=== PATIENT | male | born 1945 | race Caucasian/White ===

== ENCOUNTER → 2018-08-03 | Outpatient (CLI) | payer MEDICARE, OTHER ==
[2018-08-03 08:13] LABS: BASOPHILS # (AUTO) 0.1 10^3/uL (0.0-0.1); BASOPHILS % (AUTO) 1 % (0-10); EOSINOPHILS # (AUTO) 0.3 10^3/uL (0.0-0.3); EOSINOPHILS % (AUTO) 4 % (0-10); HEMATOCRIT 45 % (40-54); HEMOGLOBIN 14.9 G/DL (13.3-17.7); LYMPHOCYTES # (AUTO) 2.3 X 10^3 (1.0-4.0); LYMPHOCYTES % (AUTO) 37 % (12-44); MEAN CORPUSCULAR HEMOGLOBIN 33 PG (25-34); MEAN CORPUSCULAR HGB CONC 33 G/DL (32-36); MEAN CORPUSCULAR VOLUME 102 FL (80-99); MEAN PLATELET VOLUME 9.5 FL (7.4-10.4); MONOCYTES # (AUTO) 0.4 X 10^3 (0.0-1.0); MONOCYTES % (AUTO) 7 % (0-12); NEUTROPHILS # (AUTO) 3.2 X 10^3 (1.8-7.8); NEUTROPHILS % (AUTO) 51 % (42-75); PLATELET COUNT 254 10^3/uL (130-400); RED CELL DISTRIBUTION WIDTH 12.8 % (10.0-14.5); WHITE BLOOD COUNT 6.3 10^3/uL (4.3-11.0)
[2018-08-03 08:48] LABS: ALBUMIN 4.5 GM/DL (3.2-4.5); BILIRUBIN,TOTAL 0.6 MG/DL (0.1-1.0); CALCIUM 9.4 MG/DL (8.5-10.1); CREATININE SERUM 1.27 MG/DL (0.60-1.30); POTASSIUM 4.6 MMOL/L (3.6-5.0); TOTAL PROTEIN 7.5 GM/DL (6.4-8.2)
== END ==
LOC: LAB FS 07:28
PROVIDERS: ATTEND Internal Medicine Hematology & Oncology
DX: C7A.092 Malignant carcinoid tumor of the stomach (principal)
CPT/HCPCS: 36415; 80053; 84260; 85025; 86316

== ENCOUNTER → 2019-09-09 | Outpatient (CLI) | payer MEDICARE, OTHER ==
[~2019-09-09] MED LIST: BARIUM SUSPENSION 2.1% (VANILLA SILQ) 450 ML PO ONE; CATHETER FLUSH 10 ML SYR IV PRN; HOLD METFORMIN - RECEIVED CONTRAST 20 ML VIAL IV SCH; IOHEXOL 350 MG/ML 100 ML (OMNIPAQUE 350) VIAL IV ONE; NS 100 ML (IVPB) BAG IV ONE
[2019-09-09 11:29] LABS: ALBUMIN 4.4 GM/DL (3.2-4.5); BILIRUBIN,TOTAL 0.5 MG/DL (0.1-1.0); CALCIUM 9.2 MG/DL (8.5-10.1); CREATININE SERUM 1.32 MG/DL (0.60-1.30); POTASSIUM 5.2 MMOL/L (3.6-5.0); TOTAL PROTEIN 6.7 GM/DL (6.4-8.2)
--- NOTE | 2019-09-09 12:23 | Diagnostic Imaging Report ---
PROCEDURE: CT abdomen and pelvis with contrast. TECHNIQUE: Multiple contiguous axial images were obtained through the abdomen and pelvis after administration of intravenous contrast. Auto Exposure Controls were utilized during the CT exam to meet ALARA standards for radiation dose reduction. INDICATION: Follow-up cancer of the stomach. Patient has history of carcinoid tumor. COMPARISON: Comparison is made with prior CT from 08/03/2018. FINDINGS: The lung bases are clear of acute infiltrates. No discrete liver mass is identified. The gallbladder is unremarkable. There is no biliary ductal dilatation. The stomach appears to be stable in appearance. Pancreas and spleen are unremarkable. No discrete adrenal or renal mass is seen. Aorta is calcified but not aneurysmal. No central retroperitoneal or mesenteric lymphadenopathy is detected. Small and large bowel loops are normal caliber. There is diverticulosis of the sigmoid but no evidence of acute diverticulitis. There is no ascites. Bony structures are nonacute. The bladder and prostate are unremarkable. No definite pelvic lymphadenopathy is seen. IMPRESSION: Stable CT abdomen and pelvis since exam from 08/03/2018. No abdominal or pelvic lymphadenopathy or evidence of metastatic disease is detected. Dictated by: Dictated on workstation # [id number]
== END ==
LOC: RAD FS 10:25
PROVIDERS: ATTEND Internal Medicine Hematology & Oncology
DX: C7A.092 Malignant carcinoid tumor of the stomach (principal)
CPT/HCPCS: 36415; 74177; 80053

== ENCOUNTER → 2020-09-04 | Outpatient (CLI) | payer MEDICARE, OTHER ==
[~2020-09-04] MED LIST changes: -BARIUM SUSPENSION 2.1% (VANILLA SILQ) 450 ML PO ONE; +DIATRIZOATE MEGLUM/SODIUM 37% 120 ML (GASTROGRAFIN) PO ONE
[2020-09-04 08:37] LABS: BUN/CREATININE RATIO 15; CARBON DIOXIDE 25 MMOL/L (21-32); CHLORIDE 100 MMOL/L (98-107); CREATININE SERUM 1.11 MG/DL (0.60-1.30); GFR ESTIMATED > 60; POTASSIUM 4.1 MMOL/L (3.6-5.0); SODIUM 139 MMOL/L (135-145)
[2020-09-04 08:38] LABS: ALANINE AMINOTRANSFERASE 7 U/L (0-55); ALKALINE PHOSPHATASE 100 U/L (40-136); BILIRUBIN,TOTAL 0.5 MG/DL (0.1-1.0); CALCIUM 9.2 MG/DL (8.5-10.1); GLUCOSE 100 MG/DL (70-105); TOTAL PROTEIN 7.2 GM/DL (6.4-8.2)
[2020-09-04 08:59] LABS: BASOPHILS % (AUTO) 1 % (0-10); EOSINOPHILS % (AUTO) 2 % (0-10); HEMATOCRIT 43 % (40-54); HEMOGLOBIN 14.6 G/DL (13.3-17.7); LYMPHOCYTES # (AUTO) 2.1 X 10^3 (1.0-4.0); LYMPHOCYTES % (AUTO) 26 % (12-44); MEAN CORPUSCULAR HEMOGLOBIN 33 PG (25-34); MEAN CORPUSCULAR HGB CONC 34 G/DL (32-36); MEAN CORPUSCULAR VOLUME 98 FL (80-99); MEAN PLATELET VOLUME 9.5 FL (7.4-10.4); MONOCYTES % (AUTO) 8 % (0-12); NEUTROPHILS # (AUTO) 4.9 X 10^3 (1.8-7.8); NEUTROPHILS % (AUTO) 63 % (42-75); PLATELET COUNT 252 10^3/uL (130-400); WHITE BLOOD COUNT 7.8 10^3/uL (4.3-11.0)
[2020-09-04 09:00] LABS: BASOPHILS # (AUTO) 0.1 10^3/uL (0.0-0.1); EOSINOPHILS # (AUTO) 0.1 10^3/uL (0.0-0.3); MONOCYTES # (AUTO) 0.6 X 10^3 (0.0-1.0)
--- NOTE | 2020-09-04 09:45 | Diagnostic Imaging Report ---
INDICATION: Malignant carcinoid tumor of stomach. TECHNIQUE: Multiple contiguous axial images were obtained through the abdomen and pelvis after administration of intravenous contrast. Auto Exposure Controls were utilized during the CT exam to meet ALARA standards for radiation dose reduction. All CT scans use one or more of the following dose optimizing techniques: automated exposure control, MA and/or KvP adjustment based on patient size and exam type or iterative reconstruction. Comparison made to 09/09/2019 FINDINGS: The visualized portions of the lung bases show some linear scarring in the right base, but no infiltrate or nodule. There is no pleural fluid. There is no free intraperitoneal air. The liver shows no focal lesion. Gallbladder appears unremarkable. The spleen, adrenals, and pancreas show no focal lesions. There is some cortical scarring of both kidneys but no renal mass or hydronephrosis. There is no retroperitoneal mass or adenopathy. There is no ascites or abnormal fluid collection. Visualized bowel loops show no sign of obstruction. There are uncomplicated sigmoid diverticuli. There is some nonspecific thickening of the distal stomach. IMPRESSION: Stable CT abdomen and pelvis compared with 09/09/2019. There is some nonspecific thickening of distal stomach which could be due to under distention, correlate with endoscopy if clinically warranted. There is some chronic cortical scarring of both kidneys. There are uncomplicated sigmoid diverticuli. There is no mass or adenopathy. Dictated by: Dictated on workstation # [id number]
== END ==
LOC: LAB FS 07:35
PROVIDERS: ATTEND Internal Medicine Hematology & Oncology
DX: C7A.092 Malignant carcinoid tumor of the stomach (principal)
CPT/HCPCS: 36415; 74177; 80053; 84260; 85025; 86316

== ENCOUNTER 2022-01-13 09:17 | Emergency (ER) | payer MEDICARE, OTHER ==
[~2022-01-13] VITALS: Ht 180 cm; Wt 49.9 kg
[2022-01-13] MEDS ORDERED: hydrALAZINE (APESOLINE) 20 MG/ML VIAL IV STA (09:34)
[2022-01-13 09:44] LABS: BASOPHILS % (AUTO) 1 % (0-10); EOSINOPHILS # (AUTO) 0.1 10^3/uL (0.0-0.3); EOSINOPHILS % (AUTO) 1 % (0-10); HEMATOCRIT 36 % (40-54); HEMOGLOBIN 12.8 g/dL (13.3-17.7); LYMPHOCYTES % (AUTO) 28 % (12-44); MEAN CORPUSCULAR HEMOGLOBIN 35 pg (25-34); MEAN CORPUSCULAR HGB CONC 35 g/dL (32-36); MEAN CORPUSCULAR VOLUME 100 fL (80-99); MEAN PLATELET VOLUME 9.5 fL (9.0-12.2); MONOCYTES # (AUTO) 0.5 10^3/uL (0.0-1.0); MONOCYTES % (AUTO) 7 % (0-12); NEUTROPHILS # (AUTO) 4.6 10^3/uL (1.8-7.8); NEUTROPHILS % (AUTO) 64 % (42-75); PLATELET COUNT 190 10^3/uL (130-400); WHITE BLOOD COUNT 7.3 10^3/uL (4.3-11.0)
--- NOTE | 2022-01-13 09:52 | ED General ---
General Chief Complaint: Cardiac/General Problems Stated Complaint: ELEV BP Source of Information: Patient History of Present Illness Date Seen by Provider: Jan 13, 2022 Time Seen by Provider: 09:21 Initial Comments 76-year-old male presenting with complaints of elevated blood pressure. He states that he is started on medication on Friday of clonidine twice a day. He has had improved blood pressure last night down under 150 systolic. He states he did not sleep well overnight and then this morning his blood pressure was 225/125. He was having dizziness with this. Denies having headache, chest pain, nausea, vomiting, change in vision. After he took his clonidine around 830 he has had the blood pressure come down. His dizziness resolved. However he was told by the clinic if his blood pressure went above 180 he should come to the emergency department. An anesthesiologist recently told him that he could have a stroke with high blood pressure. Prior to having problems with his sh oulder he had not routinely been seen or followed up with the clinic so he is unsure how long his blood pressure may have been running high. Severity: Mild (dizziness this am) Modifying Factors: improves with Medication Associated Systoms: No Chest Pain, No Cough, No Diaphoresis, No Fever/Chills, No Headaches, No Loss of Appetite, No Malaise, No Nausea/Vomiting, No Rash, No Seizure, No Shortness of Air, No Syncope, No Weakness Allergies and Home Medications Allergies Coded Allergies: No Allergy Information Available (Unverified , 08/03/18) Patient Home Medication List Home Medication List Reviewed: Yes Review of Systems Review of Systems Constitutional: No chills; dizziness (this am with elevated blood pressure); No fever EENTM: no symptoms reported Respiratory: no symptoms reported Cardiovascular: no symptoms reported Gastrointestinal: no symptoms reported Genitourinary: no symptoms reported Musculoskeletal: joint pain (chronic pain to right shoulder and had recent procedure on it. wearing sling) Skin: no symptoms reported Psychiatric/Neurological: No Symptoms Reported Hematologic/Lymphatic: No Symptoms Reported Past Kzbyluq-Cuqdzf-Ghlvbx Hx Patient Social History Tobacco Use?: Yes Tobacco type used: Cigarettes Smoking Status: Current Everyday Smoker Substance use?: No Past Medical History Surgery/Hospitalization HX: Hypertension, Right shoulder arthritis Surgeries: Yes Orthopedic Physical Exam Vital Signs Vital Signs - First Documented 01/13/22 09:26 Temp 36.3 Pulse 77 Resp 17 B/P (MAP) 193/87 (122) Pulse Ox 98 O2 Delivery Room Air Capillary Refill : Height, Weight, BMI Height: '" Weight: lbs. oz. kg; BMI Method: General Appearance: No Apparent Distress, WD/WN HEENT: PERRL/EOMI, Pharynx Normal Neck: Full Range of Motion, Normal Inspection, Non Tender, Supple Respiratory: Chest Non Tender, Lungs Clear, Normal Breath Sounds, No Accessory Muscle Use, No Respiratory Distress Cardiovascular: Regular Rate, Rhythm, Normal Peripheral Pulses Gastrointestinal: Normal Bowel Sounds, No Pulsatile Mass, Non Tender, Soft Extremity: Normal Capillary Refill, Normal Inspection, No Pedal Edema Neurologic/Psychiatric: Alert, Oriented x3, No Motor/Sensory Deficits, Normal Mood/Affect, pasta maker II-XII Norm as Tested Skin: Normal Color, Warm/Dry Progress/Results/Core Measures Suspected Sepsis SIRS Temperature: Pulse: Respiratory Rate: Laboratory Tests 01/13/22 09:41: White Blood Count 7.3 Blood Pressure / Mean: Laboratory Tests 01/13/22 09:41: Creatinine 1.21, INR Comment 1.0, Platelet Count 190, Total Bilirubin 0.5 Results/Orders Lab Results Laboratory Tests Test 01/13/22 09:41 01/13/22 09:50 Range/Units White Blood Count 7.3 4.3-11.0 10^3/uL Red Blood Count 3.65 L 4.30-5.52 10^6/uL Hemoglobin 12.8 L 13.3-17.7 g/dL Hematocrit 36 L 40-54 % Mean Corpuscular Volume 100 H 80-99 fL Mean Corpuscular Hemoglobin 35 H 25-34 pg Mean Corpuscular Hemoglobin Concent 35 32-36 g/dL Red Cell Distribution Width 12.4 10.0-14.5 % Platelet Count 190 130-400 10^3/uL Mean Platelet Volume 9.5 9.0-12.2 fL Immature Granulocyte % (Auto) 0 % Neutrophils (%) (Auto) 64 42-75 % Lymphocytes (%) (Auto) 28 12-44 % Monocytes (%) (Auto) 7 0-12 % Eosinophils (%) (Auto) 1 0-10 % Basophils (%) (Auto) 1 0-10 % Neutrophils # (Auto) 4.6 1.8-7.8 10^3/uL Lymphocytes # (Auto) 2.0 1.0-4.0 10^3/uL Monocytes # (Auto) 0.5 0.0-1.0 10^3/uL Eosinophils # (Auto) 0.1 0.0-0.3 10^3/uL Basophils # (Auto) 0.0 0.0-0.1 10^3/uL Immature Granulocyte # (Auto) 0.0 0.0-0.1 10^3/uL Prothrombin Time 13.3 12.2-14.7 SEC INR Comment 1.0 0.8-1.4 Activated Partial Thromboplast Time 25 24-35 SEC Sodium Level 136 135-145 MMOL/L Potassium Level 4.0 3.6-5.0 MMOL/L Chloride Level 101 98-107 MMOL/L Carbon Dioxide Level 23 21-32 MMOL/L Anion Gap 12 5-14 MMOL/L Blood Urea Nitrogen 18 7-18 MG/DL Creatinine 1.21 0.60-1.30 MG/DL Estimat Glomerular Filtration Rate 63 BUN/Creatinine Ratio 15 Glucose Level 86 70-105 MG/DL Calcium Level 8.6 8.5-10.1 MG/DL Corrected Calcium 9.0 8.5-10.1 MG/DL Magnesium Level 1.5 L 1.6-2.4 MG/DL Total Bilirubin 0.5 0.1-1.0 MG/DL Aspartate Amino Transf (AST/SGOT) 17 5-34 U/L Alanine Aminotransferase (ALT/SGPT) 8 0-55 U/L Alkaline Phosphatase 62 40-136 U/L Troponin I < 0.30 <0.30 NG/ML Pro-B-Type Natriuretic Peptide 649.7 H <125.0 PG/ML Total Protein 5.8 L 6.4-8.2 GM/DL Albumin 3.5 3.2-4.5 GM/DL Urine Color YELLOW Urine Clarity CLEAR Urine pH 5.5 5-9 Urine Specific [place] 1.020 1.016-1.022 Urine Protein NEGATIVE NEGATIVE Urine Glucose (UA) NEGATIVE NEGATIVE Urine Ketones NEGATIVE NEGATIVE Urine Nitrite NEGATIVE NEGATIVE Urine Bilirubin NEGATIVE NEGATIVE Urine Urobilinogen 0.2 < = 1.0 MG/DL Urine Leukocyte Esterase NEGATIVE NEGATIVE Urine RBC (Auto) NEGATIVE NEGATIVE Urine RBC NONE /HPF Urine WBC RARE /HPF Urine Crystals NONE /LPF Urine Bacteria NEGATIVE /HPF Urine Casts NONE /LPF Urine Mucus SMALL H /LPF Urine Culture Indicated NO My Orders Orders - BETSY SIMONS MD Cbc With Automated Diff (01/13/22:34) Magnesium (01/13/22:34) Ekg Tracing (01/13/22:34) Comprehensive Metabolic Panel (01/13/22:34) Protime With Inr (01/13/22:34) Partial Thromboplastin Time (01/13/22:34) O2 (01/13/22:34) Monitor-Rhythm Ecg Trace Only (01/13/22:34) Ed Iv/Invasive Line Start (01/13/22:34) Troponin I Fs (01/13/22:34) Probnp Fs (01/13/22:34) Hydralazine Injection (Apresoline Inject (01/13/22:34) Ua Culture If Indicated (01/13/22:34) Vital Signs/I&O 01/13/22 01/13/22 01/13/22 09:26 09:26 10:39 Temp 36.3 36.2 Pulse 77 76 Resp 17 15 B/P (MAP) 193/87 (122) 138/76 Pulse Ox 98 100 O2 Delivery Room Air Room Air Room Air Capillary Refill : Progress Note #1: Progress Note Counseled patient on some balance that it would take several doses sometimes up to a week or more after taking the blood pressure medicine regularly to keep it at a lower level. Since he is only had 4 doses he will have elevated blood pressure in between when he takes the medicine. He denies any symptoms current ly of dizziness, headache, nausea, vomiting, chest pain, abdominal pain. Will check basic labs and cardiac enzymes. Administer hydralazine 10 mg IV as his blood pressure is 193/95. See if that helps in addition to the clonidine he had already taken at 830 this morning. Progress Note #2: Progress Note Blood pressure was improving even before the hydralazine was administered. Labs and electrocardiogram are all stable without acute findings of endorgan damage from the high blood pressure. Patient's blood pressure was improving and he continued to have no further symptoms such as headache, vision change, chest pain, nausea, vomiting, weakness in his arms or legs ECG Initial ECG Impression Date: Jan 13, 2022 Initial ECG Impression Time: 10:06 Initial ECG Rate: 60 Initial ECG Rhythm: Normal Sinus Initial ECG Comparisson: No Previous ECG Available Comment Normal sinus rhythm with a heart rate of [address] elevation. [place] interval 121 ms. QT interval 396 ms with a QTc interval 397 ms. There is no prior tracing available for comparison. Departure Impression Primary Impression: Hypertension Qualified Codes: I10 - Essential (primary) hypertension Disposition: 01 HOME, SELF-CARE Condition: Improved Departure-Patient Inst. Decision time for Depature: 10:28 Referrals: THANIA OZUNA DO (PCP) Primary Care Physician Patient Instructions: High Blood Pressure ED, Medicines for High Blood Pres sure, High Blood Pressure Emergencies, Controlling Your Blood Pressure Through Lifestyle, DASH Diet Add. Discharge Instructions: Continue taking the Clonidine to help control your blood pressure. Keep follow up this week with clinic for recheck. Be seen immediately if you have high blood pressure associated with headache, nausea/vomiting, blurred vision, chest pain, numbness or weakness in arms/legs (especially if this is on one side of your body only) All discharge instructions reviewed with patient and/or family. Voiced understanding. BETSY SIMONS MD Jan 13, 2022 09:52
[2022-01-13 10:01] LABS: BILIRUBIN,URINE NEGATIVE (NEGATIVE); CLARITY,URINE CLEAR; COLOR,URINE YELLOW; GLUCOSE, URINE (UA) NEGATIVE (NEGATIVE); KETONES,URINE NEGATIVE (NEGATIVE); LEUKOCYTE ESTERASE ,URINE NEGATIVE (NEGATIVE); NITRITE,URINE NEGATIVE (NEGATIVE); PH,URINE 5.5 (5-9); PROTEIN,URINE NEGATIVE (NEGATIVE)
[2022-01-13 10:01] LABS: PROTHROMBIN TIME PATIENT 13.3 SEC (12.2-14.7)
[2022-01-13 10:04] LABS: ALBUMIN 3.5 GM/DL (3.2-4.5); BILIRUBIN,TOTAL 0.5 MG/DL (0.1-1.0); CALCIUM 8.6 MG/DL (8.5-10.1); CREATININE SERUM 1.21 MG/DL (0.60-1.30); MAGNESIUM 1.5 MG/DL (1.6-2.4); TOTAL PROTEIN 5.8 GM/DL (6.4-8.2)
[2022-01-13 10:04] LABS: BACTERIA,URINE NEGATIVE /HPF; WBC,URINE RARE /HPF
[2022-01-13 10:39] VITALS: BP 138/76
== END 2022-01-13 10:39 | disposition home or self-care (01) ==
LOC: EDUNIT# 09:17 → ER FS 09:19
DX: I10 Essential (primary) hypertension (principal); F17.210 Nicotine dependence, cigarettes, uncomplicated; Z28.310 Unvaccinated for COVID-19; Z79.899 Other long term (current) drug therapy
CPT/HCPCS: 36415; 80053; 81000; 83735; 83880; 84484; 85025; 85610; 85730; 93005; 93041; 96374

== ENCOUNTER 2022-03-22 15:23 | Emergency (ER) | payer MEDICARE, OTHER ==
[~2022-03-22] VITALS: Ht 180.3 cm; Wt 45.4 kg
--- NOTE | 2022-03-22 15:37 | ED General ---
General Chief Complaint: Dizziness/Syncope Stated Complaint: DIZZY,BACK PAIN History of Present Illness Date Seen by Provider: Mar 22, 2022 Time Seen by Provider: 15:37 Initial Comments 76-year-old male with PMH of alcoholism/blood pressure issues/malnutrition, is here with complaints of lightheadedness which has been going on for the past couple of days. Patient does not give much more information than this. His is the one that give us more information stating that he drinks a bottle of vodka a day straight from the bottle, and he has no appetite at all and does not drink or eat much, other than a few bites. states that patient has seen his PCP regarding this issue and was given medication that stimulates his appetite, but patient only takes it once or twice a week instead of daily as he is supposed to. Patient feels extremely tired and lethargic with lightheadednes s. Patient did not eat anything today and only drank a few sips of water at home. Denies chest pain, fever, palpitations, ringing in his ears, blurry vision, abdominal pain, diarrhea. Allergies and Home Medications Allergies Coded Allergies: No Known Drug Allergies (Unverified , 03/22/22) Patient Home Medication List Home Medication List Reviewed: Yes Review of Systems Review of Systems Constitutional: dizziness, malaise EENTM: no symptoms reported Respiratory: no symptoms reported Cardiovascular: no symptoms reported Gastrointestinal: no symptoms reported Genitourinary: no symptoms reported Musculoskeletal: no symptoms reported Skin: no symptoms reported Psychiatric/Neurological: No Symptoms Reported Hematologic/Lymphatic: No Symptoms Reported Immunological/Allergic: no symptoms reported Past Cmnxqeh-Yyhbuv-Csdmny Hx Past Medical History Surgery/Hospitalization HX: Hypertension, Right shoulder arthritis Surgeries: Yes Orthopedic Physical Exam Vital Signs Vital Signs - First Documented 03/22/22 15:23 Temp 36.7 Pulse 82 Resp 16 B/P (MAP) 90/60 (70) Pulse Ox 98 O2 Delivery Room Air Capillary Refill : Height, Weight, BMI Height: '" Weight: lbs. oz. kg; 15.00 BMI Method: General Appearance: No Apparent Distress, WD/WN, Cachetic HEENT: PERRL/EOMI, Normal ENT Inspection Neck: Full Range of Motion, Supple Respiratory: Chest Non Tender, Lungs Clear, Normal Breath Sounds, No Accessory Muscle Use, No Respiratory Distress Cardiovascular: Regular Rate, Rhythm Gastrointestinal: Normal Bowel Sounds, Non Tender, Soft Back: Normal Inspection Extremity: Normal Range of Motion Neurologic/Psychiatric: Alert, Oriented x3, No Motor/Sensory Deficits, Normal Mood/Affect, application defense manager II-XII Norm as Tested Skin: Normal Color, Other (Tenting of skin present and dry mucous membranes) Lymphatic: No Adenopathy Focused Exam Lactate Level 03/22/22 15:45: Lactic Acid Level 1.74 Lactic Acid Level Laboratory Tests Test 03/22/22 15:45 Lactic Acid Level 1.74 MMOL/L (0.50-2.00) Progress/Results/Core Measures Suspected Sepsis SIRS Temperature: Pulse: Respiratory Rate: Laboratory Tests 03/22/22 15:45: White Blood Count 11.4H Blood Pressure / Mean: 03/22/22 15:45: Lactic Acid Level 1.74 Laboratory Tests 03/22/22 15:45: Creatinine 2.46H, Platelet Count 498H, Total Bilirubin 0.3 Results/Orders Lab Results Laboratory Tests Test 03/22/22 15:45 03/22/22 18:17 Range/Units White Blood Count 11.4 H 4.3-11.0 10^3/uL Red Blood Count 4.21 L 4.30-5.52 10^6/uL Hemoglobin 14.3 13.3-17.7 g/dL Hematocrit 41 40-54 % Mean Corpuscular Volume 97 80-99 fL Mean Corpuscular Hemoglobin 34 25-34 pg Mean Corpuscular Hemoglobin Concent 35 32-36 g/dL Red Cell Distribution Width 12.1 10.0-14.5 % Platelet Count 498 H 130-400 10^3/uL Mean Platelet Volume 9.8 9.0-12.2 fL Immature Granulocyte % (Auto) 1 % Neutrophils (%) (Auto) 66 42-75 % Lymphocytes (%) (Auto) 25 12-44 % Monocytes (%) (Auto) 7 0-12 % Eosinophils (%) (Auto) 1 0-10 % Basophils (%) (Auto) 0 0-10 % Neutrophils # (Auto) 7.6 1.8-7.8 10^3/uL Lymphocytes # (Auto) 2.8 1.0-4.0 10^3/uL Monocytes # (Auto) 0.9 0.0-1.0 10^3/uL Eosinophils # (Auto) 0.1 0.0-0.3 10^3/uL Basophils # (Auto) 0.1 0.0-0.1 10^3/uL Immature Granulocyte # (Auto) 0.1 0.0-0.1 10^3/uL Sodium Level 140 135-145 MMOL/L Potassium Level 5.0 3.6-5.0 MMOL/L Chloride Level 99 98-107 MMOL/L Carbon Dioxide Level 20 L 21-32 MMOL/L Anion Gap 21 H 5-14 MMOL/L Blood Urea Nitrogen 80 H 7-18 MG/DL Creatinine 2.46 H 0.60-1.30 MG/DL Estimat Glomerular Filtration Rate 27 BUN/Creatinine Ratio 33 Glucose Level 82 70-105 MG/DL Lactic Acid Level 1.74 0.50-2.00 MMOL/L Calcium Level 9.6 8.5-10.1 MG/DL Corrected Calcium 9.9 8.5-10.1 MG/DL Magnesium Level 2.2 1.6-2.4 MG/DL Total Bilirubin 0.3 0.1-1.0 MG/DL Aspartate Amino Transf (AST/SGOT) 13 5-34 U/L Alanine Aminotransferase (ALT/SGPT) 11 0-55 U/L Alkaline Phosphatase 106 40-136 U/L Troponin I < 0.30 <0.30 NG/ML Total Protein 6.9 6.4-8.2 GM/DL Albumin 3.6 3.2-4.5 GM/DL Urine Color YELLOW Urine Clarity CLEAR Urine pH 5.5 5-9 Urine Specific [place] 1.020 1.016-1.022 Urine Protein NEGATIVE NEGATIVE Urine Glucose (UA) NEGATIVE NEGATIVE Urine Ketones TRACE H NEGATIVE Urine Nitrite NEGATIVE NEGATIVE Urine Bilirubin NEGATIVE NEGATIVE Urine Urobilinogen 0.2 < = 1.0 MG/DL Urine Leukocyte Esterase NEGATIVE NEGATIVE Urine RBC (Auto) NEGATIVE NEGATIVE Urine RBC NONE /HPF Urine WBC NONE /HPF Urine Squamous Epithelial Cells 2-5 /HPF Urine Crystals NONE /LPF Urine Bacteria TRACE /HPF Urine Casts NONE /LPF Urine Mucus NEGATIVE /LPF Urine Culture Indicated NO Urine Opiates Screen NEGATIVE NEGATIVE Urine Oxycodone Screen NEGATIVE NEGATIVE Urine Methadone Screen NEGATIVE NEGATIVE Urine Propoxyphene Screen NEGATIVE NEGATIVE Urine Barbiturates Screen NEGATIVE NEGATIVE Ur Tricyclic Antidepressants Screen NEGATIVE NEGATIVE Urine Phencyclidine Screen NEGATIVE NEGATIVE Urine Amphetamines Screen NEGATIVE NEGATIVE Urine Methamphetamines Screen NEGATIVE NEGATIVE Urine Benzodiazepines Screen NEGATIVE NEGATIVE Urine Cocaine Screen NEGATIVE NEGATIVE Urine Cannabinoids Screen NEGATIVE NEGATIVE My Orders Orders - AMITA RENE MD Ct Head Wo (03/22/22 15:38) Cbc With Automated Diff (03/22/22 15:38) Comprehensive Metabolic Panel (03/22/22 15:38) Drug Screen Stat (Urine) (03/22/22 15:38) Lactic Acid Analyzer (03/22/22 15:38) Magnesium (03/22/22 15:38) Ua Culture If Indicated (03/22/22 15:38) Troponin I Fs (03/22/22 15:38) Continuous Ekg Monitoring (03/22/22 15:38) Ekg Tracing (03/22/22 15:38) Procalcitonin (Pct) (03/22/22 15:44) Ed Iv/Invasive Line Start (03/22/22 15:48) Ns Iv 1000 Ml (Sodium Chloride 0.9%) (03/22/22 16:00) Vital Signs/I&O 03/22/22 15:23 Temp 36.7 Pulse 82 Resp 16 B/P (MAP) 90/60 (70) Pulse Ox 98 O2 Delivery Room Air Capillary Refill : Progress Note : Progress Note 1. DEHYDRATION DUE TO ALCOHOLISM: - CT HEAD: see report - Labs unremarkable except for creatinine level which is elevated at 2.46. -UA is normal - NS IVF bolus STAT in ER. After this, pt's dizziness resolved. -Advised to stop drinking alcohol, increase fluid intake that is nonalcoholic, increased fluid intake. -Follow-up with PCP in 3 to 7 days -The patient was seen in the ED, and treated appropriately to presentation at a specific point in time. Patient is informed that there is a possibility that disease and illness can evolve and change in acuity rapidly or slowly after patient is discharged from the ER. Precautionary advice given to the patient for immediate return to ER if symptoms worsen or do not resolve, and to seek emerg ency care sooner rather than later. Pt also advised on the importance of PCP follow up and compliance with management and follow up plan with PCP and/or specialist, as this is part of the management plan. Pt verbally expressed understanding. Departure Impression Primary Impression: Dehydration Additional Impressions: Alcoholism Malnutrition Qualified Codes: E46 - Unspecified protein-calorie malnutrition Disposition: 01 HOME, SELF-CARE Condition: Improved Departure-Patient Inst. Referrals: THANIA OZUNA DO (PCP) Primary Care Physician GAGAN ISAACS APRN (Family) Primary Care Physician Patient Instructions: Why Water Is Important to Health, Alcohol Use Disorder ED, Dehydration, Adult ED, Vertigo (a Type of Dizziness) (DC) Add. Discharge Instructions: -Advised to stop drinking alcohol, increase fluid intake that is nonalcoholic, increased fluid intake. -Follow-up with PCP in 3 to 7 days All discharge instructions reviewed with patient and/or family. Voiced understanding. AMITA RENE MD Mar 22, 2022 15:37
[2022-03-22 15:52] LABS: BASOPHILS # (AUTO) 0.1 10^3/uL (0.0-0.1); BASOPHILS % (AUTO) 0 % (0-10); EOSINOPHILS # (AUTO) 0.1 10^3/uL (0.0-0.3); EOSINOPHILS % (AUTO) 1 % (0-10); HEMATOCRIT 41 % (40-54); HEMOGLOBIN 14.3 g/dL (13.3-17.7); LYMPHOCYTES # (AUTO) 2.8 10^3/uL (1.0-4.0); LYMPHOCYTES % (AUTO) 25 % (12-44); MEAN CORPUSCULAR HEMOGLOBIN 34 pg (25-34); MEAN CORPUSCULAR HGB CONC 35 g/dL (32-36); MEAN CORPUSCULAR VOLUME 97 fL (80-99); MEAN PLATELET VOLUME 9.8 fL (9.0-12.2); MONOCYTES # (AUTO) 0.9 10^3/uL (0.0-1.0); MONOCYTES % (AUTO) 7 % (0-12); NEUTROPHILS # (AUTO) 7.6 10^3/uL (1.8-7.8); NEUTROPHILS % (AUTO) 66 % (42-75); PLATELET COUNT 498 10^3/uL (130-400); WHITE BLOOD COUNT 11.4 10^3/uL (4.3-11.0)
[2022-03-22] MEDS ORDERED: NS IV 1000 ML 1,000 ML IV SCH (16:00)
[2022-03-22 16:22] LABS: ALANINE AMINOTRANSFERASE 11 U/L (0-55); ALBUMIN 3.6 GM/DL (3.2-4.5); ALKALINE PHOSPHATASE 106 U/L (40-136); BILIRUBIN,TOTAL 0.3 MG/DL (0.1-1.0); BUN/CREATININE RATIO 33; CALCIUM 9.6 MG/DL (8.5-10.1); CARBON DIOXIDE 20 MMOL/L (21-32); CHLORIDE 99 MMOL/L (98-107); CREATININE SERUM 2.46 MG/DL (0.60-1.30); GFR ESTIMATED 27; GLUCOSE 82 MG/DL (70-105); MAGNESIUM 2.2 MG/DL (1.6-2.4); SODIUM 140 MMOL/L (135-145); TOTAL PROTEIN 6.9 GM/DL (6.4-8.2)
--- NOTE | 2022-03-22 16:42 | Diagnostic Imaging Report ---
PROCEDURE: CT head without contrast. TECHNIQUE: Multiple contiguous axial images were obtained through the brain without the use of intravenous contrast. Auto Exposure Controls were utilized during the CT exam to meet ALARA standards for radiation dose reduction. INDICATION: 76-year-old male with near syncopal episodes. COMPARISONS: None. FINDINGS: The midline structures are not displaced. There are senescent changes to the brain with involutional changes and generalized atrophy, slightly advanced for age. Tyler-white differentiation is maintained, and there is no sulcal effacement. There are no abnormal extra-axial fluid collections or hemorrhage. Basilar cisterns appear normal. Sinuses show moderate chronic maxillary sinus disease. Orbits and mastoid air cells are grossly unremarkable. Bone windows show no calvarial changes. IMPRESSION: Senescent brain with involutional changes and generalized atrophy with background chronic areas of microvascular ischemic change, but no acute findings identified by nonenhanced CT criteria. Dictated by: Dictated on workstation # [id number]
[2022-03-22 18:19] LABS: BILIRUBIN,URINE NEGATIVE (NEGATIVE); CLARITY,URINE CLEAR; COLOR,URINE YELLOW; GLUCOSE, URINE (UA) NEGATIVE (NEGATIVE); KETONES,URINE TRACE (NEGATIVE); LEUKOCYTE ESTERASE ,URINE NEGATIVE (NEGATIVE); NITRITE,URINE NEGATIVE (NEGATIVE); PH,URINE 5.5 (5-9); PROTEIN,URINE NEGATIVE (NEGATIVE)
[2022-03-22 18:22] LABS: BACTERIA,URINE TRACE /HPF
[2022-03-22 18:32] LABS: AMPHETAMINE SCREEN, URINE NEGATIVE (NEGATIVE); BARBITURATE SCREEN URINE NEGATIVE (NEGATIVE); BENZODIAZEPINES SCREEN URINE NEGATIVE (NEGATIVE); CANNABINOID SCREEN, URINE NEGATIVE (NEGATIVE); COCAINE SCREEN URINE NEGATIVE (NEGATIVE); METHADONE STAT NEGATIVE (NEGATIVE); OPIATE SCREEN URINE NEGATIVE (NEGATIVE); OXYCODONE STAT NEGATIVE (NEGATIVE); PROPOXYPHENE STAT NEGATIVE (NEGATIVE); TRICYCLIC ANTIDEPRESSANTS SCRE NEGATIVE (NEGATIVE)
[2022-03-22 19:14] VITALS: BP 121/69
== END 2022-03-22 19:20 | disposition home or self-care (01) ==
LOC: EDUNIT# 15:23 → ER FS 15:24
DX: E86.0 Dehydration (principal); E46 Unspecified protein-calorie malnutrition; F10.20 Alcohol dependence, uncomplicated
CPT/HCPCS: 36415; 70450; 80053; 80306; 81000; 83605; 83735; 84145; 84484; 85025; 93005

== ENCOUNTER → 2022-11-12 | Outpatient (CLI) | payer MEDICARE, OTHER ==
[~2022-11-12] MED LIST changes: -CATHETER FLUSH 10 ML SYR IV PRN; +CELE-63 PO; +CHOL50005 PO; -DIATRIZOATE MEGLUM/SODIUM 37% 120 ML (GASTROGRAFIN) PO ONE; +GABA300C PO; -HOLD METFORMIN - RECEIVED CONTRAST 20 ML VIAL IV SCH; -IOHEXOL 350 MG/ML 100 ML (OMNIPAQUE 350) VIAL IV ONE; -NS 100 ML (IVPB) BAG IV ONE; +PANT40TA52 PO; +SUCR1ORA15 PO
[2022-11-12 11:24] LABS: BASOPHILS # (AUTO) 0.1 10^3/uL (0.0-0.1); BASOPHILS % (AUTO) 1 % (0-10); EOSINOPHILS # (AUTO) 0.4 10^3/uL (0.0-0.3); EOSINOPHILS % (AUTO) 4 % (0-10); HEMATOCRIT 36 % (40-54); LYMPHOCYTES # (AUTO) 2.9 10^3/uL (1.0-4.0); LYMPHOCYTES % (AUTO) 29 % (12-44); MEAN CORPUSCULAR HEMOGLOBIN 34 pg (25-34); MEAN CORPUSCULAR HGB CONC 34 g/dL (32-36); MEAN CORPUSCULAR VOLUME 99 fL (80-99); MEAN PLATELET VOLUME 9.9 fL (9.0-12.2); MONOCYTES # (AUTO) 0.5 10^3/uL (0.0-1.0); MONOCYTES % (AUTO) 5 % (0-12); NEUTROPHILS # (AUTO) 6.2 10^3/uL (1.8-7.8); NEUTROPHILS % (AUTO) 62 % (42-75); PLATELET COUNT 373 10^3/uL (130-400); WHITE BLOOD COUNT 10.1 10^3/uL (4.3-11.0)
[2022-11-12 11:26] LABS: ALBUMIN 3.7 GM/DL (3.2-4.5); BILIRUBIN,TOTAL 0.4 MG/DL (0.1-1.0); CALCIUM 9.5 MG/DL (8.5-10.1); CREATININE SERUM 3.14 MG/DL (0.60-1.30); TOTAL PROTEIN 6.3 GM/DL (6.4-8.2)
== END ==
LOC: LAB FS 09:14
PROVIDERS: ATTEND Nurse Practitioner Family
DX: E87.5 Hyperkalemia (principal); R19.7 Diarrhea, unspecified; R19.4 Change in bowel habit
CPT/HCPCS: 36415; 80053; 85025

== ENCOUNTER 2022-11-14 18:08 | Observation (INO) | payer MEDICARE, OTHER ==
[~2022-11-14] VITALS: Ht 177.8 cm; Wt 47.2 kg
--- NOTE | 2022-11-14 18:24 | ED General ---
General Chief Complaint: Cardiac/General Problems Stated Complaint: IRR LAB WORK Source of Information: Patient Exam Limitations: No Limitations History of Present Illness Date Seen by Provider: Nov 14, 2022 Time Seen by Provider: 18:24 Initial Comments Patient is a 77-year-old male with a history of alcohol abuse who presents to ED for elevated troponin. Patient was getting lab work drawn today around 230 pm. Patient was found to have an elevated troponin. Patient states he has been 3 weeks sober from alcohol. About a week ago patient had some dry heaving and diarrhea but those symptoms improved. He states he is drinking more fluids at this time but has no appetite. Patient has no current complaints such as chest pain short of breath, dizziness, lightheadedness, abdominal pain. No history of kidney disease. History of hypertension was on lisinopril but stopped taking medication secondary to low blood pressure. History of smoking. Denies history of high cholesterol, diabetes. No history of coronary artery disease, COPD or asthma. Denies of any shortness of breath, cough or wheezing, body aches, chills. States he urinated 3 times today. Allergies and Home Medications Allergies Coded Allergies: No Known Drug Allergies (Unverified , 03/22/22) Patient Home Medication List Home Medication List Reviewed: Yes Review of Systems Review of Systems Constitutional: No chills, No diaphoresis, No fever, No malaise, No weakness EENTM: No blurred vision, No double vision, No hoarseness, No mouth pain, No mouth swelling Respiratory: No cough, No dyspnea on exertion Gastrointestinal: No abdominal pain, No diarrhea, No nausea, No vomiting Genitourinary: No discharge Musculoskeletal: No back pain, No joint pain Skin: No change in color, No change in hair/nails All Other Systems Reviewed Negative Unless Noted: Yes Past Shizqgi-Upslpg-Euohjp Hx Patient Social History Tobacco Use?: Yes Tobacco type used: Cigarettes Substance use?: No Alcohol Use?: No Past Medical History Surgery/Hospitalization HX: Hypertension, Right shoulder arthritis Surgeries: Yes Orthopedic Physical Exam Vital Signs Vital Signs - First Documented 11/14/22 18:15 Temp 36.0 Pulse 66 B/P (MAP) 126/81 (96) Pulse Ox 100 O2 Delivery Room Air Capillary Refill : Height, Weight, BMI Height: '" Weight: lbs. oz. kg; 13.00 BMI Method: General Appearance: No Apparent Distress, WD/WN Eyes: Bilateral Eye Normal Inspection, Bilateral Eye PERRL, Bilateral Eye EOMI HEENT: PERRL/EOMI, TMs Normal, Normal ENT Inspection, Pharynx Normal Neck: Full Range of Motion, Normal Inspection, Non Tender, Supple Respiratory: Chest Non Tender, Lungs Clear, Normal Breath Sounds, No Accessory Muscle Use, No Respiratory Distress Cardiovascular: Regular Rate, Rhythm, No Edema, No Gallop, No JVD, No Murmur Gastrointestinal: Normal Bowel Sounds, No Organomegaly, No Pulsatile Mass, Non Tender Back: Normal Inspection, No CVA Tenderness, No Vertebral Tenderness Extremity: Normal Capillary Refill, Normal Inspection Neurologic/Psychiatric: Alert, Oriented x3, No Motor/Sensory Deficits, Normal 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/Affect, 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 Norm as Tested Skin: Normal Color, Warm/Dry Progress/Results/Core Measures Suspected Sepsis SIRS Temperature: Pulse: Respiratory Rate: Laboratory Tests 11/14/22 18:20: White Blood Count 8.4 Blood Pressure / Mean: Laboratory Tests 11/14/22 18:20: Creatinine 2.91H, INR Comment 1.1, Platelet Count 293, Total Bilirubin 0.3 Results/Orders Lab Results Laboratory Tests Test 11/14/22 18:20 Range/Units White Blood Count 8.4 4.3-11.0 10^3/uL Red Blood Count 3.21 L 4.30-5.52 10^6/uL Hemoglobin 10.7 L 13.3-17.7 g/dL Hematocrit 32 L 40-54 % Mean Corpuscular Volume 99 80-99 fL Mean Corpuscular Hemoglobin 33 25-34 pg Mean Corpuscular Hemoglobin Concent 34 32-36 g/dL Red Cell Distribution Width 12.4 10.0-14.5 % Platelet Count 293 130-400 10^3/uL Mean Platelet Volume 9.8 9.0-12.2 fL Immature Granulocyte % (Auto) 0 % Neutrophils (%) (Auto) 62 42-75 % Lymphocytes (%) (Auto) 27 12-44 % Monocytes (%) (Auto) 6 0-12 % Eosinophils (%) (Auto) 4 0-10 % Basophils (%) (Auto) 1 0-10 % Neutrophils # (Auto) 5.2 1.8-7.8 10^3/uL Lymphocytes # (Auto) 2.3 1.0-4.0 10^3/uL Monocytes # (Auto) 0.5 0.0-1.0 10^3/uL Eosinophils # (Auto) 0.3 0.0-0.3 10^3/uL Basophils # (Auto) 0.0 0.0-0.1 10^3/uL Immature Granulocyte # (Auto) 0.0 0.0-0.1 10^3/uL Prothrombin Time 14.7 12.2-14.7 SEC INR Comment 1.1 0.8-1.4 Activated Partial Thromboplast Time 27 24-35 SEC Sodium Level 130 L 135-145 MMOL/L Potassium Level 4.7 3.6-5.0 MMOL/L Chloride Level 103 98-107 MMOL/L Carbon Dioxide Level 16 L 21-32 MMOL/L Anion Gap 11 5-14 MMOL/L Blood Urea Nitrogen 54 H 7-18 MG/DL Creatinine 2.91 H 0.60-1.30 MG/DL Estimat Glomerular Filtration Rate 22 BUN/Creatinine Ratio 19 Glucose Level 115 H 70-105 MG/DL Calcium Level 9.4 8.5-10.1 MG/DL Corrected Calcium 9.6 8.5-10.1 MG/DL Magnesium Level 2.0 1.6-2.4 MG/DL Total Bilirubin 0.3 0.1-1.0 MG/DL Aspartate Amino Transf (AST/SGOT) 14 5-34 U/L Alanine Aminotransferase (ALT/SGPT) 9 0-55 U/L Alkaline Phosphatase 105 40-136 U/L Myoglobin 67.5 10.0-92.0 NG/ML Troponin I < 0.028 <0.028 NG/ML B-Type Natriuretic Peptide 79.2 <100.0 PG/ML Total Protein 6.0 L 6.4-8.2 GM/DL Albumin 3.7 3.2-4.5 GM/DL Lipase 130 H 8-78 U/L Serum Alcohol < 10 <10 MG/DL My Orders Orders - MONIKA MELGAR PA Cbc With Automated Diff (11/14/22 18:17) Magnesium (11/14/22 18:17) Chest 1 View, Ap/Pa Only (11/14/22 18:17) Ekg Tracing (11/14/22 18:17) Comprehensive Metabolic Panel (11/14/22 18:17) Myoglobin Serum (11/14/22 18:17) Protime With Inr (11/14/22 18:17) Partial Thromboplastin Time (11/14/22 18:17) Monitor-Rhythm Ecg Trace Only (11/14/22 18:17) Ed Iv/Invasive Line Start (11/14/22 18:17) Lipase (11/14/22 18:17) Bnp Randall (11/14/22 18:17) Troponin I Saundra (11/14/22 18:17) Aspirin Chewable Tablet (Aspirin Chewabl (11/14/22 18:30) Alcohol (11/14/22 18:18) Ns Iv 1000 Ml (Sodium Chloride 0.9%) (11/14/22 18:32) Medications Given in ED Current Medications Medications Dose Ordered Sig/Nilam Route Start Time Stop Time Status Last Admin Dose Admin Aspirin 324 mg ONCE ONCE PO 11/14/22 18:30 11/14/22 18:31 DC 11/14/22 18:36 324 MG Vital Signs/I&O 11/14/22 18:15 Temp 36.0 Pulse 66 B/P (MAP) 126/81 (96) Pulse Ox 100 O2 Delivery Room Air Capillary Refill : ECG Comment Sinus rhythm, Q waves noted in V1 V2, 62 bpm, QRS duration 84 MS, QTc 365 MS. Departure Communication (PCP) Reviewed previous ER visits, H&P, lab testing. History of alcohol abuse. Patient stopped drinking alcohol 3 weeks ago. Patient states last week had some vomiting dry heaving and several bouts of diarrhea. Those symptoms improved. Was sent by his primary care physician Tracy Isaacs concern for kidney injury and elevated troponin. Patient on arrival is currently asymptomatic. Denies of any known history of ACS. Denies any chest pain, shortness of breath, cough, nausea, lightheadedness or dizziness. Patient on arrival vital signs stable. Patient became slightly hypotensive and was given a liter of fluid. Afebrile. CBC, CMP, lipase and chest x-ray with a troponin. CBC showed normal white blood count hemoglobin 10.7. Chemistry showed sodium 130, BUN of 54, creatinine 2.91, GFR 22. Normal troponin and BNP. Chest x-ray concerning for left lower lobe early pneumonia. Afebrile with normal white blood count denies any cough or shortness of breath. Unlikely pneumonia. We will continue monitoring. EKG did note sinus rhythm without evidence of ST elevation or depression. Concern for acute kidney injury. Does have a slight increasing trend over the past 6 months. Potentially acute on chronic kidney disease. I do think patient would likely benefit with fluids as he is not eating or drinking as much since he stopped his alcohol. No evidence of active withdrawal symptoms. Alcohol withdrawal protocol was initiated. Patient was discussed with Dr. Arnold hospitalist who agreed to accept patient. Patient will be started on IV fluids. Patient did initially receive a dose of aspirin 325 mg due to the elevated troponin by his primary care physician today. Not currently on blood pressure medication secondary to hypotension. History of smoking. Denies COPD or asthma. No history of CHF. Impression Primary Impression: THOMAS (acute kidney injury) Disposition: ADMITTED INPATIENT Condition: Stable Admissions Decision to Admit Reason: Admit from ER (General) Decision to Admit/Date: Nov 14, 2022 Time/Decision to Admit Time: 19:19 Departure-Patient Inst. Referrals: TRACY ISAACS APRN (PCP) Primary Care Physician THANIA OZUNA DO (Family) Primary Care Physician MONIKA MELGAR Nov 14, 2022 18:24
[2022-11-14] MEDS ORDERED: ASPIRIN 81 MG CHEWABLE TABLET PO ONE (18:30)
[2022-11-14 18:32] LABS: BASOPHILS % (AUTO) 1 % (0-10); EOSINOPHILS # (AUTO) 0.3 10^3/uL (0.0-0.3); EOSINOPHILS % (AUTO) 4 % (0-10); HEMATOCRIT 32 % (40-54); HEMOGLOBIN 10.7 g/dL (13.3-17.7); LYMPHOCYTES # (AUTO) 2.3 10^3/uL (1.0-4.0); LYMPHOCYTES % (AUTO) 27 % (12-44); MEAN CORPUSCULAR HEMOGLOBIN 33 pg (25-34); MEAN CORPUSCULAR HGB CONC 34 g/dL (32-36); MEAN CORPUSCULAR VOLUME 99 fL (80-99); MEAN PLATELET VOLUME 9.8 fL (9.0-12.2); MONOCYTES # (AUTO) 0.5 10^3/uL (0.0-1.0); MONOCYTES % (AUTO) 6 % (0-12); NEUTROPHILS # (AUTO) 5.2 10^3/uL (1.8-7.8); NEUTROPHILS % (AUTO) 62 % (42-75); PLATELET COUNT 293 10^3/uL (130-400); WHITE BLOOD COUNT 8.4 10^3/uL (4.3-11.0)
[2022-11-14] MEDS ORDERED: NS IV 1000 ML 1,000 ML IV STA (18:32)
[2022-11-14 18:41] LABS: ALBUMIN 3.7 GM/DL (3.2-4.5); CHLORIDE 103 MMOL/L (98-107); POTASSIUM 4.7 MMOL/L (3.6-5.0); SODIUM 130 MMOL/L (135-145)
[2022-11-14 18:43] LABS: CALCIUM 9.4 MG/DL (8.5-10.1)
[2022-11-14 18:44] LABS: GLUCOSE 115 MG/DL (70-105)
[2022-11-14 18:45] LABS: CARBON DIOXIDE 16 MMOL/L (21-32)
[2022-11-14 18:46] LABS: BILIRUBIN,TOTAL 0.3 MG/DL (0.1-1.0)
[2022-11-14 18:47] LABS: ALKALINE PHOSPHATASE 105 U/L (40-136)
[2022-11-14 18:48] LABS: CREATININE SERUM 2.91 MG/DL (0.60-1.30); GFR ESTIMATED 22
[2022-11-14 18:49] LABS: BUN/CREATININE RATIO 19
[2022-11-14 18:50] LABS: ALANINE AMINOTRANSFERASE 9 U/L (0-55)
[2022-11-14 18:52] LABS: INR 1.1 (0.8-1.4); LIPASE 130 U/L (8-78); PROTHROMBIN TIME PATIENT 14.7 SEC (12.2-14.7)
--- NOTE | 2022-11-14 18:59 | Diagnostic Imaging Report ---
INDICATION: Chest pain. FINDINGS: Heart size is normal. There is some patchy left basilar infiltrate. No pleural effusion or pneumothorax. Mediastinum is unremarkable. IMPRESSION: Patchy left lower lobe airspace disease possibly reflecting early pneumonia. Recommend clinical correlation and followup imaging as warranted. Dictated by: Dictated on workstation # [id number]
[2022-11-14] MEDS ORDERED: NS IV 1000 ML 1,000 ML ONE (20:07)
[2022-11-14] MEDS ORDERED: ONDANSETRON 4 MG/2 ML (SDV) Z0FRAN IV PRN (22:00)
[2022-11-14] MEDS ORDERED: LORazepam 1 MG (ATIVAN) TAB PO PRN (22:00)
[2022-11-14] MEDS ORDERED: 1/2 NS IV SOLUTION 1000 ML 1,000 ML IV PRN (22:00)
[2022-11-14] MEDS ORDERED: LORazepam INJ 2 MG/ML (ATIVAN) VIAL IM/IV PRN (22:00)
[2022-11-14] MEDS ORDERED: ONDANSETRON 4 MG (ZOFRAN) ORAL DISSOLVE TAB SL PRN (22:00)
[2022-11-14] MEDS ORDERED: D5 1/2 NS 1,000 ML IV 1,000 ML IV PRN (22:00)
[2022-11-14] MEDS ORDERED: SENNA W/DOCUSATE (SENOKOT S) TABLET PO PRN (22:00)
[2022-11-14] MEDS ORDERED: ANTACID SUSP 30 ML UDC (MYLANTA) PO PRN (22:00)
[2022-11-14] MEDS ORDERED: LORazepam INJ 2 MG/ML (ATIVAN) VIAL IV PRN (22:00)
[2022-11-14] MEDS: NS IV 1000 ML 1,000 ML IV SCH (22:15)
[2022-11-14 23:21] VITALS: BP 102/52
[2022-11-15 03:52] VITALS: BP 92/55
[2022-11-15] MEDS: NS IV 1000 ML 1,000 ML IV SCH (04:44)
[2022-11-15 06:31] LABS: POTASSIUM 4.5 MMOL/L (3.6-5.0)
[2022-11-15 06:32] LABS: CALCIUM 8.2 MG/DL (8.5-10.1)
[2022-11-15 06:36] LABS: CREATININE SERUM 2.43 MG/DL (0.60-1.30)
[2022-11-15] MEDS ORDERED: THIAMINE 100 MG (VITAMIN B-1) TAB PO SCH (07:00)
[2022-11-15] MEDS ORDERED: MULTIVIT W/MINERALS TAB (THERAGRAN M) PO SCH (07:00)
[2022-11-15 07:20] VITALS: BP 106/62
[2022-11-15] MEDS ORDERED: MAGNESIUM OXIDE (MAG-OX)400 MG TAB PO SCH (09:00)
[2022-11-15] MEDS ORDERED: FOLIC ACID 1 MG TAB PO SCH (09:00)
[2022-11-15 11:20] VITALS: BP 115/55
--- NOTE | 2022-11-15 12:48 | Discharge Inst-Simple/Standard ---
Discharge Inst-Standard Patient Instructions/Follow Up Plan of Care/Instructions/FU: Please continue to take your medications as written. Please follow up with your primary care doctor to follow up this hospital stay. Activity as Tolerated: Yes Discharge Diet: Low Sodium Diet Return to The Hospital For: Chest pain, shortness of breath, fever, weakness, if you feel you are getting worse. ADAN HANSEN MD Nov 15, 2022 12:48
[2022-11-15] MEDS ORDERED: CELE-63 PO (12:49)
[2022-11-15] MEDS ORDERED: CHOL50005 PO (12:49)
[2022-11-15] MEDS ORDERED: GABA300C PO (12:49)
[2022-11-15] MEDS ORDERED: PANT40TA52 PO (12:49)
[2022-11-15] MEDS ORDERED: SUCR1ORA15 PO (12:49)
--- NOTE | 2022-11-15 12:50 | Diagnostic Imaging Report ---
EXAMINATION: Chest 1 view HISTORY: Left lower lobe pneumonia COMPARISON: 11/14/2022 FINDINGS: Lungs are hyperinflated. No edema or pneumonia. Previously suggested left lower lobe opacity is not apparent on today's exam. No pleural effusion or pneumothorax. Heart size normal. IMPRESSION: 1. Hyperinflated but clear lungs. Dictated by: Dictated on workstation # [id number]
[2022-11-15 13:34] VITALS: BP 115/55
--- NOTE | 2022-11-15 15:02 | Short Stay Summary-Hospitalist ---
History of Present Illness HPI/Chief Complaint Abelino Ugarte is a 77 yo M with a history of HTN, alcohol use disorder, and tobacco use who was sent to the ED by his PCP on 11/14 because of elevated troponin and acute kidney injury on labwork. When speaking to the ED provider, the patient denied any chest pain, shortness of breath, dizziness or abdominal pain. He stated he'd discontinued alcohol use 3 weeks ago and had since been hydrating poorly, experienced a dimished (through improving) appetite, and experienced a discrete week-long episode of diarrhea with vomitting. He denied any other symptoms/symptoms of alcohol withdrawal. He denied any history of HLD, CAD, COPD, kidney disease or asthma. He would found to have mild hypotension of 92/55, creatinine of 2.91, BUN of 54, bicarbonate of 16, sodium of 130, and "patchy left lower lobe airspace disease possibly reflecting early pneumonia" on CXR. Troponin, BNP and WBC were normal. EKG showed sinus rhythm without ST depressions or elevations. He was provided with 1L of isotonic fluid and admitted to [facility] for management of acute kidney injury and possible pneumonia. His BP normalized and creatinine improved to 2.43 by day 2 of hospitalization. Creatinine levels during previous hospitalizations from 2018- 2022 ranged from 1.11 - 2.46, reflecting chronic renal insufficiency. The patient had no prior knowledge of this diagnosis. Radiology interpreted a follow-up CXR with the following: "No edema or pneumonia. Previously suggested left lower lobe opacity is not apparent on today's exam". The patient was instructed to follow up on renal labs with his PCP discharged on 11/15 with new diagnosis of acute on chronic renal insufficiency. Date Seen 11/15/22 Attending Physician Tracy Mairnelli Aprn PCP Admitting Physician: Angel Arnold MD Attending Physician: Angel Arnold MD Referring Physician Date of Admission Nov 14, 2022 at 19:37 Home Medications & Allergies Home Medications Reviewed patient Home Medication Reconciliation performed by pharmacy medication reconciliations power lineman technician and/or nursing. Patients Allergies have been reviewed. Allergies Allergies Coded Allergies No Known Drug Allergies (Tqharhtcap64/2/22) Past Medical/Social/Family Hx Patient Social History Tobacco Use?: Yes Tobacco type used: Cigarettes Smoking Status: Current Everyday Smoker Smokeless Tobacco Frequency: Never a User Use of E-Cig and/or Vaping dev: No Substance use?: No Alcohol Use?: No PAST ALCOHOL EGT-YUNNA-KROB DRINK 3 WEEKS AGO Pt stated abuse/neglect: No Current Status Advance Directives: No Communicates: Verbally Primary Language: Tanzanian Preferred Spoken Language: Tanzanian Is interpretation needed?: No Review of Systems Constitutional: no symptoms reported EENTM: see HPI Respiratory: dyspnea on exertion (dry, mild, occasional ); No short of breath Gastrointestinal: No abdominal pain, No nausea, No vomiting Genitourinary: no symptoms reported Musculoskeletal: no symptoms reported Psychiatric/Neurological: No Symptoms Reported Physical Exam Physical Exam Vital Signs Vital Signs - First Documented 11/14/22 11/14/22 18:15 23:21 Temp 36.0 Pulse 66 Resp 16 B/P (MAP) 126/81 (96) Pulse Ox 100 O2 Delivery Room Air Capillary Refill : Height, Weight, BMI Height: '" Weight: lbs. oz. kg; 14.93 BMI Method: General Appearance: No Apparent Distress, WD/WN Eyes: Bilateral Eye Normal Inspection, Bilateral Eye PERRL, Bilateral Eye EOMI HEENT: PERRL/EOMI, TMs Normal, Normal ENT Inspection, Pharynx Normal Neck: Full Range of Motion, Normal Inspection, Non Tender, Supple Respiratory: Chest Non Tender, Lungs Clear, Normal Breath Sounds, No Accessory Muscle Use, No Respiratory Distress Cardiovascular: Regular Rate, Rhythm, No Edema, No Gallop, No JVD, No Murmur Gastrointestinal: Normal Bowel Sounds, No Organomegaly, No Pulsatile Mass, Non Tender Back: Normal Inspection, No CVA Tenderness, No Vertebral Tenderness Extremity: Normal Capillary Refill, Normal Inspection Neurologic/Psychiatric: Alert, Oriented x3, No Motor/Sensory Deficits, Normal 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 Short Stay Diagnosis Discharge Diagnosis-Short Stay Admission Diagnosis Acute kidney Injury Final Discharge Diagnosis Acute on chronic renal insufficiency LUCY REYES Nov 15, 2022 15:02
== END 2022-11-15 13:34 | disposition home or self-care (01) ==
LOC: EDUNIT# 18:08 → ER 18:10 → 4TH 19:37
PROVIDERS: ADMIT Internal Medicine; ATTEND Internal Medicine
DX: N17.9 Acute kidney failure, unspecified (principal); N18.9 Chronic kidney disease, unspecified; F17.210 Nicotine dependence, cigarettes, uncomplicated; Z28.310 Unvaccinated for COVID-19
CPT/HCPCS: 71045 ×2; 80048; 80053; 83690; 83735; 83874; 83880; 84484; 85025; 85610; 85730; 93005; 93041; 96360; 96361 ×2; 99284; G0480; 36415; 80320; G0378

== ENCOUNTER → 2022-11-14 | Outpatient (CLI) | payer MEDICARE, OTHER ==
[2022-11-14 15:10] LABS: BASOPHILS % (AUTO) 1 % (0-10); EOSINOPHILS % (AUTO) 4 % (0-10); HEMATOCRIT 32 % (40-54); HEMOGLOBIN 10.9 g/dL (13.3-17.7); LYMPHOCYTES # (AUTO) 2.3 X 10^3 (1.0-4.0); LYMPHOCYTES % (AUTO) 28 % (12-44); MEAN CORPUSCULAR HEMOGLOBIN 33 pg (25-34); MEAN CORPUSCULAR HGB CONC 34 g/dL (32-36); MEAN CORPUSCULAR VOLUME 98 fL (80-99); MEAN PLATELET VOLUME 9.6 fL (9.0-12.2); MONOCYTES # (AUTO) 0.4 X 10^3 (0.0-1.0); MONOCYTES % (AUTO) 5 % (0-12); NEUTROPHILS # (AUTO) 5.2 X 10^3 (1.8-7.8); NEUTROPHILS % (AUTO) 62 % (42-75); PLATELET COUNT 287 10^3/uL (130-400); WHITE BLOOD COUNT 8.3 10^3/uL (4.3-11.0)
[2022-11-14 15:11] LABS: BASOPHILS # (AUTO) 0.1 10^3/uL (0.0-0.1); EOSINOPHILS # (AUTO) 0.3 10^3/uL (0.0-0.3)
[2022-11-14 15:26] LABS: CALCIUM 9.2 MG/DL (8.5-10.1); CREATININE SERUM 2.9 MG/DL (0.60-1.30); POTASSIUM 4.9 MMOL/L (3.6-5.0)
[2022-11-14 15:27] LABS: ALBUMIN 3.7 GM/DL (3.2-4.5); BILIRUBIN,TOTAL 0.2 MG/DL (0.1-1.0); TOTAL PROTEIN 5.9 GM/DL (6.4-8.2)
== END ==
LOC: LAB FS 14:26
PROVIDERS: ATTEND Nurse Practitioner Family
DX: N17.9 Acute kidney failure, unspecified (principal); M62.81 Muscle weakness (generalized); R62.7 Adult failure to thrive; E87.5 Hyperkalemia; E86.0 Dehydration
CPT/HCPCS: 36415; 80053; 83605; 85025

== ENCOUNTER → 2022-11-26 | Outpatient (CLI) | payer MEDICARE, OTHER ==
[2022-11-26 21:00] LABS: HEPATITIS C ANTIBODY C Non-Reactive (Non-Reactive)
== END ==
LOC: LAB FS 09:52
DX: R63.4 Abnormal weight loss (principal)
CPT/HCPCS: 36415; 86803

== ENCOUNTER → 2022-12-21 | Outpatient (CLI) | payer MEDICARE, OTHER ==
--- NOTE | 2022-12-21 09:58 | Diagnostic Imaging Report ---
INDICATION: Low back pain. Numbness in the legs. COMPARISON: CT of the abdomen and pelvis performed 09/04/2020. FINDINGS: There is a fracture deformity demonstrated of the L1 vertebral body with approximately 50% height loss. This is new from 2020. This is of indeterminate age. The remainder of the lumbar vertebral body heights are maintained. There is a stable anterolisthesis of L4 on L5. There are multilevel endplate changes and advanced lower lumbar facet arthropathy. There is severe abdominal and iliac atherosclerosis. IMPRESSION: 1. New fracture deformity of L1 with 50% height loss. This is of indeterminate age. The remainder of the vertebral body heights are maintained. 2. Advanced degenerative disc disease and facet arthropathy with stable anterolisthesis of L4 on L5. 3. Severe atherosclerosis. Dictated by: Dictated on workstation # [id number]
== END ==
LOC: RAD FS 09:28
PROVIDERS: ATTEND Emergency Medicine
DX: M51.36 Other intervertebral disc degeneration, lumbar region (principal); M47.816 Spondylosis without myelopathy or radiculopathy, lumbar region; M43.16 Spondylolisthesis, lumbar region; I70.90 Unspecified atherosclerosis
CPT/HCPCS: 72100

== ENCOUNTER 2023-01-25 11:20 | Inpatient (IN) | payer MEDICARE, OTHER ==
[~2023-01-25] VITALS: Ht 175.3 cm; Wt 52.4 kg
[~2023-01-25 11:20] MED LIST changes: -CELE-63 PO; +CELE-91 PO
--- NOTE | 2023-01-25 11:28 | ED General ---
General Stated Complaint: GEN WEAKNESS; FALL History of Present Illness Date Seen by Provider: Jan 25, 2023 Time Seen by Provider: 11:23 Initial Comments 75-year-old male with PMH of alcoholism, smoking and has recently stopped within the past couple weeks, is brought in by EMS with complaints of generalized weakness for the past week. Patient was unable to stand or ambulate with EMS due to weakness. Patient has been having an intermittent cough all week as well as feeling chills. Patient has been having diarrhea all week and it has stopped the past couple of days because he took some medication for it. Denies any known fever, chest pain, palpitations, abdominal pain, nausea and vomiting. No known sick contacts. Allergies and Home Medications Allergies Coded Allergies: No Known Drug Allergies (Unverified , 03/22/22) Patient Home Medication List Home Medication List Reviewed: Yes Cholecalciferol (Vitamin D3) (D3-50) 1,250 Mcg (73688 Unit) Capsule, 1,250 MCG PO TUE, (Reported) Entered as Reported by: PALMER SHORE on 11/15/22 1249 Gabapentin (Neurontin) 300 Mg Capsule, 300 MG PO HS, (Reported) Entered as Reported by: PALMER SHORE on 11/15/22 1249 Pantoprazole Sodium (Pantoprazole Sodium) 40 Mg Tablet.dr, 40 MG PO DAILY, (Reported) Entered as Reported by: PALMER SHORE on 11/15/22 1249 Sucralfate (Sucralfate) 1 Gram/10 Ml Oral.susp, 5 ML PO BID, (Reported) Entered as Reported by: PALMER SHORE on 11/15/22 1249 Review of Systems Review of Systems Constitutional: no symptoms reported, see HPI, chills, malaise Respiratory: cough Gastrointestinal: diarrhea Past Cltbcxn-Godhmt-Aqzkxw Hx Past Medical History Surgery/Hospitalization HX: PAST ETOH, Right shoulder arthritis, SMOKER Surgeries: Yes Orthopedic Physical Exam Vital Signs Vital Signs - First Documented 01/25/23 11:20 Temp 36.1 Pulse 87 Resp 18 B/P (MAP) 116/76 (89) O2 Delivery Room Air Capillary Refill : Height, Weight, BMI Height: '" Weight: lbs. oz. 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 Norm as Tested Skin: Pallor Lymphatic: No Adenopathy Focused Exam Lactate Level 01/25/23 11:27: Lactic Acid Level 1.93 Lactic Acid Level Laboratory Tests Test 01/25/23 11:27 Lactic Acid Level 1.93 MMOL/L (0.50-2.00) Progress/Results/Core Measures Suspected Sepsis SIRS Temperature: Pulse: Respiratory Rate: Laboratory Tests 01/25/23 11:27: White Blood Count 30.1*H Blood Pressure / Mean: 01/25/23 11:27: Lactic Acid Level 1.93 Laboratory Tests 01/25/23 11:27: Creatinine 1.78H, INR Comment 1.3, Platelet Count 580H, Total Bilirubin 0.7 Results/Orders Lab Results Laboratory Tests Test 01/25/23 11:27 01/25/23 13:03 Range/Units White Blood Count 30.1 *H 4.3-11.0 10^3/uL Red Blood Count 3.32 L 4.30-5.52 10^6/uL Hemoglobin 10.1 L 13.3-17.7 g/dL Hematocrit 32 L 40-54 % Mean Corpuscular Volume 95 80-99 fL Mean Corpuscular Hemoglobin 30 25-34 pg Mean Corpuscular Hemoglobin Concent 32 32-36 g/dL Red Cell Distribution Width 14.4 10.0-14.5 % Platelet Count 580 H 130-400 10^3/uL Mean Platelet Volume 9.8 9.0-12.2 fL Immature Granulocyte % (Auto) 1 % Neutrophils (%) (Auto) 90 H 42-75 % Lymphocytes (%) (Auto) 4 L 12-44 % Monocytes (%) (Auto) 5 0-12 % Eosinophils (%) (Auto) 0 0-10 % Basophils (%) (Auto) 0 0-10 % Neutrophils # (Auto) 27.2 H 1.8-7.8 10^3/uL Lymphocytes # (Auto) 1.2 1.0-4.0 10^3/uL Monocytes # (Auto) 1.4 H 0.0-1.0 10^3/uL Eosinophils # (Auto) 0.0 0.0-0.3 10^3/uL Basophils # (Auto) 0.1 0.0-0.1 10^3/uL Immature Granulocyte # (Auto) 0.3 H 0.0-0.1 10^3/uL Neutrophils % (Manual) 92 % Lymphocytes % (Manual) 3 % Monocytes % (Manual) 5 % Prothrombin Time 16.4 H 12.2-14.7 SEC INR Comment 1.3 0.8-1.4 Activated Partial Thromboplast Time 29 24-35 SEC Sodium Level 136 135-145 MMOL/L Potassium Level 4.6 3.6-5.0 MMOL/L Chloride Level 99 98-107 MMOL/L Carbon Dioxide Level 20 L 21-32 MMOL/L Anion Gap 17 H 5-14 MMOL/L Blood Urea Nitrogen 51 H 7-18 MG/DL Creatinine 1.78 H 0.60-1.30 MG/DL Estimat Glomerular Filtration Rate 39 BUN/Creatinine Ratio 29 Glucose Level 108 H 70-105 MG/DL Lactic Acid Level 1.93 0.50-2.00 MMOL/L Calcium Level 10.3 H 8.5-10.1 MG/DL Corrected Calcium 11.7 H 8.5-10.1 MG/DL Total Bilirubin 0.7 0.1-1.0 MG/DL Aspartate Amino Transf (AST/SGOT) 33 5-34 U/L Alanine Aminotransferase (ALT/SGPT) 26 0-55 U/L Alkaline Phosphatase 209 H 40-136 U/L Troponin I < 0.30 <0.30 NG/ML Pro-B-Type Natriuretic Peptide 2813.0 H <450.0 PG/ML Total Protein 6.5 6.4-8.2 GM/DL Albumin 2.3 L 3.2-4.5 GM/DL Serum Alcohol < 10 <10 MG/DL Influenza Type A (RT-PCR) Not Detected Not Detecte Influenza Type B (RT-PCR) Not Detected Not Detecte SARS-CoV-2 RNA (RT-PCR) Not Detected Not Detecte Urine Color YELLOW Urine Clarity CLEAR Urine pH 5.5 5-9 Urine Specific [place] 1.015 L 1.016-1.022 Urine Protein TRACE H NEGATIVE Urine Glucose (UA) NEGATIVE NEGATIVE Urine Ketones NEGATIVE NEGATIVE Urine Nitrite NEGATIVE NEGATIVE Urine Bilirubin 1+ H NEGATIVE Urine Urobilinogen 1.0 < = 1.0 MG/DL Urine Leukocyte Esterase NEGATIVE NEGATIVE Urine RBC (Auto) NEGATIVE NEGATIVE Urine RBC NONE /HPF Urine WBC 0-2 /HPF Urine Squamous Epithelial Cells NONE /HPF Urine Crystals NONE /LPF Urine Bacteria NEGATIVE /HPF Urine Casts NONE /LPF Urine Mucus NEGATIVE /LPF Urine Culture Indicated NO Urine Opiates Screen NEGATIVE NEGATIVE Urine Oxycodone Screen NEGATIVE NEGATIVE Urine Methadone Screen NEGATIVE NEGATIVE Urine Propoxyphene Screen NEGATIVE NEGATIVE Urine Barbiturates Screen NEGATIVE NEGATIVE Ur Tricyclic Antidepressants Screen NEGATIVE NEGATIVE Urine Phencyclidine Screen NEGATIVE NEGATIVE Urine Amphetamines Screen NEGATIVE NEGATIVE Urine Methamphetamines Screen NEGATIVE NEGATIVE Urine Benzodiazepines Screen NEGATIVE NEGATIVE Urine Cocaine Screen NEGATIVE NEGATIVE Urine Cannabinoids Screen NEGATIVE NEGATIVE My Orders Orders - AMITA RENE MD Covid 19 Inhouse Test (01/25/23 11:29) Influenza A And B By Pcr (01/25/23 11:29) Chest 1 View Ap/Pa Only (01/25/23 11:29) Alcohol (01/25/23 11:29) Cbc And Automated Diff (01/25/23 11:29) Comprehensive Metabolic Panel (01/25/23 11:29) Drug Screen Stat (Urine) (01/25/23 11:29) Lactic Acid Analyzer (01/25/23 11:29) Protime With Inr (01/25/23 11:29) Partial Thromboplastin Time (01/25/23 11:29) Ua Culture If Indicated (01/25/23 11:29) Probnp Fs (01/25/23 11:29) Troponin I Fs (01/25/23 11:29) Manual Differential (01/25/23 11:27) Ed Iv/Invasive Line Start (01/25/23 12:08) Ceftriaxone Iv/Im (Ceftriaxone Iv/Im) (01/25/23 12:15) Azithromycin Injection (Azithromycin Inj (01/25/23 12:15) Ed Iv/Invasive Line Start (01/25/23 12:11) Ns Iv 1000 Ml (Ns Iv 1000 Ml) (01/25/23 12:11) Blood Culture (01/25/23 12:14) Ceftriaxone Iv/Im (Ceftriaxone Iv/Im) (01/25/23 12:14) Ns (Ivpb) 50 Ml (Sodium Chloride 0.9% 50 (01/25/23 12:15) Ns Iv 1000 Ml (Ns Iv 1000 Ml) (01/25/23 12:15) Ed Admission (Communication) (01/25/23 14:45) Acetaminophen Tablet (Acetaminophen Ta (01/25/23 15:00) Medications Given in ED Current Medications Medications Dose Ordered Sig/Nilam Route Start Time Stop Time Status Last Admin Dose Admin Azithromycin 500 mg/Sodium Chloride 255 ml @ 250 mls/hr ONCE ONCE IV 01/25/23 12:15 01/25/23 13:16 DC 01/25/23 12:35 250 MLS/HR Ceftriaxone Sodium 1000 mg/ Sodium Chloride 50 ml @ 100 mls/hr ONCE ONCE IV 01/25/23 12:15 01/25/23 12:44 DC 01/25/23 12:18 100 MLS/HR Vital Signs/I&O 01/25/23 11:20 Temp 36.1 Pulse 87 Resp 18 B/P (MAP) 116/76 (89) O2 Delivery Room Air Capillary Refill : Progress Note : Progress Note 1. GENERALIZED WEAKNESS: DUE TO CAP - CXR: Patchy consolidation within the left midlung, concerning for pneumonia. - CBC: WBC is elevated: 30.1 - COVID test/ Rapid Flu test negative - Lactic acid:normal - Troponin:undetectable - s.ETOH: negative - UA/ UDS:negative - Blood cultures sent - Ceftriaxone 1gm iv & Azithro 500mg iv STAT -Patient will benefit from admission. Discussed with resident, Dr Llanes and accepted for admission to med-surg. 2. ACUTE KIDNEY INJURY/ DEHYDRATION: - CMP:s. creatinine is elevated at 1.78 - NS IVF , gentle hydration, 250ml/hr 3.ELEVATED BNP: - BNP: 2,813 - Low albumin: 2.3 - Pt would benefit from an ECHO 4. RECENT CESSATION OF SMOKING AND ALCOHOL CONSUMPTION: - Pt stopped smoking within the past 7 days; has 40 yr smoking history - Stopped alcohol consumption 3 weeks ago. Patient drinks hard liquor every day for about 30 years. - Pt is on B12 and folic acid at home Diagnostic Imaging Diagonstic Imaging: Xray Plain Films/CT/US/NM/MRI: chest Comments [facility], [facility]. [place], [place] NAME: MAG[facility] REC#: [id number] PT STATUS: REG ER : 1945 PHYSICIAN: AMITA RENE MD ADMIT DATE: 01/25/23/ER FS Draft Date of Exam:01/25/23 CHEST 1 VIEW AP/PA ONLY EXAMINATION: Chest 1 view HISTORY: generalized weakness COMPARISON: 11/15/2022. FINDINGS: Heart size and pulmonary vasculature are normal. There is patchy consolidation within the inferior left mid lung. No pleural effusion or pneumothorax. The osseous structures are intact. IMPRESSION: 1. Patchy consolidation within the left midlung, concerning for a pneumonia. Dictated on workstation # [id number] Dict: 01/25/23 1145 Trans: 01/25/23 1154 [id number] Interpreted by: JOHANNA FRYE DO Electronically signed by: Departure Communication (Admissions) Time/Spoke to Admitting Phy: 13:55 Discussed with the resident Dr. Renae who is working with Dr. Baptiste and accepted for admission Impression Primary Impression: Generalized weakness Additional Impressions: Community acquired pneumonia Qualified Codes: J18.9 - Pneumonia, unspecified organism Dehydration THOMAS (acute kidney injury) Elevated brain natriuretic peptide (BNP) level Disposition: 30 STILL A PATIENT Condition: Stable Admissions Decision to Admit Reason: Admit from ER (General) Decision to Admit/Date: Jan 25, 2023 Time/Decision to Admit Time: 13:00 Transfer Method of Transfer: EMS Departure-Patient Inst. Referrals: THANIA OZUNA DO (PCP/Family) Primary Care Physician AMITA RENE MD Jan 25, 2023 11:28
[2023-01-25 11:33] LABS: BASOPHILS # (AUTO) 0.1 10^3/uL (0.0-0.1); BASOPHILS % (AUTO) 0 % (0-10); EOSINOPHILS % (AUTO) 0 % (0-10); HEMATOCRIT 32 % (40-54); HEMOGLOBIN 10.1 g/dL (13.3-17.7); LYMPHOCYTES # (AUTO) 1.2 10^3/uL (1.0-4.0); LYMPHOCYTES % (AUTO) 4 % (12-44); MEAN CORPUSCULAR HEMOGLOBIN 30 pg (25-34); MEAN CORPUSCULAR HGB CONC 32 g/dL (32-36); MEAN CORPUSCULAR VOLUME 95 fL (80-99); MEAN PLATELET VOLUME 9.8 fL (9.0-12.2); MONOCYTES # (AUTO) 1.4 10^3/uL (0.0-1.0); MONOCYTES % (AUTO) 5 % (0-12); NEUTROPHILS # (AUTO) 27.2 10^3/uL (1.8-7.8); NEUTROPHILS % (AUTO) 90 % (42-75); PLATELET COUNT 580 10^3/uL (130-400)
[2023-01-25 11:37] LABS: WHITE BLOOD COUNT 30.1 10^3/uL (4.3-11.0)
[2023-01-25 11:45] LABS: INR 1.3 (0.8-1.4); PROTHROMBIN TIME PATIENT 16.4 SEC (12.2-14.7)
[2023-01-25 11:46] LABS: CARBON DIOXIDE 20 MMOL/L (21-32); CHLORIDE 99 MMOL/L (98-107); POTASSIUM 4.6 MMOL/L (3.6-5.0); SODIUM 136 MMOL/L (135-145)
[2023-01-25 11:47] LABS: ALANINE AMINOTRANSFERASE 26 U/L (0-55); ALBUMIN 2.3 GM/DL (3.2-4.5); ALKALINE PHOSPHATASE 209 U/L (40-136); BILIRUBIN,TOTAL 0.7 MG/DL (0.1-1.0); BUN/CREATININE RATIO 29; CALCIUM 10.3 MG/DL (8.5-10.1); CREATININE SERUM 1.78 MG/DL (0.60-1.30); GFR ESTIMATED 39; GLUCOSE 108 MG/DL (70-105); TOTAL PROTEIN 6.5 GM/DL (6.4-8.2)
--- NOTE | 2023-01-25 11:55 | Diagnostic Imaging Report ---
EXAMINATION: Chest 1 view HISTORY: generalized weakness COMPARISON: 11/15/2022. FINDINGS: Heart size and pulmonary vasculature are normal. There is patchy consolidation within the inferior left mid lung. No pleural effusion or pneumothorax. The osseous structures are intact. IMPRESSION: 1. Patchy consolidation within the left midlung, concerning for a pneumonia. Dictated by: Dictated on workstation # [id number]
[2023-01-25] MEDS ORDERED: NS IV 1000 ML 1,000 ML IV STA (12:11)
[2023-01-25] MEDS ORDERED: cefTRIAXone 1,000 MG VIAL IV/IM ONE (12:14)
[2023-01-25] MEDS ORDERED: NS (IVPB) 50 ML 50 ML ONE (12:15)
[2023-01-25] MEDS ORDERED: cefTRIAXone IV/IM 1,000 MG in NS (IVPB) 50 ML 50 ML IV ONE (12:15)
[2023-01-25] MEDS ORDERED: AZITHROMYCIN INJECTION 500 MG in NS (IVPB) 250 ML 250 ML IV ONE (12:15)
[2023-01-25] MEDS ORDERED: NS IV 1000 ML 1,000 ML IV SCH (12:15)
[2023-01-25] MEDS ORDERED: NS IV 1000 ML 1,000 ML ONE (12:15)
[2023-01-25 12:45] LABS: LYMPHOCYTES % (MANUAL) 3 %; MONOCYTES % (MANUAL) 5 %; NEUTROPHILS % (MANUAL) 92 %
[2023-01-25 13:11] LABS: CLARITY,URINE CLEAR; COLOR,URINE YELLOW; GLUCOSE, URINE (UA) NEGATIVE (NEGATIVE); KETONES,URINE NEGATIVE (NEGATIVE); LEUKOCYTE ESTERASE ,URINE NEGATIVE (NEGATIVE); NITRITE,URINE NEGATIVE (NEGATIVE); PH,URINE 5.5 (5-9); PROTEIN,URINE TRACE (NEGATIVE)
[2023-01-25 13:16] LABS: BACTERIA,URINE NEGATIVE /HPF; BILIRUBIN,URINE 1+ (NEGATIVE); WBC,URINE 0-2 /HPF
[2023-01-25 13:21] LABS: AMPHETAMINE SCREEN, URINE NEGATIVE (NEGATIVE); BARBITURATE SCREEN URINE NEGATIVE (NEGATIVE); CANNABINOID SCREEN, URINE NEGATIVE (NEGATIVE); COCAINE SCREEN URINE NEGATIVE (NEGATIVE); METHADONE STAT NEGATIVE (NEGATIVE); OPIATE SCREEN URINE NEGATIVE (NEGATIVE); OXYCODONE STAT NEGATIVE (NEGATIVE); PROPOXYPHENE STAT NEGATIVE (NEGATIVE); TRICYCLIC ANTIDEPRESSANTS SCRE NEGATIVE (NEGATIVE)
--- NOTE | 2023-01-25 14:49 | History & Physical-Hospitalist ---
SCOOBY GLYNN MD,RESIDENT 01/25/23 1449: History of Present Illness HPI/Chief Complaint CC: Generalized weakness, SOB HPI: Pt is a 77 yo male with a medical history significant for EtOH use disorder (ceased 3 weeks ago), tobacco use disorder (ceased 7 days ago) who presents to the ED with generalized weakness for the last few days, he has also been having an intermittent productive cough with plenty of yellow/green sputum all week as well as feeling weak. He also reports having recurrent falls and being too weak to pick himself back up. He reports decreased PO intake in the last few days. He reports having diarrhea all week, however not for the last couple of days as he has taken medication . Pt denies CP, N/V, abdominal pain, palpitations, headaches, vision changes. He says that his primary care doctor is working him up for COPD currently. CXR demonstrates pneumonia, RVP negative, UA negative, WBCs 30. Pt was admitted to cardiac stepdown unit for further management. Source: patient, family Date Seen 01/25/23 Time Seen by a Provider: 08:40 Attending Physician Alexi Deleon DO PCP Admitting Physician: Attending Physician: Referring Physician Date of Admission Home Medications & Allergies Home Medications Reviewed patient Home Medication Reconciliation performed by pharmacy medication reconciliations mechanical maintenance technician and/or nursing. Patients Allergies have been reviewed. Allergies Allergies Coded Allergies No Known Drug Allergies (Tiykjldlxh67/2/22) Past Pmzdxcx-Idzemh-Rouizv Hx Patient Social History Tobacco Use?: No Smoking Status: Former Smoker Smokeless Tobacco Frequency: Never a User Use of E-Cig and/or Vaping dev: No Use of E-Cig and/or Vaping Luis M: Never a User Substance use?: No Alcohol Use?: No Additional Alcohol Comments: PT REPORTS QUIT DRINKING X3 WEEKS AGO. PT REPORTS DRINKING X1 PINT/DAY Pt feels they are or have been: No Current Status Advance Directives: No Communicates: Verbally Primary Language: Serbian Preferred Spoken Language: Serbian Is interpretation needed?: No Past Medical History Surgeries: Orthopedic Review of Systems Constitutional: chills, fever, malaise, weakness EENTM: no symptoms reported Respiratory: cough, phlegm Cardiovascular: no symptoms reported Gastrointestinal: no symptoms reported Skin: no symptoms reported Psychiatric/Neurological: No Symptoms Reported Physical Exam Physical Exam Vital Signs Vital Signs - First Documented 01/25/23 01/25/23 01/25/23 11:20 17:55 19:07 Temp 36.1 Pulse 87 Resp 18 B/P (MAP) 116/76 (89) Pulse Ox 97 O2 Delivery Room Air FiO2 21 Capillary Refill : Less Than 3 Seconds Height, Weight, BMI Height: '" Weight: lbs. oz. kg; 14.00 BMI Method: General Appearance: No Apparent Distress Eyes: Bilateral Eye EOMI Cardiovascular: Regular Rate, Rhythm Gastrointestinal: Non Tender, Soft Neurologic/Psychiatric: Alert, Oriented x3, Normal Mood/Affect Skin: Warm/Dry Results Results/Procedures Labs Laboratory Tests 01/25/23 11:27 Patient resulted labs reviewed. Assessment/Plan Admission Diagnosis Generalized weakness, pneumonia Admission Status: Inpatient Order (span 2 midnights) Reason for Inpatient Admission: Generalized weakness, pneumonia Diagnosis/Problems Diagnosis/Problems (1) Pneumonia Assessment & Plan: CXR: LL pna PLAN: IVF Ceftriaxone supplemental O2 if needed (2) Generalized weakness Status: Acute Assessment & Plan: PLAN: IVF Encourage PO intake PT/OT (3) Dehydration Status: Acute Assessment & Plan: PLAN: See generalized weakness (4) THOMAS (acute kidney injury) Status: Acute Assessment & Plan: PLAN: Gentle IVF Daily CMP (5) Alcoholism Status: Acute Assessment & Plan: Sober for the last 3 weeks PLAN: Monitor for tremors, withdrawal symptoms DARINEL CHESTER DO 01/26/23 1352: History of Present Illness HPI/Chief Complaint CC: PNA HPI: This is a 77[facility]WM clinic patient of [facility] who has a h/o long standing smoking and recent COPD w/u who presents to the ER with dyspnea. PNA found on CXR. IV abx initiated and CSD admit. Patient appears to be very cachectic. CT chest indicated for presumed lung cancer. Source: patient, family Exam Limitations: no limitations Past Lskmnca-Tkenqe-Ksuvdt Hx Patient Social History Marrital Status: Employed/Student: retired Smoking Status: Current Everyday Smoker Past Medical History COPD Review of Systems Constitutional: see HPI Physical Exam Physical Exam General Appearance: Anxious, Chronically ill, Cachetic, Mild Distress Respiratory: Decreased Breath Sounds Cardiovascular: Regular Rate, Rhythm Assessment/Plan Admission Diagnosis Assessment: Acute hypoxic respiratory failure PNA Sepsis Cachexia with recent weight loss Current long-standing smoker Suspicion for lung cancer COPD Plan: IV abx CT chest O2 Monitor closely I personally performed the orellana portions of the visit, discussed case with resident and concur with resident documentation of history, physical exam, assessment and treatment plan unless otherwise noted. Admission Status: Inpatient Order (span 2 midnights) Reason for Inpatient Admission: sepsis SCOOBY GLYNN MD,RESIDENT Jan 25, 2023 14:49 DARINEL CHESTER DO Jan 26, 2023 13:52
[2023-01-25] MEDS ORDERED: ACETAMINOPHEN 500 MG TABLET PO ONE (15:00)
[2023-01-25] MEDS ORDERED: MELATONIN 3 MG TABLET PO PRN (18:45)
[2023-01-25] MEDS ORDERED: ONDANSETRON INJECTION 4 MG/2 ML (SDV) IV PRN (18:45)
[2023-01-25] MEDS ORDERED: ONDANSETRON 4 MG ORAL DISSOLVE TABLET PO PRN (18:45)
[2023-01-25] MEDS ORDERED: ACETAMINOPHEN 325 MG TABLET PO PRN (18:45)
[2023-01-25 19:07] VITALS: BP 134/72
[2023-01-25] MEDS ORDERED: RT-Ipratropium/Albuterol NEB 3 ML VIAL INH PRN (19:15)
[2023-01-25] MEDS ORDERED: LOPERAMIDE 2 MG CAPSULE PO PRN (21:00)
[2023-01-25] MEDS: ENOXAPARIN 30 MG/0.3 ML SYRINGE SC SCH (22:25)
[2023-01-25] MEDS: ACETAMINOPHEN 500 MG TABLET PO SCH (22:25)
[2023-01-26] MEDS ORDERED: ATROPINE 1 MG/10 ML EMERGENCY SYRINGE ONE (04:18)
[2023-01-26 05:11] LABS: BASOPHILS # (AUTO) 0.1 10^3/uL (0.0-0.1); BASOPHILS % (AUTO) 0 % (0-10); EOSINOPHILS # (AUTO) 0.2 10^3/uL (0.0-0.3); EOSINOPHILS % (AUTO) 1 % (0-10); HEMATOCRIT 29 % (40-54); HEMOGLOBIN 9.4 g/dL (13.3-17.7); LYMPHOCYTES # (AUTO) 1.4 10^3/uL (1.0-4.0); LYMPHOCYTES % (AUTO) 5 % (12-44); MEAN CORPUSCULAR HEMOGLOBIN 31 pg (25-34); MEAN CORPUSCULAR HGB CONC 33 g/dL (32-36); MEAN CORPUSCULAR VOLUME 93 fL (80-99); MEAN PLATELET VOLUME 10.1 fL (9.0-12.2); MONOCYTES # (AUTO) 1.1 10^3/uL (0.0-1.0); MONOCYTES % (AUTO) 4 % (0-12); NEUTROPHILS # (AUTO) 24.3 10^3/uL (1.8-7.8); NEUTROPHILS % (AUTO) 89 % (42-75); PLATELET COUNT 536 10^3/uL (130-400); WHITE BLOOD COUNT 27.5 10^3/uL (4.3-11.0)
[2023-01-26 05:31] LABS: ALBUMIN 2.4 GM/DL (3.2-4.5)
[2023-01-26 05:32] LABS: POTASSIUM 3.8 MMOL/L (3.6-5.0)
[2023-01-26 05:33] LABS: CALCIUM 9.5 MG/DL (8.5-10.1)
[2023-01-26 05:34] LABS: TOTAL PROTEIN 5.8 GM/DL (6.4-8.2)
[2023-01-26 05:36] LABS: BILIRUBIN,TOTAL 0.7 MG/DL (0.1-1.0)
[2023-01-26 05:38] LABS: CREATININE SERUM 1.62 MG/DL (0.60-1.30)
[2023-01-26] MEDS: ACETAMINOPHEN 500 MG TABLET PO SCH ×3 (06:09→21:21)
[2023-01-26 08:00] VITALS: BP 95/47
--- NOTE | 2023-01-26 10:56 | Progress Note ---
RAVIN HERNÁNDEZ MD, RESIDENT 01/26/23 1056: Standard Progress Note Progress Notes/Assess & Plan Date Seen by a Provider: Jan 26, 2023 Time Seen by a Provider: 09:45 Progress/Assessment & Plan Patient is doing okay today. He has no concerns. He is noting that his appetite is quite poor but has been poor for a while. He is still continuing to cough up sputum. Patient was having some lower extremity pain bilaterally but states that the vibration from the SCDs was helping with this. He is continuing to have right shoulder pain rated 7 out of 10 that has been ongoing for an hour. He otherwise has no concerns today. Focused Exam Lactate Level 01/25/23 11:27: Lactic Acid Level 1.93 Respiratory: Chest Non Tender, Lungs Clear, Normal Breath Sounds, No Accessory Muscle Use, No Respiratory Distress, Crackles (Continues to have crackles in the left lower lobe) Cardiovascular: Regular Rate, Rhythm, No Edema, No Murmur Skin: normal color, warm/dry Diagnosis/Problems Diagnosis/Problems (1) Community acquired pneumonia Status: Acute Assessment & Plan: Patient noted to have pneumonia on chest x-ray as well as significant leukocytosis with WBC up to 30.1. Blood cultures have been obtained. Despite antibiotics, patient's white count has not responded significantly today. WBC dropped from 30.1 to 27.5. Broaden coverage to cefepime and continuing azithromycin for now Obtaining sputum culture Continue to follow blood cultures Obtaining CT chest with contrast to further assess pneumonia given minimal response. In addition ruling out other cause concerning findings given that patient has a very low BMI of 13.9. Added on Breo Ellipta to help with lung function. Of note patient states he is getting work-up done in the outpatient to evaluate for COPD. Will follow-up outpatient PFTs. Holding off on starting steroids given that this will make it difficult for us to assess any improvement in the leukocytosis Due to limited improvement and leukocytosis with antibiotics, will also obtain an echocardiogram to evaluate for any valvular lesions. Plan to consult cardiology if needed. Qualifiers: (2) Generalized weakness Status: Acute Assessment & Plan: Continue treatment as per above Ordered PT/OT (3) Dehydration Status: Acute Assessment & Plan: Patient noted to be dehydrated in addition has soft blood pressures noted today with systolics in the 90s and diastolics in the 40s to 50s. Starting IV fluids, LR at a maintenance rate (4) THOAMS (acute kidney injury) Status: Acute Assessment & Plan: Improving. Creatinine dropped from 1.78-1.62 today. Anticipate improvement with additional fluids. Of note, patient has had creatinines into the 2 range previously and was noted to have chronic renal insufficiency. Creatinine here is much improved. (5) Alcoholism Status: Acute Assessment & Plan: Monitor for any signs of withdrawal. Last drink was 3 weeks ago. (6) Low BMI Status: Acute Assessment & Plan: Patient noted to have a BMI of 13.9. Secondary to malnutrition likely however will obtain CT abdomen and chest to rule out poss ible cancer. (7) Hypotension Status: Acute Assessment & Plan: To have soft blood pressures today. Starting IV fluids as noted above. We will continue to monitor Qualifiers: Qualified Codes: I95.9 - Hypotension, unspecified DARINEL CHESTER DO 01/26/23 1421: Standard Progress Note Progress Notes/Assess & Plan Progress/Assessment & Plan About the same CT chest ordered IV abx maintained Possible abscess? Consult Dr Carin Hernandez personally performed the orellana portions of the visit, discussed case with resident and concur with resident documentation of history, physical exam, assessment and treatment plan unless otherwise noted. RAVIN HERNÁNDEZ MD, RESIDENT Jan 26, 2023 10:56 DARINEL CHESTER DO Jan 26, 2023 14:21
[2023-01-26] MEDS ORDERED: oxyCODONE IMMEDIATE RELEASE 5 MG TABLET PO PRN (11:00)
[2023-01-26] MEDS: LIDOCAINE 4% PATCH TOP SCH (11:05)
[2023-01-26 12:00] VITALS: BP 127/98
[2023-01-26] MEDS ORDERED: cefTRIAXone IV/IM 1,000 MG in NS (IVPB) 50 ML 50 ML IV SCH (12:00)
--- NOTE | 2023-01-26 12:12 | Diagnostic Imaging Report ---
PROCEDURE: CT chest without contrast. TECHNIQUE: Multiple contiguous axial images were obtained through the chest without the use of intravenous contrast. Auto Exposure Controls were utilized during the CT exam to meet ALARA standards for radiation dose reduction. Date: January 26, 2023. Indication: 77-year-old male, weight loss. Evaluation for pneumonia. Comparison: Chest radiograph January 25, 2023. Chest radiograph November 15, 2022. Findings: There is extensive alveolar consolidation in the left upper lobe. There is also cavitation present in the left upper lobe on axial image 86 and adjacent sequential images. There is also consolidation in the left lower lobe. There is no pneumothorax. There are mild linear opacities in the right upper lobe compatible with mild scarring and/or atelectasis as well as in the right lower lobe. There is no right pleural effusion. There is a trace to small left pleural effusion. The heart is not enlarged. There is no identified pericardial effusion. There are coronary artery calcifications and additional areas of atherosclerotic disease. There is no abnormally enlarged mediastinal or axillary lymph node meeting CT size criteria for adenopathy. The imaged portions of the upper abdomen are grossly unremarkable. There is an acute appearing compression fracture of L1 with visible fracture line and approximately 50% height loss centrally. There is retropulsion of the posterior superior aspect of L1 beyond the expected posterior vertebral body margin by roughly 3 mm without associated high-grade spinal stenosis. There also are compression deformities of the superior endplates of T1 and T2 and compression deformity of T7. These are technically age indeterminate without comparison imaging although are suspected to be chronic. There are chronic appearing rib deformities bilaterally. Impression: 1. Extensive airspace consolidation in the left upper lobe including an area of cavitation which may relate to pneumonia and necrotizing pneumonia. Developing abscess would also be considered. Neoplastic etiology is less likely but also in the differential diagnosis. 2. Nonspecific left lower lobe airspace consolidation which also may reflect pneumonia or aspiration. 3. Small left pleural effusion. 4. Most likely acute compression fracture of L1 with additional thoracic spine compression deformities of indeterminate age given lack of comparison imaging. The L1 compression fracture is new since September 04, 2020. Dictated by: Dictated on workstation # [id number]
[2023-01-26] MEDS: AZITHROMYCIN INJECTION 500 MG in NS (IVPB) 250 ML 250 ML IV SCH (12:57)
[2023-01-26] MEDS: LACTATED RINGERS 1,000 ML 1,000 ML IV SCH ×2 (12:57→21:22)
[2023-01-26] MEDS: CEFEPIME INJECTION 1,000 MG in NS (IVPB) 50 ML 50 ML IV SCH ×2 (12:57→23:41)
[2023-01-26] MEDS ORDERED: MEGE20TA3 PO (14:15)
[2023-01-26] MEDS ORDERED: FOLI1TAB33 PO (14:15)
[2023-01-26] MEDS ORDERED: CYAN-23 PO (14:15)
--- NOTE | 2023-01-26 15:35 | Consultation-Cardiology ---
HPI-Cardiology Cardiology Consultation: Date of Consultation 01/26/23 Time Seen by a Provider: 14:10 Date of Admission Attending Physician Alexi Dleeon DO Admitting Physician Admitting Physician: Darlin Baptiste DO Attending Physician: Darlin Baptiste DO Consulting Physician JOSE HAILE MD, MA, FACP, FACC, FSCAI, CCDS Physician requesting consult: Dr Baptiste HPI: Chief Complaint: Reason for Card consult: Shortness of breath 77 yo man with chronic exertional shortness of breath that has worsened over the past couple of weeks. Has had gen malaise and weakness. Has had poor appetite and feels may have lost wgt. He has had a cough productive of small quantities of yellowish, tenacious sputum. Denies leg swelling. Denies cp or palp or syncope. Doesn't repor n/v/d. Review of Systems-Cardiology Review of Systems Constitutional: As described under HPI Eyes: No vision change Ears/Nose/Throat: No ear discharge, No nasal drainage, No recent hearing loss Respiratory: As described under HPI Cardiovascular: As described under HPI Gastrointestinal: As described under HPI Genitourinary: No dysuria, No hematuria Musculoskeletal: No back pain, No joint pain Skin: No rash, No ulcerations Psychiatric/Neurological: No seizure, No focal weakness, No syncope Hematologic: No bleeding abnormalities [id number] Hx Patient Social History Marrital Status: Employed/Student: retired Smoking Status: Current Everyday Smoker Alcohol Use?: Yes Pt feels they are or have been: No Tobacco type used: Cigarettes Past Medical History PMH As described under Assessment. Family Medical History Family Medical History: He does not report fam h/o early CAD or SCD Allergies and Home Medications Allergies Coded Allergies: No Known Drug Allergies (Unverified , 03/22/22) Patient Home Medication List Home Medication List Reviewed: Yes Cyanocobalamin (Vitamin B-12) (Vitamin B-12) 1,000 Mcg Capsule, 1,000 MCG PO ARVIN LY, (Reported) Entered as Reported by: STEVEN SANABRIA on 01/26/231414 Last Action: New Order Folic Acid (Folic Acid) 1 Mg Tablet, 1 MG PO DAILY, (Reported) Entered as Reported by: STEVEN SANABRIA on 01/26/231414 Last Action: New Order Megestrol Acetate (Megestrol Acetate) 20 Mg Tablet, 20 MG PO DAILY, (Reported) Entered as Reported by: STEVEN SANABRIA on 01/26/23 1415 Last Action: New Order Discontinued Medications Cholecalciferol (Vitamin D3) (D3-50) 1,250 Mcg (00835 Unit) Capsule, 1,250 MCG PO TUE, (Reported) Discontinued Reason: No Longer Taking Entered as Reported by: PALMER SHORE on 11/15/221248 Last Action: Discontinued Gabapentin (Neurontin) 300 Mg Capsule, 300 MG PO HS, (Reported) Discontinued Reason: No Longer Taking Entered as Reported by: PALMER SHORE on 11/15/221248 Last Action: Discontinued Pantoprazole Sodium (Pantoprazole Sodium) 40 Mg Tablet.dr, 40 MG PO DAILY, (Reported) Discontinued Reason: No Longer Taking Entered as Reported by: PALMER SHORE on 11/15/221248 Last Action: Discontinued Sucralfate (Sucralfate) 1 Gram/10 Ml Oral.susp, 5 ML PO BID, (Reported) Discontinued Reason: No Longer Taking Entered as Reported by: PALMER SHORE on 11/15/221248 Last Action: Discontinued Physical Exam-Cardiology Physical Exam Vital Signs/I&O 01/26/23 01/26/23 01/26/23 01/26/23 07:00 08:00 08:00 12:00 Temp 36.0 36.5 Pulse 79 70 92 Resp 22 16 B/P (MAP) 95/47 (63) 127/98 (108) Pulse Ox 95 95 95 O2 Delivery Room Air Room Air Room Air 01/26/23 12:26 Pulse 98 01/26/23 00:00 Intake Total 1670 ml Output Total 150 ml Balance 1520 ml Capillary Refill : Less Than 3 Seconds Constitutional: AAO x 3, other (thin-appearing) HEENT: PERRL, EOMI, hearing is well preserved Neck: carotid pulses are 2 + bilaterally, with good upstrokes Respiratory: No accessory muscle use; chest expansion is symmetric, chest is bi laterally symmetric, other (dimished air entry and prolonged exp) Cardiovascular: regular rate-rhythm, S1 and S2, systolic murmur (2/6 ANGELITA at card base) Gastrointestinal: No tender; soft; No guarding, No rebound; audible bowel sounds Extremities: No clubbing, No cyanosis, No significant edema Neurologic/Psychiatric: oriented x 3, other (moves all limbs equally) Skin: normal color, warm/dry; No cyanosis, No cool, No diaphoresis Data Review Labs Laboratory Tests 01/26/23 05:00: White Blood Count 27.5H, Red Blood Count 3.08L, Hemoglobin 9.4L, Hematocrit 29L, Mean Corpuscular Volume 93, Mean Corpuscular Hemoglobin 31, Mean Corpuscular Hemoglobin Concent 33, Red Cell Distribution Width 14.3, Platelet Count 536H, Mean Platelet Volume 10.1, Immature Granulocyte % (Auto) 2, Neutrophils (%) (Auto) 89H, Lymphocytes (%) (Auto) 5L, Monocytes (%) (Auto) 4, Eosinophils (%) (Auto) 1, Basophils (%) (Auto) 0, Neutrophils # (Auto) 24.3H, Lymphocytes # (Auto) 1.4, Monocytes # (Auto) 1.1H, Eosinophils # (Auto) 0.2, Basophils # (Auto) 0.1, Immature Granulocyte # (Auto) 0.4H, Sodium Level 139, Potassium Level 3.8, Chloride Level 107, Carbon Dioxide Level 17L, Anion Gap 15H, Blood Urea Nitrogen 50H, Creatinine 1.62H, Estimat Glomerular Filtration Rate 44, BUN/Creatinine Ratio 31, Glucose Level 112H, Calcium Level 9.5, Corrected Calcium 10.8H, Total Bilirubin 0.7, Aspartate Amino Transf (AST/SGOT) 27, Alanine Aminotransferase (ALT/SGPT) 28, Alkaline Phosphatase 177H, Total Protein 5.8L, Albumin 2.4L Microbiology 01/25/23 Blood Culture - Preliminary, Resulted Laboratory Tests 01/25/23 11:27 01/26/23 05:00 A/P-Cardiology Assessment/Admission Diagnosis Acute exacerbation of COPD due to pneumonia - managed by Dr Baptiste - Echo on 01-26-23: LVEF 65-70%, mild MR, AoV sclerosis w/o stenosis, PASP 35-40 mmHg 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
[2023-01-26 16:08] VITALS: BP 95/59
--- NOTE | 2023-01-26 17:04 | CONSULTATION REPORT ---
DATE OF SERVICE: 01/26/2023 ATTENDING PRIMARY CARE PHYSICIAN: Dr. Alexi Deleon. ADMITTING PHYSICIAN: Dr. Darlin Baptiste HISTORY OF PRESENT ILLNESS: The patient is a 77-year-old male with extensive past medical history including alcoholism as well as long history of smoking. The patient also does not see physicians on a regular basis. He presented to Emergency Department with generalized weakness, intermittent cough and feeling chills. The patient had also reported that he was having diarrhea at home; however, took some ubhr-zoh-[id number] antidiarrheal, which did help. He does not report any red blood per rectum, nor any dark tarry stools. He does have a history of gastroesophageal reflux disease. A chest x-ray as well as a CT scan was performed. There was a significant consolidation of the left lower aspect of the upper lobe of the lung. There is also potential developing abscess. Again, the patient does have greater than 50 pack years smoking history. It appears that his only other medical history known to us is degenerative joint disease as well as gastroesophageal reflux disease. PAST MEDICAL HISTORY: COPD, pneumonia, degenerative joint disease, gastroesophageal reflux disease. PAST SURGICAL HISTORY: Right shoulder arthroscopy. ALLERGIES: NO KNOWN DRUG ALLERGIES. MEDICATIONS: Gabapentin 300 mg daily, Protonix 40 mg daily, Carafate 1 gram b.i.d. SOCIAL HISTORY: Positive smoke, however, states that he quit recently 50 pack years, heavy alcohol use and drinks approximately 1 pint daily; however, quit approximately 3 weeks ago. Noncontributory. VITAL SIGNS: Pulse 90, respirations 24, pulse ox 99% on room air. REVIEW OF SYSTEMS: This is a thin-appearing male, currently not short of breath with supplemental oxygen. He is experiencing intermittent cough, which is nonproductive. No nausea, vomiting, diarrhea before admission. No red blood per rectum, no dark tarry stools. He was having chills at home. No recent inadvertent weight loss. All other review of systems negative. PHYSICAL EXAMINATION: CHEST: Distant breath sounds and scattered wheezes bilaterally as well as decreased breath sounds, left mid chest. HEART: Regular. No murmurs. EXTREMITIES: No lower extremity edema. Negative Homans sign. HEENT: No scleral icterus. No cervical lymphadenopathy. ABDOMEN: Soft, nontender, nondistended. SKIN: Warm, dry. LABORATORY DATA: WBC 27.5, hemoglobin 9.4, hematocrit 29, platelets 536, BUN 50, creatinine 1.62. Serology was negative for SARS-CoV-2. ASSESSMENT AND PLAN: A 77-year-old male with consolidation of the lower aspect of the left upper lung as well as a history of COPD, resulting in a pneumonia. This may also be due to mucus plugging and we will proceed with a bronchoscopy and irrigation and mucous plugging if visualized as well as send the sputum for culture and sensitivity. For now, we will recommend continued medical management with supplemental oxygen as well as continued IV antibiotics. Job ID: [id number] DocumentID: [id number] Dictated Date: 01/26/2023 16:32:11 Inside Wirer Date: 01/26/2023 17:02:00 Dictated By: TEETEE CELESTIN MD
[2023-01-26 19:20] VITALS: BP 100/52
[2023-01-26] MEDS: ENOXAPARIN 30 MG/0.3 ML SYRINGE SC SCH (21:21)
[2023-01-26] MEDS: PATCH REMOVAL TP SCH (21:27)
[2023-01-26 23:01] VITALS: BP 98/60
[2023-01-27 03:11] VITALS: BP 100/62
[2023-01-27] MEDS: ACETAMINOPHEN 500 MG TABLET PO SCH ×3 (05:06→19:33)
[2023-01-27] MEDS: LACTATED RINGERS 1,000 ML 1,000 ML IV SCH ×2 (05:06→17:16)
[2023-01-27 06:01] LABS: BASOPHILS # (AUTO) 0.1 10^3/uL (0.0-0.1); BASOPHILS % (AUTO) 0 % (0-10); EOSINOPHILS # (AUTO) 0.2 10^3/uL (0.0-0.3); EOSINOPHILS % (AUTO) 1 % (0-10); HEMATOCRIT 26 % (40-54); HEMOGLOBIN 8.6 g/dL (13.3-17.7); LYMPHOCYTES # (AUTO) 1.6 10^3/uL (1.0-4.0); LYMPHOCYTES % (AUTO) 6 % (12-44); MEAN CORPUSCULAR HEMOGLOBIN 31 pg (25-34); MEAN CORPUSCULAR HGB CONC 33 g/dL (32-36); MEAN CORPUSCULAR VOLUME 93 fL (80-99); MEAN PLATELET VOLUME 10.4 fL (9.0-12.2); MONOCYTES % (AUTO) 4 % (0-12); NEUTROPHILS # (AUTO) 21.9 10^3/uL (1.8-7.8); NEUTROPHILS % (AUTO) 87 % (42-75); PLATELET COUNT 474 10^3/uL (130-400); WHITE BLOOD COUNT 25.2 10^3/uL (4.3-11.0)
[2023-01-27 06:21] LABS: POTASSIUM 3.6 MMOL/L (3.6-5.0)
[2023-01-27 06:22] LABS: CALCIUM 9.4 MG/DL (8.5-10.1)
[2023-01-27 06:25] LABS: BILIRUBIN,TOTAL 0.4 MG/DL (0.1-1.0)
[2023-01-27 06:27] LABS: CREATININE SERUM 1.38 MG/DL (0.60-1.30)
[2023-01-27] MEDS ORDERED: BENZOCAINE 20% SPRAY (HURRICANE) 60 ML CAN MT ONE (08:00)
[2023-01-27] MEDS ORDERED: LIDOCAINE 4% INJ 5ML AMP INH ONE (08:00)
[2023-01-27] MEDS ORDERED: ATROPINE INJ 0.4 MG/ML SDV INJ ONE (08:00)
[2023-01-27] MEDS ORDERED: NS IV 500 ML 500 ML IV ONE (08:00)
[2023-01-27] MEDS: FLUTICASONE/VILANTEROL 200/25 MCG (7 DOSES) IH SCH (08:17)
[2023-01-27] MEDS: LIDOCAINE 4% PATCH TOP SCH (08:26)
[2023-01-27] MEDS: AZITHROMYCIN INJECTION 500 MG in NS (IVPB) 250 ML 250 ML IV SCH (08:26)
[2023-01-27 08:52] VITALS: BP 90/48
[2023-01-27] MEDS ORDERED: diphenhydrAMINE 25 MG TABLET PO PRN (09:30)
[2023-01-27] MEDS ORDERED: MELATONIN 3 MG TABLET PO PRN (09:30)
[2023-01-27] MEDS ORDERED: MILK OF MAGNESIA 400 MG/5 ML 30 ML UDC PO PRN (09:30)
[2023-01-27] MEDS ORDERED: ANTACID SUSPENSION 30 ML UDC PO PRN ×2 (09:30→09:45)
[2023-01-27] MEDS ORDERED: ONDANSETRON INJECTION 4 MG/2 ML (SDV) IV PRN ×2 (09:30→09:45)
[2023-01-27] MEDS ORDERED: BISACODYL 10 MG SUPPOSITORY PR PRN (09:30)
[2023-01-27] MEDS ORDERED: ONDANSETRON 4 MG ORAL DISSOLVE TABLET PO PRN (09:30)
[2023-01-27] MEDS ORDERED: HYDROmorphone INJECTION 2 MG/ML VIAL IV PRN (09:30)
[2023-01-27] MEDS ORDERED: ACETAMINOPHEN 325 MG TABLET PO PRN (09:30)
[2023-01-27] MEDS ORDERED: LACTULOSE SYRUP 10GM/15ML 30ML UDC PO PRN (09:30)
[2023-01-27] MEDS ORDERED: CALCIUM CARBONATE 500 MG CHEW TABLET PO PRN (09:30)
[2023-01-27] MEDS ORDERED: diphenhydrAMINE INJ 50 MG/ML VIAL IVP PRN (09:30)
[2023-01-27] MEDS ORDERED: VANCOMYCIN INJECTION 0.1 MG in NS (IVPB) 250 ML 250 ML IV SCH (09:30)
[2023-01-27] MEDS ORDERED: ONDANSETRON 4 MG ORAL DISSOLVE TABLET SL PRN (09:45)
[2023-01-27] MEDS ORDERED: 1/2 NS IV SOLUTION 1000 ML 1,000 ML IV PRN (09:45)
[2023-01-27] MEDS ORDERED: SENNA W/DOCUSATE TABLET PO PRN (09:45)
[2023-01-27] MEDS ORDERED: D5 1/2 NS 1,000 ML IV 1,000 ML IV PRN (09:45)
[2023-01-27] MEDS ORDERED: LORazepam 1 MG TABLET PO PRN (09:45)
--- NOTE | 2023-01-27 09:56 | Physical Therapy Progress Note ---
Therapy Progress Note Patient adamantly declined PT on this date. RN notified. Will attempt tomorrow GABI Quevedo PT Jan 27, 2023 09:56
[2023-01-27] MEDS ORDERED: VANCOMYCIN 1 GM/NS 250 ML IVPB IV NR ×2 (10:00)
[2023-01-27] MEDS: oxyCODONE IMMEDIATE RELEASE 5 MG TABLET PO PRN ×3 (10:06→23:06)
[2023-01-27] MEDS: THIAMINE INJECTION 100 MG, FOLIC ACID INJECTION 1 MG, MULTIVITAMIN INJECTION 10 ML, MAG... IV SCH ×5 (10:56)
--- NOTE | 2023-01-27 11:21 | Occ Therapy Progress Note ---
Therapy Progress Note Patient adamantly declined PT on this date. RN notified. AUDIE LIRA OT Jan 27, 2023 11:21
--- NOTE | 2023-01-27 11:53 | Progress Note ---
GISELL REVELES 01/27/23 1153: Subjective Date Seen by a Provider: Jan 27, 2023 Time Seen by a Provider: 09:30 Subjective/Events-last exam 01/27/2023: CC: Generalized weakness HPI: Abelino, 77M, is very upset this morning. He is unsure of why he cannot have oral fluids. It was explained to him that he was to have a bronchoscopy. It was later postponed and patient was informed that he would not be having the procedure today, but rather tomorrow on 01/28. Abelino understood and was in slightly better spirits. He said he had a bad night due to interruptions. He notes that he has no changes in presentation. He says that he is not in pain, but upset about being in the hospital. No other concerns. Review of Systems General: Fatigue HEENT: No Head Aches, No Visual Changes, No Eye Pain, No Ear Pain, No Dysphasia, No Sinus Congestion, No Post Nasal Drip, No Sore Throat, No Other Pulmonary: Dyspnea, Cough Cardiovascular: No: Chest Pain, Palpitations, Orthopnea, Paroxysmal Noc. Dyspnea, Edema, Lt Headedness, Other Gastrointestinal: No: Nausea, Vomiting, Abdominal Pain, Diarrhea, Constipation, Melena, Hematochezia, Other Genitourinary: No Dysuria, No Frequency, No Incontinence, No Hematuria, No Retention, No Other Musculoskeletal: No: other, neck pain, shoulder pain, arm pain, back pain, hand pain, leg pain, foot pain Focused Exam Lactate Level 01/25/23 11:27: Lactic Acid Level 1.93 Objective Exam Last Set of Vital Signs Vital Signs Date Time Temp Pulse Resp B/P (MAP) Pulse Ox O2 Delivery O2 Flow Rate FiO2 01/27/23 09:50 89 01/27/23 08:52 36.8 26 90/48 (62) 92 Room Air 01/27/23 08:17 0.00 01/25/23 19:07 21 Capillary Refill : Less Than 3 Seconds I&O Intake and Output 01/27/23 00:00 Intake Total 655 ml Output Total 200 ml Balance 455 ml Intake Oral 350 ml IV Total 305 ml Output Urine Total 200 ml # Urine Diapers 2 General: Alert, Oriented X3, Other (severly thin, temporal wasting; non- cooperative ) HEENT: Atraumatic, EOMI, Mucous Memb Moist/[place] Neck: Supple, No JVD, No Thyromegaly Lungs: Other (L lung consolidation, slightly decreased breath sounds ) Heart: Regular Rate, Normal S1, Normal S2 Abdomen: Normal Bowel Sounds Extremities: No Clubbing, No Cyanosis, Normal Pulses Skin: No Significant Lesion Neuro: Normal Speech Results Lab Laboratory Tests 01/27/23 05:27: White Blood Count 25.2H, Red Blood Count 2.80L, Hemoglobin 8.6L, Hematocrit 26L, Mean Corpuscular Volume 93, Mean Corpuscular Hemoglobin 31, Mean Corpuscular Hemoglobin Concent 33, Red Cell Distribution Width 14.3, Platelet Count 474H, Mean Platelet Volume 10.4, Immature Granulocyte % (Auto) 2, Neutrophils (%) (Auto) 87H, Lymphocytes (%) (Auto) 6L, Monocytes (%) (Auto) 4, Eosinophils (%) (Auto) 1, Basophils (%) (Auto) 0, Neutrophils # (Auto) 21.9H, Lymphocytes # (Auto) 1.6, Monocytes # (Auto) 1.0, Eosinophils # (Auto) 0.2, Basophils # (Auto) 0.1, Immature Granulocyte # (Auto) 0.5H, Sodium Level 139, Potassium Level 3.6, Chloride Level 109H, Carbon Dioxide Level 18L, Anion Gap 12, Blood Urea Nitrogen 45H, Creatinine 1.38H, Estimat Glomerular Filtration Rate 53, BUN/Creatinine Ratio 33, Glucose Level 74, Calcium Level 9.4, Corrected Calcium 11.0H, Total Bilirubin 0.4, Aspartate Amino Transf (AST/SGOT) 15, Alanine Aminotransferase (ALT/SGPT) 16, Alkaline Phosphatase 138H, Total Protein 5.0L, Albumin 2.0L Microbiology 01/26/23 Gram Stain - Final, Resulted 01/26/23 Sputum Culture - Preliminary, Resulted Staphylococcus aureus 01/25/23 Blood Culture - Preliminary, Resulted Assessment/Plan Assessment/Plan Assess & Plan/Chief Complaint 01/27/2023: A/P -Community Acquired PNA * Cefepime, Azithromycin * Vancomycin added due to S. aureus positive sputum, potentially MRSA -L upper lung process * potential abscess or malignacy- bronchoscopy with Dr. Del Rosario, medical benefits outweigh potential harms -COPD exacerbation * Fluticisone/Vilanterol -EtOH use disorder * CIWA protocol, thiamine, ativan PRN, monitor for withdraw symptoms * daily CIWA score -Hypercalcemia * suspected underlying malignancy- paraneoplastic response * Ordered PTH, PTHRP, Spot urine Ca, ionized Ca, Vitamin D -CKD * fluids, daily BUN and Cr monitoring -L1 compression fx * oxycodone, salonpas PRN DARLIN CHESTER DO 01/27/232020: Subjective Subjective/Events-last exam Patient upset Dr Del Rosario will come and talk more details about the bronch Explained everything again and he does have poor recall Objective Exam General: Alert, Oriented X3, Cooperative, No Acute Distress Lungs: Other (L lung consolidation, slightly decreased breath sounds ) Heart: Regular Rate Psych/Mental Status: Mental Status NL Assessment/Plan Assessment/Plan Assess & Plan/Chief Complaint Bronch IVF Monitor closely ETOH withdrawal Supervisory-Addendum Brief Verification & Attestation Participated in pt care: history, MDM, physical Personally performed: exam, history, MDM, supervision of care Care discussed with: Medical Student Procedures: n/a Results interpretation: Verified all documentation Verification and Attestation of Medical Student E/M Service A medical student performed and documented this service in my presence. I reviewed and verified all information documented by the medical student and made modifications to such information, when appropriate. I personally performed the physical exam and medical decision making. Darlin Chester Jan 27, 2023,20:19 GISELL REVELES Jan 27, 2023 11:53 DARLIN CHESTER DO Jan 27, 2023 20:21
[2023-01-27 12:00] VITALS: BP 95/70
[2023-01-27] MEDS: CEFEPIME INJECTION 1,000 MG in NS (IVPB) 50 ML 50 ML IV SCH (12:04)
--- NOTE | 2023-01-27 12:28 | Progress Note - Cardiology ---
Cardiology SOAP Progress Note Subjective: Gen weakness Productive cough No c/o CP Objective: I&O/Vital Signs 01/27/23 01/28/23 01/28/23 01/28/23 23:36 01:00 03:30 07:31 Temp 37.0 36.2 Pulse 77 77 67 78 Resp 16 16 B/P (MAP) 97/51 (66) 106/67 (80) Pulse Ox 92 95 O2 Delivery Nasal Cannula Nasal Cannula O2 Flow Rate 2.00 2.00 2.00 01/28/23 01/28/23 07:50 08:00 Temp 36.4 Pulse 90 Resp 16 B/P (MAP) 108/63 (78) Pulse Ox 93 93 O2 Delivery Nasal Cannula Nasal Cannula O2 Flow Rate 1.00 1.00 01/27/23 23:59 Intake Total 330 ml Output Total 2700 ml Balance -2370 ml Constitutional: AAO x 3, other (thin-appearing) Respiratory: No accessory muscle use; chest expansion is symmetric, chest is bilaterally symmetric, other (dimished air entry and prolonged exp) Cardiovascular: regular rate-rhythm, S1 and S2, systolic murmur (2/6 ANGELITA at card base) Gastrointestional: No tender; soft; No guarding, No rebound; audible bowel sounds Extremities: No clubbing, No cyanosis, No significant edema Neurologic/Psychiatric: oriented x 3, other (moves all limbs equally) Skin: normal color, warm/dry; No cyanosis, No cool, No diaphoresis Results/Procedures: Labs Laboratory Tests 01/27/23 15:08: Urine Random Calcium 4, Parathyroid Hormone (Intact) 8.5L, Calcium (PTH Intact) 8.7 01/28/23 05:12: White Blood Count 18.8H, Red Blood Count 2.51L, Hemoglobin 7.5L, Hematocrit 24L, Mean Corpuscular Volume 94, Mean Corpuscular Hemoglobin 30, Mean Corpuscular Hemoglobin Concent 32, Red Cell Distribution Width 14.6H, Platelet Count 401H, Mean Platelet Volume 10.4, Immature Granulocyte % (Auto) 3, Neutrophils (%) (Auto) 82H, Lymphocytes (%) (Auto) 8L, Monocytes (%) (Auto) 6, Eosinophils (%) (Auto) 2, Basophils (%) (Auto) 0, Neutrophils # (Auto) 15.4H, Lymphocytes # (Auto) 1.5, Monocytes # (Auto) 1.0, Eosinophils # (Auto) 0.3, Basophils # (Auto) 0.1, Immature Granulocyte # (Auto) 0.5H, Sodium Level 139, Potassium Level 3.7, Chloride Level 112H, Carbon Dioxide Level 19L, Anion Gap 8, Blood Urea Nitrogen 36H, Creatinine 1.25, Estimat Glomerular Filtration Rate 60, BUN/Creatinine Ratio 29, Glucose Level 101, Calcium Level 9.2, Corrected Calcium 11.0H, Total Bilirubin 0.4, Aspartate Amino Transf (AST/SGOT) 16, Alanine Aminotransferase (ALT/SGPT) 12, Alkaline Phosphatase 118, Total Protein 4.5L, Albumin 1.8L Microbiology 01/26/23 MRSA Screen - Final, Complete MRSA not isolated 01/25/23 Blood Culture - Preliminary, Resulted A/P: Assessment: Acute exacerbation of COPD due to pneumonia - managed by Dr Baptiste - Echo on 01-26-23: LVEF 65-70%, mild MR, AoV sclerosis w/o stenosis, PASP 35-40 mmHg 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 Baptiste * Management of pneumonia and volume depletion is with Dr Baptiste * I discussed his CV issues/risk factors with Mr and Mrs Shanel BLANCARADAMESGAGAN Jan 27, 2023 12:28
[2023-01-27] MEDS ORDERED: LORA10TA7 PO (12:55)
[2023-01-27] MEDS ORDERED: IBUP-2473 PO (12:55)
[2023-01-27] MEDS ORDERED: ERGO1250 PO (12:55)
[2023-01-27] MEDS ORDERED: CHOL50005 PO (12:55)
[2023-01-27] MEDS ORDERED: CYAN-41 PO (12:55)
[2023-01-27 16:57] VITALS: BP 106/66
--- NOTE | 2023-01-27 18:06 | Progress Note - Cardiology ---
Cardiology SOAP Progress Note Subjective: Gen malaise and weakness Shortness of breath with activity No cp or palp or syncope No n/v/d Objective: I&O/Vital Signs 01/27/23 01/27/23 01/27/23 01/27/23 08:00 08:17 08:52 09:50 Temp 36.8 Pulse 79 89 Resp 26 B/P (MAP) 90/48 (62) Pulse Ox 92 91 92 O2 Delivery Room Air Room Air Room Air O2 Flow Rate 0.00 0.00 01/27/23 01/27/23 01/27/23 12:00 12:55 16:57 Temp 36.4 36.5 Pulse 75 82 81 Resp 23 16 B/P (MAP) 95/70 (78) 106/66 (79) Pulse Ox 96 91 O2 Delivery Room Air Room Air 01/27/23 00:00 Intake Total 555 ml Balance 555 ml Constitutional: AAO x 3, other (thin-appearing) Respiratory: No accessory muscle use; chest expansion is symmetric, chest is bilaterally symmetric, other (dimished air entry and prolonged exp) Cardiovascular: regular rate-rhythm, S1 and S2, systolic murmur (2/6 ANGELITA at card base) Gastrointestional: No tender; soft; No guarding, No rebound; audible bowel sounds Extremities: No clubbing, No cyanosis, No significant edema Neurologic/Psychiatric: oriented x 3, other (moves all limbs equally) Skin: normal color, warm/dry; No cyanosis, No cool, No diaphoresis Results/Procedures: Labs Laboratory Tests 01/27/23 05:27: White Blood Count 25.2H, Red Blood Count 2.80L, Hemoglobin 8.6L, Hematocrit 26L, Mean Corpuscular Volume 93, Mean Corpuscular Hemoglobin 31, Mean Corpuscular Hemoglobin Concent 33, Red Cell Distribution Width 14.3, Platelet Count 474H, Mean Platelet Volume 10.4, Immature Granulocyte % (Auto) 2, Neutrophils (%) (Auto) 87H, Lymphocytes (%) (Auto) 6L, Monocytes (%) (Auto) 4, Eosinophils (%) (Auto) 1, Basophils (%) (Auto) 0, Neutrophils # (Auto) 21.9H, Lymphocytes # (Auto) 1.6, Monocytes # (Auto) 1.0, Eosinophils # (Auto) 0.2, Basophils # (Auto) 0.1, Immature Granulocyte # (Auto) 0.5H, Sodium Level 139, Potassium Level 3.6, Chloride Level 109H, Carbon Dioxide Level 18L, Anion Gap 12, Blood Urea Nitrogen 45H, Creatinine 1.38H, Estimat Glomerular Filtration Rate 53, BUN/Creatinine Ratio 33, Glucose Level 74, Calcium Level 9.4, Corrected Calcium 11.0H, Total Bilirubin 0.4, Aspartate Amino Transf (AST/SGOT) 15, Alanine Aminotransferase (ALT/SGPT) 16, Alkaline Phosphatase 138H, Total Protein 5.0L, Albumin 2.0L 01/27/23 15:08: Microbiology 01/26/23 MRSA Screen - Final, Complete MRSA not isolated 01/25/23 Blood Culture - Preliminary, Resulted Laboratory Tests 01/26/23 05:00 01/27/23 05:27 A/P: Assessment: Acute exacerbation of COPD due to MRSA pneumonia - managed by Dr Baptiste - Echo on 01-26-23: LVEF 65-70%, mild MR, AoV sclerosis w/o stenosis, PASP 35-40 mmHg 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 Baptiste * Management of pneumonia and volume depletion is with JOSE Garcia MD FACP [facility] CCDS Jan 27, 2023 18:06
--- NOTE | 2023-01-27 18:31 | Progress Note-Pre Operative ---
Pre-Operative Progress Note Date of Available H&P: Jan 27, 2023 Date H&P Reviewed: Jan 27, 2023 Time H&P Reviewed: 18:30 History & Physical: No changes noted Pre-Operative Diagnosis: consolidation/pneumonia left upper lung lobe TEETEE CELESTIN MD Jan 27, 2023 18:31
--- NOTE | 2023-01-27 18:47 | Physician Query-Final Dx ---
KENDY HOUGH 01/27/237: Final Diagnosis Give Final Diagnosis Please give Final Diagnosis The medical record reflects the following clinical scenario: History/Risk factors: Advanced age with ETOH use disorder admitted with PNA, BMI 14 Clinical Findings: Admission VS/Labs: Vital Signs: HR 87 did increase to 90's, RR 18, BP 116/76, SpO2 97% sat on room air, T 36.1, WBC 30.1,Lactic acid 1.93, Treatment: ER: Ceftriaxone IV, azithromycin IV, normal saline 2 L, Tylenol, Question: Is Sepsis a clinically valid diagnosis? Sepsis was documented in the "Admission diagnosis" on the H and P with no further documentation of Sepsis in the medical record. If yes, please document Sepsis in the Progress Notes and Discharge Summary. Yes, Sepsis is clinically valid, condition resolved No, Sepsis was ruled out Other, with explanation of clinical findings Undetermined, no explanation for clinical findings In responding to this query, please exercise your independent professional judgment. The purpose of this communication is to more accurately reflect the complexity of your patients condition. The fact that a question is asked does not imply that any particular answer is desired or expected. Thank you for your timely response to this clarification. Kendy Hough MSN, RN Clinical Patient Care Associate DARINEL CHESTER DO 01/27/231957: Final Diagnosis Give Final Diagnosis Yes, Sepsis is clinically valid, condition resolved KENDY HOUGH Jan 27, 2023 18:47 DARINEL CHESTER DO Jan 27, 2023 19:58
[2023-01-27 19:30] VITALS: BP 123/71
[2023-01-27] MEDS: SENNOSIDES 8.6 MG TABLET PO SCH (20:38)
[2023-01-27] MEDS: DOCUSATE SODIUM 100 MG CAPSULE PO SCH (20:38)
[2023-01-27] MEDS: ENOXAPARIN 30 MG/0.3 ML SYRINGE SC SCH (20:38)
[2023-01-27] MEDS: PATCH REMOVAL TP SCH (20:39)
[2023-01-27 23:36] VITALS: BP 97/51
[2023-01-28] VITALS (12 sets, daily range): BP systolic 94–148; BP diastolic 58–73
[2023-01-28] MEDS: CEFEPIME INJECTION 1,000 MG in NS (IVPB) 50 ML 50 ML IV SCH ×4 (00:28→23:18)
[2023-01-28] MEDS: LACTATED RINGERS 1,000 ML 1,000 ML IV SCH ×3 (03:05→23:49)
[2023-01-28] MEDS: ACETAMINOPHEN 500 MG TABLET PO SCH ×3 (05:28→22:27)
[2023-01-28 05:52] LABS: BASOPHILS # (AUTO) 0.1 10^3/uL (0.0-0.1); BASOPHILS % (AUTO) 0 % (0-10); EOSINOPHILS # (AUTO) 0.3 10^3/uL (0.0-0.3); EOSINOPHILS % (AUTO) 2 % (0-10); HEMATOCRIT 24 % (40-54); HEMOGLOBIN 7.5 g/dL (13.3-17.7); LYMPHOCYTES # (AUTO) 1.5 10^3/uL (1.0-4.0); LYMPHOCYTES % (AUTO) 8 % (12-44); MEAN CORPUSCULAR HEMOGLOBIN 30 pg (25-34); MEAN CORPUSCULAR HGB CONC 32 g/dL (32-36); MEAN CORPUSCULAR VOLUME 94 fL (80-99); MEAN PLATELET VOLUME 10.4 fL (9.0-12.2); MONOCYTES % (AUTO) 6 % (0-12); NEUTROPHILS # (AUTO) 15.4 10^3/uL (1.8-7.8); NEUTROPHILS % (AUTO) 82 % (42-75); PLATELET COUNT 401 10^3/uL (130-400); WHITE BLOOD COUNT 18.8 10^3/uL (4.3-11.0)
[2023-01-28 06:13] LABS: ALBUMIN 1.8 GM/DL (3.2-4.5); POTASSIUM 3.7 MMOL/L (3.6-5.0)
[2023-01-28 06:14] LABS: CALCIUM 9.2 MG/DL (8.5-10.1)
[2023-01-28 06:15] LABS: TOTAL PROTEIN 4.5 GM/DL (6.4-8.2)
[2023-01-28 06:17] LABS: BILIRUBIN,TOTAL 0.4 MG/DL (0.1-1.0)
[2023-01-28 06:19] LABS: CREATININE SERUM 1.25 MG/DL (0.60-1.30)
[2023-01-28] MEDS: AZITHROMYCIN INJECTION 500 MG in NS (IVPB) 250 ML 250 ML IV SCH (08:13)
[2023-01-28] MEDS: DOCUSATE SODIUM 100 MG CAPSULE PO SCH ×2 (08:14→20:15)
[2023-01-28] MEDS: THIAMINE INJECTION 100 MG, FOLIC ACID INJECTION 1 MG, MULTIVITAMIN INJECTION 10 ML, MAG... IV SCH ×5 (08:14)
[2023-01-28] MEDS: SENNOSIDES 8.6 MG TABLET PO SCH ×2 (08:15→20:15)
[2023-01-28] MEDS: LIDOCAINE 4% PATCH TOP SCH (08:15)
--- NOTE | 2023-01-28 10:07 | Diagnostic Imaging Report ---
PROCEDURE: US Abdomen, limited. TECHNIQUE: Multiple Real-time grayscale images were obtained over the abdomen in various projections. INDICATION: Anorexia. Weight loss. COMPARISON: None. FINDINGS: The liver is normal in size, shape, and echotexture. There are no focal lesions. The portal vein shows hepatopetal flow. No intra or extrahepatic biliary dilatation is present. The common bile duct is not dilated and measures 7 mm. This is considered within normal limits for a patient of this age. The gallbladder is visualized. There is gallbladder sludge. A small amount of pericholecystic free fluid is noted. There is, however, no gallbladder wall thickening. The visualized portions of the head and proximal body of the pancreas are within normal limits. The distal body and tail of the pancreas are not visualized due to overlying bowel gas. There is no ascites. The right kidney measures approximately 9 cm in length and has a normal appearance. The visualized portions of the IVC and aorta are normal. IMPRESSION: Gallbladder sludge. A small amount of pericholecystic free fluid is noted but there is no gallbladder wall thickening. Acute cholecystitis is felt to be unlikely. If further evaluation is indicated, a Nuclear Medicine hepatobiliary scan is advised. Dictated by: Dictated on workstation # [id number]
--- NOTE | 2023-01-28 10:23 | Occ Therapy Progress Note ---
Therapy Progress Note Patient with nursing staff, OT will attempt next available opportunity AUDIE LIRA OT Jan 28, 2023 10:22
[2023-01-28] MEDS: VANCOMYCIN 750 MG/NS 250 ML IVPB IV SCH ×2 (10:32)
--- NOTE | 2023-01-28 10:55 | Physical Therapy Evaluation ---
PT Evaluation-General Medical Diagnosis Admission Date Jan 25, 2023 at 18:46 Medical Diagnosis: generalized weakness/pneumonia Onset Date: Jan 25, 2023 Therapy Diagnosis Therapy Diagnosis: generalized weakness/impaired mobility Precautions Precautions/Isolations: Droplet Isolation Weight Bear Status Right Lower Extremity: Right Full Weight Bearing Left Lower Extremity: Left Full Weight Bearing Referral Physician: Oc Reason for Referral: Evaluation/Treatment Medical History Pertinent Medical History: Alcoholism, COPD, HTN, Smoking Current History EMS from home secondary to weakness Reviewed History: Yes Social History Home: Single Level Current Living Status: Spouse Prior Prior Level of Function SCALE: Activities may be completed with or without assistive devices. 0-Geupexmiqf-clfdjoa completes the activity by him/herself with no assistance from a helper. 5-Set-up or Clean-up Assistance-helper sets up or cleans up; patient completes activity. [place] assists only prior to or following the activity. 4-Supervision or Touching Assistance-helper provides verbal cues and/or touching/steadying and/or contact guard assistance as patient completes activity. Assistance may be provided throughout the activity or intermittently. 3-Partial/Moderate Assistance-helper does LESS THAN HALF the effort. [place] lifts, holds or supports trunk or limbs, but provides less than half the effort. 2-Substantial/Maximal Assistance-helper does MORE THAN HALF the effort. [place] lifts or holds trunk or limbs and provides more than half the effort. 3-Pwevjomlf-yktlqb does ALL the effort. Patient does none of the effort to complete the activity. Or, the assistance of 2 or more helpers is required for the patient to complete the activity. If activity was not attempted, code reason: 7-Patient Refused. 9-Not Applicable-not attempted and the patient did not perform the activity before the current illness, exacerbation or injury. 10-Not Attempted due to Environmental Limitations-(lack of equipment, weather restraints, etc.). 88-Not Attempted due to Medical Conditions or Safety Concerns. Bed Mobility: 6 Transfers (B,C,W/C): 6 Gait: 6 Stairs: 6 Indoor Mobility (Ambulation): Independent Stairs: Independent Prior Devices Use: None PT Evaluation-Current Subjective Patient reluctantly agrees to therapy. Objective Patient Orientation: Confused Attachments: IV ROM/Strength ROM Lower Extremities bilateral LE WFL Strength Lower Extremities 3/5 grossly bilateral LE Integumentary/Posture Bowel Incontinence: No Bladder Incontinence: No Posture kyphotic Neuromuscular (Tone, Coordination, Reflexes) diminished coordination due to weakness Sensory Vision: Functional Hearing: Functional Transfers Lying to Sitting/Side of Bed(Q: 2 Sit to Stand (QC): 2 Chair/Zwg-gs-Booor Xfer(QC): 2 Gait Mode of Locomotion: Walk Anticipated Mode of Locomotion: Walk Walk 10 feet (QC): 2 Walk 50 ft with 2 Turns(QC): 88 Gait Assistive Device: FWW Comments/Gait Description very unsteady, ataxic gait sequence Balance Sitting Static: Fair Sitting Dynamic: Fair Standing Static: Poor Standing Dynamic: Poor Assessment/Needs Patient will benefit from skilled PT to address functional strength and mobility to improve current LOF to safely return to home at maximum LOF. Rehab Potential: Fair PT Custodial Goals Custodial Goals PT Cattle Knocker Goals Time Frame: Feb 15, 2023 Roll Left & Right (QC): 6 Sit to Lying (QC): 6 Lying-Sitting on Side/Bed(QC): 6 Sit to Stand (QC): 6 Chair/Rix-oz-Mgiql Xfer(QC): 6 Toilet Transfer (QC): 6 Walk 10 feet (QC): 5 Walk 50ft with 2 Turns (QC): 5 Walk 150 ft (QC): 5 PT Plan Problem List Problem List: Activity Tolerance, Functional Strength, Safety, Balance, Gait, Transfer, Bed Mobility Treatment/Plan Treatment Plan: Continue Plan of Care Treatment Plan: Bed Mobility, Education, Functional Activity Carlotta, Functional Strength, Gait, Safety, Therapeutic Exercise, Transfers Treatment Duration: Feb 15, 2023 Frequency: 6 times per week Estimated Hrs Per Day: .25 hour per day Patient and/or Family Agrees t: Yes Discharge Recommendations Therapy Discharge Recommendati: Post Acute PT Time Time In: 1035 Time Out: 1045 DATE: Jan 28, 2023 Total Billed Treatment Time: 10 Total Billed Treatment 1 visit EVMod 10 min GABI HATCH PT Jan 28, 2023 10:55
--- NOTE | 2023-01-28 11:19 | Progress Note - Cardiology ---
Cardiology SOAP Progress Note Objective: I&O/Vital Signs 01/28/23 01/29/23 01/29/23 23:15 04:09 08:02 Temp 36.0 36.3 36.3 Pulse 68 75 75 Resp 16 16 23 B/P (MAP) 110/61 (77) 126/73 (90) 132/70 (90) Pulse Ox 98 92 O2 Delivery Nasal Cannula Room Air Room Air O2 Flow Rate 1.00 1.00 01/29/23 00:00 Intake Total 222 ml Output Total 200 ml Balance 22 ml Constitutional: AAO x 3, other (thin-appearing) Respiratory: No accessory muscle use; chest expansion is symmetric, chest is bilaterally symmetric, other (dimished air entry and prolonged exp) Cardiovascular: regular rate-rhythm, S1 and S2, systolic murmur (2/6 ANGELITA at card base) Gastrointestional: No tender; soft; No guarding, No rebound; audible bowel sounds Extremities: No clubbing, No cyanosis, No significant edema Neurologic/Psychiatric: oriented x 3, other (moves all limbs equally) Skin: normal color, warm/dry; No cyanosis, No cool, No diaphoresis Results/Procedures: Labs Laboratory Tests 01/29/23 05:35: White Blood Count 9.7, Red Blood Count 2.78L, Hemoglobin 8.4L, Hematocrit 27L, Mean Corpuscular Volume 97, Mean Corpuscular Hemoglobin 30, Mean Corpuscular Hemoglobin Concent 31L, Red Cell Distribution Width 14.7H, Platelet Count 380, Mean Platelet Volume 10.5, Immature Granulocyte % (Auto) 6, Neutrophils (%) (Auto) 79H, Lymphocytes (%) (Auto) 14, Monocytes (%) (Auto) 1, Eosinophils (%) (Auto) 0, Basophils (%) (Auto) 0, Neutrophils # (Auto) 7.6, Lymphocytes # (Auto) 1.4, Monocytes # (Auto) 0.1, Eosinophils # (Auto) 0.0, Basophils # (Auto) 0.0, Immature Granulocyte # (Auto) 0.6H, Sodium Level 141, Potassium Level 5.0, Chloride Level 114H, Carbon Dioxide Level 19L, Anion Gap 8, Blood Urea Nitrogen 33H, Creatinine 1.30, Estimat Glomerular Filtration Rate 57, BUN/Creatinine Ratio 25, Glucose Level 134H, Calcium Level 9.6, Corrected Calcium 11.1H, Total Bilirubin 0.4, Aspartate Amino Transf (AST/SGOT) 17, Alanine Aminotransferase (A LT/SGPT) 14, Alkaline Phosphatase 139H, Total Protein 5.4L, Albumin 2.1L 01/29/23 08:50: Vancomycin Level Trough 15.1 Microbiology 01/26/23 MRSA Screen - Final, Complete MRSA not isolated 01/25/23 Blood Culture - Preliminary, Resulted Procedures NAME: [facility] REC#: [id number] PT STATUS: ADM IN : 1945 PHYSICIAN: TEETEE CELESTIN MD ADMIT DATE: 01/25/23 Draft Date of Exam:01/28/23 US ABDOMEN LIMITED [id number] PROCEDURE: US Abdomen, limited. TECHNIQUE: Multiple Real-time grayscale images were obtained over the abdomen in various projections. INDICATION: Anorexia. Weight loss. COMPARISON: None. FINDINGS: The liver is normal in size, shape, and echotexture. There are no focal lesions. The portal vein shows hepatopetal flow. No intra or extrahepatic biliary dilatation is present. The common bile duct is not dilated and measures 7 mm. This is considered within normal limits for a patient of this age. The gallbladder is visualized. There is gallbladder sludge. A small amount of pericholecystic free fluid is noted. There is, however, no gallbladder wall thickening. The visualized portions of the head and proximal body of the pancreas are within normal limits. The distal body and tail of the pancreas are not visualized due to overlying bowel gas. There is no ascites. The right kidney measures approximately 9 cm in length and has a normal appearance. The visualized portions of the IVC and aorta are normal. IMPRESSION: Gallbladder sludge. A small amount of pericholecystic free fluid is noted but there is no gallbladder wall thickening. Acute cholecystitis is felt to be unlikely. If further evaluation is indicated, a Nuclear Medicine hepatobiliary scan is advised. 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 Baptiste * Management of pneumonia and volume depletion is with GAGAN Reyes [facility] Jan 28, 2023 11:19
--- NOTE | 2023-01-28 11:21 | Occupational Therapy Eval ---
OT Evaluation-General/PLF Medical Diagnosis Admission Date Jan 25, 2023 at 18:46 Medical Diagnosis: generalized weakness/pneumonia Onset Date: Jan 25, 2023 Therapy Diagnosis Therapy Diagnosis: weakness Precautions Precautions/Isolations: Droplet Isolation Weight Bear Status Weight Bearing Restriction: Full Weight Bearing Referral Physician: Oc Referral Reason: Self Care, Evaluation/Treatment Medical History Pertinent Medical History: Alcoholism, COPD, HTN, Smoking Reviewed History: Yes Social History Home: Single Level Current Living Status: Spouse ADL-Prior Level of Function SCALE: Activities may be completed with or without assistive devices. 1-Nhtqvawlqo-trmnnkr completes the activity by him/herself with no assistance from a helper. 5-Set-up or Clean-up Assistance-helper sets up or cleans up; patient completes activity. [place] assists only prior to or following the activity. 4-Supervision or Touching Assistance-helper provides verbal cues and/or touching/steadying and/or contact guard assistance as patient completes activity. Assistance may be provided throughout the activity or intermittently. 3-Partial/Moderate Assistance-helper does LESS THAN HALF the effort. [place] lifts, holds or supports trunk or limbs, but provides less than half the effort. 2-Substantial/Maximal Assistance-helper does MORE THAN HALF the effort. [place] lifts or holds trunk or limbs and provides more than half the effort. 5-Phgtjraji-fitfir does ALL the effort. Patient does none of the effort to complete the activity. Or, the assistance of 2 or more helpers is required for the patient to complete the activity. If activity was not attempted, code reason: 7-Patient Refused. 9-Not Applicable-not attempted and the patient did not perform the activity before the current illness, exacerbation or injury. 10-Not Attempted due to Environmental Limitations-(lack of equipment, weather restraints, etc.). 88-Not Attempted due to Medical Conditions or Safety Concerns. Self Care: Independent Functional Cognition: Independent OT Current Status Subjective Very resistive to participate, required encouragement from spouse and nursing Mental Status/Objective Patient Orientation: Person, Place, Situation Attachments: IV Current Upper Extremity ROM WFL Upper Extremity Strength 4/5 ADL-Treatment ADL-Current REFUSED ADLS. Stood w/ FWW and gait belt and 2 persons, patient fully extended BUEs and pushed FWW away in unsafe manner, further coaxing for patient to transfer to recliner and patient eventually advanced w/ assistance to recliner Lower Body Dressing (QC): 1 On/Off Footwear (QC): 1 (refused) Education OT Patient Education: Correct positioning, Modified ADL techniques, Progress toward Goal/Update tx plan, Purpose of tx/functional activities, Reviewed precautions, Rehab process, Safety issues, Transfer techniques, Use of adapted equipment Teaching Recipient: Patient Teaching Methods: Demonstration, Discussion Response to Teaching: Reinforcement Needed OT Carbon Setter Goals Mcfp Goals Eating (QC): 6 Oral Hygiene (QC): 6 Toileting Hygiene (QC): 6 Shower/Bathe Self (QC): 6 Upper Body Dressing (QC): 6 Lower Body Dressing (QC): 6 On/Off Footwear (QC): 6 1=Demonstrate adherence to instructed precautions during ADL tasks. 2=Patient will verbalize/demonstrate understanding of assistive devices/modifications for ADL. 3=Patient will improve strength/tolerance for activity to enable patient to perform ADL's. OT Education/Plan Problem List/Assessment Assessment: Decreased Activ Tolerance, Decreased Safety Aware, Decreased UE Strength, Dependent Transfers, Impaired Coordination, Impaired Funct Balance, Restricted Funct UE ROM Discharge Recommendations Plan/Recommendations: Continue POC Therapy Discharge Recommendati: Post Acute OT Treatment Plan/Plan of Care Treatment,Training & Education: Yes Patient would benefit from OT for education, treatment and training to promote independence in ADL's, mobility, safety and/or upper extremity function for ADL's. Plan of Care: ADL Retraining, Cognitive Retraining, Concurrent Therapy, Functional Mobility, Group Exercise/Act as Ind, UE Funct Exercise/Act, UE Neuromus Re-Ed/Coord Treatment Duration: Feb 03, 2023 Frequency: 3 times per week (3-5 times per week) Estimated Hrs Per Day: .25 hour per day Agreement: Yes Rehab Potential: Fair Time Start Time: 10:30 Stop Time: 10:41 DATE: Jan 28, 2023 Total Time Billed (hr/min): 11 Billed Treatment Time EVM 11 min AUDIE LIRA OT Jan 28, 2023 11:21
[2023-01-28] MEDS: FLUTICASONE/VILANTEROL 200/25 MCG (7 DOSES) IH SCH (11:22)
[2023-01-28] MEDS ORDERED: PANTOPRAZOLE 40 MG TABLET PO ONE (11:30)
[2023-01-28] MEDS ORDERED: NS IV 500 ML 500 ML IV PRN (13:15)
--- NOTE | 2023-01-28 13:19 | Progress Note ---
GISELL REVELES 01/28/23 1319: Subjective Date Seen by a Provider: Jan 28, 2023 Time Seen by a Provider: 11:05 Subjective/Events-last exam 01/28/2023: CC: Generalized weakness HPI: Abelino, 77M, notes that he is feeling a bit more calm today. He notes that he was unaware of the plan, but also endorses some confusion. He appears to get confused with extensive information, so the plan was discussed slowly with him and his . He notes that he is not in any pain. He confirms that he understands the medical benefits of his bronchoscopy to be performed today. He denies any back pain. He notes that he is tried. He also notes that he is a little uncomfortable in his bed, so patient was repositioned. He denies any N/V, dizziness, or any other concerns about his health. Review of Systems General: Fatigue, Appetite (decreased ) HEENT: No Head Aches, No Visual Changes, No Eye Pain, No Ear Pain, No Dysphasia, No Sinus Congestion, No Post Nasal Drip, No Sore Throat, No Other Pulmonary: No Dyspnea, No Cough, No Pleuritic Chest Pain, No Other Cardiovascular: No: Chest Pain, Palpitations, Orthopnea, Paroxysmal Noc. Dyspnea, Edema, Lt Headedness, Other Gastrointestinal: No: Nausea, Vomiting, Abdominal Pain, Diarrhea, Constipation, Melena, Hematochezia, Other Genitourinary: No Dysuria, No Frequency, No Incontinence, No Hematuria, No Retention, No Other Musculoskeletal: No: other, neck pain, shoulder pain, arm pain, back pain, hand pain, leg pain, foot pain Neurological: Confusion; No: Weakness, Numbness, Incoordination, Change in speech, Seizures, Other Objective Exam Last Set of Vital Signs Vital Signs Date Time Temp Pulse Resp B/P (MAP) Pulse Ox O2 Delivery O2 Flow Rate FiO2 01/28/23 11:39 36.3 67 16 94/67 (76) 96 Room Air 01/28/23 08:00 1.00 01/25/23 19:07 21 Capillary Refill : Less Than 3 Seconds I&O Intake and Output 01/28/23 00:00 Intake Total 1380 ml Output Total 2975 ml Balance -1595 ml Intake Oral 330 ml IV Total 1050 ml Output Urine Total 2975 ml # Voids 1 General: Alert, Oriented X3, Cooperative, No Acute Distress HEENT: Atraumatic, EOMI, Mucous Memb Moist/Pharr Neck: Supple, No JVD Lungs: Other (L- upper lobe decreased breath sounds, wheezes ) Heart: Regular Rate, Normal S1, Normal S2, Other (MR murmur noted ) Abdomen: Normal Bowel Sounds, Soft Extremities: No Cyanosis, No Edema, Normal Pulses Skin: No Rashes, No Breakdown, No Significant Lesion Neuro: Normal Speech, Normal Tone Results Lab Laboratory Tests 01/27/23 15:08: Urine Random Calcium 4, Parathyroid Hormone (Intact) 8.5L, Calcium (PTH Intact) 8.7 01/28/23 05:12: White Blood Count 18.8H, Red Blood Count 2.51L, Hemoglobin 7.5L, Hematocrit 24L, Mean Corpuscular Volume 94, Mean Corpuscular Hemoglobin 30, Mean Corpuscular Hemoglobin Concent 32, Red Cell Distribution Width 14.6H, Platelet Count 401H, Mean Platelet Volume 10.4, Immature Granulocyte % (Auto) 3, Neutrophils (%) (Auto) 82H, Lymphocytes (%) (Auto) 8L, Monocytes (%) (Auto) 6, Eosinophils (%) (Auto) 2, Basophils (%) (Auto) 0, Neutrophils # (Auto) 15.4H, Lymphocytes # (Auto) 1.5, Monocytes # (Auto) 1.0, Eosinophils # (Auto) 0.3, Basophils # (Auto) 0.1, Immature Granulocyte # (Auto) 0.5H, Sodium Level 139, Potassium Level 3.7, Chloride Level 112H, Carbon Dioxide Level 19L, Anion Gap 8, Blood Urea Nitrogen 36H, Creatinine 1.25, Estimat Glomerular Filtration Rate 60, BUN/Creatinine Ratio 29, Glucose Level 101, Calcium Level 9.2, Corrected Calcium 11.0H, Total Bilirubin 0.4, Aspartate Amino Transf (AST/SGOT) 16, Alanine Aminotransferase (ALT/SGPT) 12, Alkaline Phosphatase 118, Total Protein 4.5L, Albumin 1.8L Microbiology 01/26/23 MRSA Screen - Final, Complete MRSA not isolated 01/25/23 Blood Culture - Preliminary, Resulted Assessment/Plan Assessment/Plan Assess & Plan/Chief Complaint 01/28/2023: A/P -Community Acquired PNA * Cefepime, Azithromycin, Vancomysin (MRSA suspected) -L upper lung process * potential abscess or malignacy- bronchoscopy with Dr. Del Rosario, medical benefits outweigh potential harms -COPD exacerbation * Fluticisone/Vilanterol -Anemia * Hgb decreased to 7.5 (from 8.6) * Protonics, occult blood stool sample, measure iron, B12 * Consider transfusion if not improved on 01/29 -EtOH use disorder * CIWA protocol, thiamine, ativan PRN, monitor for withdraw symptoms * daily CIWA score -Hypercalcemia * awaiting PTHRP, no signs of familial hypercalcemia -CKD * fluids, daily BUN and Cr monitoring -L1 compression fx * oxycodone, salonpas PRN -D/C telemetry DARLIN CHESTER DO 01/28/232034: Subjective Subjective/Events-last exam Patient set for bronchoscopy Inpatient rehab tomorrow Slow recovery Very weak IV antibiotics maintained Objective Exam General: Alert, Oriented X3, Cooperative, No Acute Distress Lungs: Other (L- upper lobe decreased breath sounds, wheezes ) Heart: Regular Rate Psych/Mental Status: Mental Status NL Assessment/Plan Assessment/Plan Assess & Plan/Chief Complaint Supportive care ARU tomorrow Supervisory-Addendum Brief Verification & Attestation Participated in pt care: history, MDM, physical Personally performed: exam, history, MDM, supervision of care Care discussed with: Medical Student Procedures: n/a Results interpretation: Verified all documentation Verification and Attestation of Medical Student E/M Service A medical student performed and documented this service in my presence. I reviewed and verified all information documented by the medical student and made modifications to such information, when appropriate. I personally performed the physical exam and medical decision making. Darlin Chester Jan 28, 2023,20:33 GISELL REVELES Jan 28, 2023 13:19 DARLIN CHESTER DO Jan 28, 2023 20:35
[2023-01-28] MEDS ORDERED: ONDANSETRON INJECTION 4 MG/2 ML (SDV) ONE (14:07)
[2023-01-28] MEDS ORDERED: fentaNYL INJECTION 100 MCG/2 ML VIAL ONE (14:07)
[2023-01-28] MEDS ORDERED: NEOSTIGMINE 1 MG/1ML 10 ML VIAL ONE (14:07)
[2023-01-28] MEDS ORDERED: GLYCOPYRROLATE INJ 0.2 MG/ML 2 ML VIAL ONE (14:07)
[2023-01-28] MEDS ORDERED: MIDAZOLAM INJ 2 MG/2 ML VIAL ONE (14:07)
[2023-01-28] MEDS ORDERED: dexAMETHasone INJ 10 MG/ML 1 ML VIAL ONE (14:07)
[2023-01-28] MEDS ORDERED: LIDOCAINE PF 2% 5 ML VIAL ONE (14:07)
[2023-01-28] MEDS ORDERED: proPOfol INJECTION 200 MG/20 ML VIAL IV ONE (14:07)
[2023-01-28] MEDS ORDERED: ROCURONIUM 50 MG/5 ML VIAL IV ONE (14:08)
[2023-01-28] MEDS ORDERED: KETAMINE 50 MG/5 ML SYRINGE ONE (14:28)
--- NOTE | 2023-01-28 14:51 | Progress Note-Post Operative ---
Post-Operative Progess Note Surgeon (s)/Doctor Of Veterinary Medicine (s) Surgeon TEETEE CELESTIN MD Doctor Of Veterinary Medicine: none Pre-Operative Diagnosis consolidation/pneumonia left upper lung lobe Post-Operative Diagnosis same Procedure & Operative Findings Date of Procedure 01/28/23 Procedure Performed/Findings bronchoscopy with washings. Anesthesia Type get Estimated Blood Loss Estimated blood loss (mL): minimal Specimens/Packing Specimens Removed right and left mainstem bronchus washings. TEETEE CELESTIN MD Jan 28, 2023 14:51
[2023-01-28] MEDS ORDERED: SUGAMMADEX INJ 100 MG/ML 5 ML VIAL IV ONE (14:55)
[2023-01-28] MEDS ORDERED: SEVOFLURANE (ULTANE) 15 ML INHAL SOLN ONE (15:23)
[2023-01-28] MEDS ORDERED: PHENYLEPHRINE 100 MCG/ML 10 ML (ANESTHESIA) SYR ONE (15:24)
--- NOTE | 2023-01-28 15:32 | OPERATIVE REPORT ---
DATE OF SERVICE: 01/28/2023 ATTENDING SITE SUPERVISING TECHNICAL OPERATOR: Dr. Alexi Deleon. ADMITTING PHYSICIAN: Dr. Baptiste. PREOPERATIVE DIAGNOSIS: Left upper lobe base consolidation pneumonia and potential developing abscess. POSTOPERATIVE DIAGNOSIS: Left upper lobe base consolidation pneumonia and potential developing abscess. PROCEDURE: Bronchoscopy with washings. SURGEON: Teetee Del Rosario MD ANESTHESIA: General endotracheal. ESTIMATED BLOOD LOSS: Minimal. FINDINGS: Bilateral mucus plugging. No masses. DISPOSITION: The patient tolerated the procedure well. INDICATIONS: The patient is a 77-year-old male with an extensive past medical history including alcoholism as well as a longstanding history of smoking. The patient also does not see physicians on a regular basis. He presented to the Emergency Department with generalized weakness, intermittent cough and weight loss. The patient also had reported having diarrhea at home and has been taking [id number] antidiarrheals. The patient also does have a history of gastroesophageal reflux disease. A chest x-ray and CT scan were performed, which did show significant consolidation of the left lower aspect of the upper lobe of the lung. There was also a potential developing abscess. Again, the patient does have a greater than 50 pack smoking history. The patient also reports that he has not been hungry and has had some abdominal discomfort and no appetite for the past several months. DESCRIPTION OF PROCEDURE: The patient was brought to the operating room and remained in his bed. After adequate IV pain and sedative medications and general endotracheal intubation, a bronchoscope was placed through the endotracheal tube. The endoscope was then advanced into the distal trachea to the matt. The posterior striations were identified. We then proceeded with first intubation of the left mainstem bronchus. We first proceeded with intubation of the primary bronchus of the left lobe where there was mucus plugging again identified. We then proceeded with suction as well as irrigation and sent this fluid off for culture and sensitivity. We proceeded with primary and secondary radicals until all the mucus was suctioned out as well as possible. We then proceeded with intubation of the main left upper bronchus and in a similar manner proceeded with suction and irrigation of the primary and secondary radicals. Good hemostasis was observed. We then proceeded with intubation of the right mainstem bronchus. In a similar manner, we proceeded to intubate the primary bronchus to the upper, middle, and lower lobe as well as intubation of the secondary radicals. Again, mucus plugging was identified. We proceeded with systematic suctioning and irrigation of the primary and secondary radicals of the right upper, middle and lower lobe with visualization of good hemostasis. This was also sent for culture and sensitivity. The bronchoscope was then slowly withdrawn while taking a second look with no additional findings. No masses identified. The patient tolerated the procedure well. We will continue with medical management with IV antibiotics and breathing treatments, physical therapy, incentive spirometer. It also appears that the patient does have gallbladder biliary sludge; however, due to his pneumonia, we would not recommend surgery on this admission and once he recovers and his respiratory status does improve, we will then have him follow up in the office for reevaluation of a potential laparoscopic cholecystectomy. Job ID: [id number] DocumentID: [id number] Dictated Date: 01/28/2023 14:57:53 Client Strategist Date: 01/28/2023 15:29:00 Dictated By: TEETEE DEL ROSARIO MD MTDD
--- NOTE | 2023-01-28 15:33 | Anesthesia-General Post-Op ---
General Patient Condition Mental Status/LOC: Same as Preop Cardiovascular: Satisfactory Nausea/Vomiting: Absent Respiratory: Satisfactory Pain: Controlled Complications: Absent Post Op Complications Complications None Follow Up Care/Instructions Patient Instructions None needed. Anesthesia/Patient Condition Patient Condition Patient is awake in PACU and doing well, no complaints, stable vital signs, no apparent adverse anesthesia problems. No complications reported per nursing. MAI OLIVARES DO Jan 28, 2023 15:33
[2023-01-28] MEDS ORDERED: ONDANSETRON INJECTION 4 MG/2 ML (SDV) IVP PRN (15:45)
[2023-01-28] MEDS ORDERED: morphine INJ 10 MG/ML 1ML (SYR OR VIAL) IVP ONE (15:45)
--- NOTE | 2023-01-28 15:50 | Diagnostic Imaging Report ---
INDICATION: Lung biopsy follow-up EXAM: Portable chest at 3:41 PM FINDINGS: There is a large infiltrate in the perihilar region of the left lung. There is no appreciable effusion or pneumothorax. IMPRESSION: Large left perihilar consolidation. The distribution of infiltrate has increased slightly compared to 01/25/2023 with more extension into the left upper lobe. Dictated by: Dictated on workstation # [id number]
--- NOTE | 2023-01-28 18:01 | Progress Note - Cardiology ---
Cardiology SOAP Progress Note Subjective: Gen malaise but with modest improvement today No cp or palp or syncope Activity causes shortness of breath No n/v/d No focal weakness Objective: I&O/Vital Signs 01/28/23 01/28/23 01/28/23 01/28/23 07:31 07:50 08:00 11:39 Temp 36.4 36.3 Pulse 78 90 67 Resp 16 16 B/P (MAP) 108/63 (78) 94/67 (76) Pulse Ox 93 93 96 O2 Delivery Nasal Cannula Nasal Cannula Room Air O2 Flow Rate 1.00 1.00 01/28/23 01/28/23 01/28/23 01/28/23 14:58 14:58 15:00 15:00 Temp 36.4 Resp 20 20 B/P (MAP) 105/58 (74) 105/58 (74) Pulse Ox 98 98 O2 Delivery OxyMask OxyMask OxyMask OxyMask O2 Flow Rate 6.00 6.00 3.00 6.00 01/28/23 01/28/23 01/28/23 01/28/23 15:10 15:15 15:20 15:30 Resp 20 20 20 B/P (MAP) 119/67 (84) 116/73 (87) 111/69 (83) Pulse Ox 97 98 100 O2 Delivery OxyMask OxyMask OxyMask OxyMask O2 Flow Rate 3.00 3.00 3.00 3.00 01/28/23 01/28/23 01/28/23 01/28/23 15:30 15:40 15:40 15:45 Temp 36.4 36.6 Pulse 68 Resp 20 18 B/P (MAP) 111/69 (83) 111/59 (76) Pulse Ox 100 95 O2 Delivery OxyMask OxyMask OxyMask OxyMask O2 Flow Rate 3.00 3.00 3.00 01/28/23 00:00 Intake Total 330 ml Output Total 2700 ml Balance -2370 ml Constitutional: AAO x 3, other (thin-appearing) Respiratory: No accessory muscle use; chest expansion is symmetric, chest is bilaterally symmetric, other (dimished air entry and prolonged exp) Cardiovascular: regular rate-rhythm, S1 and S2, systolic murmur (2/6 ANGELITA at card base) Gastrointestional: No tender; soft; No guarding, No rebound; audible bowel sounds Extremities: No clubbing, No cyanosis, No significant edema Neurologic/Psychiatric: oriented x 3, other (moves all limbs equally) Skin: normal color, warm/dry; No cyanosis, No cool, No diaphoresis Results/Procedures: Labs Laboratory Tests 01/28/23 05:12: White Blood Count 18.8H, Red Blood Count 2.51L, Hemoglobin 7.5L, Hematocrit 24L, Mean Corpuscular Volume 94, Mean Corpuscular Hemoglobin 30, Mean Corpuscular Hemoglobin Concent 32, Red Cell Distribution Width 14.6H, Platelet Count 401H, Mean Platelet Volume 10.4, Immature Granulocyte % (Auto) 3, Neutrophils (%) (Auto) 82H, Lymphocytes (%) (Auto) 8L, Monocytes (%) (Auto) 6, Eosinophils (%) (Auto) 2, Basophils (%) (Auto) 0, Neutrophils # (Auto) 15.4H, Lymphocytes # (Auto) 1.5, Monocytes # (Auto) 1.0, Eosinophils # (Auto) 0.3, Basophils # (Auto) 0.1, Immature Granulocyte # (Auto) 0.5H, Sodium Level 139, Potassium Level 3.7, Chloride Level 112H, Carbon Dioxide Level 19L, Anion Gap 8, Blood Urea Nitrogen 36H, Creatinine 1.25, Estimat Glomerular Filtration Rate 60, BUN/Creatinine Ratio 29, Glucose Level 101, Calcium Level 9.2, Corrected Calcium 11.0H, Total Bilirubin 0.4, Aspartate Amino Transf (AST/SGOT) 16, Alanine Aminotransferase (ALT/SGPT) 12, Alkaline Phosphatase 118, Total Protein 4.5L, Albumin 1.8L Microbiology 01/26/23 MRSA Screen - Final, Complete MRSA not isolated 01/25/23 Blood Culture - Preliminary, Resulted Laboratory Tests 01/27/23 05:27 01/28/23 05:12 A/P: Assessment: Acute exacerbation of COPD due to MRSA pneumonia - managed by Dr Baptiste - Анна on 01-26-23: LVEF 65-70%, mild MR, AoV sclerosis w/o stenosis, PASP 35-40 mmHg 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 Baptiste * Management of pneumonia and volume depletion is with JOSE Garcia MD FACP FACC CCDS Jan 28, 2023 18:01
[2023-01-28] MEDS: ENOXAPARIN 30 MG/0.3 ML SYRINGE SC SCH (20:13)
[2023-01-28] MEDS: PATCH REMOVAL TP SCH (20:16)
[2023-01-28] MEDS ORDERED: LORATADINE 10 MG TABLET PO PRN (20:45)
[2023-01-28] MEDS ORDERED: VITAMIN D2 1.25 MG (50,000 UNITS) CAP PO SCH (21:52)
[2023-01-29] MEDS: LACTATED RINGERS 1,000 ML 1,000 ML IV SCH (01:12)
[2023-01-29 04:09] VITALS: BP 126/73
[2023-01-29 06:06] LABS: BASOPHILS % (AUTO) 0 % (0-10); EOSINOPHILS % (AUTO) 0 % (0-10); HEMATOCRIT 27 % (40-54); HEMOGLOBIN 8.4 g/dL (13.3-17.7); LYMPHOCYTES # (AUTO) 1.4 10^3/uL (1.0-4.0); LYMPHOCYTES % (AUTO) 14 % (12-44); MEAN CORPUSCULAR HEMOGLOBIN 30 pg (25-34); MEAN CORPUSCULAR HGB CONC 31 g/dL (32-36); MEAN CORPUSCULAR VOLUME 97 fL (80-99); MEAN PLATELET VOLUME 10.5 fL (9.0-12.2); MONOCYTES # (AUTO) 0.1 10^3/uL (0.0-1.0); MONOCYTES % (AUTO) 1 % (0-12); NEUTROPHILS # (AUTO) 7.6 10^3/uL (1.8-7.8); NEUTROPHILS % (AUTO) 79 % (42-75); PLATELET COUNT 380 10^3/uL (130-400); WHITE BLOOD COUNT 9.7 10^3/uL (4.3-11.0)
[2023-01-29 06:19] LABS: ALBUMIN 2.1 GM/DL (3.2-4.5)
[2023-01-29 06:20] LABS: CALCIUM 9.6 MG/DL (8.5-10.1)
[2023-01-29 06:22] LABS: TOTAL PROTEIN 5.4 GM/DL (6.4-8.2)
[2023-01-29 06:23] LABS: BILIRUBIN,TOTAL 0.4 MG/DL (0.1-1.0)
[2023-01-29 06:25] LABS: CREATININE SERUM 1.3 MG/DL (0.60-1.30)
[2023-01-29] MEDS: ACETAMINOPHEN 500 MG TABLET PO SCH (06:28)
[2023-01-29 08:02] VITALS: BP 132/70
[2023-01-29] MEDS: LIDOCAINE 4% PATCH TOP SCH (08:52)
[2023-01-29] MEDS: DOCUSATE SODIUM 100 MG CAPSULE PO SCH (08:53)
[2023-01-29] MEDS: SENNOSIDES 8.6 MG TABLET PO SCH (08:53)
[2023-01-29] MEDS: AZITHROMYCIN INJECTION 500 MG in NS (IVPB) 250 ML 250 ML IV SCH (08:53)
[2023-01-29] MEDS: CEFEPIME INJECTION 1,000 MG in NS (IVPB) 50 ML 50 ML IV SCH (08:53)
[2023-01-29] MEDS ORDERED: CYANOCOBALAMIN 1,000 MCG TABLET PO SCH (09:00)
[2023-01-29] MEDS ORDERED: FOLIC ACID 1 MG TAB PO SCH (09:00)
[2023-01-29] MEDS ORDERED: PANTOPRAZOLE 40 MG TABLET PO SCH (09:00)
[2023-01-29] MEDS ORDERED: TROUGH ORDER-PHARMACY XX NR (09:00)
[2023-01-29] MEDS ORDERED: NON-FORMULARY MEDICATION 1 EA EA (Megestrol Acetate 20 MG) PO SCH (09:00)
--- NOTE | 2023-01-29 09:41 | Progress Note - Cardiology ---
Cardiology SOAP Progress Note Objective: I&O/Vital Signs 01/28/23 01/29/23 01/29/23 23:15 04:09 08:02 Temp 36.0 36.3 36.3 Pulse 68 75 75 Resp 16 16 23 B/P (MAP) 110/61 (77) 126/73 (90) 132/70 (90) Pulse Ox 98 92 O2 Delivery Nasal Cannula Room Air Room Air O2 Flow Rate 1.00 1.00 01/29/23 00:00 Intake Total 222 ml Output Total 200 ml Balance 22 ml Constitutional: AAO x 3, other (thin-appearing) Respiratory: No accessory muscle use; chest expansion is symmetric, chest is bilaterally symmetric, other (dimished air entry and prolonged exp) Cardiovascular: regular rate-rhythm, S1 and S2, systolic murmur (2/6 ANGELITA at card base) Gastrointestional: No tender; soft; No guarding, No rebound; audible bowel sounds Extremities: No clubbing, No cyanosis, No significant edema Neurologic/Psychiatric: oriented x 3, other (moves all limbs equally) Skin: normal color, warm/dry; No cyanosis, No cool, No diaphoresis Results/Procedures: Labs Laboratory Tests 01/29/23 05:35: White Blood Count 9.7, Red Blood Count 2.78L, Hemoglobin 8.4L, Hematocrit 27L, Mean Corpuscular Volume 97, Mean Corpuscular Hemoglobin 30, Mean Corpuscular Hemoglobin Concent 31L, Red Cell Distribution Width 14.7H, Platelet Count 380, Mean Platelet Volume 10.5, Immature Granulocyte % (Auto) 6, Neutrophils (%) (Auto) 79H, Lymphocytes (%) (Auto) 14, Monocytes (%) (Auto) 1, Eosinophils (%) (Auto) 0, Basophils (%) (Auto) 0, Neutrophils # (Auto) 7.6, Lymphocytes # (Auto) 1.4, Monocytes # (Auto) 0.1, Eosinophils # (Auto) 0.0, Basophils # (Auto) 0.0, Immature Granulocyte # (Auto) 0.6H, Sodium Level 141, Potassium Level 5.0, Chloride Level 114H, Carbon Dioxide Level 19L, Anion Gap 8, Blood Urea Nitrogen 33H, Creatinine 1.30, Estimat Glomerular Filtration Rate 57, BUN/Creatinine Ratio 25, Glucose Level 134H, Calcium Level 9.6, Corrected Calcium 11.1H, Total Bilirubin 0.4, Aspartate Amino Transf (AST/SGOT) 17, Alanine Aminotransferase (ALT/SGPT) 14, Alkaline Phosphatase 139H, Total Protein 5.4L, Albumin 2.1L 01/29/23 08:50: Vancomycin Level Trough 15.1 Microbiology 01/26/23 MRSA Screen - Final, Complete MRSA not isolated 01/25/23 Blood Culture - Preliminary, Resulted Laboratory Tests 01/28/23 05:12 01/29/23 05:35 Procedures NAME: MAGGY [facility]LEXANDER [facility] REC#: [id number] PT STATUS: ADM IN : 1945 PHYSICIAN: TEETEE DEL ROSARIO MD ADMIT DATE: 01/25/23 Signed Date of Exam:01/28/23 CHEST 1 VIEW, AP/PA ONLY INDICATION: Lung biopsy follow-up EXAM: Portable chest at 3:41 PM FINDINGS: There is a large infiltrate in the perihilar region of the left lung. There is no appreciable effusion or pneumothorax. IMPRESSION: Large left perihilar consolidation. The distribution of infiltrate has increased slightly compared to 01/25/2023 with more extension into the left upper lobe. Dictated by: Dictated on workstation # [id number] Dict: 01/28/23 1545 Trans: 01/28/231711 [facility] [id number] Interpreted by: FATMATA FRYE MD Electronically signed by: FATMATA FRYE MD 01/28/231711 A/P: Assessment: Acute exacerbation of COPD due to MRSA pneumonia - managed by Dr Baptiste - Echo on 01-26-23: LVEF 65-70%, mild MR, AoV sclerosis w/o stenosis, PASP 35-40 mmHg - CT of the chest on 01-26-23: Extensive airspace consolidation in the left upper lobe including an area of cavitation which may relate to pneumonia and necrotizing pneumonia. Developing abscess would also be considered. Neoplastic etiology is less likely but also in the differential diagnosis. - S/P bronchoscopy on 01-28-[address] 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 Baptiste - s/p bronchoscopy with washings on 01-28-23 by * Advised to quit smoking * Anemia - management per Dr. Baptiste * Management of pneumonia and volume depletion is with GAGAN Reyes [facility] Jan 29, 2023 09:40
--- NOTE | 2023-01-29 09:55 | Progress Note ---
GISELL REVELES 01/29/23 0955: Subjective Date Seen by a Provider: Jan 29, 2023 Time Seen by a Provider: 09:30 Subjective/Events-last exam 01/29/2023: CC: PNA HPI: Abelino, 67M, appears much more tired today. He says that he is confused about what the plan is for today. He does not seem to understand that he is sick. He was not willing to answer many questions, rather wanted to sleep. He denies any pain. His says that he is still dealing with loss of appetite. He denies any abdominal pain, N/V, or discomfort. His discussed his GB US and how it found sludge, she noted that Dr. Del Rosario said that surgery isn't recommended at this time due to his fragility. Abelino has no other concerns. Course: Abelino is a 67 year old male that presented to the ED on 01/25 due to weakness, SOB, and diarrhea. Abelino has a past medical history of alcohol use disorder, tobacco use, and CKD. In the ED, a CXR was ordered and showed L-lung patchy infi ltrates. Serology was ran for COVID and influenza A/B which was negative. Toxicology screening was also negative for alcohol at time of admission. Along with this the CBC showed his WBC at 30.2H with neutrophil predominance which pointed to PNA. In the ED it was also found that Abelino had an elevated BNP. 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 Since Kymberly main issue was PNA, cefepime and azythromycin were started. It was later presumed to also be caused by MRSA due to sputum culture, so vancomycin was added. Due to the antibiotics, Abelino's WBC count has continued to improve and has normalized to 9.7 on 01/29. On imaging, it was also found that there was a potential L-upper lobe abscess or malignancy. Due to the lung concerns, Dr. Del Rosario was also consulted to perform a bronchoscopy. This procedure was performed on 01/28 and samples were taken with pending results. Additionally, the bronchoscopy cleared out some mucus. Abelino says that he feels like he can breath slightly better after this. On labs, it was also found that Abelino had hypercalcemia. For this, PTH, PTHrP, and urinary random calcium was ordered. It was found that his PTH was 8.5L. PTHrP is pending. Additionally, Abelino showed anemia, with his Hgb being 7.5 on 01/28. For this, iron and B12 were ordered. His iron was low at 23. This points to potential iron deficient anemia. On 01/29 his Hgb was improved to 8.4. Additionally, an abdominal US found that there was some biliary sludge without wall changes, and Dr. Del Rosario says that this cannot be addressed until Abelino has recovered more. Overall, his PNA has continued to improve over the course of his stay. His lungs still sound congested, but improved from initial presentation. The largest issues that Abelino is facing is that he is very weak, has diminished appetite, and is very tired. Abelino would benefit from physical rehabilitation in the ARU so that he can gain strength. Abelino was working up until 2 weeks ago, so the goal is to be able to regain some strength. Moreover, it is suspected that Abelino could have some underlying chronic condition, such as malignancy. As samples are pending, it would be good to try to regain strength. Abelino's prognosis would improve if he was able to focus on working towards this goal of being able to return home. At his current state, he is very weak and fragile. He is also very underweight, so supportive care would be beneficial. His endorses a need for the ARU and is happy that this could lead to Abelino becoming more motivated. She has concerns that he is depressed because he is so tired and weak. Abelino will continue his medications per discharge order. No other concerns. Review of Systems General: No Chills, No Night Sweats; Fatigue; No Malaise; Appetite (diminished ); No Other HEENT: No Head Aches, No Visual Changes, No Eye Pain, No Ear Pain, No Dysphasia, No Sinus Congestion, No Post Nasal Drip, No Sore Throat, No Other Pulmonary: No Dyspnea; Cough; No Pleuritic Chest Pain, No Other Cardiovascular: No: Chest Pain, Palpitations, Orthopnea, Paroxysmal Noc. Dyspnea, Edema, Lt Headedness, Other Gastrointestinal: No: Nausea, Vomiting, Abdominal Pain, Diarrhea, Constipation, Melena, Hematochezia, Other Genitourinary: No Dysuria, No Frequency, No Incontinence, No Hematuria, No Retention, No Other Musculoskeletal: No: other, neck pain, shoulder pain, arm pain, back pain, hand pain, leg pain, foot pain Neurological: No: Weakness, Numbness, Incoordination, Change in speech, Confusion, Seizures, Other Objective Exam Last Set of Vital Signs Vital Signs Date Time Temp Pulse Resp B/P (MAP) Pulse Ox O2 Delivery O2 Flow Rate FiO2 01/29/23 08:02 36.3 75 23 132/70 (90) Room Air 01/29/23 04:09 92 01/28/23 23:15 1.00 1.00 01/25/23 19:07 21 Capillary Refill : Less Than 3 SecondsLess Than 3 Seconds I&O Intake and Output 01/29/23 00:00 Intake Total 322 ml Output Total 550 ml Balance -228 ml Intake Oral 322 ml Output Urine Total 550 ml # Voids 2 General: Alert, Cooperative, No Acute Distress, Other (oriented to person, place, not date or time. ) HEENT: Atraumatic, PERRLA Neck: Supple, No JVD Lungs: Clear to Auscultation Heart: Regular Rate, Other (slight systolic murmur ) Abdomen: Normal Bowel Sounds, Soft, No Tenderness Extremities: No Clubbing, No Cyanosis, No Edema, Normal Pulses Skin: No Rashes Neuro: Normal Speech, Normal Tone, Sensation Intact Results Lab Laboratory Tests 01/29/23 05:35: White Blood Count 9.7, Red Blood Count 2.78L, Hemoglobin 8.4L, Hematocrit 27L, Mean Corpuscular Volume 97, Mean Corpuscular Hemoglobin 30, Mean Corpuscular Hemoglobin Concent 31L, Red Cell Distribution Width 14.7H, Platelet Count 380, Mean Platelet Volume 10.5, Immature Granulocyte % (Auto) 6, Neutrophils (%) (Auto) 79H, Lymphocytes (%) (Auto) 14, Monocytes (%) (Auto) 1, Eosinophils (%) (Auto) 0, Basophils (%) (Auto) 0, Neutrophils # (Auto) 7.6, Lymphocytes # (Auto) 1.4, Monocytes # (Auto) 0.1, Eosinophils # (Auto) 0.0, Basophils # (Auto) 0.0, Immature Granulocyte # (Auto) 0.6H, Sodium Level 141, Potassium Level 5.0, Chloride Level 114H, Carbon Dioxide Level 19L, Anion Gap 8, Blood Urea Nitrogen 33H, Creatinine 1.30, Estimat Glomerular Filtration Rate 57, BUN/Creatinine Ratio 25, Glucose Level 134H, Calcium Level 9.6, Corrected Calcium 11.1H, Total Bilirubin 0.4, Aspartate Amino Transf (AST/SGOT) 17, Alanine Aminotransferase (ALT/SGPT) 14, Alkaline Phosphatase 139H, Total Protein 5.4L, Albumin 2.1L 01/29/23 08:50: Vancomycin Level Trough 15.1 Microbiology 01/26/23 MRSA Screen - Final, Complete MRSA not isolated 01/25/23 Blood Culture - Preliminary, Resulted Assessment/Plan Assessment/Plan Assess & Plan/Chief Complaint 01/29/2023: A/P -Community Acquired PNA * Cefepime, Azithromycin, Vancomysin (MRSA suspected) -L upper lung process * bronchoscopy samples pending -COPD exacerbation * Fluticisone/Vilanterol -Anemia * Hgb to 8.4L (up from 7.5 on 01/28) * Protonics * Iron supplement IV * Iron was 23L * B12 >2000H -EtOH use disorder * CIWA protocol, thiamine, ativan PRN, monitor for withdraw symptoms * daily CIWA score -Hypercalcemia * awaiting PTHRP -CKD * fluids, daily BUN and Cr monitoring -L1 compression fx * oxycodone, salonpas PRN Move to ARU for further care DARLIN CHESTER DO 01/29/234: Supervisory-Addendum Brief Verification & Attestation Participated in pt care: history, MDM, physical Personally performed: exam, history, MDM, supervision of care Care discussed with: Medical Student Procedures: n/a Results interpretation: Verified all documentation Verification and Attestation of Medical Student E/M Service A medical student performed and documented this service in my presence. I revi ewed and verified all information documented by the medical student and made modifications to such information, when appropriate. I personally performed the physical exam and medical decision making. Darlin Chester Jan 29, 2023,21:04 GISELL REVELES Jan 29, 2023 09:55 DARLIN CHESTER DO Jan 29, 2023 21:04
[2023-01-29] MEDS: VANCOMYCIN 750 MG/NS 250 ML IVPB IV SCH ×2 (10:25)
[2023-01-29] MEDS: THIAMINE INJECTION 100 MG, FOLIC ACID INJECTION 1 MG, MULTIVITAMIN INJECTION 10 ML, MAG... IV SCH ×5 (10:26)
--- NOTE | 2023-01-29 11:15 | Occupational Ther Daily Note ---
OT Current Status-Daily Note Subjective Required moderate encouragement to perform activity OOB Mental Status/Objective Patient Orientation: Person, Place Attachments: IV, SCD's ADL-Treatment Transfer from bed to recliner, max assist. Set up for am meal. Drank all OJ w/ meds, 1/2 toast w/ butter and requested Tabasco sauce for eggs. Therapy Code Descriptions/Definitions Functional [place] Measure: 0=Not Assessed/NA 4=Minimal Assistance 1=Total Assistance 5=Supervision or Setup 2=Maximal Assistance 6=Modified [place] 3=Moderate Assistance 7=Complete IndependenceSCALE: Activities may be completed with or without assistive devices. 7-Pjthfifxzx-kwoxojm completes the activity by him/herself with no assistance from a helper. 5-Set-up or Clean-up Assistance-helper sets up or cleans up; patient completes activity. [place] assists only prior to or following the activity. 4-Supervision or Touching Assistance-helper provides verbal cues and/or touching/steadying and/or contact guard assistance as patient completes activity. Assistance may be provided throughout the activity or intermittently. 3-Partial/Moderate Assistance-helper does LESS THAN HALF the effort. [place] lifts, holds or supports trunk or limbs, but provides less than half the effort. 2-Substantial/Maximal Assistance-helper does MORE THAN HALF the effort. [place] lifts or holds trunk or limbs and provides more than half the effort. 5-Mnikxrzxs-mnnzsv does ALL the effort. Patient does none of the effort to complete the activity. Or, the assistance of 2 or more helpers is required for the patient to complete the activity. If activity was not attempted, code reason: 7-Patient Refused. 9-Not Applicable-not attempted and the patient did not perform the activity before the current illness, exacerbation or injury. 10-Not Attempted due to Environmental Limitations-(lack of equipment, weather restraints, etc.). 88-Not Attempted due to Medical Conditions or Safety Concerns. Eating (QC): 5 Oral Hygiene (QC): 3 (spouse inserted upper and ower dentures for patient to eat) Education OT Patient Education: Correct positioning, Instructions to caregiver, Modified ADL techniques, Progress toward Goal/Update tx plan, Purpose of tx/functional activities, Reviewed precautions, Rehab process, Safety issues, Transfer techniques, Use of adapted equipment Teaching Recipient: Patient, Family Teaching Methods: Demonstration, Discussion Response to Teaching: Reinforcement Needed OT Jail Goals Foreign Agent Goals Eating (QC): 6 Oral Hygiene (QC): 6 Toileting Hygiene (QC): 6 Shower/Bathe Self (QC): 6 Upper Body Dressing (QC): 6 Lower Body Dressing (QC): 6 On/Off Footwear (QC): 6 1=Demonstrate adherence to instructed precautions during ADL tasks. 2=Patient will verbalize/demonstrate understanding of assistive devices/modifications for ADL. 3=Patient will improve strength/tolerance for activity to enable patient to perform ADL's. OT Education/Plan Problem List/Assessment Assessment: Decreased Activ Tolerance, Decreased Safety Aware, Decreased UE Strength, Impaired Coordination, Impaired Funct Balance, Impaired Self-Care Skills Discharge Recommendations Plan/Recommendations: Continue POC Treatment Plan/Plan of Care Treatment,Training & Education: Yes Patient would benefit from OT for education, treatment and training to promote independence in ADL's, mobility, safety and/or upper extremity function for ADL's. Plan of Care: ADL Retraining, Cognitive Retraining, Concurrent Therapy, Functional Mobility, Group Exercise/Act as Ind, UE Funct Exercise/Act, UE Neuromus Re-Ed/Coord Treatment Duration: Feb 03, 2023 Frequency: 3 times per week (3-5 times per week) Estimated Hrs Per Day: .25 hour per day Agreement: Yes Rehab Potential: Fair Time Start Time: 09:33 Stop Time: 09:50 DATE: Jan 29, 2023 Total Time Billed (hr/min): 17 Billed Treatment Time ADL 17 min AUDIE LIRA OT Jan 29, 2023 11:15
[2023-01-29 12:07] VITALS: BP 122/71
--- NOTE | 2023-01-29 12:25 | Discharge Summary ---
Diagnosis/Chief Complaint Date of Admission Jan 25, 2023 at 18:46 Date of Discharge Discharge Date: Jan 29, 2023 Discharge Diagnosis A/P -Community Acquired PNA * Cefepime, Azithromycin, Vancomysin (MRSA suspected) -L upper lung process * potential abscess or malignacy- bronchoscopy with Dr. Del Rosario, medical benefits outweigh potential harms -COPD exacerbation * Fluticisone/Vilanterol -Anemia * Hgb decreased to 7.5 (from 8.6) * Protonics, occult blood stool sample, measure iron, B12 * Consider transfusion if not improved on 01/29 -EtOH use disorder * CIWA protocol, thiamine, ativan PRN, monitor for withdraw symptoms * daily CIWA score -Hypercalcemia * awaiting PTHRP, no signs of familial hypercalcemia -CKD * fluids, daily BUN and Cr monitoring -L1 compression fx * oxycodone, salonpas PRN -D/C telemetry Discharge Summary Discharge Physical Examination Allergies: Coded Allergies: No Known Drug Allergies (Unverified , 03/22/22) Vitals & I&Os Vital Signs Date Time Temp Pulse Resp B/P (MAP) Pulse Ox O2 Delivery O2 Flow Rate FiO2 01/29/23 14:12 36.0 70 21 122/71 95 Room Air 1.00 01/25/23 19:07 21 General Appearance: Alert, Oriented X3, Cooperative Respiratory: Clear to Auscultation Cardiovascular: Regular Rate Psych/Mental Status: Mental Status NL Hospital Course Was the Problem List Reviewed?: Yes Course: Abelino is a 67 year old male that presented to the ED on 01/25 due to weakness, SOB, and diarrhea. Abelino has a past medical history of alcohol use disorder, tobacco use, and CKD. In the ED, a CXR was ordered and showed L-lung patchy infiltrates. Serology was ran for COVID and influenza A/B which was negative. Toxicology screening was also negative for alcohol at time of admission. Along with this the CBC showed his WBC at 30.2H with neutrophil predominance which pointed to PNA. In the ED it was also found that Abelino had an elevated BNP. 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 Since Kymberly main issue was PNA, cefepime and azythromycin were started. It was later presumed to also be caused by MRSA due to sputum culture, so vancomycin was added. Due to the antibiotics, Abelino's WBC count has continued to improve and has normalized to 9.7 on 01/29. On imaging, it was also found that there was a potential L-upper lobe abscess or malignancy. Due to the lung concerns, Dr. Del Rosario was also consulted to perform a bronchoscopy. This procedure was performed on 01/28 and samples were taken with pending results. Additionally, the bronchosc opy cleared out some mucus. Abelino says that he feels like he can breath slightly better after this. On labs, it was also found that Abelino had hypercalcemia. For this, PTH, PTHrP, and urinary random calcium was ordered. It was found that his PTH was 8.5L. PTHrP is pending. Additionally, Abelino showed anemia, with his Hgb being 7.5 on 01/28. For this, iron and B12 were ordered. His iron was low at 23. This points to potential iron deficient anemia. On 01/29 his Hgb was improved to 8.4. Additionally, an abdominal US found that there was some biliary sludge without wall changes, and Dr. Del Rosario says that this cannot be addressed until Abelino has recovered more. Overall, his PNA has continued to improve over the course of his stay. His lungs still sound congested, but improved from initial presentation. The largest issues that Abelino is facing is that he is very weak, has diminished appetite, and is very tired. Abelino would benefit from physical rehabilitation in the ARU so that he can gain strength. Abelino was working up until 2 weeks ago, so the goal is to be able to regain some strength. Moreover, it is suspected that Abelino could have some underlying chronic condition, such as malignancy. As samples are pending, it would be good to try to regain strength. Abelino's prognosis would improve if he was able to focus on working towards this goal of being able to return home. At his current state, he is very weak and fragile. He is also very underweight, so supportive care would be beneficial. His endorses a need for the ARU and is happy that this could lead to Abelino becoming more motivated. She has concerns that he is depressed because he is so tired and weak. Abelino will continue his medications per discharge order. No other concerns. Labs (last 24 hrs) Laboratory Tests 01/25/23 11:27: White Blood Count 30.1*H, Red Blood Count 3.32L, Hemoglobin 10.1L, Hematocrit 32L, Mean Corpuscular Volume 95, Mean Corpuscular Hemoglobin 30, Mean Corpuscular Hemoglobin Concent 32, Red Cell Distribution Width 14.4, Platelet Count 580H, Mean Platelet Volume 9.8, Immature Granulocyte % (Auto) 1, Neutrophils (%) (Auto) 90H, Lymphocytes (%) (Auto) 4L, Monocytes (%) (Auto) 5, Eosinophils (%) (Auto) 0, Basophils (%) (Auto) 0, Neutrophils # (Auto) 27.2H, Lymphocytes # (Auto) 1.2, Monocytes # (Auto) 1.4H, Eosinophils # (Auto) 0.0, Basophils # (Auto) 0.1, Immature Granulocyte # (Auto) 0.3H, Neutrophils % (Manual) 92, Lymphocytes % (Manual) 3, Monocytes % (Manual) 5, Prothrombin Time 16.4H, INR Comment 1.3, Activated Partial Thromboplast Time 29, Sodium Level 136, Potassium Level 4.6, Chloride Level 99, Carbon Dioxide Level 20L, Anion Gap 17H, Blood Urea Nitrogen 51H, Creatinine 1.78H, Estimat Glomerular Filtration Rate 39, BUN/Creatinine Ratio 29, Glucose Level 108H, Lactic Acid Level 1.93, Calcium Level 10.3H, Corrected Calcium 11.7H, Total Bilirubin 0.7, Aspartate Amino Transf (AST/SGOT) 33, Alanine Aminotransferase (ALT/SGPT) 26, Alkaline Phosphatase 209H, Troponin I < 0.30, Pro-B-Type Natriuretic Peptide 2813.0H, Total Protein 6.5, Albumin 2.3L, Serum Alcohol < 10, Influenza Type A (RT-PCR) Not Detected, Influenza Type B (RT-PCR) Not Detected, SARS-CoV-2 RNA (RT-PCR) Not Detected 01/25/23 13:03: Urine Color YELLOW, Urine Clarity CLEAR, Urine pH 5.5, Urine Specific [place] 1.015L, Urine Protein TRACEH, Urine Glucose (UA) NEGATIVE, Urine Ketones NEGATIVE, Urine Nitrite NEGATIVE, Urine Bilirubin 1+H, Urine Urobilinogen 1.0, Urine Leukocyte Esterase NEGATIVE, Urine RBC (Auto) NEGATIVE, Urine RBC NONE, Urine WBC 0-2, Urine Squamous Epithelial Cells NONE, Urine Crystals NONE, Urine Bacteria NEGATIVE, Urine Casts NONE, Urine Mucus NEGATIVE, Urine Culture Indicated NO, Urine Opiates Screen NEGATIVE, Urine Oxycodone Screen NEGATIVE, Urine Methadone Screen NEGATIVE, Urine Propoxyphene Screen NEGATIVE, Urine Bar biturates Screen NEGATIVE, Ur Tricyclic Antidepressants Screen NEGATIVE, Urine Phencyclidine Screen NEGATIVE, Urine Amphetamines Screen NEGATIVE, Urine Methamphetamines Screen NEGATIVE, Urine Benzodiazepines Screen NEGATIVE, Urine Cocaine Screen NEGATIVE, Urine Cannabinoids Screen NEGATIVE 01/26/23 05:00: White Blood Count 27.5H, Red Blood Count 3.08L, Hemoglobin 9.4L, Hematocrit 29L, Mean Corpuscular Volume 93, Mean Corpuscular Hemoglobin 31, Mean Corpuscular Hemoglobin Concent 33, Red Cell Distribution Width 14.3, Platelet Count 536H, Mean Platelet Volume 10.1, Immature Granulocyte % (Auto) 2, Neutrophils (%) (Auto) 89H, Lymphocytes (%) (Auto) 5L, Monocytes (%) (Auto) 4, Eosinophils (%) (Auto) 1, Basophils (%) (Auto) 0, Neutrophils # (Auto) 24.3H, Lymphocytes # (Auto) 1.4, Monocytes # (Auto) 1.1H, Eosinophils # (Auto) 0.2, Basophils # (Auto) 0.1, Immature Granulocyte # (Auto) 0.4H, Sodium Level 139, Potassium Level 3.8, Chloride Level 107, Carbon Dioxide Level 17L, Anion Gap 15H, Blood Urea Nitrogen 50H, Creatinine 1.62H, Estimat Glomerular Filtration Rate 44, BUN/Creatinine Ratio 31, Glucose Level 112H, Calcium Level 9.5, Corrected Calcium 10.8H, Total Bilirubin 0.7, Aspartate Amino Transf (AST/SGOT) 27, Alanine Aminotransferase (ALT/SGPT) 28, Alkaline Phosphatase 177H, Total Protein 5.8L, Albumin 2.4L 01/27/23 05:27: White Blood Count 25.2H, Red Blood Count 2.80L, Hemoglobin 8.6L, Hematocrit 26L, Mean Corpuscular Volume 93, Mean Corpuscular Hemoglobin 31, Mean Corpuscular Hemoglobin Concent 33, Red Cell Distribution Width 14.3, Platelet Count 474H, Mean Platelet Volume 10.4, Immature Granulocyte % (Auto) 2, Neutrophils (%) (Auto) 87H, Lymphocytes (%) (Auto) 6L, Monocytes (%) (Auto) 4, Eosinophils (%) (Auto) 1, Basophils (%) (Auto) 0, Neutrophils # (Auto) 21.9H, Lymphocytes # (Auto) 1.6, Monocytes # (Auto) 1.0, Eosinophils # (Auto) 0.2, Basophils # (Auto) 0.1, Immature Granulocyte # (Auto) 0.5H, Sodium Level 139, Potassium Level 3.6, Chloride Level 109H, Carbon Dioxide Level 18L, Anion Gap 12, Blood Urea Nitrogen 45H, Creatinine 1.38H, Estimat Glomerular Filtration Rate 53, BUN/Creatinine Ratio 33, Glucose Level 74, Calcium Level 9.4, Corrected Calcium 11.0H, Total Bilirubin 0.4, Aspartate Amino Transf (AST/SGOT) 15, Alanine Aminotransferase (ALT/SGPT) 16, Alkaline Phosphatase 138H, Total Protein 5.0L, Albumin 2.0L 01/27/23 15:08: Urine Random Calcium 4, Parathyroid Hormone (Intact) 8.5L, Calcium (PTH Intact) 8.7 01/28/23 05:12: White Blood Count 18.8H, Red Blood Count 2.51L, Hemoglobin 7.5L, Hematocrit 24L, Mean Corpuscular Volume 94, Mean Corpuscular Hemoglobin 30, Mean Corpuscular Hemoglobin Concent 32, Red Cell Distribution Width 14.6H, Platelet Count 401H, Mean Platelet Volume 10.4, Immature Granulocyte % (Auto) 3, Neutrophils (%) (Auto) 82H, Lymphocytes (%) (Auto) 8L, Monocytes (%) (Auto) 6, Eosinophils (%) (Auto) 2, Basophils (%) (Auto) 0, Neutrophils # (Auto) 15.4H, Lymphocytes # (Auto) 1.5, Monocytes # (Auto) 1.0, Eosinophils # (Auto) 0.3, Basophils # (Auto) 0.1, Immature Granulocyte # (Auto) 0.5H, Sodium Level 139, Potassium Level 3.7, Chloride Level 112H, Carbon Dioxide Level 19L, Anion Gap 8, Blood Urea Nitrogen 36H, Creatinine 1.25, Estimat Glomerular Filtration Rate 60, BUN/Creatinine Ratio 29, Glucose Level 101, Calcium Level 9.2, Corrected Calcium 11.0H, Iron Level 23L, Total Bilirubin 0.4, Aspartate Amino Transf (AST/SGOT) 16, Alanine Aminotransferase (ALT/SGPT) 12, Alkaline Phosphatase 118, Total Protein 4.5L, Albumin 1.8L, Vitamin B12 Level >2000H 01/29/23 05:35: White Blood Count 9.7, Red Blood Count 2.78L, Hemoglobin 8.4L, Hematocrit 27L, Mean Corpuscular Volume 97, Mean Corpuscular Hemoglobin 30, Mean Corpuscular Hemoglobin Concent 31L, Red Cell Distribution Width 14.7H, Platelet Count 380, Mean Platelet Volume 10.5, Immature Granulocyte % (Auto) 6, Neutrophils (%) (Auto) 79H, Lymphocytes (%) (Auto) 14, Monocytes (%) (Auto) 1, Eosinophils (%) (Auto) 0, Basophils (%) (Auto) 0, Neutrophils # (Auto) 7.6, Lymphocytes # (Auto) 1.4, Monocytes # (Auto) 0.1, Eosinophils # (Auto) 0.0, Basophils # (Auto) 0.0, Immature Granulocyte # (Auto) 0.6H, Sodium Level 141, Potassium Level 5.0, Chloride Level 114H, Carbon Dioxide Level 19L, Anion Gap 8, Blood Urea Nitrogen 33H, Creatinine 1.30, Estimat Glomerular Filtration Rate 57, BUN/Creatinine Ratio 25, Glucose Level 134H, Calcium Level 9.6, Corrected Calcium 11.1H, Total Bilirubin 0.4, Aspartate Amino Transf (AST/SGOT) 17, Alanine Aminotransferase (ALT/SGPT) 14, Alkaline Phosphatase 139H, Total Protein 5.4L, Albumin 2.1L 01/29/23 08:50: Vancomycin Level Trough 15.1 Microbiology 01/28/23 Mycobacterial Culture - Preliminary, Resulted 01/25/23 Blood Culture - Preliminary, Resulted Pending Labs Microbiology Date/Time Source Procedure Growth Status 01/28/23 14:44 Bronch Washings Mainstem, Rt Mycobacterial Culture - Preliminary Resulted 01/28/23 14:44 Bronch Washings Mainstem, Rt Gram Stain - Final Resulted 01/28/23 14:44 Bronch Washings Mainstem, Rt Bronchial Culture Pending Resulted 01/28/23 14:44 Bronch Washings Mainstem, Rt Fungal Culture 1 - Preliminary Resulted 01/28/23 14:40 Bronch Washings Mainstem L Mycobacterial Culture - Preliminary Resulted 01/28/23 14:40 Bronch Washings Mainstem L Gram Stain - Final Resulted 01/28/23 14:40 Bronch Washings Mainstem L Bronchial Culture Pending Resulted 01/28/23 14:40 Bronch Washings Mainstem L Fungal Culture 1 - Preliminary Resulted 01/26/23 15:30 Nasal MRSA Screen - Final MRSA not isolated Complete 01/26/23 11:20 Sputum Expectorated Gram Stain - Final Complete 01/26/23 11:20 Sputum Culture - Final Staphylococcus aureus Streptococcus intermedius Usual upper respiratory birgit Complete 01/25/23 11:55 Peripheral Lt Ac Blood Culture - Preliminary Resulted 01/25/23 11:50 Peripheral Lt Ac Blood Culture - Preliminary Resulted Laboratory Tests 01/25/23 11:27: White Blood Count 30.1, Red Blood Count 3.32, Hemoglobin 10.1, Hematocrit 32, Mean Corpuscular Volume 95, Mean Corpuscular Hemoglobin 30, Mean Corpuscular Hemoglobin Concent 32, Red Cell Distribution Width 14.4, Platelet Count 580, Mean Platelet Volume 9.8, Immature Granulocyte % (Auto) 1, Neutrophils (%) (Auto) 90, Lymphocytes (%) (Auto) 4, Monocytes (%) (Auto) 5, Eosinophils (%) (Auto) 0, Basophils (%) (Auto) 0, Neutrophils # (Auto) 27.2, Lymphocytes # (Auto) 1.2, Monocytes # (Auto) 1.4, Eosinophils # (Auto) 0.0, Basophils # (Auto) 0.1, Immature Granulocyte # (Auto) 0.3, Neutrophils % (Manual) 92, Lymphocytes % (Manual) 3, Monocytes % (Manual) 5, Prothrombin Time 16.4, INR Comment 1.3, Activated Partial Thromboplast Time 29, Sodium Level 136, Potassium Level 4.6, Chloride Level 99, Carbon Dioxide Level 20, Anion Gap 17, Blood Urea Nitrogen 51, Creatinine 1.78, Estimat Glomerular Filtration Rate 39, BUN/Creatinine Ratio 29, Glucose Level 108, Lactic Acid Level 1.93, Calcium Level 10.3, Corrected Calcium 11.7, Total Bilirubin 0.7, Aspartate Amino Transf (AST/SGOT) 33, Alanine Aminotransferase (ALT/SGPT) 26, Alkaline Phosphatase 209, Troponin I < 0.30, Pro-B-Type Natriuretic Peptide 2813.0, Total Protein 6.5, Albumin 2.3, Serum Alcohol < 10, Influenza Type A (RT-PCR) Not Detected, Influenza Type B (RT-PCR) Not Detected, SARS-CoV-2 RNA (RT-PCR) Not Detected 01/25/23 13:03: Urine Color YELLOW, Urine Clarity CLEAR, Urine pH 5.5, Urine Specific [place] 1.015, Urine Protein TRACE, Urine Glucose (UA) NEGATIVE, Urine Ketones NEGATIVE, Urine Nitrite NEGATIVE, Urine Bilirubin 1+, Urine Urobilinogen 1.0, Urine Leukocyte Esterase NEGATIVE, Urine RBC (Auto) NEGATIVE, Urine RBC NONE, Urine WBC 0-2, Urine Squamous Epithelial Cells NONE, Urine Crystals NONE, Urine Bacteria NEGATIVE, Urine Casts NONE, Urine Mucus NEGATIVE, Urine Culture Indicated NO, Urine Opiates Screen NEGATIVE, Urine Oxycodone Screen NEGATIVE, Urine Methadone Screen NEGATIVE, Urine Propoxyphene Screen NEGATIVE, Urine Barbiturates Screen NEGATIVE, Ur Tricyclic Antidepressants Screen NEGATIVE, Urine Phencyclidine Screen NEGATIVE, Urine Amphetamines Screen NEGATIVE, Urine Methamphetamines Screen NEGATIVE, Urine Benzodiazepines Screen NEGATIVE, Urine Cocaine Screen NEGATIVE, Urine Cannabinoids Screen NEGATIVE 01/26/23 05:00: White Blood Count 27.5, Red Blood Count 3.08, Hemoglobin 9.4, Hematocrit 29, Mean Corpuscular Volume 93, Mean Corpuscular Hemoglobin 31, Mean Corpuscular Hemoglobin Concent 33, Red Cell Distribution Width 14.3, Platelet Count 536, Mean Platelet Volume 10.1, Immature Granulocyte % (Auto) 2, Neutrophils (%) (Auto) 89, Lymphocytes (%) (Auto) 5, Monocytes (%) (Auto) 4, Eosinophils (%) (Auto) 1, Basophils (%) (Auto) 0, Neutrophils # (Auto) 24.3, Lymphocytes # (Auto) 1.4, Monocytes # (Auto) 1.1, Eosinophils # (Auto) 0.2, Basophils # (Auto) 0.1, Immature Granulocyte # (Auto) 0.4, Sodium Level 139, Potassium Level 3.8, Chloride Level 107, Carbon Dioxide Level 17, Anion Gap 15, Blood Urea Nitrogen 50, Creatinine 1.62, Estimat Glomerular Filtration Rate 44, BUN/Creatinine Ratio 31, Glucose Level 112, Calcium Level 9.5, Corrected Calcium 10.8, Total Bilirubin 0.7, Aspartate Amino Transf (AST/SGOT) 27, Alanine Aminotransferase (ALT/SGPT) 28, Alkaline Phosphatase 177, Total Protein 5.8, Albumin 2.4 01/27/23 05:27: White Blood Count 25.2, Red Blood Count 2.80, Hemoglobin 8.6, Hematocrit 26, Mean Corpuscular Volume 93, Mean Corpuscular Hemoglobin 31, Mean Corpuscular Hemoglobin Concent 33, Red Cell Distribution Width 14.3, Platelet Count 474, Mean Platelet Volume 10.4, Immature Granulocyte % (Auto) 2, Neutrophils (%) (Auto) 87, Lymphocytes (%) (Auto) 6, Monocytes (%) (Auto) 4, Eosinophils (%) (Auto) 1, Basophils (%) (Auto) 0, Neutrophils # (Auto) 21.9, Lymphocytes # (Auto) 1.6, Monocytes # (Auto) 1.0, Eosinophils # (Auto) 0.2, Basophils # (Auto) 0.1, Immature Granulocyte # (Auto) 0.5, Sodium Level 139, Potassium Level 3.6, Chloride Level 109, Carbon Dioxide Level 18, Anion Gap 12, Blood Urea Nitrogen 45, Creatinine 1.38, Estimat Glomerular Filtration Rate 53, BUN/Creatinine Ratio 33, Glucose Level 74, Calcium Level 9.4, Corrected Calcium 11.0, Total Bilirubin 0.4, Aspartate Amino Transf (AST/SGOT) 15, Alanine Aminotransferase (ALT/SGPT) 16, Alkaline Phosphatase 138, Total Protein 5.0, Albumin 2.0 01/27/23 15:08: Urine Random Calcium 4, Parathyroid Hormone (Intact) 8.5, Calcium (PTH Intact) 8.7, Parathyroid Hormone Related Protein [Pending] 01/28/23 05:12: White Blood Count 18.8, Red Blood Count 2.51, Hemoglobin 7.5, Hematocrit 24, Mean Corpuscular Volume 94, Mean Corpuscular Hemoglobin 30, Mean Corpuscular Hemoglobin Concent 32, Red Cell Distribution Width 14.6, Platelet Count 401, Mean Platelet Volume 10.4, Immature Granulocyte % (Auto) 3, Neutrophils (%) (Auto) 82, Lymphocytes (%) (Auto) 8, Monocytes (%) (Auto) 6, Eosinophils (%) (Auto) 2, Basophils (%) (Auto) 0, Neutrophils # (Auto) 15.4, Lymphocytes # (Auto) 1.5, Monocytes # (Auto) 1.0, Eosinophils # (Auto) 0.3, Basophils # (Auto) 0.1, Immature Granulocyte # (Auto) 0.5, Sodium Level 139, Potassium Level 3.7, Chloride Level 112, Carbon Dioxide Level 19, Anion Gap 8, Blood Urea Nitrogen 36, Creatinine 1.25, Estimat Glomerular Filtration Rate 60, BUN/Creatinine Ratio 29, Glucose Level 101, Calcium Level 9.2, Corrected Calcium 11.0, Iron Level 23, Total Bilirubin 0.4, Aspartate Amino Transf (AST/SGOT) 16, Alanine Aminotransferase (ALT/SGPT) 12, Alkaline Phosphatase 118, Total Protein 4.5, Albumin 1.8, Vitamin B12 Level >2000 01/29/23 05:35: White Blood Count 9.7, Red Blood Count 2.78, Hemoglobin 8.4, Hematocrit 27, Mean Corpuscular Volume 97, Mean Corpuscular Hemoglobin 30, Mean Corpuscular Hemoglobin Concent 31, Red Cell Distribution Width 14.7, Platelet Count 380, Mean Platelet Volume 10.5, Immature Granulocyte % (Auto) 6, Neutrophils (%) (Auto) 79, Lymphocytes (%) (Auto) 14, Monocytes (%) (Auto) 1, Eosinophils (%) (Auto) 0, Basophils (%) (Auto) 0, Neutrophils # (Auto) 7.6, Lymphocytes # (Auto) 1.4, Monocytes # (Auto) 0.1, Eosinophils # (Auto) 0.0, Basophils # (Auto) 0.0, Immature Granulocyte # (Auto) 0.6, Sodium Level 141, Potassium Level 5.0, Chloride Level 114, Carbon Dioxide Level 19, Anion Gap 8, Blood Urea Nitrogen 33, Creatinine 1.30, Estimat Glomerular Filtration Rate 57, BUN/Creatinine Ratio 25, Glucose Level 134, Calcium Level 9.6, Corrected Calcium 11.1, Total Bilirubin 0.4, Aspartate Amino Transf (AST/SGOT) 17, Alanine Aminotransferase (ALT/SGPT) 14, Alkaline Phosphatase 139, Total Protein 5.4, Albumin 2.1 01/29/23 08:50: Vancomycin Level Trough 15.1 Discharge Home Medications: Active Scripts Active Reported Loratadine 10 Mg Tablet 10 Mg PO DAILY PRN Ibuprofen 200 Mg Tablet 600 Mg PO Q6H PRN Vitamin B-12 (Cyanocobalamin (Vitamin B-12)) 1,000 Mcg Tablet 1,000 Mg PO DAILY Vitamin D2 (Ergocalciferol (Vitamin D2)) 1,250 Mcg (21597 Unit) Capsule 1,250 Mcg PO TUES Megestrol Acetate 20 Mg Tablet 20 Mg PO DAILY Folic Acid 1 Mg Tablet 1 Mg PO DAILY Instructions to patient/family Please see electronic discharge instructions given to patient. DARINEL CHESTER DO Jan 29, 2023 12:25
--- NOTE | 2023-01-29 13:38 | Progress Note - Cardiology ---
Cardiology SOAP Progress Note Subjective: Gen weakness and malaise Shortness of breath with activity No cp or palp or syncope No n/v/d Objective: I&O/Vital Signs 01/29/23 01/29/23 01/29/23 01/29/23 04:09 08:02 08:30 12:07 Temp 36.3 36.3 36.0 Pulse 75 75 70 Resp 16 23 21 B/P (MAP) 126/73 (90) 132/70 (90) 122/71 (88) Pulse Ox 92 95 O2 Delivery Room Air Room Air Nasal Cannula Room Air O2 Flow Rate 1.00 01/28/23 23:59 Intake Total 222 ml Output Total 200 ml Balance 22 ml Constitutional: AAO x 3, other (thin-appearing) Respiratory: No accessory muscle use; chest expansion is symmetric, chest is bilaterally symmetric, other (dimished air entry and prolonged exp) Cardiovascular: regular rate-rhythm, S1 and S2, systolic murmur (2/6 ANGELITA at card base) Gastrointestional: No tender; soft; No guarding, No rebound; audible bowel sounds Extremities: No clubbing, No cyanosis, No significant edema Neurologic/Psychiatric: oriented x 3, other (moves all limbs equally) Skin: normal color, warm/dry; No cyanosis, No cool, No diaphoresis Results/Procedures: Labs Laboratory Tests 01/29/23 05:35: White Blood Count 9.7, Red Blood Count 2.78L, Hemoglobin 8.4L, Hematocrit 27L, Mean Corpuscular Volume 97, Mean Corpuscular Hemoglobin 30, Mean Corpuscular Hemoglobin Concent 31L, Red Cell Distribution Width 14.7H, Platelet Count 380, Mean Platelet Volume 10.5, Immature Granulocyte % (Auto) 6, Neutrophils (%) (Auto) 79H, Lymphocytes (%) (Auto) 14, Monocytes (%) (Auto) 1, Eosinophils (%) (Auto) 0, Basophils (%) (Auto) 0, Neutrophils # (Auto) 7.6, Lymphocytes # (Auto) 1.4, Monocytes # (Auto) 0.1, Eosinophils # (Auto) 0.0, Basophils # (Auto) 0.0, Immature Granulocyte # (Auto) 0.6H, Sodium Level 141, Potassium Level 5.0, Chloride Level 114H, Carbon Dioxide Level 19L, Anion Gap 8, Blood Urea Nitrogen 33H, Creatinine 1.30, Estimat Glomerular Filtration Rate 57, BUN/Creatinine Ratio 25, Glucose Level 134H, Calcium Level 9.6, Corrected Calcium 11.1H, Total Bilirubin 0.4, Aspartate Amino Transf (AST/SGOT) 17, Alanine Aminotransferase (ALT/SGPT) 14, Alkaline Phosphatase 139H, Total Protein 5.4L, Albumin 2.1L 01/29/23 08:50: Vancomycin Level Trough 15.1 Microbiology 01/28/23 Gram Stain - Final, Resulted 01/28/23 Bronchial Culture, Resulted Pending 01/28/23 Fungal Culture 1 - Preliminary, Resulted 01/25/23 Blood Culture - Preliminary, Resulted Laboratory Tests 01/28/23 05:12 01/29/23 05:35 A/P: Assessment: Acute exacerbation of COPD due to MRSA pneumonia - managed by Dr Baptiste - Echo on 01-26-23: LVEF 65-70%, mild MR, AoV sclerosis w/o stenosis, PASP 35-40 mmHg - CT of the chest on 01-26-23: Extensive airspace consolidation in the left upper lobe including an area of cavitation which may relate to pneumonia and necrotizing pneumonia. Developing abscess would also be considered. Neoplastic etiology is less likely but also in the differential diagnosis. - S/P bronchoscopy on 01-28-[address] 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 Baptiste - s/p bronchoscopy with washings on 01-28-23 by * Advised to quit smoking * Anemia - management per Dr. Baptiste * Management of pneumonia and volume depletion is with JOSE Garcia MD FACP FAC CCDS Jan 29, 2023 13:38
[2023-01-29 14:12] VITALS: BP 122/71
[2023-01-30] MEDS ORDERED: THIAMINE 100 MG (VITAMIN B-1) TAB PO SCH (07:00)
[2023-01-30] MEDS ORDERED: THERAPEUTIC MULTIVITAMIN W/MINERALS TABLET PO SCH (07:00)
[2023-01-30] MEDS ORDERED: FOLIC ACID 1 MG TAB PO SCH (09:00)
[2023-01-30] MEDS ORDERED: MAGNESIUM OXIDE 400 MG TABLET PO SCH (09:00)
== END 2023-01-29 14:16 | DRG 871 ==
LOC: EDUNIT# 11:20 → ER FS 11:21 → CSD 18:30 → OBSVTOIN 18:46 → 4TH 01-26 15:46
PROVIDERS: ADMIT Internal Medicine; ATTEND Internal Medicine
PROC: 0B988ZZ Drainage of Left Upper Lobe Bronchus, Via Natural or Artificial Opening Endoscopic (ICD-10-PCS; 2023-01-28)
PROC: 0BC48ZZ Extirpation of Matter from Right Upper Lobe Bronchus, Via Natural or Artificial Opening Endoscopic (ICD-10-PCS; 2023-01-28)
PROC: 0BC58ZZ Extirpation of Matter from Right Middle Lobe Bronchus, Via Natural or Artificial Opening Endoscopic (ICD-10-PCS; 2023-01-28)
PROC: 0BC68ZZ Extirpation of Matter from Right Lower Lobe Bronchus, Via Natural or Artificial Opening Endoscopic (ICD-10-PCS; 2023-01-28)
PROC: 0BC78ZZ Extirpation of Matter from Left Main Bronchus, Via Natural or Artificial Opening Endoscopic (ICD-10-PCS; principal; 2023-01-28 14:07)
DX: A41.02 Sepsis due to Methicillin resistant Staphylococcus aureus (principal); J15.212 Pneumonia due to Methicillin resistant Staphylococcus aureus; J96.01 Acute respiratory failure with hypoxia; N17.9 Acute kidney failure, unspecified; R64 Cachexia; Z68.1 Body mass index [BMI] 19.9 or less, adult; J44.0 Chronic obstructive pulmonary disease with (acute) lower respiratory infection; J44.1 Chronic obstructive pulmonary disease with (acute) exacerbation; M48.56XA Collapsed vertebra, not elsewhere classified, lumbar region, initial encounter for fracture; Z20.822 Contact with and (suspected) exposure to COVID-19; E86.0 Dehydration; F10.21 Alcohol dependence, in remission; M19.011 Primary osteoarthritis, right shoulder; N18.30 Chronic kidney disease, stage 3 unspecified; E83.52 Hypercalcemia; D50.9 Iron deficiency anemia, unspecified; K21.9 Gastro-esophageal reflux disease without esophagitis; I08.0 Rheumatic disorders of both mitral and aortic valves; K83.8 Other specified diseases of biliary tract; R54 Age-related physical debility; Z87.891 Personal history of nicotine dependence; Z79.899 Other long term (current) drug therapy
CPT/HCPCS: 36415; 71045; 71250; 76705; 80053; 80202; 80306; 80320; 81000; 82340; 82607; 83519; 83540; 83605; 83880; 83970; 84484; 85007; 85025; 85027; 85610; 85730; 87015; 87040; 87070; 87077; 87081; 87101; 87116; 87186; 87205; 87206; 87636; 93005; 93306; 94640; 94760

== ENCOUNTER 2023-01-29 12:12 | Inpatient (IN) | payer MEDICARE, OTHER ==
[~2023-01-29] VITALS: Ht 155.8 cm; Wt 46.0 kg
[~2023-01-29 12:12] MED LIST changes: +CYAN-23 PO; +CYAN-41 PO; +ERGO1250 PO; +FOLI1TAB33 PO; +IBUP-2473 PO; +LORA10TA7 PO; +MEGE20TA3 PO
--- NOTE | 2023-01-29 15:27 | PM&R Post Admission Assessment ---
PM&R HP Date of Visit: Jan 29, 2023 Time of Visit: 14:00 History of Present Illness Chief complaint: Debility following severe pneumonia MRSA suspected HPI: This is a 77-year-old male who presented to ARU following a complicated hospital course after he was admitted for acute hypoxic respiratory failure from pneumonia. Significant alcohol use and severe debility with malnutrition complicated the case. He is still currently on 3 antibiotics and he will complete those on ARU. See below details MedSurg discharge summary Course: Abelino is a 67 year old male that presented to the ED on 01/25 due to weakness, SOB, and diarrhea. Abelino has a past medical history of alcohol use disorder, tobacco use, and CKD. In the ED, a CXR was ordered and showed L-lung patchy infiltrates. Serology was ran for COVID and influenza A/B which was negative. Toxicology screening was also negative for alcohol at time of admission. Along with this the CBC showed his WBC at 30.2H with neutrophil predominance which pointed to PNA. In the ED it was also found that Abelino had an elevated BNP. 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 Since Kymberly main issue was PNA, cefepime and azythromycin were started. It was later presumed to also be caused by MRSA due to sputum culture, so vancomycin was added. Due to the antibiotics, Abelino's WBC count has continued to improve and has normalized to 9.7 on 01/29. On imaging, it was also found that there was a potential L-upper lobe abscess or malignancy. Due to the lung concerns, Dr. Del Rosario was also consulted to perform a bronchoscopy. This procedure was performed on 01/28 and samples were taken with pending results. Additionally, the bronchoscopy cleared out some mucus. Abelino says that he feels like he can breath slightly better after this. On labs, it was also found that Abelino had hypercalcemia. For this, PTH, PTHrP, and urinary random calcium was ordered. It was found that his PTH was 8.5L. PTHrP is pending. Additionally, Abelino showed anemia, with his Hgb being 7.5 on 01/28. For this, iron and B12 were ordered. His iron was low at 23. This points to potential iron deficient anemia. On 01/29 his Hgb was improved to 8.4. Additionally, an abdominal US found that there was some biliary sludge without wall changes, and Dr. Del Rosario says that this cannot be addressed until Abelino has recovered more. Overall, his PNA has continued to improve over the course of his stay. His lungs still sound congested, but improved from initial presentation. The largest issues that Abelino is facing is that he is very weak, has diminished appetite, and is very tired. Abelino would benefit from physical rehabilitation in the ARU so that he can gain strength. Abelino was working up until 2 weeks ago, so the goal is to be able to regain some strength. Moreover, it is suspected that Abelino could have some underlying chronic condition, such as malignancy. As samples are pending, it would be good to try to regain strength. Abelino's prognosis would improve if he was able to focus on working towards this goal of being able to return home. At his current state, he is very weak and fragile. He is also very underweight, so supportive care would be beneficial. His endorses a need for the ARU and is happy that this could lead to Abelino becoming more motivated. She has concerns that he is depressed because he is so tired and weak. Abelino will continue his medications per discharge order. No other concerns. Past Kbqfjzt-Rjhqfq-Lonejd Hx Past Med/Social Hx: Reviewed Nursing Past Med/Soc Hx, Reviewed and Corrections made Patient Social History Marrital Status: Employed/Student: retired Alcohol Use: Regular Use Smoking Status: Current Everyday Smoker Past Medical History Surgeries: Orthopedic Respiratory: Pneumonia Currently Using CPAP: No Currently Using BIPAP: No PM&R Allergy/Meds/Data Review Allergies Coded Allergies: No Known Drug Allergies (Unverified , 03/22/22) Home Medications Scheduled Cyanocobalamin (Vitamin B-12) (Vitamin B-12), 1,000 MG PO DAILY, (Reported) Ergocalciferol (Vitamin D2) (Vitamin D2), 1,250 MCG PO TUES, (Reported) Folic Acid (Folic Acid), 1 MG PO DAILY, (Reported) Megestrol Acetate (Megestrol Acetate), 20 MG PO DAILY, (Reported) Scheduled PRN Ibuprofen (Ibuprofen), 600 MG PO Q6H PRN for PAIN-MILD (1-4), (Reported) Loratadine (Loratadine), 10 MG PO DAILY PRN for CONGESTION, (Reported) Discontinued Medications Cholecalciferol (Vitamin D3) (D3-50), 1,250 MCG PO TUES, (Reported) Discontinued Reason: No Longer Taking Cyanocobalamin (Vitamin B-12) (Vitamin B-12), 1,000 MCG PO DAILY, (Reported) Discontinued Reason: Duplicate Order Gabapentin (Neurontin), 300 MG PO HS, (Reported) Discontinued Reason: No Longer Taking Pantoprazole Sodium (Pantoprazole Sodium), 40 MG PO DAILY, (Reported) Discontinued Reason: No Longer Taking Sucralfate (Sucralfate), 5 ML PO BID, (Reported) Discontinued Reason: No Longer Taking Current Medications Current Medications Reviewed Review of Systems Constitutional: see HPI, dizziness, malaise, weakness EENTM: no symptoms reported Respiratory: cough, dyspnea on exertion, short of breath, wheezing Cardiovascular: no symptoms reported Gastrointestinal: no symptoms reported Genitourinary: no symptoms reported Musculoskeletal: back pain, joint pain, muscle pain, muscle stiffness, muscle cramps Skin: no symptoms reported Psychiatric/Neurological: No Symptoms Reported All Other Systems Reviewed Negative Unless Noted: Yes Physical Exam Physical Exam Vital Signs Capillary Refill : Height, Weight, BMI Height: '" Weight: lbs. oz. kg; 17.05 BMI Method: General Appearance: No Apparent Distress, WD/WN, Chronically ill, Thin Eyes: Bilateral Eye Normal Inspection, Bilateral Eye PERRL HEENT: PERRL/EOMI, Normal ENT Inspection, Pharynx Normal Neck: Full Range of Motion, Normal Inspection, Non Tender, Supple, Carotid Bruit Respiratory: Chest Non Tender, No Accessory Muscle Use, No Respiratory Distress, Decreased Breath Sounds, Rales, Wheezing Cardiovascular: Regular Rate, Rhythm, No Edema, No Gallop, No JVD, No Murmur, Normal Peripheral Pulses Gastrointestinal: Normal Bowel Sounds, No Organomegaly, No Pulsatile Mass, Non Tender, Soft Back: Normal Inspection, No CVA Tenderness, No Vertebral Tenderness Extremity: Normal Capillary Refill, Normal Inspection, Normal Range of Motion, Non Tender, No Calf Tenderness, No Pedal Edema Neurologic/Psychiatric: Alert, Oriented x3, home care provider II-XII Norm as Tested, Abnormal Gait, Depressed Affect, Motor Weakness (Generalized all extremities 4/5) Skin: Normal Color, Warm/Dry Lymphatic: No Adenopathy PM&R Medical Assessment & Plan REHAB/MEDICAL ASSESSMENT AND PLAN: REHAB IMPAIRMENT GROUP: Other pulmonary ETIOLOGIC DIAGNOSIS: MRSA pneumonia The comorbidities that impact the patients function and/or functional outcome by: alcoholism with alcohol withdrawal, and malnutrition, severe weakness, weight loss REHAB PLAN: The patient is being admitted to our comprehensive inpatient rehabilitation facility and can tolerate the intensity of service consisting of at least: 180 minutes of therapy a day, 5 out of 7 days a week Rehab treatment will consist of: PT and OT will focus on regaining stamina and independence in ADLs with use of assistive devices to increase ambulation The patient/family has a good understanding of our discharge process and will benefit from an interdisciplinary inpatient rehabilitation program. The patient has potential to make improvement and is in need of at least two of the following multidisciplinary therapies including but not limited to physical, occupational, speech, and prosthetics and orthotics. Additionally the patient will need services from respiratory, nutritional services, wound care, psychology, etc. (Customize this to each patient). Given the patients complex condition and risk of further medical complications, rehabilitation services cannot be safely or effectively provided at a lower level of care such as a custodial facility. BARRIERS TO DISCHARGE: alcoholism with malnutrition ESTIMATED LOS: 7 days DISPOSITION: home with RELEVANT CHANGES SINCE PREADMISSION SCREENING: I have compared the patients medical and functional status at the time of the preadmission screening and there are: no changes PROGNOSIS: fair to good REHABILITATION GOALS: 1. PT and OT will focus on regaining stamina and independence in ADLs with use of assistive devices to increase ambulation All the above goals were reviewed with the patient and he/she is in agreement. By signing this document, I acknowledge that I have personally performed a full physical examination on this patient within 24 hours of admission to this inpatient rehabilitation facility and have determined the patient to be able to tolerate the above course of treatment at an intensive level for a reasonable period of time. I will be completing a detailed individualized Plan of Care for this patient by day #4 of the patients stay based upon the Preadmission Screen, the Post-Admission Evaluation, and the therapy evaluations. Admission Dx/Comorbidities: (1) Pneumonia ICD Codes: J18.9 - Pneumonia, unspecified organism (2) Low BMI Status: Acute (3) Community acquired pneumonia Status: Acute ICD Codes: J18.9 - Pneumonia, unspecified organism (4) Alcoholism Status: Acute ICD Codes: F10.20 - Alcohol dependence, uncomplicated (5) Elevated brain natriuretic peptide (BNP) level Status: Acute ICD Codes: R79.89 - Other specified abnormal findings of blood chemistry (6) THOMAS (acute kidney injury) Status: Acute ICD Codes: N17.9 - Acute kidney failure, unspecified (7) Generalized weakness Status: Acute ICD Codes: R53.1 - Weakness (8) Dehydration Status: Acute ICD Codes: E86.0 - Dehydration (9) Malnutrition Status: Acute ICD Codes: E46 - Unspecified protein-calorie malnutrition (10) Hypertension Status: Acute ICD Codes: I10 - Essential (primary) hypertension Assessment/Plan Assessment and Plan Assess & Plan/Chief Complaint Assessment: -Community Acquired PNA Cefepime, Azithromycin, Vancomysin (MRSA suspected) -L upper lung process potential abscess or malignacy- bronchoscopy with Dr. Del Rosario, medical benefits outweigh potential harms -COPD exacerbation Fluticisone/Vilanterol -Anemia Hgb decreased to 7.5 (from 8.6) Protonics, occult blood stool sample, measure iron, B12 Consider transfusion if not improved on 01/29 -EtOH use disorder CIWA protocol, thiamine, ativan PRN, monitor for withdraw symptoms daily CIWA score -Hypercalcemia awaiting PTHRP, no signs of familial hypercalcemia -CKD fluids, daily BUN and Cr monitoring -L1 compression fx oxycodone, salonpas PRN Plan: PT and OT Aggressive care IV antibiotics Alcohol withdrawal protocol Monitor labs DARINEL CHESTER DO Jan 29, 2023 15:27
[2023-01-29] MEDS ORDERED: DOCUSATE SODIUM 100 MG CAPSULE PO PRN (15:30)
[2023-01-29] MEDS ORDERED: ACETAMINOPHEN 325 MG TABLET PO PRN ×2 (15:30)
[2023-01-29] MEDS ORDERED: LOPERAMIDE 2 MG CAPSULE PO PRN ×2 (15:30)
[2023-01-29] MEDS ORDERED: MILK OF MAGNESIA 400 MG/5 ML 30 ML UDC PO PRN (15:30)
[2023-01-29] MEDS ORDERED: LORATADINE 10 MG TABLET PO PRN (15:30)
[2023-01-29] MEDS ORDERED: MELATONIN 3 MG TABLET PO PRN ×2 (15:30)
[2023-01-29] MEDS ORDERED: LACTULOSE SYRUP 10GM/15ML 30ML UDC PO PRN ×2 (15:30)
[2023-01-29] MEDS ORDERED: ONDANSETRON INJECTION 4 MG/2 ML (SDV) IV PRN (15:30)
[2023-01-29] MEDS ORDERED: LORazepam 1 MG TABLET PO PRN (15:30)
[2023-01-29] MEDS ORDERED: RT-Ipratropium/Albuterol NEB 3 ML VIAL INH PRN (15:30)
[2023-01-29] MEDS ORDERED: ANTACID SUSPENSION 30 ML UDC PO PRN (15:30)
[2023-01-29] MEDS ORDERED: SENNA W/DOCUSATE TABLET PO PRN (15:30)
[2023-01-29] MEDS ORDERED: ALPRAZolam 0.25 MG TABLET PO PRN (15:30)
[2023-01-29] MEDS ORDERED: BISACODYL 10 MG SUPPOSITORY PR PRN ×2 (15:30)
[2023-01-29] MEDS ORDERED: guaiFENesin/CODEINE 10ML UDC PO PRN (15:30)
[2023-01-29] MEDS ORDERED: HYDROmorphone INJECTION 2 MG/ML VIAL IV PRN (15:30)
[2023-01-29] MEDS ORDERED: NS IV 500 ML 500 ML IV PRN (15:30)
[2023-01-29] MEDS ORDERED: diphenhydrAMINE 25 MG TABLET PO PRN ×2 (15:30)
[2023-01-29] MEDS ORDERED: Sodium Phosphate/Sodium Biphosphate ADULT enema PR PRN (15:30)
[2023-01-29] MEDS ORDERED: ONDANSETRON 4 MG ORAL DISSOLVE TABLET SL PRN (15:30)
[2023-01-29] MEDS ORDERED: CALCIUM CARBONATE 500 MG CHEW TABLET PO PRN ×2 (15:30)
[2023-01-29] MEDS ORDERED: diphenhydrAMINE INJ 50 MG/ML VIAL IVP PRN (15:30)
--- NOTE | 2023-01-29 16:05 | Physical Therapy Evaluation ---
PT Evaluation-General Medical Diagnosis Admission Date Jan 29, 2023 at 13:50 Medical Diagnosis: pneumonia Onset Date: Jan 25, 2023 Therapy Diagnosis Therapy Diagnosis: debility, impaired endurance, weakness, impaired mobility, fall risk Precautions Fall risk, droplet precautions. Weight Bear Status Full Weight Bearing Full Weight Bearing Referral Physician: Oliva Reason for Referral: Evaluation/Treatment Medical History Pertinent Medical History: Alcoholism, COPD, HTN, Smoking Additional Medical History anemia, brochoscopy 01/28 with samples taken Current History states that pt ceased alcohol/tobacco 3 weeks ago. Also states patient retired around that time and "has not been out of bed since". Social History Home: Single Level Current Living Status: Spouse Entry Into Home: Stairs With Railing PT Steps Into Home: 2 (in back of home) PT Steps Inside Home: 0 Prior Prior Level of Function SCALE: Activities may be completed with or without assistive devices. 9-Mbxesfqxmh-khoeykl completes the activity by him/herself with no assistance from a helper. 5-Set-up or Clean-up Assistance-helper sets up or cleans up; patient completes activity. [place] assists only prior to or following the activity. 4-Supervision or Touching Assistance-helper provides verbal cues and/or touching/steadying and/or contact guard assistance as patient completes activity. Assistance may be provided throughout the activity or intermittently. 3-Partial/Moderate Assistance-helper does LESS THAN HALF the effort. [place] lifts, holds or supports trunk or limbs, but provides less than half the effort. 2-Substantial/Maximal Assistance-helper does MORE THAN HALF the effort. [place] lifts or holds trunk or limbs and provides more than half the effort. 3-Ivnqmquic-pdzqke does ALL the effort. Patient does none of the effort to complete the activity. Or, the assistance of 2 or more helpers is required for the patient to complete the activity. If activity was not attempted, code reason: 7-Patient Refused. 9-Not Applicable-not attempted and the patient did not perform the activity be fore the current illness, exacerbation or injury. 10-Not Attempted due to Environmental Limitations-(lack of equipment, weather restraints, etc.). 88-Not Attempted due to Medical Conditions or Safety Concerns. Bed Mobility: 6 Transfers (B,C,W/C): 6 Gait: 6 Stairs: 6 Wheelchair Mobility: 9 Indoor Mobility (Ambulation): Independent Stairs: Independent Prior Device Use: none states that for the past few weeks (since patient's senior care) she has had to assist him with walking in the home, steps and all ADL activities -- "he just doesn't care". states there is a FWW available, a 3WW in the shed and a commode. PT Evaluation-Current Subjective Patient states he is fatigued. States he used to get a little SOB prior to coming to hospital. He requires extra cues, encouragement, conversation to agree to participate in therapy evaluation. Pain Section J - Health Conditions 1. Rarely or not at all 2. Occasionally 3. Frequently 4. Almost constantly 8. Unable to answer Pain Effect on Sleep: 1 Pain Interference with Therapy: 1 Pain Interference w/Day-to-Day: 1 Pt/Family Goals wants patient to be able to return home wiht her. Objective Patient Orientation: Person, Place, Time Attachments: Oxygen, IV Requires step by step cues for multistep tasks - easily distracted by noise/conversation in room. ROM/Strength ROM Upper Extremities deferred to OT ROM Lower Extremities WFL in sitting in w/c - cues (tactile, visual & verbal) to complete motion Strength Upper Extremities deferred to OT Strength Lower Extremities Grossly >3+/5 with functional tasks -- difficulty with formal MMT due to difficulty with multistep commands - required max tactile, visual, verbal cues Integumentary/Posture Posture Kyphotic, tends to sit with significant forward flexion at neck Neuromuscular (Tone, Coordination, Reflexes) Impaired coordination of LE's. Sensory Vision: Wears Glasses Hearing: Functional Sensation Lower Extremities Reports some coldness and neuropathy in (B) feet. Transfers Roll Left & Right (QC): 4 (with multiple cues to complete and bedrail provided.) Sit to Lying (QC): 4 (SBA with cues) Lying to Sitting/Side of Bed(Q: 3 (min-mod (A) of 1 /c cues, difficulty initiating) Sit to Stand (QC): 3 (Min (A) with cues for safety) Chair/Pox-xo-Yaxzn Xfer(QC): 3 (Min (A) with FWW /c safety cues) Toilet Transfer (QC): 3 (Min (A) to commode placed by recliner (has a commode at home) - patient refused to walk into bathroom with PT/OT.) Car Transfer (QC): 3 (Min (A) to lift one leg in/out of car) Gait Does the Patient Walk?: Yes Mode of Locomotion: Walk Anticipated Mode of Locomotion: Walk Walk 10 feet (QC): 1 (min (A) of 2 person assist with w/c backup and IV management) Walk 50 ft with 2 Turns(QC): 1 (min (A) of 2 person assist with w/c backup and IV management) Walk 150 ft (QC): 88 ( due to endurance deficits/weakness) Walking 10ft/uneven surface-QC: 1 (min (A) of 2 person assist with w/c backup and IV management) Distance: 80' Gait Assistive Device: FWW Comments/Gait Description slow,deliberate gait, shaky with longer distance gait, assist with walker negotiation with turns, no SOB but did c/o fatigue Wheelchair Training Does the Pt Use a Wheelchair?: No Wheel 50 ft with 2 turns (QC): 9 Wheel 150 ft (QC): 9 Stairs #of Steps: 1 1 Step (curb) (QC): 1 (min (A) of 2 person assist with w/c backup and IV management for 2" curb step) 4 Steps (QC): 88 (fatigue, weakness) 12 Steps (QC): 88 Walking Assistive Device: Walker Balance Sitting Static: Good Sitting Dynamic: Fair Standing Static: Fair Standing Dynamic: Fair Picking up an Object (QC): 1 (patient attempted and unable to reach floor and maintain balance.) Special Test Comments Elderly Mobility Index: 10/08 Treatment Standing balance activities during co-treat with OT ([id number]) to assist with LBD and toileting activities for patient safety, patient/family education. Significant difficulty managing fingernail technician -- patient education provided by both PT/OT in standing to understand mechanism. Patient able to retrieve pen off floor /p 6 attempts and inability to manage trigger on fingernail technician. O2 sats noted to be in high 70's, low 80's in room on room air - nursing notified. Nasal cannula retrieved and patient place on O2 at 2L. Assessment/Needs 77 year old male in debility condition, requires skilled ARU PT intervention to address, weakness, decreased activity tolerance, impaired gait and all aspects of functional mobility so that patient can return home with . Patient needs max cues/encouragement to participate which may affect therapy provision and outcomes. Rehab Potential: Fair Post Rehab Potential-Barriers: requires encouragement to participate, impaired initiation noted PT Historic Interpreter Goals Halfway Goals PT Historic Interpreter Goals Time Frame: Feb 12, 2023 Roll Left to Right (QC): 6 Sit to Lying (QC): 6 Lying-Sitting on Side/Bed(QC): 6 Sit to Stand (QC): 5 Chair/Ice-cl-Wunzn Xfer(QC): 5 Toilet/Commode Transfer (QC): 5 Car Transfer (QC): 5 Does the Patient Walk: Yes Walk 10 feet (QC): 5 (/c FWW and O2 assist if necessary) Walk 10ft-Uneven Surface(QC): 5 (/c FWW and O2 assist if necessary) Walk 50ft with 2 Turns (QC): 5 (/c FWW and O2 assist if necessary) Walk 150 ft (QC): 5 (/c FWW and O2 assist if necessary) Does the Pt use WC or Scooter?: No Wheel 50 feet with 2 turns (QC: 9 Wheel 150 feet: 9 1 Step (curb) (QC): 5 (O2 assist if necessary) 4 Steps (QC): 5 (/c railings, O2 assist if necessary) 12 Steps (QC): 5 (O2 (A) if necessary) Picking up an Object (QC): 5 (/c fingernail technician) Elderly Mobility Index score to improve to 10/20 PT Plan Problem List Problem List: Activity Tolerance, Functional Strength, Safety, Balance, Gait, Transfer, Bed Mobility Treatment/Plan Treatment Plan: Continue Plan of Care Treatment Plan: Bed Mobility, Concurrent Therapy, Education, Functional Activity Carlotta, Functional Strength, Group Therapy, Gait, Safety, Therapeutic Exercise, Transfers Treatment Duration: Feb 12, 2023 Frequency: At least 5 of 7 days/Wk (IRF) Estimated Hrs Per Day: 1.5 hours per day Patient and/or Family Agrees t: Yes Family agrees to POC. Patient hesitant to commit - wants to go home. Safety Risks/Education Patient Education: Gait Training, Transfer Techniques, Instructions to Caregiver, Safety Issues Teaching Recipient: Patient, Family, Significant Other Teaching Methods: Discussion Response to Teaching: Reinforcement Needed Discharge Recommendations Therapy Discharge Recommendati: Home & Family, Post Acute PT Equpiment Recommendations-D/C: Front Wheeled Walker Barriers to Progress Patient requires encouragement to participate Time Time In: 1350 (1505) Time Out: 1440 (1545) DATE: Jan 29, 2023 Total Billed Treatment Time: 90 Total Billed Treatment EVM 1350 - 1440 = 50' [place] with OT [id number] = 40', 3 FA Kiara Petty PT Jan 29, 2023 16:05
--- NOTE | 2023-01-29 16:50 | Occupational Therapy Eval ---
OT Evaluation-General/PLF Medical Diagnosis Admission Date Jan 29, 2023 at 13:50 Medical Diagnosis: pneumonia Onset Date: Jan 25, 2023 Therapy Diagnosis Therapy Diagnosis: decreased ADL status, weakness Referral Physician: Oliva Referral Reason: Evaluation/Treatment Medical History Pertinent Medical History: Alcoholism, COPD, HTN, Smoking Additional Medical History ETOH use, tobacco use Current History 01/25/23 ED with generalized weakness and cough, found to have PNA. Pt transferred to ARU 01/29/23 Social History Home: Single Level Current Living Status: Spouse Entry Into Home: Stairs With Railing Steps Into Home: 2 (in back of home) Steps Inside Home: 0 ADL-Prior Level of Function SCALE: Activities may be completed with or without assistive devices. 3-Ocayuscohk-ukqcvaq completes the activity by him/herself with no assistance from a helper. 5-Set-up or Clean-up Assistance-helper sets up or cleans up; patient completes activity. [place] assists only prior to or following the activity. 4-Supervision or Touching Assistance-helper provides verbal cues and/or touching/steadying and/or contact guard assistance as patient completes activity. Assistance may be provided throughout the activity or intermittently. 3-Partial/Moderate Assistance-helper does LESS THAN HALF the effort. [place] lifts, holds or supports trunk or limbs, but provides less than half the effort. 2-Substantial/Maximal Assistance-helper does MORE THAN HALF the effort. [place] lifts or holds trunk or limbs and provides more than half the effort. 3-Rbfhddllz-eatzfo does ALL the effort. Patient does none of the effort to complete the activity. Or, the assistance of 2 or more helpers is required for the patient to complete the activity. If activity was not attempted, code reason: 7-Patient Refused. 9-Not Applicable-not attempted and the patient did not perform the activity before the current illness, exacerbation or injury. 10-Not Attempted due to Environmental Limitations-(lack of equipment, weather restraints, etc.). 88-Not Attempted due to Medical Conditions or Safety Concerns. ADL PLOF Comments Pt and spouse indicate pt required assistance at PLOF with ADLs. He doesn't use AD for functional mobility. They have a walk in shower with SC and GBS. They own a BSC. Pt's spouse indicates pt doesn't want to shower at home, and it has been "some time" since he has taken a full shower at home. She has to assist him with dressing (shirt, shoes, and pants), due to pt not wanting to complete tasks hims elf. Self Care: Needed Some Help Functional Cognition: Independent OT Current Status Subjective Pt agreeable to OT evaluation and tx with encouragement. Pt often asked to return to bed. Pt's present to help encourage pt to participate in tx. Mental Status/Objective Patient Orientation: Person, Place, Situation Attachments: IV, Oxygen (2L) Current Glasses/Contacts: Yes Hearing Aids: No Dentures/Partials: Yes Hand Dominance: Left Upper Extremity ROM WFL, BUE shoulder flexion to approx 150 degrees Upper Extremity Coordination WFL Upper Extremity Sensation WFL per pt report Upper Extremity Strength grossly 3/5 ADL-Treatment Eating (QC): 5 Oral Hygiene (QC): 5 Shower/Bathe Self (QC): 7 (Pt refused task on this date) Upper Body Dressing (QC): 3 (Min A doffing shirt.) Lower Body Dressing (QC): 3 (Min A standing balance. Pt able to complete all parts himself.) On/Off Footwear (QC): 3 (Min A to doff socks due to pt not wanting to complete task.) Toileting Hygiene (QC): 3 (Min A standing balance.) Other Treatments OT evaluation complete. Pt doffed/donned footwear with encouragement, then requests rest break. Pt refused to complete toileting or showering. OT/PT cotreat due to skill of 2 clinicians required which a rehab office coordinator could not perform in order to coordinate UE/LEs, decrease fall risk, focus on dynamic standing balance, and due to pt's limitations in strength, mobility, transfers and activity tolerance. OT focused on UE placement, cues for sequencing and safety and ADLs, PT focused on LE placement, gross overall movement, transfers and mobility. Pt donned pants with encouragement to complete. He stood at FWW to picker tender helper object off of the floor, unable to complete without AD, max VCs and hand over hand assistance to utilize manager sas. He then completed transfer to [facility] (transfer only pt declined toileting). While pt was resting on commode, requests urinal. Pt stood to use urinal, min A standing balance during task, pt then transferred to recliner. End of cotreat. Pt doffed shirt with slight encouragement. Pt then used FWW to stand from recliner and transfer to EOB. Sit to supine transfer, SBA, OT managed IV lines. Post tx, pt in bed, positioned to comfort, call light in reach and all needs met. O2 sats noted to be in high 70's, low 80's in room on room air - nursing not ified. Nasal cannula retrieved and patient place on O2 at 2L. Min A sit to stand (cues for safety), min A bed to chair, min A toilet transfer. min A with ambulation using FWW Education OT Patient Education: Correct positioning, Energy conservation, Modified ADL techniques, Progress toward Goal/Update tx plan, Purpose of tx/functional activities, Rehab process Teaching Recipient: Patient Teaching Methods: Discussion Response to Teaching: Verbalize Understanding BIMS CAM BIMS Expression of Ideas and Wants: Without Difficulty Understanding Verbal Content: Usually Understands Brief Interview/Mental Status: Yes IRF AMINAH BIMS: IRF AMINAH BIMS Response (Comments) Value Repitition of Three Words Three 3 Recalls Socks Yes, After Cueing (Wear) 1 Recalls Blue Yes, No Cue Required 2 Recalls Bed No, Could Not Recall 0 Year Missed by 5 Yrs/No Answer 0 Month Accurate Within 5 Days 2 Day Correct 1 Total [address] Mental [address] No CAM Mental Status Change/Baseline: 1 Inattention: 1 Disorganized thinkin Altered level of consciousness: 0 OT Prison Goals Prison Goals Time Frame: Feb 14, 2023 Eating (QC): 6 Oral Hygiene (QC): 6 Toileting Hygiene (QC): 6 Shower/Bathe Self (QC): 4 Upper Body Dressing (QC): 5 Lower Body Dressing (QC): 5 On/Off Footwear (QC): 5 Additional Goals: 1-Demonstrate ADL Tasks, 2-Verbalize Understanding, 3- ImproveStrength/Carlotta 1=Demonstrate adherence to instructed precautions during ADL tasks. 2=Patient will verbalize/demonstrate understanding of assistive devices/modifications for ADL. 3=Patient will improve strength/tolerance for activity to enable patient to perform ADL's. OT Education/Plan Problem List/Assessment Assessment: Decreased Activ Tolerance, Decreased Safety Aware, Decreased UE Strength, Impaired Cognition, Impaired Funct Balance, Impaired I ADL's, Impaired Self-Care Skills Discharge Recommendations Plan/Recommendations: Continue POC Treatment Plan/Plan of Care Patient would benefit from OT for education, treatment and training to promote independence in ADL's, mobility, safety and/or upper extremity function for ADL's. Plan of Care: ADL Retraining, Functional Mobility, Group Exercise/Act as Ind, UE Funct Exercise/Act Treatment Duration: Feb 14, 2023 Frequency: At least 5 of 7 days/Wk (IRF) Estimated Hrs Per Day: 1.5 hours per day Rehab Potential: Fair Time Start Time: 14:40 Stop Time: 16:10 DATE: Jan 29, 2023 Total Time Billed (hr/min): 90 Billed Treatment Time OT eval [id number] (25'), Cotreat [id number] (40'), OT tx [id number] (25') 1, EVM (25'), ADL 4 (65') MUKUND RUEDA OT Jan 29, 2023 16:50
[2023-01-29] MEDS: CEFEPIME INJECTION 1,000 MG in NS (IVPB) 50 ML 50 ML IV SCH (18:39)
[2023-01-29 20:30] VITALS: BP 126/76
[2023-01-29] MEDS: ENOXAPARIN 30 MG/0.3 ML SYRINGE SC SCH (20:57)
[2023-01-29] MEDS: MAGNESIUM OXIDE 400 MG TABLET PO SCH (20:57)
[2023-01-29] MEDS: ACETAMINOPHEN 500 MG TABLET PO SCH (20:57)
[2023-01-29] MEDS ORDERED: DOCUSATE SODIUM 100 MG CAPSULE PO SCH (21:00)
[2023-01-29] MEDS: LIDOCAINE PATCH REMOVAL TP SCH (21:00)
[2023-01-29] MEDS ORDERED: SENNA W/DOCUSATE TABLET PO SCH (21:00)
[2023-01-29] MEDS: DOCUSATE SODIUM 100 MG CAPSULE PO SCH (21:00)
[2023-01-29] MEDS: SENNOSIDES 8.6 MG TABLET PO SCH (21:16)
[2023-01-30] MEDS: CEFEPIME INJECTION 1,000 MG in NS (IVPB) 50 ML 50 ML IV SCH (01:00)
[2023-01-30 05:55] LABS: BASOPHILS % (AUTO) 0 % (0-10); EOSINOPHILS % (AUTO) 0 % (0-10); HEMATOCRIT 24 % (40-54); HEMOGLOBIN 7.3 g/dL (13.3-17.7); LYMPHOCYTES # (AUTO) 2.2 10^3/uL (1.0-4.0); LYMPHOCYTES % (AUTO) 14 % (12-44); MEAN CORPUSCULAR HEMOGLOBIN 30 pg (25-34); MEAN CORPUSCULAR HGB CONC 31 g/dL (32-36); MEAN CORPUSCULAR VOLUME 96 fL (80-99); MEAN PLATELET VOLUME 10.8 fL (9.0-12.2); MONOCYTES # (AUTO) 0.6 10^3/uL (0.0-1.0); MONOCYTES % (AUTO) 4 % (0-12); NEUTROPHILS # (AUTO) 12.4 10^3/uL (1.8-7.8); NEUTROPHILS % (AUTO) 79 % (42-75); PLATELET COUNT 344 10^3/uL (130-400); WHITE BLOOD COUNT 15.7 10^3/uL (4.3-11.0)
[2023-01-30 06:04] LABS: POTASSIUM 5.1 MMOL/L (3.6-5.0)
[2023-01-30 06:05] LABS: CALCIUM 9.6 MG/DL (8.5-10.1)
[2023-01-30 06:06] LABS: TOTAL PROTEIN 4.8 GM/DL (6.4-8.2)
[2023-01-30 06:08] LABS: BILIRUBIN,TOTAL 0.3 MG/DL (0.1-1.0)
[2023-01-30 06:10] LABS: CREATININE SERUM 1.36 MG/DL (0.60-1.30)
[2023-01-30] MEDS: ACETAMINOPHEN 500 MG TABLET PO SCH ×3 (06:27→20:34)
[2023-01-30] MEDS: THERAPEUTIC MULTIVITAMIN W/MINERALS TABLET PO SCH (06:27)
[2023-01-30] MEDS: THIAMINE 100 MG (VITAMIN B-1) TAB PO SCH (06:27)
[2023-01-30 08:00] VITALS: BP 135/67
--- NOTE | 2023-01-30 08:09 | Occupational Ther Daily Note ---
OT Current Status-Daily Note Subjective Pt in bed, agreeable to OT tx. Pt states he feels tired today. Mental Status/Objective Patient Orientation: Person, Place, Situation Attachments: Oxygen (2L) ADL-Treatment Therapy Code Descriptions/Definitions Functional [place] Measure: 0=Not Assessed/NA 4=Minimal Assistance 1=Total Assistance 5=Supervision or Setup 2=Maximal Assistance 6=Modified [place] 3=Moderate Assistance 7=Complete IndependenceSCALE: Activities may be completed with or without assistive devices. 5-Bcpdfqcpyi-uznrqoa completes the activity by him/herself with no assistance from a helper. 5-Set-up or Clean-up Assistance-helper sets up or cleans up; patient completes activity. [place] assists only prior to or following the activity. 4-Supervision or Touching Assistance-helper provides verbal cues and/or touching/steadying and/or contact guard assistance as patient completes activity. Assistance may be provided throughout the activity or intermittently. 3-Partial/Moderate Assistance-helper does LESS THAN HALF the effort. [place] lift s, holds or supports trunk or limbs, but provides less than half the effort. 2-Substantial/Maximal Assistance-helper does MORE THAN HALF the effort. [place] lifts or holds trunk or limbs and provides more than half the effort. 0-Fbodwryut-nyimxp does ALL the effort. Patient does none of the effort to complete the activity. Or, the assistance of 2 or more helpers is required for the patient to complete the activity. If activity was not attempted, code reason: 7-Patient Refused. 9-Not Applicable-not attempted and the patient did not perform the activity before the current illness, exacerbation or injury. 10-Not Attempted due to Environmental Limitations-(lack of equipment, weather restraints, etc.). 88-Not Attempted due to Medical Conditions or Safety Concerns. Eating (QC): 5 Shower/Bathe Self (QC): 4 (SBA sponge bath at bed level) Upper Body Dressing (QC): 4 (SBA, min VCS) Lower Body Dressing (QC): 4 (SBA bed level, min VCs. Pt declined getting to EOB/standing for task.) On/Off Footwear: 4 (min VCs.) Other Treatment [id number]: Pt declined eating breakfast, but able to drink coffee/OJ after set up assist. Pt completed sponge bath and dressing at bed level, declined getting EOB or standing for tasks. [id number]: OT/PT cotreat due to skill of 2 clinicians required that a rehabilitation services coordinator could not perform in order to coordinate UE/LEs, decrease fall risk, and due to pt's limitations in strength, activity tolerance, mobility/transfers. OT focused on UE placement, cues for sequencing and safety and ADLs, PT focused on LE placement, gross overall movement, transfers and mobility. Pt transferred supine to sit EOB, SBA with encouragement. Sit to stand CGA, then performed functional mobility using FWW, 47' CGA. Post tx, pt in w/c, PT present, all needs met. Education OT Patient Education: Correct positioning, Exercise program, Modified ADL techniques, Progress toward Goal/Update tx plan, Purpose of tx/functional activities, Rehab process Teaching Recipient: Patient Teaching Methods: Discussion Response to Teaching: Verbalize Understanding OT Senior Clinical Project Manager Goals Snf Goals Time Frame: Feb 14, 2023 Acute change in mental status: 1 Inattention: 1 Disorganized thinkin Altered level of consciousness: 0 Eating (QC): 6 Oral Hygiene (QC): 6 Toileting Hygiene (QC): 6 Shower/Bathe Self (QC): 4 Upper Body Dressing (QC): 5 Lower Body Dressing (QC): 5 On/Off Footwear (QC): 5 Additional Goals: 1-Demonstrate ADL Tasks, 2-Verbalize Understanding, 3- ImproveStrength/Carlotta 1=Demonstrate adherence to instructed precautions during ADL tasks. 2=Patient will verbalize/demonstrate understanding of assistive devices/modifications for ADL. 3=Patient will improve strength/tolerance for activity to enable patient to perform ADL's. OT Education/Plan Problem List/Assessment Assessment: Decreased Activ Tolerance, Decreased UE Strength, Impaired Funct B alance, Impaired I ADL's, Impaired Self-Care Skills Discharge Recommendations Plan/Recommendations: Continue POC Treatment Plan/Plan of Care Patient would benefit from OT for education, treatment and training to promote independence in ADL's, mobility, safety and/or upper extremity function for ADL's. Plan of Care: ADL Retraining, Functional Mobility, Group Exercise/Act as Ind, UE Funct Exercise/Act Treatment Duration: Feb 14, 2023 Frequency: At least 5 of 7 days/Wk (IRF) Estimated Hrs Per Day: 1.5 hours per day Rehab Potential: Fair Time Start Time: 07:15 Stop Time: 08:30 DATE: Jan 30, 2023 Total Time Billed (hr/min): 75 Billed Treatment Time [place]reat x30' 1, ADL 3 (45'), FA 2 (30') MUKUND RUEDA OT Jan 30, 2023 08:09
[2023-01-30] MEDS: LIDOCAINE 4% PATCH TOP SCH ×2 (09:00→09:17)
[2023-01-30] MEDS ORDERED: NON-FORMULARY MEDICATION 1 EA EA (Megestrol Acetate 20 MG) PO SCH (09:00)
[2023-01-30] MEDS ORDERED: AZITHROMYCIN INJECTION 500 MG in NS (IVPB) 250 ML 250 ML IV SCH (09:00)
[2023-01-30] MEDS: CYANOCOBALAMIN 1,000 MCG TABLET PO SCH (09:15)
[2023-01-30] MEDS: PANTOPRAZOLE 40 MG TABLET PO SCH ×2 (09:16→09:21)
[2023-01-30] MEDS: MAGNESIUM OXIDE 400 MG TABLET PO SCH ×2 (09:16→20:33)
[2023-01-30] MEDS: MEGESTROL 400 MG/10 ML PO SCH (09:16)
[2023-01-30] MEDS: FOLIC ACID 1 MG TAB PO SCH (09:16)
[2023-01-30] MEDS: DOCUSATE SODIUM 100 MG CAPSULE PO SCH ×3 (09:16→20:41)
[2023-01-30] MEDS: SENNOSIDES 8.6 MG TABLET PO SCH ×2 (09:16→20:41)
[2023-01-30] MEDS ORDERED: VANCOMYCIN INJECTION 750 MG in NS (IVPB) 250 ML 250 ML IV SCH (10:00)
--- NOTE | 2023-01-30 10:41 | Physical Therapy Daily Note ---
PT Daily Note-Current Subjective Pt working with OT upon arrival. Pt agrees to PT/Ot for short co-treat then Ind. w/PT. Pain Location: No Pain Reported Section J - Health Conditions 1. Rarely or not at all 2. Occasionally 3. Frequently 4. Almost constantly 8. Unable to answer Pain Effect on Sleep: 1 Pain Interference with Therapy: 1 Pain Interference w/Day-to-Day: 1 Mental Status Patient Orientation: Person, Place, Situation Attachments: Oxygen (2L) Transfers SCALE: Activities may be completed with or without assistive devices. 4-Mebzywybgy-dpqazts completes the activity by him/herself with no assistance from a helper. 5-Set-up or Clean-up Assistance-helper sets up or cleans up; patient completes activity. [place] assists only prior to or following the activity. 4-Supervision or Touching Assistance-helper provides verbal cues and/or touching/steadying and/or contact guard assistance as patient completes activity. Assistance may be provided throughout the activity or intermittently. 3-Partial/Moderate Assistance-helper does LESS THAN HALF the effort. [place] lifts, holds or supports trunk or limbs, but provides less than half the effort. 2-Substantial/Maximal Assistance-helper does MORE THAN HALF the effort. [place] lifts or holds trunk or limbs and provides more than half the effort. 6-Grwnnrdky-qpffjc does ALL the effort. Patient does none of the effort to complete the activity. Or, the assistance of 2 or more helpers is required for the patient to complete the activity. If activity was not attempted, code reason: 7-Patient Refused. 9-Not Applicable-not attempted and the patient did not perform the activity before the current illness, exacerbation or injury. 10-Not Attempted due to Environmental Limitations-(lack of equipment, weather restraints, etc.). 88-Not Attempted due to Medical Conditions or Safety Concerns. Sit to Stand (QC): 3 Weight Bearing Full Weight Bearing Full Weight Bearing Gait Training Does the Patient Walk?: Yes Distance: 58' Walk 10 feet (QC): 4 Walk 50 ft with 2 Turns(QC): 4 Gait Persons Needed: 1 Gait Assistive Device: FWW w/c following for fatigue Wheelchair Training Does the Pt Use a Wheelchair?: Yes Wheel 50 ft with 2 turns (QC): 4 Type of Wheelchair: Manual Exercises Seated Therapy Exercises: Ankle pumps, Long arc quads, Hip flexion, Hip abd/add, Glut set Seated Reps: 15 Treatments Amb in hallway, resting in w/c when fatigued. Pt propels w/c in hallway back to room to use urinal after refusing BR. Pt stands to use urinal. Pt propels to Therapy Commons for Seated Ex before returning to room to rest. Nurse present. All needs met,call light next to pt. Assessment Current Status: Fair Progress Pt demonstrates reluctancy to work w/Therapy, needs encouragement. O2 is monitored during tx but hard to get reading due to cold fingers. Nursing aware. PT Senior Care Goals Senior Care Goals PT Rig Operator Goals Time Frame: Feb 12, 2023 Roll Left & Right (QC): 6 Sit to Lying (QC): 6 Lying-Sitting on Side/Bed(QC): 6 Sit to Stand (QC): 5 Chair/Fyj-bj-Jjgyq Xfer(QC): 5 Toilet Transfer (QC): 5 Car Transfer (QC): 5 Does the Patient Walk: Yes Walk 10 feet (QC): 5 (/c FWW and O2 assist if necessary) Walk 50ft with 2 Turns (QC): 5 (/c FWW and O2 assist if necessary) Walk 150 ft (QC): 5 (/c FWW and O2 assist if necessary) Walking 10ft on Uneven Surface: 5 (/c FWW and O2 assist if necessary) 1 Step (curb) (QC): 5 (O2 assist if necessary) 4 Steps (QC): 5 (/c railings, O2 assist if necessary) 12 Steps (QC): 5 (O2 (A) if necessary) Picking up an Object (QC): 5 (/c 7th grade social studies teacher) Does the Pt use WC or Scooter?: No Wheel 50 feet with 2 turns (QC: 9 Wheel 150 feet: 9 PT Plan Problem List Problem List: Activity Tolerance, Functional Strength, Gait, Transfer Treatment/Plan Treatment Plan: Continue Plan of Care Treatment Plan: Bed Mobility, Concurrent Therapy, Education, Functional Activity [place], Functional Strength, Group Therapy, Gait, Safety, Therapeutic Ex ercise, Transfers Treatment Duration: Feb 12, 2023 Frequency: At least 5 of 7 days/Wk (IRF) Estimated Hrs Per Day: 1.5 hours per day Patient and/or Family Agrees t: Yes Safety Risks/Education Patient Education: Gait Training, Transfer Techniques, Correct Positioning, Safety Issues Teaching Recipient: Patient Teaching Methods: Discussion Response to Teaching: Verbalize Understanding Time Time In: 0800 Time Out: 0900 DATE: Jan 30, 2023 Total Billed Treatment Time: 60 Total Billed Treatment Co-treat w/Ot for 30m ([id number]) 1, GT (15m), [facility] (15m), FA (15m) & EX (15m) USMAN SIEGEL LANDSCAPE CONTRACTOR Jan 30, 2023 10:41
--- NOTE | 2023-01-30 12:28 | PM&R Progress Note ---
Subjective HPI/CC On Admission Date Seen by Provider: Jan 30, 2023 Time Seen by Provider: 12:30 Subjective/Events-last exam 01/30/2023: Patient doing well at bedside Reviewed meds and labs Shifting antibiotics to Zyvox p.o. Iron deficiency will require IV iron infusion Monitoring closely Review of Systems General: Fatigue, Malaise Objective Exam Vital Signs Vital Signs Date Time Temp Pulse Resp B/P (MAP) Pulse Ox O2 Delivery O2 Flow Rate FiO2 01/30/23 21:00 36.1 66 24 128/79 (95) 95 Nasal Cannula 2.00 Capillary Refill : General Appearance: No Apparent Distress, WD/WN, Chronically ill, Thin HEENT: PERRL/EOMI, Normal ENT Inspection, Pharynx Normal Neck: Full Range of Motion, Normal Inspection, Non Tender, Supple, Carotid Bruit Respiratory: Chest Non Tender, No Accessory Muscle Use, No Respiratory Distress, Decreased Breath Sounds, Rales, Wheezing Cardiovascular: Regular Rate, Rhythm, No Edema, No Gallop, No JVD, No Murmur, Normal Peripheral Pulses Gastrointestinal: Normal Bowel Sounds, No Organomegaly, No Pulsatile Mass, Non Tender, Soft Back: Normal Inspection, No CVA Tenderness, No Vertebral Tenderness Extremity: Normal Capillary Refill, Normal Inspection, Normal Range of Motion, Non Tender, No Calf Tenderness, No Pedal Edema Neurologic/Psychiatric: Alert, Oriented x3, certified financial planner II-XII Norm as Tested, Abnormal Gait, Depressed Affect, Motor Weakness (Generalized all extremities 4/5) Skin: Normal Color, Warm/Dry Lymphatic: No Adenopathy Results/Procedures Lab Laboratory Tests 01/30/23 05:19 Patient resulted labs reviewed. FIM Transfers Therapy Code Descriptions/Definitions Functional [place] Measure: 0=Not Assessed/NA 4=Minimal Assistance 1=Total Assistance 5=Supervision or Setup 2=Maximal Assistance 6=Modified [place] 3=Moderate Assistance 7=Complete IndependenceSCALE: Activities may be completed with or without assistive devices. 3-Jgjxgcrldi-jmxemph completes the activity by him/herself with no assistance from a helper. 5-Set-up or Clean-up Assistance-helper sets up or cleans up; patient completes activity. [place] assists only prior to or following the activity. 4-Supervision or Touching Assistance-helper provides verbal cues and/or touching/steadying and/or contact guard assistance as patient completes activity. Assistance may be provided throughout the activity or intermittently. 3-Partial/Moderate Assistance-helper does LESS THAN HALF the effort. [place] lifts, holds or supports trunk or limbs, but provides less than half the effort. 2-Substantial/Maximal Assistance-helper does MORE THAN HALF the effort. [place] lifts or holds trunk or limbs and provides more than half the effort. 3-Zocidytiz-axjxay does ALL the effort. Patient does none of the effort to complete the activity. Or, the assistance of 2 or more helpers is required for the patient to complete the activity. If activity was not attempted, code reason: 7-Patient Refused. 9-Not Applicable-not attempted and the patient did not perform the activity before the current illness, exacerbation or injury. 10-Not Attempted due to Environmental Limitations-(lack of equipment, weather restraints, etc.). 88-Not Attempted due to Medical Conditions or Safety Concerns. Roll Left to Right (QC): 4 (with multiple cues to complete and bedrail prov ided.) Sit to Lying (QC): 4 (SBA with cues) Sit to Stand (QC): 3 (Min (A) with cues for safety) Chair/Xzx-sd-Jtspl Xfer(QC): 3 (Min (A) with FWW /c safety cues) Car Transfer (QC): 3 (Min (A) to lift one leg in/out of car) Gait Training Does the Patient Walk?: Yes Walk 10 feet (QC): 1 (min (A) of 2 person assist with w/c backup and IV management) Walk 50 ft with 2 Turns(QC): 1 (min (A) of 2 person assist with w/c backup and IV management) Walk 150 ft (QC): 88 ( due to endurance deficits/weakness) Walking 10ft/uneven surface-QC: 1 (min (A) of 2 person assist with w/c backup and IV management) Gait Assistive Device: FWW Wheelchair Training Does the Pt Use a Wheelchair?: No Wheel 50 ft with 2 turns (QC): 9 Wheel 150 ft (QC): 9 Stair Training #of Steps: 1 1 Step (curb) (QC): 1 (min (A) of 2 person assist with w/c backup and IV management for 2" curb step) 4 Steps (QC): 88 (fatigue, weakness) 12 Steps (QC): 88 Balance Picking up an Object (QC): 1 (patient attempted and unable to reach floor and maintain balance.) ADL-Treatment Eating (QC): 5 Oral Hygiene (QC): 5 Shower/Bathe Self (QC): 4 (SBA sponge bath at bed level) Upper Body Dressing (QC): 4 (SBA, min VCS) Lower Body Dressing (QC): 4 (SBA bed level, min VCs. Pt declined getting to EOB/standing for task.) On/Off Footwear (QC): 4 (min VCs.) Toileting Hygiene (QC): 3 (Min A standing balance.) Assessment/Plan Assessment and Plan Assess & Plan/Chief Complaint Assessment: -Community Acquired PNA Cefepime, Azithromycin, Vancomysin (MRSA suspected) -L upper lung process potential abscess or malignacy- bronchoscopy with Dr. Del Rosario, medical benefits outweigh potential harms -COPD exacerbation Fluticisone/Vilanterol -Anemia Hgb decreased to 7.5 (from 8.6) Protonics, occult blood stool sample, measure iron, B12 Consider transfusion if not improved on 01/29 -EtOH use disorder CIWA protocol, thiamine, ativan PRN, monitor for withdraw symptoms daily CIWA score -Hypercalcemia awaiting PTHRP, no signs of familial hypercalcemia -CKD fluids, daily BUN and Cr monitoring -L1 compression fx oxycodone, salonpas PRN Plan: PT and OT Aggressive care IV antibiotics Alcohol withdrawal protocol Monitor labs 01/30/2023: Supportive care Monitor closely (1) Pneumonia (2) Low BMI Status: Acute (3) Community acquired pneumonia Status: Acute (4) Alcoholism Status: Acute (5) Elevated brain natriuretic peptide (BNP) level Status: Acute (6) THOMAS (acute kidney injury) Status: Acute (7) Generalized weakness Status: Acute (8) Dehydration Status: Acute (9) Malnutrition Status: Acute (10) Hypertension Status: Acute DARINEL CHESTER DO Jan 30, 2023 12:28
[2023-01-30] MEDS ORDERED: CEFEPIME INJECTION 1,000 MG in NS (IVPB) 50 ML 50 ML IV SCH (13:00)
[2023-01-30] MEDS: IRON SUCROSE 200 MG/10 ML VIAL IV SCH (13:18)
--- NOTE | 2023-01-30 13:40 | ST Cognitive Linguistic Eval ---
Speech Evaluation-General Medical Diagnosis pneumonia Onset Date: Jan 25, 2023 Therapy Diagnosis Therapy Diagnosis: Cognitive deficit Precautions Precautions/Isolations: Droplet Isolation Referral Referring Physician: Dr. Baptiste Reason for Referral: Evaluation/Treatment Medical History Pertinent Medical History: Alcoholism, COPD, HTN, Smoking Current History Pt admitted to [facility] 01/25/23 with pneumonia and dehydration. Reported h/o alcoholism with severely reduced food intake over the past months. reported noted cognitive decline and changes in temperment over the past 1.5 years (frequent anger, poor memory, loss of interest in activities, increased alcohol consumption). Social History Current Living Status: Spouse Speech PLF-Current Status Prior Level of Function Wifre reported the pt's days consisted of drinking, smoking, and playing a game on the computer. Language Eval: Auditory Follows Complex Directions: Moderate Follows General Conversations: Moderate Language Eval: Verbal Language Completes Spontaneous Greeting: Functional Produces Auto, Serial Info: Functional Requests Basic Needs: Functional Objective Formal/Standardized Tests SLUMS examination Results The pt earned 16/30 on the SLUMS examination. Registration was 3/5, with recall of 2/5 after multiple rehearsals. Clock drawing was severely impaired. Simple calculation was 3/3, recall of details from a simple story was 2/4. The pt was oriented to day of week and month, could recall and report recent h/o of E.D. visit and inpatient hospitalization. Speech Log Marker Goals Jail Goals The pt will complete simple functional verbal problem solving with 70% accuracy. The pt will increase participation in conversational turn-taking. Speech-Plan Treatment Plan Speech Therapy Treatment Plan: Continue Plan of Care Frequency: At least 5 of 7 days/Wk (IRF) Estimated Hrs Per Day: .5 hour per day Rehab Potential: Fair Barriers to Learning: Low motivation, severity of cognitive impairment Pt/Family Agrees to Plan: Yes Time Speech Therapy Time In: 09:40 Speech Therapy Time Out: 10:15 DATE: Jan 30, 2023 Total Billed Time: 35 Billed Treatment Time 1 DARLIN OLIVAS Jan 30, 2023 13:39
[2023-01-30] MEDS: ONDANSETRON 4 MG ORAL DISSOLVE TABLET PO PRN (13:57)
--- NOTE | 2023-01-30 14:56 | ST Dysphagia Evaluation ---
Speech Evaluation-General Medical Diagnosis pneumonia Onset Date: Jan 25, 2023 Therapy Diagnosis Therapy Diagnosis: Pneumonia Precautions Precautions/Isolations: Droplet Isolation Referral Referring Physician: Dr. Baptiste Reason for Referral: Evaluation/Treatment Medical History Pertinent Medical History: Alcoholism, COPD, HTN, Smoking Current History Recent admission for left perihilar pneumonia. H/O alcoholism, dehydration, poor PO intake. Social History Current Living Status: Spouse Speech PLF/Current-Dysphagia Subjective The pt was awake and alert, seen for eval over breakfast meal. Oral Motor Skills Current Food Consistancy: Regular, Thin Liquids Ability to Follow Directions: Fair Oral Expression Ability: Mild Impairment Voice Voice Pitch: Normal Voice Loudness: Mildly Soft/Quiet Face Facial Symmetry: Symmetrical Oral-Facial Assessment Labial Seal Description: Normal Smile: Normal Lingual Protrusion: Normal Lingual ROM: Normal Volitional Dry Swallow: Yes Can Clear Throat Volitionally: Yes Dysphagia Evaluation Consistencies Presented: Regular, Thin Liquid Funct. Velo/Pharyngeal Symptom: Wet Voice The pt demonstrated limited PO intake. Mastication of solids appeared efficient. Pharyngeal swallow was timely, laryngeal elevation appeared WFL. Mild wet vocal quality noted following thin liquids, which cleared with spontaneous throat clear. Dietary Recommendations: Regular Liquid Recommendations: Thin Dysphagia Evaluation Summary Functional oral and pharyngeal swallow, min concern for penetration of thin liquids, will continue to monitor. Speech Retirement Goals Retirement Goals The pt will complete simple functional verbal problem solving with 70% accuracy. Speech-Plan Treatment Plan Speech Therapy Treatment Plan: Continue Plan of Care (cognitive therapy) Frequency: At least 5 of 7 days/Wk (IRF) Estimated Hrs Per Day: .5 hour per day (cogntive therapy) Rehab Potential: Fair Barriers to Learning: Low motivation, decreased cogntive function with h/o >1year Pt/Family Agrees to Plan: Yes Time Speech Therapy Time In: 09:20 Speech Therapy Time Out: 09:40 DATE: Jan 30, 2023 Total Billed Time: 20 Billed Treatment Time 1 KALEE (20 min) DARLIN FLOWERS Jan 30, 2023 14:56
[2023-01-30] MEDS: LINEZOLID 600 MG TABLET PO SCH (20:33)
[2023-01-30] MEDS: ENOXAPARIN 30 MG/0.3 ML SYRINGE SC SCH (20:34)
[2023-01-30] MEDS: LIDOCAINE PATCH REMOVAL TP SCH (20:42)
[2023-01-30 21:00] VITALS: BP 128/79
--- NOTE | 2023-01-31 05:14 | Individualized Plan of Care ---
Individualized Plan of Care Rehab Nursing IPOC Order Admission Date Jan 29, 2023 at 13:50 Current Orders Orders Admission Arrival Bed Request (01/29/23 14:29) Admission Order(Inpt,Obs,Sdc) (01/29/23 15:17) Vital Signs: Per Unit Policy ( 08,16,00 (01/29/23 15:17) Tyson Ba 09,21 (01/29/23 15:17) Sequential Compression Device Q12HX1 (01/29/23 15:17) Housekeeping/Laundry Supervisor-Inpt Rehab Con (01/29/23 15:17) Rehab Nursing Orders-Ipoc (01/29/23 15:17) Physical Therapy Rehab Orders (01/29/23 15:17) Occupational Therapy Rehab Ord (01/29/23 15:17) Speech Therapy Rehab Orders (01/29/23 15:17) Cbc And Automated Diff (01/30/23 06:00) Comprehensive Metabolic Panel (01/30/23 06:00) Precautions (Aru) (01/29/23 15:17) Weekly Weight WEEK (01/29/23 15:17) Rehab-Intensity Of Therapy (01/29/23 15:17) Initiate Admission Nursing Pro .admission (01/29/23 15:17) Alprazolam Tablet (Alprazolam Tablet) (01/29/23 15:30) Calcium Carbonate Chew Tablet (Calcium C (01/29/23 15:30) Diphenhydramine Tablet (Diphenhydramine (01/29/23 15:30) Docusate Sodium Capsule (Docusate Sodium (01/29/23 21:00) Docusate Sodium Capsule (Docusate Sodium (01/29/23 15:30) Bisacodyl Suppository (Bisacodyl Supposi (01/29/23 15:30) Lactulose Oral Solution (Enulose Oral So (01/29/23 15:30) Na Phos/Na Biphos Adult Enema (Na Phos/N (01/29/23 15:30) Guaifenesin/Codeine Syrup (Guaifenesin/C (01/29/23 15:30) Loperamide Capsule (Loperamide Capsule) (01/29/23 15:30) Melatonin Tablet (Melatonin Tablet) (01/29/23 15:30) Polyethylene Glycol Powder (Polyethylen (01/29/23 21:00) Ondansetron Oral Dissolve Tab (Ondanset (01/29/23 15:30) Senna W/Docusate Tablet (Senna W/Docusat (01/29/23 21:00) Acetaminophen Tablet (Acetaminophen Ta (01/29/23 15:30) Initiate Admission Nursing Pro .admission (01/29/23 15:17) Code/Resuscitation (01/29/23 15:19) Sequential Compression Device Q12HX1 (01/29/23 15:19) General/Regular (01/29/23 Dinner) (Nf) Megestrol Acetate (01/30/23 09:00) Lorazepam Tablet (Lorazepam Tablet) (01/29/23 15:30) Azithromycin Injection (Azithromycin Inj (01/30/23 09:00) Diphenhydramine Injection (Diphenhydram (01/29/23 15:30) Diphenhydramine Tablet (Diphenhydramine (01/29/23 15:30) Cefepime Injection (Cefepime Injection) (01/29/23 17:00) Docusate Sodium Capsule (Docusate Sodium (01/29/23 21:00) Cyanocobalamin Tablet (Cyanocobalamin Ta (01/30/23 09:00) Bisacodyl Suppository (Bisacodyl Supposi (01/29/23 15:30) Enoxaparin Injection (Enoxaparin Injecti (01/29/23 20:30) Lactulose Oral Solution (Enulose Oral So (01/29/23 15:30) Ergocalciferol Capsule (Ergocalciferol C (02/04/23 09:00) Folic Acid Tablet (Folic Acid Tablet) (01/30/23 09:00) Hydromorphone Injection (Hydromorphone (01/29/23 15:30) Ipratropium/Albuterol Inh Soln (Ipratrop (01/29/23 15:30) Lorazepam Injection (Lorazepam Injection (01/29/23 15:30) Lidocaine 4% Patch (Salonpas 4% Patch) (01/30/23 09:00) Loperamide Capsule (Loperamide Capsule) (01/29/23 15:30) Loratadine Tablet (Loratadine Tablet) (01/29/23 15:30) Antacid Suspension (Antacid Suspension (01/29/23 15:30) Magnesium Oxide Tablet (Magnesium Oxide (01/29/23 21:00) Melatonin Tablet (Melatonin Tablet) (01/29/23 15:30) Milk Of Magnesia Oral Susp (Milk Of Magn (01/29/23 15:30) Polyethylene Glycol Powder (Polyethylen (01/29/23 15:30) Multivitamin W/Mineral Tablet (Multivita (01/30/23 07:00) Ns Iv 500 Ml (Ns Iv 500 Ml) (01/29/23 15:30) Ondansetron Injection (Ondansetron Inj (01/29/23 15:30) Ondansetron Oral Dissolve Tab (Ondanset (01/29/23 15:30) Pantoprazole Tablet (Pantoprazole Tablet (01/30/23 09:00) Patch Removal (Patch Removal) (01/29/23 21:00) Sennosides Tablet (Sennosides Tablet) (01/29/23 21:00) Senna W/Docusate Tablet (Senna W/Docusat (01/29/23 15:30) Thiamine Tablet (Vitamin B-1 Tablet) (01/30/23 07:00) Calcium Carbonate Chew Tablet (Calcium C (01/29/23 15:30) Acetaminophen Tablet (Acetaminophen Ta (01/29/23 22:00) Acetaminophen Tablet (Acetaminophen Ta (01/29/23 15:30) Oxycodone Immediate Rel Tablet (Oxycodon (01/29/23 15:30) Svn Small Volume Nebulizer (01/29/23 15:19) Svn Small Volume Nebulizer (01/29/23 15:19) Iv Convert To Heplock (Order) (01/29/23 15:19) Vancomycin Injection (Vancomycin Injecti (01/30/23 10:00) Megestrol Oral Suspension (Megestrol Ora (01/30/23 09:00) Oxygen Delivery Set Up (01/29/23 23:11) Oxygen-Administer 07,19 (01/29/23 23:11) Cefepime Injection (Cefepime Injection) (01/30/23 13:00) Trough Order (Trough Order-Pharmacy Orde (01/31/23 09:00) Iron Sucrose Injection (Iron Sucrose Inj (01/30/23 12:30) Linezolid Tablet (Linezolid Tablet) (01/30/23 21:00) Patient Visit (01/29/23 ) Pt Eval Moderate Complexity (01/29/23 ) Functional Activities, Ea 15 (01/29/23 ) Patient Visit (01/30/23 ) Gait Training, Ea 15 Min (01/30/23 ) Wheelchair Mgmt/Propulsn 15min (01/30/23 ) Functional Activities, Ea 15 (01/30/23 ) Exercise Therap, Ea 15 Min (01/30/23 ) Patient Visit (01/30/23 ) Gait Training, Ea 15 Min (01/30/23 ) Wheelchair Mgmt/Propulsn 15min (01/30/23 ) Functional Activities, Ea 15 (01/30/23 ) Exercise Therap, Ea 15 Min (01/30/23 ) Patient Visit (01/30/23 ) Dysphagia Evaluation Std (01/30/23 ) Patient Visit (01/30/23 ) Speech Sound Lang Comp (01/30/23 ) Enlive Chocolate (01/30/23 16:12) Ipratropium/Albuterol Inh Soln (Ipratrop (01/31/23 11:00) Mat Initiate Protocol (01/31/23 09:47) Ipratropium/Albuterol Inh Soln (Ipratrop (01/31/23 15:00) Patient Visit (01/31/23 ) Treat. Speech/Lang/Voice (01/31/23 ) Rehab Nursing Orders: Ongoing Assess. of Cognitive Status, Ongoing Assess. of Function Status, Bladder Management, Bladder Scan, Bladder Training, Bowel Management, Bowel Training, Disease Management & Educaiton, DVT Prophylaxis, Fall Prevention, Fluid/Electrolyte/Nutrition Mgmt, Infection Prevention, Medication Management & Education, Management of Risks & Complications, Management of Skin Intergrity, Nutrition Management, Pain Management, Patient/Family Support, Safety Management, Swallow Precautions, Weight Bearing Precaution, Wound Management Intensity of Therapy to be met Patient to be seen: Min.3h per day/5 of 7d PT IPOC Problem List: Activity Tolerance, Functional Strength, Gait, Transfer Treatment Plan: Continue Plan of Care Bed Mobility, Concurrent Therapy, Education, Functional Activity Carlotta, Functional Strength, Group Therapy, Gait, Safety, Therapeutic Exercise, Transfers Treatment Duration: Feb 12, 2023 Frequency: At least 5 of 7 days/Wk (IRF) Estimated Hrs Per Day: 1.5 hours per day OT IPOC Problems: Decreased Activ Tolerance, Decreased UE Strength, Impaired Funct Balance, Impaired I ADL's, Impaired Self-Care Skills OT Treatment, Training and Edu: Yes Plan of Care: ADL Retraining, Functional Mobility, Group Exercise/Act as Ind, UE Funct Exercise/Act Treatment Duration: Feb 14, 2023 Frequency: At least 5 of 7 days/Wk (IRF) Estimated Hrs Per Day: 1.[address] IPOC Speech Therapy Treatment Plan: Continue Plan of Care Treatment Duration: Jan 31, 2023 Frequency: At least 5 of 7 days/Wk (IRF) Estimated Hrs Per Day: .5 hour per day Housekeeping/Laundry Supervisor/Case Mgmt Housekeeping/Laundry Supervisor/Case Managemen: Discharge Planning Dietitian/Hip Hop Dance Instructor Dietitian/Hip Hop Dance Instructor to monitor nutritional status and make changes and/or recommendations as needed and work with speech pathology on dietary upgrades as the occur. Physician IPOC Medical Issues being managed closely and that require the 24 hour availability of a physician: Recent pneumonia with pulmonary abscess status post bronchoscopy with alcohol withdrawal and with alcohol withdrawal and will require close monitoring since high risk for decompensation Medical Issues: Bowel/Bladder Function, DVT Prophylaxis, Falls Precautions, Fluid/Electrolyte/Nutrition Balance, Infection Protection, Pain Management, Weight Bearing Precautions Brief Synthesis of Preadmission Screen, Post-Admission Evaluation, and Therapy Evaluations: PT and OT will focus on regaining function with use of assistive devices in o rder to gain stamina with ambulation and ADLs in order to return home Medical Prognosis: Fair Anticipated Length of Stay: 7 days DARINEL CHESTER DO Jan 31, 2023 05:14
--- NOTE | 2023-01-31 05:15 | PM&R Progress Note ---
Subjective HPI/CC On Admission Date Seen by Provider: Jan 31, 2023 Time Seen by Provider: 12:00 Subjective/Events-last exam 01/31/2023: Patient doing a lot better Initially refused therapy this morning and therapist talked to him about correction placement He appears to be willing to work with therapy now 01/30/2023: Patient doing well at bedside Reviewed meds and labs Shifting antibiotics to Zyvox p.o. Iron deficiency will require IV iron infusion Monitoring closely Review of Systems General: Fatigue, Malaise Objective Exam Vital Signs Vital Signs Date Time Temp Pulse Resp B/P (MAP) Pulse Ox O2 Delivery O2 Flow Rate FiO2 01/31/23 20:00 36.2 67 16 147/72 (97) 94 Nasal Cannula 2.00 01/31/23 09:47 28 Capillary Refill : General Appearance: No Apparent Distress, WD/WN, Chronically ill, Thin HEENT: PERRL/EOMI, Normal ENT Inspection, Pharynx Normal Neck: Full Range of Motion, Normal Inspection, Non Tender, Supple, Carotid Bruit Respiratory: Chest Non Tender, No Accessory Muscle Use, No Respiratory Distress, Decreased Breath Sounds, Rales, Wheezing Cardiovascular: Regular Rate, Rhythm, No Edema, No Gallop, No JVD, No Murmur, Normal Peripheral Pulses Gastrointestinal: Normal Bowel Sounds, No Organomegaly, No Pulsatile Mass, Non Tender, Soft Back: Normal Inspection, No CVA Tenderness, No Vertebral Tenderness Extremity: Normal Capillary Refill, Normal Inspection, Normal Range of Motion, Non Tender, No Calf Tenderness, No Pedal Edema Neurologic/Psychiatric: Alert, Oriented x3, offset pressman II-XII Norm as Tested, Abnormal Gait, Depressed Affect, Motor Weakness (Generalized all extremities 4/5) Skin: Normal Color, Warm/Dry Lymphatic: No Adenopathy Results/Procedures Lab Patient resulted labs reviewed. FIM Transfers Therapy Code Descriptions/Definitions Functional [place] Measure: 0=Not Assessed/NA 4=Minimal Assistance 1=Total Assistance 5=Supervision or Setup 2=Maximal Assistance 6=Modified [place] 3=Moderate Assistance 7=Complete IndependenceSCALE: Activities may be completed with or without assistive devices. 5-Ysgrehuiii-qevaccd completes the activity by him/herself with no assistance from a helper. 5-Set-up or Clean-up Assistance-helper sets up or cleans up; patient completes activity. [place] assists only prior to or following the activity. 4-Supervision or Touching Assistance-helper provides verbal cues and/or touching/steadying and/or contact guard assistance as patient completes activity. Assistance may be provided throughout the activity or intermittently. 3-Partial/Moderate Assistance-helper does LESS THAN HALF the effort. [place] l ifts, holds or supports trunk or limbs, but provides less than half the effort. 2-Substantial/Maximal Assistance-helper does MORE THAN HALF the effort. [place] lifts or holds trunk or limbs and provides more than half the effort. 7-Iisfnkzxz-odyxjg does ALL the effort. Patient does none of the effort to complete the activity. Or, the assistance of 2 or more helpers is required for t he patient to complete the activity. If activity was not attempted, code reason: 7-Patient Refused. 9-Not Applicable-not attempted and the patient did not perform the activity before the current illness, exacerbation or injury. 10-Not Attempted due to Environmental Limitations-(lack of equipment, weather restraints, etc.). 88-Not Attempted due to Medical Conditions or Safety Concerns. Roll Left to Right (QC): 4 (with multiple cues to complete and bedrail provided.) Sit to Lying (QC): 4 (SBA with cues) Sit to Stand (QC): 3 Chair/Fir-tv-Dpawk Xfer(QC): 3 (Min (A) with FWW /c safety cues) Car Transfer (QC): 3 (Min (A) to lift one leg in/out of car) Gait Training Does the Patient Walk?: Yes Distance: 58' Walk 10 feet (QC): 4 Walk 50 ft with 2 Turns(QC): 4 Walk 150 ft (QC): 88 ( due to endurance deficits/weakness) Walking 10ft/uneven surface-QC: 1 (min (A) of 2 person assist with w/c backup and IV management) Gait Persons Needed: 1 Gait Assistive Device: FWW Wheelchair Training Does the Pt Use a Wheelchair?: Yes Wheel 50 ft with 2 turns (QC): 4 Wheel 150 ft (QC): 9 Type of Wheelchair: Manual Stair Training #of Steps: 1 1 Step (curb) (QC): 1 (min (A) of 2 person assist with w/c backup and IV management for 2" curb step) 4 Steps (QC): 88 (fatigue, weakness) 12 Steps (QC): 88 Balance Picking up an Object (QC): 1 (patient attempted and unable to reach floor and maintain balance.) ADL-Treatment Eating (QC): 5 Oral Hygiene (QC): 5 Shower/Bathe Self (QC): 4 (SBA sponge bath at bed level) Upper Body Dressing (QC): 4 (SBA, min VCS) Lower Body Dressing (QC): 4 (SBA bed level, min VCs. Pt declined getting to EOB/standing for task.) On/Off Footwear (QC): 4 (min VCs.) Toileting Hygiene (QC): 3 (Min A standing balance.) Assessment/Plan Assessment and Plan Assess & Plan/Chief Complaint Assessment: -Community Acquired PNA Cefepime, Azithromycin, Vancomysin (MRSA suspected) -L upper lung process potential abscess or malignacy- bronchoscopy with Dr. Del Rosario, medical benefits outweigh potential harms -COPD exacerbation Fluticisone/Vilanterol -Anemia Hgb decreased to 7.5 (from 8.6) Protonics, occult blood stool sample, measure iron, B12 Consider transfusion if not improved on 01/29 -EtOH use disorder CIWA protocol, thiamine, ativan PRN, monitor for withdraw symptoms daily CIWA score -Hypercalcemia awaiting PTHRP, no signs of familial hypercalcemia -CKD fluids, daily BUN and Cr monitoring -L1 compression fx oxycodone, salonpas PRN Plan: PT and OT Aggressive care IV antibiotics Alcohol withdrawal protocol Monitor labs 01/30/2023: Supportive care Monitor closely 01/31/2023: Supportive care Aggressive therapy (1) Pneumonia (2) Low BMI Status: Acute (3) Community acquired pneumonia Status: Acute (4) Alcoholism Status: Acute (5) Elevated brain natriuretic peptide (BNP) level Status: Acute (6) THOMAS (acute kidney injury) Status: Acute (7) Generalized weakness Status: Acute (8) Dehydration Status: Acute (9) Malnutrition Status: Acute (10) Hypertension Status: Acute DARINEL CHESTER DO Jan 31, 2023 05:14
[2023-01-31] MEDS: THIAMINE 100 MG (VITAMIN B-1) TAB PO SCH (06:31)
[2023-01-31] MEDS: ACETAMINOPHEN 500 MG TABLET PO SCH ×3 (06:31→21:02)
[2023-01-31] MEDS: THERAPEUTIC MULTIVITAMIN W/MINERALS TABLET PO SCH (06:31)
[2023-01-31 08:00] VITALS: BP 141/67
[2023-01-31] MEDS ORDERED: TROUGH ORDER-PHARMACY XX NR (09:00)
[2023-01-31] MEDS: LIDOCAINE 4% PATCH TOP SCH ×3 (09:00→09:30)
[2023-01-31] MEDS: MEGESTROL 400 MG/10 ML PO SCH (09:20)
[2023-01-31] MEDS: DOCUSATE SODIUM 100 MG CAPSULE PO SCH ×2 (09:20→21:10)
[2023-01-31] MEDS: LINEZOLID 600 MG TABLET PO SCH ×2 (09:20→21:02)
[2023-01-31] MEDS: MAGNESIUM OXIDE 400 MG TABLET PO SCH ×2 (09:20→21:02)
[2023-01-31] MEDS: SENNOSIDES 8.6 MG TABLET PO SCH ×2 (09:20→21:10)
[2023-01-31] MEDS: CYANOCOBALAMIN 1,000 MCG TABLET PO SCH (09:20)
[2023-01-31] MEDS: FOLIC ACID 1 MG TAB PO SCH (09:21)
[2023-01-31] MEDS: PANTOPRAZOLE 40 MG TABLET PO SCH (09:21)
[2023-01-31 09:47] VITALS: BP 141/67
--- NOTE | 2023-01-31 09:58 | Occ Therapy Progress Note ---
Therapy Progress Note OT tx attempted this AM, pt adamantly refused OT services at this time. Education provided on purpose/benefits of OT, he verbalized understanding but still refused to participate in tx. OT will attempt tx again later today. 1, refusal MUKUND RUEDA OT Jan 31, 2023 09:58
--- NOTE | 2023-01-31 10:35 | Physical Therapy Daily Note ---
PT Daily Note-Current Subjective Pt found lying supine in bed upon entry. Agreed to PT. Reports that he is very tired this AM and did not sleep well. No report of pain pre-treatment. Pain Section J - Health Conditions 1. Rarely or not at all 2. Occasionally 3. Frequently 4. Almost constantly 8. Unable to answer Pain Effect on Sleep: 1 Pain Interference with Therapy: 1 Pain Interference w/Day-to-Day: 1 Mental Status Patient Orientation: Person, Place Attachments: Oxygen 2L Transfers SCALE: Activities may be completed with or without assistive devices. 3-Dqjwwfkoco-byilvcl completes the activity by him/herself with no assistance from a helper. 5-Set-up or Clean-up Assistance-helper sets up or cleans up; patient completes activity. [place] assists only prior to or following the activity. 4-Supervision or Touching Assistance-helper provides verbal cues and/or touching/steadying and/or contact guard assistance as patient completes activity. Assistance may be provided throughout the activity or intermittently. 3-Partial/Moderate Assistance-helper does LESS THAN HALF the effort. [place] lifts, holds or supports trunk or limbs, but provides less than half the effort. 2-Substantial/Maximal Assistance-helper does MORE THAN HALF the effort. [place] lifts or holds trunk or limbs and provides more than half the effort. 4-Dotpdwvea-ynunsf does ALL the effort. Patient does none of the effort to complete the activity. Or, the assistance of 2 or more helpers is required for the patient to complete the activity. If activity was not attempted, code reason: 7-Patient Refused. 9-Not Applicable-not attempted and the patient did not perform the activity before the current illness, exacerbation or injury. 10-Not Attempted due to Environmental Limitations-(lack of equipment, weather restraints, etc.). 88-Not Attempted due to Medical Conditions or Safety Concerns. Sit to Lying (QC): 4 Lying to Sitting/Side of Bed(Q: 3 Sit to Stand (QC): 4 Toilet Transfer (QC): 4 Weight Bearing Full Weight Bearing Full Weight Bearing Gait Training Does the Patient Walk?: Yes Distance: 15, 15, 10, 10 Walk 10 feet (QC): 4 Gait Persons Needed: 1 Gait Assistive Device: FWW Treatments Supine Therapeutic Exercises (B) x 10ea: - SLRs - Heel slides - Quad sets - Hamstring sets Assessment Current Status: Poor Progress Pt performs lying to sitting transfer /c MIN assist for LE lowering and trunk lifting. Pt ambulates up to 15 feet /c use of a FWW. CGA required for safety due to balance deficits. No loss of balance demonstrated but does fatigue quickly and reports shortness of breath. Performs sit to stand, toilet, and sitting to lying transfer /c SBA for safety due to strength deficits. Pt displays poor muscle endurance and strength throughout visit /c all interventions. Pt left supine in bed /c call light in place and all needs met post-treatment. Continue to progress pt per POC. PT Long-Term Goals Long-Term Goals PT [employer] Goals Time Frame: Feb 12, 2023 Roll Left & Right (QC): 6 Sit to Lying (QC): 6 Lying-Sitting on Side/Bed(QC): 6 Sit to Stand (QC): 5 Chair/Hvj-pa-Nrcic Xfer(QC): 5 Toilet Transfer (QC): 5 Car Transfer (QC): 5 Does the Patient Walk: Yes Walk 10 feet (QC): 5 (/c FWW and O2 assist if necessary) Walk 50ft with 2 Turns (QC): 5 (/c FWW and O2 assist if necessary) Walk 150 ft (QC): 5 (/c FWW and O2 assist if necessary) Walking 10ft on Uneven Surface: 5 (/c FWW and O2 assist if necessary) 1 Step (curb) (QC): 5 (O2 assist if necessary) 4 Steps (QC): 5 (/c railings, O2 assist if necessary) 12 Steps (QC): 5 (O2 (A) if necessary) Picking up an Object (QC): 5 (/c provider scribe) Does the Pt use WC or Scooter?: No Wheel 50 feet with 2 turns (QC: 9 Wheel 150 feet: 9 PT Plan Treatment/Plan Treatment Plan: Continue Plan of Care Treatment Plan: Bed Mobility, Concurrent Therapy, Education, Functional A ctivity Carlotta, Functional Strength, Group Therapy, Gait, Safety, Therapeutic Exercise, Transfers Treatment Duration: Feb 12, 2023 Frequency: At least 5 of 7 days/Wk (IRF) Estimated Hrs Per Day: 1.5 hours per day Patient and/or Family Agrees t: Yes Time Time In: 0800 Time Out: 0915 DATE: Jan 31, 2023 Total Billed Treatment Time: 75 Total Billed Treatment 1 visit GT x 1 FA x 2 EX x 2 VANESSA LOPEZ PTA Jan 31, 2023 10:35
[2023-01-31] MEDS ORDERED: RT-Ipratropium/Albuterol NEB 3 ML VIAL INH PRN (11:00)
--- NOTE | 2023-01-31 13:10 | Occupational Ther Daily Note ---
OT Current Status-Daily Note Subjective Pt in recliner eating lunch, present. Pt agreeable to OT Tx. Mental Status/Objective Attachments: Oxygen (2L) ADL-Treatment Therapy Code Descriptions/Definitions Functional [place] Measure: 0=Not Assessed/NA 4=Minimal Assistance 1=Total Assistance 5=Supervision or Setup 2=Maximal Assistance 6=Modified [place] 3=Moderate Assistance 7=Complete IndependenceSCALE: Activities may be completed with or without assistive devices. 4-Pzptvwftpi-iqemyqp completes the activity by him/herself with no assistance from a helper. 5-Set-up or Clean-up Assistance-helper sets up or cleans up; patient completes activity. [place] assists only prior to or following the activity. 4-Supervision or Touching Assistance-helper provides verbal cues and/or touching/steadying and/or contact guard assistance as patient completes activity. Assistance may be provided throughout the activity or intermittently. 3-Partial/Moderate Assistance-helper does LESS THAN HALF the effort. [place] lifts, holds or supports trunk or limbs, but provides less than half the effort. 2-Substantial/Maximal Assistance-helper does MORE THAN HALF the effort. [place] lifts or holds trunk or limbs and provides more than half the effort. 9-Rucrvnkdd-krnghd does ALL the effort. Patient does none of the effort to complete the activity. Or, the assistance of 2 or more helpers is required for the patient to complete the activity. If activity was not attempted, code reason: 7-Patient Refused. 9-Not Applicable-not attempted and the patient did not perform the activity before the current illness, exacerbation or injury. 10-Not Attempted due to Environmental Limitations-(lack of equipment, weather restraints, etc.). 88-Not Attempted due to Medical Conditions or Safety Concerns. Eating (QC): 5 Toileting Hygiene (QC): 4 (SBA) Toilet Transfer (QC): 4 (SBA) Other Treatment Pt stood from [facility], transferred into bathroom and onto toilet, SBA. Pt completed toileting, then used FWW to perform functional mobility to common area. OT tx focused on increasing BUE Strength and activity tolerance. Pt educated on UE exercises using moderate resistance theraband, 5/5 exercises complete. Pt completed R shoulder flexion, and horizontal abduction without resistance band due to pain and prior shoulder surgery. Pt returned to his room, SBA using FWW, transferring to toilet. Pt completed toileting, then used FWW to transfer to recliner. Post tx, pt in recliner, call light in reach and all needs met. Education OT Patient Education: Correct positioning, Energy conservation, Modified ADL techniques, Progress toward Goal/Update tx plan, Purpose of tx/functional activities, Rehab process Teaching Recipient: Patient Teaching Methods: Discussion Response to Teaching: Verbalize Understanding OT Environmental Analyst Goals [facility] Goals Time Frame: Feb 14, 2023 Acute change in mental status: 1 Inattention: 1 Disorganized thinkin Altered level of consciousness: 0 Eating (QC): 6 Oral Hygiene (QC): 6 Toileting Hygiene (QC): 6 Shower/Bathe Self (QC): 4 Upper Body Dressing (QC): 5 Lower Body Dressing (QC): 5 On/Off Footwear (QC): 5 Additional Goals: 1-Demonstrate ADL Tasks, 2-Verbalize Understanding, 3- ImproveStrength/Carlotta 1=Demonstrate adherence to instructed precautions during ADL tasks. 2=Patient will verbalize/demonstrate understanding of assistive devices/modifications for ADL. 3=Patient will improve strength/tolerance for activity to enable patient to perform ADL's. OT Education/Plan Problem List/Assessment Assessment: Decreased Activ Tolerance, Decreased UE Strength, Impaired Funct Balance, Impaired I ADL's, Impaired Self-Care Skills Discharge Recommendations Plan/Recommendations: Continue POC Treatment Plan/Plan of Care Patient would benefit from OT for education, treatment and training to promote independence in ADL's, mobility, safety and/or upper extremity function for ADL's. Plan of Care: ADL Retraining, Functional Mobility, Group Exercise/Act as Ind, UE Funct Exercise/Act Treatment Duration: Feb 14, 2023 Frequency: At least 5 of 7 days/Wk (IRF) Estimated Hrs Per Day: 1.5 hours per day Rehab Potential: Fair Time Start Time: 13:00 Stop Time: 13:55 DATE: Jan 31, 2023 Total Time Billed (hr/min): 55 Billed Treatment Time 1, ADL 2 (30'), EX 2 (25') MUKUND RUEDA OT Jan 31, 2023 13:10
--- NOTE | 2023-01-31 13:59 | Speech Therapy Daily Note ---
Speech Daily Progress Note Subjective Date Seen by Provider: Jan 31, 2023 Time Seen by Provider: 11:05 The pt was seen for speech with present. The pt had good participation in session. Objective Functional money-based verbal problem solving was completed. The pt was able to read written problems, and complete simple math with extra time needed. Complexity was minimally increased, with min/mod assist required. Conversation with spouse and patient was targeted. The pt and discussed 2 topics with good conversational exchange. Spouse expressed concern re: pt's low motivation and participation in therapy. Encouragement provided, strategy of focusing on one task at a time was discussed. Assessment Assessment Current Status: Good Progress Treatment Plan Continue Plan of Care Speech [place] Laborer Goals Jail Goals The pt will complete simple functional verbal problem solving with 70% accuracy. The pt will increase participation in conversational turn-taking. Speech-Plan Patient/Family Goals Patient/Family Goals: Spouse would like to see the pt participate in home activities Treatment Plan Speech Therapy Treatment Plan: Continue Plan of Care Frequency: At least 5 of 7 days/Wk (IRF) Estimated Hrs Per Day: .5 hour per day Rehab Potential: Fair Discharge Recommendations Home & Family Time Speech Therapy Time In: 11:05 Speech Therapy Time Out: 11:55 DATE: Jan 31, 2023 Total Billed Time: 50 Billed Treatment Time 1 SLTS (50 min) DARLIN FLOWERS Jan 31, 2023 13:59
[2023-01-31] MEDS: RT-Ipratropium/Albuterol NEB 3 ML VIAL INH SCH ×2 (16:14→21:22)
[2023-01-31 20:00] VITALS: BP 147/72
[2023-01-31] MEDS: ENOXAPARIN 30 MG/0.3 ML SYRINGE SC SCH (21:03)
[2023-01-31] MEDS: LIDOCAINE PATCH REMOVAL TP SCH (21:10)
[2023-02-01] MEDS: ACETAMINOPHEN 500 MG TABLET PO SCH ×3 (06:38→22:00)
[2023-02-01] MEDS: THIAMINE 100 MG (VITAMIN B-1) TAB PO SCH (06:38)
[2023-02-01] MEDS: THERAPEUTIC MULTIVITAMIN W/MINERALS TABLET PO SCH (06:38)
[2023-02-01 08:00] VITALS: BP 136/64
--- NOTE | 2023-02-01 08:40 | Physical Therapy Daily Note ---
PT Daily Note-Current Subjective Pt found seated in recliner upon entry. Agreed to PT. Reports that he slept okay last night. No report of pain. Pain Section J - Health Conditions 1. Rarely or not at all 2. Occasionally 3. Frequently 4. Almost constantly 8. Unable to answer Pain Effect on Sleep: 1 Pain Interference with Therapy: 1 Pain Interference w/Day-to-Day: 1 Mental Status Patient Orientation: Person, Place Attachments: Oxygen 2L Transfers SCALE: Activities may be completed with or without assistive devices. 2-Akazvscgpm-lamcole completes the activity by him/herself with no assistance from a helper. 5-Set-up or Clean-up Assistance-helper sets up or cleans up; patient completes activity. [place] assists only prior to or following the activity. 4-Supervision or Touching Assistance-helper provides verbal cues and/or touching/steadying and/or contact guard assistance as patient completes activity. Assistance may be provided throughout the activity or intermittently. 3-Partial/Moderate Assistance-helper does LESS THAN HALF the effort. [place] lifts, holds or supports trunk or limbs, but provides less than half the effort. 2-Substantial/Maximal Assistance-helper does MORE THAN HALF the effort. [place] lifts or holds trunk or limbs and provides more than half the effort. 8-Grdgvymbl-hedwmi does ALL the effort. Patient does none of the effort to complete the activity. Or, the assistance of 2 or more helpers is required for the patient to complete the activity. If activity was not attempted, code reason: 7-Patient Refused. 9-Not Applicable-not attempted and the patient did not perform the activity before the current illness, exacerbation or injury. 10-Not Attempted due to Environmental Limitations-(lack of equipment, weather restraints, etc.). 88-Not Attempted due to Medical Conditions or Safety Concerns. Sit to Stand (QC): 4 Toilet Transfer (QC): 4 Weight Bearing Full Weight Bearing Full Weight Bearing Gait Training Does the Patient Walk?: Yes Distance: 30, 50 Walk 10 feet (QC): 4 Walk 50 ft with 2 Turns(QC): 4 Gait Persons Needed: 1 Gait Assistive Device: FWW Treatments Seated Therapeutic Exercises (B) x 10ea: - LAQs - Heel/toe raises - Marching Assessment Current Status: Fair Progress Pt performs sit to stand transfer from recliner and toilet transfer /c SBA for safety due to strength deficits. Ambulates /c use of FWW up to 50 feet /c SBA/CGA for safety due to balance deficits. Pt displays forward trunk posture, slow gait pattern, and no loss of balance during gait training. Demonstrates decent muscle endurance and strength while performing therapeutic exercises but does required short rest breaks to complete. Pt left in recliner /c family present, call light in place, and all needs met post-treatment. Continue to progress pt per POC. PT Servicing Manager Goals Long-Term Goals PT Long-Term Goals Time Frame: Feb 12, 2023 Roll Left & Right (QC): 6 Sit to Lying (QC): 6 Lying-Sitting on Side/Bed(QC): 6 Sit to Stand (QC): 5 Chair/Ife-st-Eaqbv Xfer(QC): 5 Toilet Transfer (QC): 5 Car Transfer (QC): 5 Does the Patient Walk: Yes Walk 10 feet (QC): 5 (/c FWW and O2 assist if necessary) Walk 50ft with 2 Turns (QC): 5 (/c FWW and O2 assist if necessary) Walk 150 ft (QC): 5 (/c FWW and O2 assist if necessary) Walking 10ft on Uneven Surface: 5 (/c FWW and O2 assist if necessary) 1 Step (curb) (QC): 5 (O2 assist if necessary) 4 Steps (QC): 5 (/c railings, O2 assist if necessary) 12 Steps (QC): 5 (O2 (A) if necessary) Picking up an Object (QC): 5 (/c disc pad knockout worker) Does the Pt use WC or Scooter?: No Wheel 50 feet with 2 turns (QC: 9 Wheel 150 feet: 9 PT Plan Treatment/Plan Treatment Plan: Continue Plan of Care Treatment Plan: Bed Mobility, Concurrent Therapy, Education, Functional Activity Carlotta, Functional Strength, Group Therapy, Gait, Safety, Therapeutic Exercise, Transfers Treatment Duration: Feb 12, 2023 Frequency: At least 5 of 7 days/Wk (IRF) Estimated Hrs Per Day: 1.5 hours per day Patient and/or Family Agrees t: Yes Time Time In: 0758 Time Out: 0848 DATE: Feb 01, 2023 Total Billed Treatment Time: 50 Total Billed Treatment 1 visit GT x 1 FA x 1 EX x 1 VANESSA LOPEZ UNDERWEAR HEMMER Feb 01, 2023 08:40
[2023-02-01] MEDS: DOCUSATE SODIUM 100 MG CAPSULE PO SCH ×2 (09:16→20:55)
[2023-02-01] MEDS: MEGESTROL 400 MG/10 ML PO SCH (09:16)
[2023-02-01] MEDS: CYANOCOBALAMIN 1,000 MCG TABLET PO SCH (09:16)
[2023-02-01] MEDS: SENNOSIDES 8.6 MG TABLET PO SCH ×2 (09:16→20:56)
[2023-02-01] MEDS: LIDOCAINE 4% PATCH TOP SCH (09:17)
[2023-02-01] MEDS: LINEZOLID 600 MG TABLET PO SCH ×2 (09:17→20:52)
[2023-02-01] MEDS: FOLIC ACID 1 MG TAB PO SCH (09:17)
[2023-02-01] MEDS: MAGNESIUM OXIDE 400 MG TABLET PO SCH ×2 (09:17→20:52)
[2023-02-01] MEDS: PANTOPRAZOLE 40 MG TABLET PO SCH (09:17)
[2023-02-01] MEDS: IRON SUCROSE 200 MG/10 ML VIAL IV SCH (09:17)
--- NOTE | 2023-02-01 11:03 | PM&R Progress Note ---
Subjective HPI/CC On Admission Date Seen by Provider: Feb 01, 2023 Time Seen by Provider: 11:00 Subjective/Events-last exam 02/01/2023: Doing well Much better participation Labs rechecking tomorrow [facility] maintained 01/31/2023: Patient doing a lot better Initially refused therapy this morning and therapist talked to him about shelter placement He appears to be willing to work with therapy now 01/30/2023: Patient doing well at bedside Reviewed meds and labs Shifting antibiotics to [facility] p.o. Iron deficiency will require IV iron infusion Monitoring closely Review of Systems General: Fatigue, Malaise Objective Exam Vital Signs Vital Signs Date Time Temp Pulse Resp B/P (MAP) Pulse Ox O2 Delivery O2 Flow Rate FiO2 02/01/23 09:30 Nasal Cannula 2.00 02/01/23 08:00 36.4 65 18 136/64 (88) 96 01/31/23 09:47 28 Capillary Refill : General Appearance: No Apparent Distress, WD/WN, Chronically ill, Thin HEENT: PERRL/EOMI, Normal ENT Inspection, Pharynx Normal Neck: Full Range of Motion, Normal Inspection, Non Tender, Supple, Carotid Bruit Respiratory: Chest Non Tender, No Accessory Muscle Use, No Respiratory Distress, Decreased Breath Sounds, Rales, Wheezing Cardiovascular: Regular Rate, Rhythm, No Edema, No Gallop, No JVD, No Murmur, Normal Peripheral Pulses Gastrointestinal: Normal Bowel Sounds, No Organomegaly, No Pulsatile Mass, Non Tender, Soft Back: Normal Inspection, No CVA Tenderness, No Vertebral Tenderness Extremity: Normal Capillary Refill, Normal Inspection, Normal Range of Motion, Non Tender, No Calf Tenderness, No Pedal Edema Neurologic/Psychiatric: Alert, Oriented x3, necktie operator pockets and pieces II-XII Norm as Tested, Abnormal Gait, Depressed Affect, Motor Weakness (Generalized all extremities 4/5) Skin: Normal Color, Warm/Dry Lymphatic: No Adenopathy Results/Procedures Lab Patient resulted labs reviewed. FIM Transfers Therapy Code Descriptions/Definitions Functional [place] Measure: 0=Not Assessed/NA 4=Minimal Assistance 1=Total Assistance 5=Supervision or Setup 2=Maximal Assistance 6=Modified [place] 3=Moderate Assistance 7=Complete IndependenceSCALE: Activities may be completed with or without assistive devices. 6-Ukapbshzcl-nxctlpa completes the activity by him/herself with no assistance from a helper. 5-Set-up or Clean-up Assistance-helper sets up or cleans up; patient completes activity. [place] assists only prior to or following the activity. 4-Supervision or Touching Assistance-helper provides verbal cues and/or touching/steadying and/or contact guard assistance as patient completes activity. Assistance may be provided throughout the activity or intermittently. 3-Partial/Moderate Assistance-helper does LESS THAN HALF the effort. [place] lifts, holds or supports trunk or limbs, but provides less than half the effort. 2-Substantial/Maximal Assistance-helper does MORE THAN HALF the effort. [place] lifts or holds trunk or limbs and provides more than half the effort. 5-Rlpqxqijq-nqetcb does ALL the effort. Patient does none of the effort to complete the activity. Or, the assistance of 2 or more helpers is required for the patient to complete the activity. If activity was not attempted, code reason: 7-Patient Refused. 9-Not Applicable-not attempted and the patient did not perform the activity before the current illness, exacerbation or injury. 10-Not Attempted due to Environmental Limitations-(lack of equipment, weather restraints, etc.). 88-Not Attempted due to Medical Conditions or Safety Concerns. Roll Left to Right (QC): 4 (with multiple cues to complete and bedrail provided.) Sit to Lying (QC): 4 Sit to Stand (QC): 4 Chair/Cpi-wf-Ckppg Xfer(QC): 3 (Min (A) with FWW /c safety cues) Car Transfer (QC): 3 (Min (A) to lift one leg in/out of car) Gait Training Does the Patient Walk?: Yes Distance: 30, 50 Walk 10 feet (QC): 4 Walk 50 ft with 2 Turns(QC): 4 Walk 150 ft (QC): 88 ( due to endurance deficits/weakness) Walking 10ft/uneven surface-QC: 1 (min (A) of 2 person assist with w/c backup and IV management) Gait Persons Needed: 1 Gait Assistive Device: FWW Wheelchair Training Does the Pt Use a Wheelchair?: Yes Wheel 50 ft with 2 turns (QC): 4 Wheel 150 ft (QC): 9 Type of Wheelchair: Manual Stair Training #of Steps: 1 1 Step (curb) (QC): 1 (min (A) of 2 person assist with w/c backup and IV management for 2" curb step) 4 Steps (QC): 88 (fatigue, weakness) 12 Steps (QC): 88 Balance Picking up an Object (QC): 1 (patient attempted and unable to reach floor and maintain balance.) ADL-Treatment Eating (QC): 5 Oral Hygiene (QC): 5 Shower/Bathe Self (QC): 4 (SBA sponge bath at bed level) Upper Body Dressing (QC): 4 (SBA, min VCS) Lower Body Dressing (QC): 4 (SBA bed level, min VCs. Pt declined getting to EOB/standing for task.) On/Off Footwear (QC): 4 (min VCs.) Toileting Hygiene (QC): 4 (SBA) Toilet Transfer (QC): 4 (SBA) Assessment/Plan Assessment and Plan Assess & Plan/Chief Complaint Assessment: -Community Acquired PNA Cefepime, Azithromycin, Vancomycin (MRSA suspected) -L upper lung process potential abscess or malignacy- bronchoscopy with Dr. Del Rosario, medical benefits outweigh potential harms -COPD exacerbation Fluticisone/Vilanterol -Anemia Hgb decreased to 7.5 (from 8.6) Protonics, occult blood stool sample, measure iron, B12 Consider transfusion if not improved on 01/29 -EtOH use disorder CIWA protocol, thiamine, ativan PRN, monitor for withdraw symptoms daily CIWA score -Hypercalcemia awaiting PTHRP, no signs of familial hypercalcemia -CKD fluids, daily BUN and Cr monitoring -L1 compression fx oxycodone, salonpas PRN Plan: PT and OT Aggressive care IV antibiotics Alcohol withdrawal protocol Monitor labs 01/30/2023: Supportive care Monitor closely 01/31/2023: Supportive care Aggressive therapy 02/01/2023: Monitor closely (1) Pneumonia (2) Low BMI Status: Acute (3) Community acquired pneumonia Status: Acute (4) Alcoholism Status: Acute (5) Elevated brain natriuretic peptide (BNP) level Status: Acute (6) THOMAS (acute kidney injury) Status: Acute (7) Generalized weakness Status: Acute (8) Dehydration Status: Acute (9) Malnutrition Status: Acute (10) Hypertension Status: Acute DARINEL CHESTER DO Feb 01, 2023 11:03
--- NOTE | 2023-02-01 11:17 | Occupational Ther Daily Note ---
OT Current Status-Daily Note Subjective Pt received sitting in recliner with spouse at bedside. Pt requiring moderate encouragement to participate in therapy throughout session. Pain Numeric Pain Scale: 3 Location: Joint Pain Description: Ache Mental Status/Objective Patient Orientation: Person, Place, Time, Situation Attachments: IV, Oxygen (2L) ADL-Treatment Therapy Code Descriptions/Definitions Functional [place] Measure: 0=Not Assessed/NA 4=Minimal Assistance 1=Total Assistance 5=Supervision or Setup 2=Maximal Assistance 6=Modified [place] 3=Moderate Assistance 7=Complete IndependenceSCALE: Activities may be completed with or without assistive devices. 0-Djmoaojszp-rtdpvov completes the activity by him/herself with no assistance from a helper. 5-Set-up or Clean-up Assistance-helper sets up or cleans up; patient completes activity. [place] assists only prior to or following the activity. 4-Supervision or Touching Assistance-helper provides verbal cues and/or touching/steadying and/or contact guard assistance as patient completes activity. Assistance may be provided throughout the activity or intermittently. 3-Partial/Moderate Assistance-helper does LESS THAN HALF the effort. [place] lifts, holds or supports trunk or limbs, but provides less than half the effort. 2-Substantial/Maximal Assistance-helper does MORE THAN HALF the effort. [place] lifts or holds trunk or limbs and provides more than half the effort. 0-Ejwwmpynr-zlmech does ALL the effort. Patient does none of the effort to complete the activity. Or, the assistance of 2 or more helpers is required for the patient to complete the activity. If activity was not attempted, code reason: 7-Patient Refused. 9-Not Applicable-not attempted and the patient did not perform the activity before the current illness, exacerbation or injury. 10-Not Attempted due to Environmental Limitations-(lack of equipment, weather restraints, etc.). 88-Not Attempted due to Medical Conditions or Safety Concerns. Shower/Bathe Self (QC): 4 (Pt completed showering sitting on shower chair with supervision for safety. Pt requiring encouragment for thouroughness throughout shower. ) Upper Body Dressing (QC): 5 Lower Body Dressing (QC): 3 (Pt requiring some assistance to thread feet through pants. Requiring encouragment to participate to his full potential, though with encouragment performed LBD with min A. ) On/Off Footwear: 3 (Pt donned and doffed socks with supervision, though required assistance to don his house slippers. ) Toileting Hygiene (QC): 6 (Pt completed toilet hygiene independently in sitting. ) Toilet Transfer (QC): 4 (Pt completed toilet transfer with FWW and supervision for balance and safety. ) Other Treatment Pt completed full body dressing with assistance and encouragement to participate fully throughout session. Pt completed shower, utilizing shower chair, with supervision. Pt demonstrated two toilet transfers, both with supervision, requiring min cues for safety and hand placement. With maximum encouragement, pt participated well with occupational therapy. Education OT Patient Education: Correct positioning, Energy conservation, Instructions to caregiver, Modified ADL techniques, Progress toward Goal/Update tx plan, Purpose of tx/functional activities, Rehab process, Safety issues, Transfer techniques, Other (pursed lip breathing technique) Teaching Recipient: Patient, Family Teaching Methods: Demonstration, Discussion Response to Teaching: Verbalize Understanding, Return Demonstration, Reinforcement Needed OT Brush Clearing Laborer Goals Care Home Goals Time Frame: Feb 14, 2023 Acute change in mental status: 1 Inattention: 1 Disorganized thinkin Altered level of consciousness: 0 Eating (QC): 6 Oral Hygiene (QC): 6 Toileting Hygiene (QC): 6 Shower/Bathe Self (QC): 4 Upper Body Dressing (QC): 5 Lower Body Dressing (QC): 5 On/Off Footwear (QC): 5 Additional Goals: 1-Demonstrate ADL Tasks, 2-Verbalize Understanding, 3- ImproveStrength/Carlotta 1=Demonstrate adherence to instructed precautions during ADL tasks. 2=Patient will verbalize/demonstrate understanding of assistive devices/modifications for ADL. 3=Patient will improve strength/tolerance for activity to enable patient to perform ADL's. OT Education/Plan Problem List/Assessment Assessment: Decreased Activ Tolerance, Decreased Safety Aware, Decreased UE Strength, Impaired Funct Balance, Impaired I ADL's, Impaired Self-Care Skills Discharge Recommendations Plan/Recommendations: Continue POC Treatment Plan/Plan of Care Treatment,Training & Education: Yes Patient would benefit from OT for education, treatment and training to promote independence in ADL's, mobility, safety and/or upper extremity function for ADL's. Plan of Care: ADL Retraining, Functional Mobility, Group Exercise/Act as Ind, UE Funct Exercise/Act Treatment Duration: Feb 14, 2023 Frequency: At least 5 of 7 days/Wk (IRF) Estimated Hrs Per Day: 1.5 hours per day Rehab Potential: Fair Time Start Time: 09:32 Stop Time: 11:02 DATE: Feb 01, 2023 Total Time Billed (hr/min): 90 Billed Treatment Time 1, ADL 6 Lori Grant OTR/L Feb 01, 2023 11:17
[2023-02-01 19:28] VITALS: BP 136/64
[2023-02-01 20:26] VITALS: BP 134/62
[2023-02-01] MEDS: ENOXAPARIN 30 MG/0.3 ML SYRINGE SC SCH (20:53)
[2023-02-01] MEDS: LIDOCAINE PATCH REMOVAL TP SCH (20:59)
[2023-02-02] MEDS: ACETAMINOPHEN 500 MG TABLET PO SCH ×4 (06:22→22:16)
[2023-02-02] MEDS: THERAPEUTIC MULTIVITAMIN W/MINERALS TABLET PO SCH (06:23)
[2023-02-02] MEDS: THIAMINE 100 MG (VITAMIN B-1) TAB PO SCH (06:23)
[2023-02-02 08:00] VITALS: BP 125/61
[2023-02-02 08:26] LABS: BASOPHILS % (AUTO) 0 % (0-10); EOSINOPHILS # (AUTO) 0.3 10^3/uL (0.0-0.3); EOSINOPHILS % (AUTO) 1 % (0-10); HEMATOCRIT 28 % (40-54); HEMOGLOBIN 8.9 g/dL (13.3-17.7); LYMPHOCYTES # (AUTO) 2.7 10^3/uL (1.0-4.0); LYMPHOCYTES % (AUTO) 12 % (12-44); MEAN CORPUSCULAR HEMOGLOBIN 30 pg (25-34); MEAN CORPUSCULAR HGB CONC 32 g/dL (32-36); MEAN CORPUSCULAR VOLUME 96 fL (80-99); MEAN PLATELET VOLUME 10.9 fL (9.0-12.2); MONOCYTES % (AUTO) 4 % (0-12); NEUTROPHILS # (AUTO) 18.4 10^3/uL (1.8-7.8); NEUTROPHILS % (AUTO) 81 % (42-75); PLATELET COUNT 395 10^3/uL (130-400); WHITE BLOOD COUNT 22.8 10^3/uL (4.3-11.0)
[2023-02-02 08:36] LABS: ALBUMIN 2.4 GM/DL (3.2-4.5); POTASSIUM 4.5 MMOL/L (3.6-5.0)
[2023-02-02 08:37] LABS: CALCIUM 9.7 MG/DL (8.5-10.1)
[2023-02-02 08:38] LABS: TOTAL PROTEIN 5.5 GM/DL (6.4-8.2)
[2023-02-02 08:40] LABS: BILIRUBIN,TOTAL 0.4 MG/DL (0.1-1.0)
[2023-02-02 08:42] LABS: CREATININE SERUM 1.69 MG/DL (0.60-1.30)
[2023-02-02 08:53] LABS: LYMPHOCYTES % (MANUAL) 9 %; MONOCYTES % (MANUAL) 1 %; NEUTROPHILS % (MANUAL) 90 %
[2023-02-02 08:54] LABS: ANISOCYTOSIS SLIGHT; HYPOCHROMASIA SLIGHT
[2023-02-02] MEDS: MEGESTROL 400 MG/10 ML PO SCH (09:10)
[2023-02-02] MEDS: LINEZOLID 600 MG TABLET PO SCH ×2 (09:10→20:35)
[2023-02-02] MEDS: CYANOCOBALAMIN 1,000 MCG TABLET PO SCH (09:10)
[2023-02-02] MEDS: LIDOCAINE 4% PATCH TOP SCH (09:10)
[2023-02-02] MEDS: SENNOSIDES 8.6 MG TABLET PO SCH ×2 (09:11→21:00)
[2023-02-02] MEDS: FOLIC ACID 1 MG TAB PO SCH (09:11)
[2023-02-02] MEDS: DOCUSATE SODIUM 100 MG CAPSULE PO SCH ×2 (09:11→21:00)
[2023-02-02] MEDS: PANTOPRAZOLE 40 MG TABLET PO SCH (09:11)
[2023-02-02] MEDS: MAGNESIUM OXIDE 400 MG TABLET PO SCH ×2 (09:11→20:35)
--- NOTE | 2023-02-02 15:24 | PM&R Progress Note ---
Subjective HPI/CC On Admission Date Seen by Provider: Feb 02, 2023 Time Seen by Provider: 15:30 Subjective/Events-last exam 02/02/2023: Doing well Elevated wbc noted but no evidence of worsened infection Suspect CLL so will order smear and [facility] from [place] are here visiting at bedside 02/01/2023: Doing well Much better participation Labs rechecking tomorrow Zyvox maintained 01/31/2023: Patient doing a lot better Initially refused therapy this morning and therapist talked to him about senior care placement He appears to be willing to work with therapy now 01/30/2023: Patient doing well at bedside Reviewed meds and labs Shifting antibiotics to Zyvox p.o. Iron deficiency will require IV iron infusion Monitoring closely Review of Systems General: Fatigue, Malaise Objective Exam Vital Signs Vital Signs Date Time Temp Pulse Resp B/P (MAP) Pulse Ox O2 Delivery O2 Flow Rate FiO2 02/02/23 20:38 Nasal Cannula 2.00 02/02/23 19:34 36.9 71 18 131/67 (88) 100 02/01/23 19:28 21 Capillary Refill : General Appearance: No Apparent Distress, WD/WN, Chronically ill, Thin HEENT: PERRL/EOMI, Normal ENT Inspection, Pharynx Normal Neck: Full Range of Motion, Normal Inspection, Non Tender, Supple, Carotid Bruit Respiratory: Chest Non Tender, No Accessory Muscle Use, No Respiratory Distress, Decreased Breath Sounds, Rales, Wheezing Cardiovascular: Regular Rate, Rhythm, No Edema, No Gallop, No JVD, No Murmur, Normal Peripheral Pulses Gastrointestinal: Normal Bowel Sounds, No Organomegaly, No Pulsatile Mass, Non Tender, Soft Back: Normal Inspection, No CVA Tenderness, No Vertebral Tenderness Extremity: Normal Capillary Refill, Normal Inspection, Normal Range of Motion, Non Tender, No Calf Tenderness, No Pedal Edema Neurologic/Psychiatric: Alert, Oriented x3, 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 FIM Transfers Therapy Code Descriptions/Definitions Functional [place] Measure: 0=Not Assessed/NA 4=Minimal Assistance 1=Total Assistance 5=Supervision or Setup 2=Maximal Assistance 6=Modified [place] 3=Moderate Assistance 7=Complete IndependenceSCALE: Activities may be completed with or without assistive devices. 0-Wgdgoxwjfx-yzbanmz completes the activity by him/herself with no assistance from a helper. 5-Set-up or Clean-up Assistance-helper sets up or cleans up; patient completes activity. [place] assists only prior to or following the activity. 4-Supervision or Touching Assistance-helper provides verbal cues and/or touching/steadying and/or contact guard assistance as patient completes activity. Assistance may be provided throughout the activity or intermittently. 3-Partial/Moderate Assistance-helper does LESS THAN HALF the effort. [place] lifts, holds or supports trunk or limbs, but provides less than half the effort. 2-Substantial/Maximal Assistance-helper does MORE THAN HALF the effort. [place] l ifts or holds trunk or limbs and provides more than half the effort. 0-Vskhineqm-ebbfic does ALL the effort. Patient does none of the effort to complete the activity. Or, the assistance of 2 or more helpers is required for the patient to complete the activity. If activity was not attempted, code reason: 7-Patient Refused. 9-Not Applicable-not attempted and the patient did not perform the activity before the current illness, exacerbation or injury. 10-Not Attempted due to Environmental Limitations-(lack of equipment, weather restraints, etc.). 88-Not Attempted due to Medical Conditions or Safety Concerns. Roll Left to Right (QC): 4 (with multiple cues to complete and bedrail provided.) Sit to Lying (QC): 4 Sit to Stand (QC): 4 Chair/Ncq-gv-Svbim Xfer(QC): 3 (Min (A) with FWW /c safety cues) Car Transfer (QC): 3 (Min (A) to lift one leg in/out of car) Gait Training Does the Patient Walk?: Yes Distance: 30, 50 Walk 10 feet (QC): 4 Walk 50 ft with 2 Turns(QC): 4 Walk 150 ft (QC): 88 ( due to endurance deficits/weakness) Walking 10ft/uneven surface-QC: 1 (min (A) of 2 person assist with w/c backup and IV management) Gait Persons Needed: 1 Gait Assistive Device: FWW Wheelchair Training Does the Pt Use a Wheelchair?: Yes Wheel 50 ft with 2 turns (QC): 4 Wheel 150 ft (QC): 9 Type of Wheelchair: Manual Stair Training #of Steps: 1 1 Step (curb) (QC): 1 (min (A) of 2 person assist with w/c backup and IV management for 2" curb step) 4 Steps (QC): 88 (fatigue, weakness) 12 Steps (QC): 88 Balance Picking up an Object (QC): 1 (patient attempted and unable to reach floor and maintain balance.) ADL-Treatment Eating (QC): 5 Oral Hygiene (QC): 5 Shower/Bathe Self (QC): 4 (Pt completed showering sitting on shower chair with supervision for safety. Pt requiring encouragment for thouroughness throughout shower. ) Upper Body Dressing (QC): 5 Lower Body Dressing (QC): 3 (Pt requiring some assistance to thread feet through pants. Requiring encouragment to participate to his full potential, though with encouragment performed LBD with min A. ) On/Off Footwear (QC): 3 (Pt donned and doffed socks with supervision, though required assistance to don his house slippers. ) Toileting Hygiene (QC): 6 (Pt completed toilet hygiene independently in sitting. ) Toilet Transfer (QC): 4 (Pt completed toilet transfer with FWW and supervision for balance and safety. ) Assessment/Plan Assessment and Plan Assess & Plan/Chief Complaint Assessment: -Community Acquired PNA Cefepime, Azithromycin, Vancomycin (MRSA suspected) -L upper lung process potential abscess or malignacy- bronchoscopy with Dr. Del Rosario, medical benefits outweigh potential harms -COPD exacerbation Fluticisone/Vilanterol -Anemia Hgb decreased to 7.5 (from 8.6) Protonics, occult blood stool sample, measure iron, B12 Consider transfusion if not improved on 01/29 -EtOH use disorder CIWA protocol, thiamine, ativan PRN, monitor for withdraw symptoms daily CIWA score -Hypercalcemia awaiting PTHRP, no signs of familial hypercalcemia -CKD fluids, daily BUN and Cr monitoring -L1 compression fx oxycodone, salonpas PRN Plan: PT and OT Aggressive care IV antibiotics Alcohol withdrawal protocol Monitor labs 01/30/2023: Supportive care Monitor closely 01/31/2023: Supportive care Aggressive therapy 02/01/2023: Monitor closely 02/02/2023: Check labs in am, suspect CLL (1) Pneumonia (2) Low BMI Status: Acute (3) Community acquired pneumonia Status: Acute (4) Alcoholism Status: Acute (5) Elevated brain natriuretic peptide (BNP) level Status: Acute (6) THOMAS (acute kidney injury) Status: Acute (7) Generalized weakness Status: Acute (8) Dehydration Status: Acute (9) Malnutrition Status: Acute (10) Hypertension Status: Acute DARINEL CHESTER DO Feb 02, 2023 15:23
[2023-02-02 16:13] LABS: ABSOLUTE RETIC # 78 10e9/uL (24-90); RETICULOCYTE % 2.65 % (0.50-2.40)
[2023-02-02 19:34] VITALS: BP 131/67
[2023-02-02] MEDS: ENOXAPARIN 30 MG/0.3 ML SYRINGE SC SCH (20:35)
[2023-02-02] MEDS: LIDOCAINE PATCH REMOVAL TP SCH (21:00)
--- NOTE | 2023-02-03 05:09 | PM&R Progress Note ---
Subjective HPI/CC On Admission Date Seen by Provider: Feb 03, 2023 Time Seen by Provider: 11:00 Subjective/Events-last exam 02/03/2023: Somewhat ok today but diarrhea really depleting him Family at bedside Needs constant encouragement to participate No pain 02/02/2023: Doing well Elevated wbc noted but no evidence of worsened infection Suspect CLL so will order smear and [facility] from [place] are here visiting at bedside 02/01/2023: Doing well Much better participation Labs rechecking tomorrow Zyvox maintained 01/31/2023: Patient doing a lot better Initially refused therapy this morning and therapist talked to him about custodial placement He appears to be willing to work with therapy now 01/30/2023: Patient doing well at bedside Reviewed meds and labs Shifting antibiotics to Zyvox p.o. Iron deficiency will require IV iron infusion Monitoring closely Review of Systems General: Fatigue, Malaise Gastrointestinal: Diarrhea Objective Exam Vital Signs Vital Signs Date Time Temp Pulse Resp B/P (MAP) Pulse Ox O2 Delivery O2 Flow Rate FiO2 02/03/23 21:15 93 Nasal Cannula 2.00 02/03/23 19:58 37.2 58 20 107/39 (61) 02/01/23 19:28 21 Capillary Refill : General Appearance: No Apparent Distress, WD/WN, Chronically ill, Thin HEENT: PERRL/EOMI, Normal ENT Inspection, Pharynx Normal Neck: Full Range of Motion, Normal Inspection, Non Tender, Supple, Carotid Bruit Respiratory: Chest Non Tender, No Accessory Muscle Use, No Respiratory Distress, Decreased Breath Sounds, Rales, Wheezing Cardiovascular: Regular Rate, Rhythm, No Edema, No Gallop, No JVD, No Murmur, Normal Peripheral Pulses Gastrointestinal: Normal Bowel Sounds, No Organomegaly, No Pulsatile Mass, Non Tender, Soft Back: Normal Inspection, No CVA Tenderness, No Vertebral Tenderness Extremity: Normal Capillary Refill, Normal Inspection, Normal Range of Motion, Non Tender, No Calf Tenderness, No Pedal Edema Neurologic/Psychiatric: Alert, Oriented x3, 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 FIM Transfers Therapy Code Descriptions/Definitions Functional [place] Measure: 0=Not Assessed/NA 4=Minimal Assistance 1=Total Assistance 5=Supervision or Setup 2=Maximal Assistance 6=Modified [place] 3=Moderate Assistance 7=Complete IndependenceSCALE: Activities may be completed with or without assistive devices. 7-Fpfpjeccep-tdzldpi completes the activity by him/herself with no assistance from a helper. 5-Set-up or Clean-up Assistance-helper sets up or cleans up; patient completes activity. [place] assists only prior to or following the activity. 4-Supervision or Touching Assistance-helper provides verbal cues and/or touching/steadying and/or contact guard assistance as patient completes activity. Assistance may be provided throughout the activity or intermittently. 3-Partial/Moderate Assistance-helper does LESS THAN HALF the effort. [place] lifts, holds or supports trunk or limbs, but provides less than half the effort. 2-Substantial/Maximal Assistance-helper does MORE THAN HALF the effort. [place] lifts or holds trunk or limbs and provides more than half the effort. 6-Wjhpzxjro-kbagdh does ALL the effort. Patient does none of the effort to complete the activity. Or, the assistance of 2 or more helpers is required for the patient to complete the activity. If activity was not attempted, code reason: 7-Patient Refused. 9-Not Applicable-not attempted and the patient did not perform the activity before the current illness, exacerbation or injury. 10-Not Attempted due to Environmental Limitations-(lack of equipment, weather restraints, etc.). 88-Not Attempted due to Medical Conditions or Safety Concerns. Roll Left to Right (QC): 4 (with multiple cues to complete and bedrail provi ded.) Sit to Lying (QC): 4 Sit to Stand (QC): 4 Chair/Avf-iy-Bivuz Xfer(QC): 3 (Min (A) with FWW /c safety cues) Car Transfer (QC): 3 (Min (A) to lift one leg in/out of car) Gait Training Does the Patient Walk?: Yes Distance: 30, 50 Walk 10 feet (QC): 4 Walk 50 ft with 2 Turns(QC): 4 Walk 150 ft (QC): 88 ( due to endurance deficits/weakness) Walking 10ft/uneven surface-QC: 1 (min (A) of 2 person assist with w/c backup and IV management) Gait Persons Needed: 1 Gait Assistive Device: FWW Wheelchair Training Does the Pt Use a Wheelchair?: Yes Wheel 50 ft with 2 turns (QC): 4 Wheel 150 ft (QC): 9 Type of Wheelchair: Manual Stair Training #of Steps: 1 1 Step (curb) (QC): 1 (min (A) of 2 person assist with w/c backup and IV management for 2" curb step) 4 Steps (QC): 88 (fatigue, weakness) 12 Steps (QC): 88 Balance Picking up an Object (QC): 1 (patient attempted and unable to reach floor and maintain balance.) ADL-Treatment Eating (QC): 5 Oral Hygiene (QC): 5 Shower/Bathe Self (QC): 4 (Pt completed showering sitting on shower chair with supervision for safety. Pt requiring encouragment for thouroughness throughout shower. ) Upper Body Dressing (QC): 5 Lower Body Dressing (QC): 3 (Pt requiring some assistance to thread feet through pants. Requiring encouragment to participate to his full potential, though with encouragment performed LBD with min A. ) On/Off Footwear (QC): 3 (Pt donned and doffed socks with supervision, though required assistance to don his house slippers. ) Toileting Hygiene (QC): 6 (Pt completed toilet hygiene independently in sitting. ) Toilet Transfer (QC): 4 (Pt completed toilet transfer with FWW and supervision for balance and safety. ) Assessment/Plan Assessment and Plan Assess & Plan/Chief Complaint Assessment: -Community Acquired PNA Cefepime, Azithromycin, Vancomycin (MRSA suspected) -L upper lung process potential abscess or malignacy- bronchoscopy with Dr. Del Rosario, medical benefits outweigh potential harms -COPD exacerbation Fluticisone/Vilanterol -Anemia Hgb decreased to 7.5 (from 8.6) Protonics, occult blood stool sample, measure iron, B12 Consider transfusion if not improved on 01/29 -EtOH use disorder CIWA protocol, thiamine, ativan PRN, monitor for withdraw symptoms daily CIWA score -Hypercalcemia awaiting PTHRP, no signs of familial hypercalcemia -CKD fluids, daily BUN and Cr monitoring -L1 compression fx oxycodone, salonpas PRN Plan: PT and OT Aggressive care IV antibiotics Alcohol withdrawal protocol Monitor labs 01/30/2023: Supportive care Monitor closely 01/31/2023: Supportive care Aggressive therapy 02/01/2023: Monitor closely 02/02/2023: Check labs in am, suspect CLL 02/03/2023: Check C diff Empirically treat Increase participation in therapy (1) Pneumonia (2) Low BMI Status: Acute (3) Community acquired pneumonia Status: Acute (4) Alcoholism Status: Acute (5) Elevated brain natriuretic peptide (BNP) level Status: Acute (6) THOMAS (acute kidney injury) Status: Acute (7) Generalized weakness Status: Acute (8) Dehydration Status: Acute (9) Malnutrition Status: Acute (10) Hypertension Status: Acute DARINEL CHESTER DO Feb 03, 2023 05:09
[2023-02-03] MEDS: ACETAMINOPHEN 500 MG TABLET PO SCH ×3 (05:51→21:15)
[2023-02-03 05:58] LABS: BASOPHILS % (AUTO) 0 % (0-10); EOSINOPHILS # (AUTO) 0.2 10^3/uL (0.0-0.3); EOSINOPHILS % (AUTO) 1 % (0-10); HEMATOCRIT 22 % (40-54); LYMPHOCYTES % (AUTO) 10 % (12-44); MEAN CORPUSCULAR HEMOGLOBIN 30 pg (25-34); MEAN CORPUSCULAR HGB CONC 32 g/dL (32-36); MEAN CORPUSCULAR VOLUME 94 fL (80-99); MEAN PLATELET VOLUME 10.8 fL (9.0-12.2); MONOCYTES # (AUTO) 0.9 10^3/uL (0.0-1.0); MONOCYTES % (AUTO) 5 % (0-12); NEUTROPHILS # (AUTO) 15.6 10^3/uL (1.8-7.8); NEUTROPHILS % (AUTO) 83 % (42-75); PLATELET COUNT 336 10^3/uL (130-400); WHITE BLOOD COUNT 18.9 10^3/uL (4.3-11.0)
[2023-02-03 06:28] LABS: ALBUMIN 2.1 GM/DL (3.2-4.5); BILIRUBIN,TOTAL 0.4 MG/DL (0.1-1.0); CALCIUM 8.7 MG/DL (8.5-10.1); CREATININE SERUM 1.54 MG/DL (0.60-1.30); POTASSIUM 4.2 MMOL/L (3.6-5.0); TOTAL PROTEIN 4.4 GM/DL (6.4-8.2)
[2023-02-03] MEDS: THIAMINE 100 MG (VITAMIN B-1) TAB PO SCH (06:36)
[2023-02-03] MEDS: THERAPEUTIC MULTIVITAMIN W/MINERALS TABLET PO SCH (06:36)
[2023-02-03] MEDS: SENNOSIDES 8.6 MG TABLET PO SCH ×2 (07:36→21:15)
[2023-02-03] MEDS: DOCUSATE SODIUM 100 MG CAPSULE PO SCH ×2 (07:36→21:15)
[2023-02-03 08:40] VITALS: BP 98/53
[2023-02-03] MEDS: FOLIC ACID 1 MG TAB PO SCH (08:54)
[2023-02-03] MEDS: PANTOPRAZOLE 40 MG TABLET PO SCH (08:54)
[2023-02-03] MEDS: MAGNESIUM OXIDE 400 MG TABLET PO SCH ×3 (08:54→21:15)
[2023-02-03] MEDS: CYANOCOBALAMIN 1,000 MCG TABLET PO SCH (08:54)
[2023-02-03] MEDS: LINEZOLID 600 MG TABLET PO SCH ×2 (08:54→21:09)
[2023-02-03] MEDS: MEGESTROL 400 MG/10 ML PO SCH (08:54)
[2023-02-03] MEDS: LIDOCAINE 4% PATCH TOP SCH (08:57)
--- NOTE | 2023-02-03 09:53 | Occupational Ther Daily Note ---
OT Current Status-Daily Note Subjective Pt agreeable to OT Tx with some encouragement. Pt reports he has little motivation and he doesn't know why. He doesn't want to get out of bed, work, or eat. Pt's spouse indicate they are interested in mental health services at discharge, and open to meeting with the [facility] while in the hospital, OT notified pt's RN. Moderate encouragement required throughout tx, as pt reports he is tired and just wants to go to bed. Education provided on importance of getting out of bed with his dx, and to increase strength, he verbalizes understanding, but again just wants to rest. Mental Status/Objective Patient Orientation: Normal For Age ADL-Treatment Therapy Code Descriptions/Definitions Functional [place] Measure: 0=Not Assessed/NA 4=Minimal Assistance 1=Total Assistance 5=Supervision or Setup 2=Maximal Assistance 6=Modified [place] 3=Moderate Assistance 7=Complete IndependenceSCALE: Activities may be completed with or without assistive devices. 0-Rvbtzhxogx-roqbmpa completes the activity by him/herself with no assistance from a helper. 5-Set-up or Clean-up Assistance-helper sets up or cleans up; patient completes activity. [place] assists only prior to or following the activity. 4-Supervision or Touching Assistance-helper provides verbal cues and/or touching/steadying and/or contact guard assistance as patient completes activity. Assistance may be provided throughout the activity or intermittently. 3-Partial/Moderate Assistance-helper does LESS THAN HALF the effort. [place] lifts, holds or supports trunk or limbs, but provides less than half the effort. 2-Substantial/Maximal Assistance-helper does MORE THAN HALF the effort. [place] lifts or holds trunk or limbs and provides more than half the effort. 3-Stclrpxtd-ojzgzx does ALL the effort. Patient does none of the effort to complete the activity. Or, the assistance of 2 or more helpers is required for the patient to complete the activity. If activity was not attempted, code reason: 7-Patient Refused. 9-Not Applicable-not attempted and the patient did not perform the activity before the current illness, exacerbation or injury. 10-Not Attempted due to Environmental Limitations-(lack of equipment, weather restraints, etc.). 88-Not Attempted due to Medical Conditions or Safety Concerns. Toileting Hygiene (QC): 4 (Encouragement to required to complete himself. Pt able to complete clothing management and hygiene.) Toilet Transfer (QC): 4 (supervision.) Other Treatment [id number] OT tx. Pt declines eating breakfast, but agreeable to eat 1 saltine cracker with max encouragement. Education attempted on importance of nutrition intake, he verbalized understanding, but still declines eating breakfast. Pt competed toileting x3, SBA with encouragement to complete task himself. [id number] Cotreat. OT/PT cotreat due to skill of 2 clinicians required which a rehabilitation therapy technician could not perform in order to coordinate UE/LEs, decrease fall risk, and due to pt's limitations in strength, activity tolerance, mobility, and family training. OT focused on UE placement, cues for sequencing and safety and ADLS, PT focused on LE placement, gross overall movement, transfers and mobi lity. Pt's spouse educated on pt's current LOF with mobility and ADLs. Pt stood from recliner, SBA, used FWW to perform functional mobility around ARU common area, encouragement required for longer distances. Pt took seated rest break, then used FWW to transfer into therapy gym. Pt completed x1 step with CGA using FWW. Pt and spouse report no further questions/concerns at this time. (SBA mobility using FWW, SBA sit to/from stand, CGA 1 step). Post tx, pt in therapy gym with PT, all needs met. Education OT Patient Education: Correct positioning, Disease process, Energy conservation, Modified ADL techniques, Progress toward Goal/Update tx plan, Purpose of tx/functional activities, Rehab process, Safety issues, Transfer techniques Teaching Recipient: Patient Teaching Methods: Discussion OT Correction Goals Correction Goals Time Frame: Feb 14, 2023 Acute change in mental status: 1 Inattention: 1 Disorganized thinkin Altered level of consciousness: 0 Eating (QC): 6 Oral Hygiene (QC): 6 Toileting Hygiene (QC): 6 Shower/Bathe Self (QC): 4 Upper Body Dressing (QC): 5 Lower Body Dressing (QC): 5 On/Off Footwear (QC): 5 Additional Goals: 1-Demonstrate ADL Tasks, 2-Verbalize Understanding, 3- ImproveStrength/[place] 1=Demonstrate adherence to instructed precautions during ADL tasks. 2=Patient will verbalize/demonstrate understanding of assistive devices/modifications for ADL. 3=Patient will improve strength/tolerance for activity to enable patient to perform ADL's. OT Education/Plan Problem List/Assessment Assessment: Decreased Activ Tolerance, Decreased UE Strength, Impaired Funct Balance, Impaired I ADL's, Impaired Self-Care Skills Discharge Recommendations Plan/Recommendations: Continue POC Treatment Plan/Plan of Care Patient would benefit from OT for education, treatment and training to promote independence in ADL's, mobility, safety and/or upper extremity function for ADL's. Plan of Care: ADL Retraining, Functional Mobility, Group Exercise/Act as Ind, UE Funct Exercise/Act Treatment Duration: Feb 14, 2023 Frequency: At least 5 of 7 days/Wk (IRF) Estimated Hrs Per Day: 1.5 hours per day Rehab Potential: Fair Time Start Time: 08:30 Stop Time: 09:45 DATE: Feb 03, 2023 Total Time Billed (hr/min): 75 Billed Treatment Time [id number] OT tx, [id number] [place] 1, ADL 2 (30'), FA 3 (45') MUKUND RUEDA OT Feb 03, 2023 09:52
[2023-02-03] MEDS: ONDANSETRON 4 MG ORAL DISSOLVE TABLET PO PRN (10:24)
[2023-02-03] MEDS: LACTOBACILLUS ACIDOPHILUS (PROBIOTIC) CAPSULE PO SCH ×3 (11:02→17:08)
[2023-02-03] MEDS: VANCOMYCIN 125 MG CAPSULE PO SCH ×4 (11:02→21:09)
--- NOTE | 2023-02-03 12:16 | Physical Therapy Daily Note ---
PT Daily Note-Current Subjective Pt sitting in recliner w/Sp & OT present upon arrival. Pt agrees to PT for Family Training. Pain Location: No Pain Reported Section J - Health Conditions 1. Rarely or not at all 2. Occasionally 3. Frequently 4. Almost constantly 8. Unable to answer Pain Effect on Sleep: 1 Pain Interference with Therapy: 1 Pain Interference w/Day-to-Day: 1 Mental Status Patient Orientation: Person, Place Transfers SCALE: Activities may be completed with or without assistive devices. 2-Cvyixeqmkp-bljagzg completes the activity by him/herself with no assistance from a helper. 5-Set-up or Clean-up Assistance-helper sets up or cleans up; patient completes activity. [place] assists only prior to or following the activity. 4-Supervision or Touching Assistance-helper provides verbal cues and/or touching/steadying and/or contact guard assistance as patient completes activity. Assistance may be provided throughout the activity or intermittently. 3-Partial/Moderate Assistance-helper does LESS THAN HALF the effort. [place] lifts, holds or supports trunk or limbs, but provides less than half the effort. 2-Substantial/Maximal Assistance-helper does MORE THAN HALF the effort. [place] lifts or holds trunk or limbs and provides more than half the effort. 7-Alowtldiy-cinyzv does ALL the effort. Patient does none of the effort to complete the activity. Or, the assistance of 2 or more helpers is required for the patient to complete the activity. If activity was not attempted, code reason: 7-Patient Refused. 9-Not Applicable-not attempted and the patient did not perform the activity before the current illness, exacerbation or injury. 10-Not Attempted due to Environmental Limitations-(lack of equipment, weather restraints, etc.). 88-Not Attempted due to Medical Conditions or Safety Concerns. Sit to Stand (QC): 4 Weight Bearing Full Weight Bearing Full Weight Bearing Gait Training Does the Patient Walk?: Yes Distance: 50', 20', 65' Walk 10 feet (QC): 4 Walk 50 ft with 2 Turns(QC): 4 Gait Persons Needed: 1 Gait Assistive Device: FWW Stair Training Stair Training: Handrails/: 2 handrails #of Steps: 3 1 Step (curb) (QC): 4 Stairs: Pattern: Step to Treatments [id number] Cotreat. OT/PT cotreat due to skill of 2 clinicians required which a mathematical technician could not perform in order to coordinate UE/LEs, decrease fall risk, and due to pt's limitations in strength, activity tolerance, mobility, and Family Training. OT focused on UE placement, cues for sequencing and safety and ADLS, PT focused on LE placement, gross overall movement, transfers and mobility. Pt's spouse educated on pt's current LOF with mobility and ADLs. Pt stood from recliner, SBA, used FWW to perform functional mobility around NEU common area, encouragement required for longer distances. Pt took seated rest break, then used FWW to transfer into therapy gym. Pt completed x1 step with CGA using FWW. Pt and spouse report no further questions/concerns at this time. (SBA mobility using FWW, SBA sit to/from stand, CGA 1 step). OT departs at this time & CARAMEL CUTTER MACHINE continues to work with pt. [id number]: Pt attempts 4 step staircase but pt discontinues after 3 steps citing SOA and needs to rest. After RB, pt asks to return to room. Pt amb in hallway. CARAMEL CUTTER MACHINE encourages pt to sit up in recliner for improved breathing for pneumonia but pt ignores and sits then lays Supine in bed. CARAMEL CUTTER MACHINE elevates HOB to sit up. Pt resting w/all needs met, call light in hand. [id number]: Pt is asleep in bed upon arrival. Pt refuses to do any activity out of bed citing fatigue from morning tx. CARAMEL CUTTER MACHINE tries to offer education on proper breathing techniques and benefits of Therapy and movement kat. for pt w/p neumonia. Pt laying in bed at end of tx. All needs met, call light in hand. Assessment Current Status: Poor Progress Pt needs heavy encouragement to participate in tx. Pt has given up on many things in his life and Sp has noticed and encourages as well. PT Residential Goals Residential Goals PT Capital Project Engineer Goals Time Frame: Feb 12, 2023 Roll Left & Right (QC): 6 Sit to Lying (QC): 6 Lying-Sitting on Side/Bed(QC): 6 Sit to Stand (QC): 5 Chair/Ecc-ji-Dxfwu Xfer(QC): 5 Toilet Transfer (QC): 5 Car Transfer (QC): 5 Does the Patient Walk: Yes Walk 10 feet (QC): 5 (/c FWW and O2 assist if necessary) Walk 50ft with 2 Turns (QC): 5 (/c FWW and O2 assist if necessary) Walk 150 ft (QC): 5 (/c FWW and O2 assist if necessary) Walking 10ft on Uneven Surface: 5 (/c FWW and O2 assist if necessary) 1 Step (curb) (QC): 5 (O2 assist if necessary) 4 Steps (QC): 5 (/c railings, O2 assist if necessary) 12 Steps (QC): 5 (O2 (A) if necessary) Picking up an Object (QC): 5 (/c employee operations examiner) Does the Pt use WC or Scooter?: No Wheel 50 feet with 2 turns (QC: 9 Wheel 150 feet: 9 PT Plan Problem List Problem List: Activity Tolerance, Functional Strength, Safety Treatment/Plan Treatment Plan: Continue Plan of Care Treatment Plan: Bed Mobility, Concurrent Therapy, Education, Functional Activity Carlotta, Functional Strength, Group Therapy, Gait, Safety, Therapeutic Exercise, Transfers Treatment Duration: Feb 12, 2023 Frequency: At least 5 of 7 days/Wk (IRF) Estimated Hrs Per Day: 1.5 hours per day Patient and/or Family Agrees t: Yes Safety Risks/Education Patient Education: Gait Training, Transfer Techniques, Correct Positioning, Disease Process, Safety Issues Teaching Recipient: Patient Teaching Methods: Discussion Response to Teaching: Reinforcement Needed Time Time In: 0900 ((1145)) Time Out: 1000 ((1200)) DATE: Feb 03, 2023 Total Billed Treatment Time: 75 Total Billed Treatment Co-treat w/OT for 45m (8067-0713), Ind. 4724-3495 1, GT x2 (30m) & FA x2 (30m) [id number]: 1, FA (15m) USMAN SIEGEL PTA Feb 03, 2023 12:16
[2023-02-03] MEDS: IRON SUCROSE 200 MG/10 ML VIAL IV SCH (12:50)
[2023-02-03] MEDS: CHOLESTYRAMINE LITE 4 GM PACKET PO SCH ×2 (13:53→17:08)
--- NOTE | 2023-02-03 14:32 | Speech Therapy Daily Note ---
Speech Daily Progress Note Subjective Date Seen by Provider: Feb 03, 2023 Time Seen by Provider: 13:00 The pt was awake and alert, cooperative throughout session. Objective The pt completed functional verbal mathematical problem solving with 80% accuracy independently for low-complexity problems. Complexity was minimally advanced, with decrease in accuracy and need for increased cues/assistance. The pt had refused lunch, did consent to eat .5 chicken tenders. Mastication was mildly inefficient, likely due to dentures. Liquid swallows appeared safe and efficient, without throat clear or other indicators of penetration or aspiration. Assessment Assessment Current Status: Fair Progress Treatment Plan Continue Plan of Care Speech Grit Blaster Goals Mcc Goals The pt will complete simple functional verbal problem solving with 70% accuracy. The pt will increase participation in conversational turn-taking. Speech-Plan Treatment Plan Speech Therapy Treatment Plan: Continue Plan of Care Treatment Duration: Jan 31, 2023 Frequency: At least 5 of 7 days/Wk (IRF) Estimated Hrs Per Day: .5 hour per day Rehab Potential: Fair Time Speech Therapy Time In: 13:00 Speech Therapy Time Out: 13:45 DATE: Feb 03, 2023 Total Billed Time: 45 Billed Treatment Time 1 SLTS (45 min) DARLIN FLOWERS Feb 03, 2023 14:32
[2023-02-03 17:14] VITALS: BP 127/60
[2023-02-03] MEDS: oxyCODONE IMMEDIATE RELEASE 5 MG TABLET PO PRN (17:59)
[2023-02-03 19:58] VITALS: BP 107/39
[2023-02-03] MEDS: ENOXAPARIN 30 MG/0.3 ML SYRINGE SC SCH (21:09)
[2023-02-03] MEDS: LIDOCAINE PATCH REMOVAL TP SCH (21:15)
[2023-02-03] MEDS: CATHETER FLUSH 10 ML SYR IVP SCH (22:03)
[2023-02-04] MEDS: THERAPEUTIC MULTIVITAMIN W/MINERALS TABLET PO SCH (06:58)
[2023-02-04] MEDS: ACETAMINOPHEN 500 MG TABLET PO SCH ×3 (06:58→21:33)
[2023-02-04] MEDS: THIAMINE 100 MG (VITAMIN B-1) TAB PO SCH (06:58)
[2023-02-04] MEDS: VANCOMYCIN 125 MG CAPSULE PO SCH (06:58)
[2023-02-04] MEDS: CATHETER FLUSH 10 ML SYR IVP SCH ×3 (06:58→20:47)
[2023-02-04 08:00] VITALS: BP 119/59
[2023-02-04] MEDS: LINEZOLID 600 MG TABLET PO SCH ×2 (08:25→20:47)
[2023-02-04] MEDS: LACTOBACILLUS ACIDOPHILUS (PROBIOTIC) CAPSULE PO SCH ×3 (08:25→18:21)
[2023-02-04] MEDS: CYANOCOBALAMIN 1,000 MCG TABLET PO SCH (08:26)
[2023-02-04] MEDS: PANTOPRAZOLE 40 MG TABLET PO SCH (08:26)
[2023-02-04] MEDS: FOLIC ACID 1 MG TAB PO SCH (08:26)
[2023-02-04] MEDS: LIDOCAINE 4% PATCH TOP SCH (08:29)
[2023-02-04] MEDS: MEGESTROL 400 MG/10 ML PO SCH (08:31)
[2023-02-04] MEDS: MAGNESIUM OXIDE 400 MG TABLET PO SCH ×2 (08:34→20:47)
[2023-02-04] MEDS: DOCUSATE SODIUM 100 MG CAPSULE PO SCH ×2 (08:34→20:45)
[2023-02-04] MEDS: SENNOSIDES 8.6 MG TABLET PO SCH ×2 (08:36→20:45)
[2023-02-04] MEDS: CHOLESTYRAMINE LITE 4 GM PACKET PO SCH ×3 (08:45→18:22)
[2023-02-04] MEDS ORDERED: VITAMIN D2 1.25 MG (50,000 UNITS) CAP PO SCH (09:00)
--- NOTE | 2023-02-04 10:24 | Occupational Ther Daily Note ---
OT Current Status-Daily Note Subjective Pt required max encouragement throughout tx to participate. He declined completing ADLs on this date. Mental Status/Objective Patient Orientation: Person, Place, Time, Situation Attachments: Oxygen (2L) ADL-Treatment Therapy Code Descriptions/Definitions Functional [place] Measure: 0=Not Assessed/NA 4=Minimal Assistance 1=Total Assistance 5=Supervision or Setup 2=Maximal Assistance 6=Modified [place] 3=Moderate Assistance 7=Complete IndependenceSCALE: Activities may be completed with or without assistive devices. 2-Sthkoijvhb-zeivxlv completes the activity by him/herself with no assistance from a helper. 5-Set-up or Clean-up Assistance-helper sets up or cleans up; patient completes activity. [place] assists only prior to or following the activity. 4-Supervision or Touching Assistance-helper provides verbal cues and/or touching/steadying and/or contact guard assistance as patient completes activity. Assistance may be provided throughout the activity or intermittently. 3-Partial/Moderate Assistance-helper does LESS THAN HALF the effort. [place] lifts, holds or supports trunk or limbs, but provides less than half the effort. 2-Substantial/Maximal Assistance-helper does MORE THAN HALF the effort. [place] lifts or holds trunk or limbs and provides more than half the effort. 1-Diludqdrv-ffwqwn does ALL the effort. Patient does none of the effort to complete the activity. Or, the assistance of 2 or more helpers is required for the patient to complete the activity. If activity was not attempted, code reason: 7-Patient Refused. 9-Not Applicable-not attempted and the patient did not perform the activity before the current illness, exacerbation or injury. 10-Not Attempted due to Environmental Limitations-(lack of equipment, weather restraints, etc.). 88-Not Attempted due to Medical Conditions or Safety Concerns. Other Treatment [id number]: OT Tx. Pt in recliner, OT offered pt choice between ADLs and UE exercises. Pt declined ADLs at this time, preferring to complete UE exercises. Pt c/o dry mouth, OT gathered fresh ice water for pt. When OT handed pt cup, pt asked "what is this for", OT informed pt that he had asked for the cup of water due to dry mouth. Pt able to take 1 small drink, then returned cup to OT. [id number]: OT/SUPERINTENDENT COMMUNICATIONS cotreat due to skill of 2 clinicians required which a electromedical equipment technician could not perform in order to coordinate UE function with cognitive aspect. OT focused on UE placement, cues for correct technique, while SUPERINTENDENT COMMUNICATIONS focused on cognitive component of task. Pt completed 5/5 theraband exercises using moderate resistance band, x10 reps each (no band used with R shoulder exercises - shoulder flexion and horizontal abduction - due to increased pain reported). Pt performed dual task of exercises while completing verbal mathematical problems. [id number] OT/PT cotreat due to skill of 2 clinicians required which a electromedical equipment technician could not perform in order to coordinate UE/LEs, decrease fall risk, and due to pt's limitations in strength, activity tolerance, mobility/transfers. OT focused on UE placement, cues for sequencing and safety and ADLs, PT focused on LE placement, gross overall movement, transfers and mobility. Pt performed functional mobility using FWW 40', 56', and 66', assist with O2 management and w/c follow. Pt required max encouragement to complete each round of mobility, and to attempt to go further distances. Pt would stop walking, and state "I have to sit down", and he would not listen to therapists encouragement to go further. Pt states he has trouble breathing, requiring him to sit down, O2 saturation at 96% and pt did not show physical signs of labored breathing during mobility. Pt often requests to return to room, stating he is unable to participate further in tx. Education provided on expectations of the rehab unit, and encouragement to participate in order to reach goal of returning home with spouse, he verbalized understanding, but still wants to return to his room. When asked if he is refusing further therapy, he replied "no", requiring further education and max encouragement to continue participating in tx. Post tx, pt in w/c with PT, all needs met. Education OT Patient Education: Correct positioning, Energy conservation, Modified ADL techniques, Progress toward Goal/Update tx plan, Purpose of tx/functional activities, Rehab process Teaching Recipient: Patient Teaching Methods: Discussion Response to Teaching: Verbalize Understanding OT Senior Living Goals Staging Technician Goals Time Frame: Feb 14, 2023 Acute change in mental status: 1 Inattention: 1 Disorganized thinkin Altered level of consciousness: 0 Eating (QC): 6 Oral Hygiene (QC): 6 Toileting Hygiene (QC): 6 Shower/Bathe Self (QC): 4 Upper Body Dressing (QC): 5 Lower Body Dressing (QC): 5 On/Off Footwear (QC): 5 Additional Goals: 1-Demonstrate ADL Tasks, 2-Verbalize Understanding, 3- ImproveStrength/Carlotta 1=Demonstrate adherence to instructed precautions during ADL tasks. 2=Patient will verbalize/demonstrate understanding of assistive devices/modifications for ADL. 3=Patient will improve strength/tolerance for activity to enable patient to perform ADL's. OT Education/Plan Problem List/Assessment Assessment: Decreased Activ Tolerance, Decreased UE Strength, Impaired Funct Balance, Impaired I ADL's, Impaired Self-Care Skills Discharge Recommendations Plan/Recommendations: Continue POC Treatment Plan/Plan of Care Patient would benefit from OT for education, treatment and training to promote independence in ADL's, mobility, safety and/or upper extremity function for ADL's. Plan of Care: ADL Retraining, Functional Mobility, Group Exercise/Act as Ind, UE Funct Exercise/Act Treatment Duration: Feb 14, 2023 Frequency: At least 5 of 7 days/Wk (IRF) Estimated Hrs Per Day: 1.5 hours per day Rehab Potential: Fair Time Start Time: 08:45 Stop Time: 10:00 DATE: Feb 04, 2023 Total Time Billed (hr/min): 75 Billed Treatment Time [id number] OT tx x15', [id number] cotreat with SUPERINTENDENT COMMUNICATIONS 15', 0665-0317 Cotreat with PT 45' 1, EX 2 (30'), FA 3 (45') MUKUND RUEDA OT Feb 04, 2023 10:24
--- NOTE | 2023-02-04 10:25 | PM&R Progress Note ---
Subjective HPI/CC On Admission Date Seen by Provider: Feb 04, 2023 Time Seen by Provider: 10:30 Subjective/Events-last exam 02/04/2023: Patient doing well Participation is pretty good today Starting on antidepressant Still very frail C. difficile was negative 02/03/2023: Somewhat ok today but diarrhea really depleting him Family at bedside Needs constant encouragement to participate No pain 02/02/2023: Doing well Elevated wbc noted but no evidence of worsened infection Suspect CLL so will order smear and [facility] from [place] are here visiting at bedside 02/01/2023: Doing well Much better participation Labs rechecking tomorrow Zyvox maintained 01/31/2023: Patient doing a lot better Initially refused therapy this morning and therapist talked to him about residential placement He appears to be willing to work with therapy now 01/30/2023: Patient doing well at bedside Reviewed meds and labs Shifting antibiotics to Zyvox p.o. Iron deficiency will require IV iron infusion Monitoring closely Review of Systems General: Fatigue, Malaise Objective Exam Vital Signs Vital Signs Date Time Temp Pulse Resp B/P (MAP) Pulse Ox O2 Delivery O2 Flow Rate FiO2 02/04/23 10:28 Nasal Cannula 2.00 02/04/23 08:00 36.6 89 17 119/59 (79) 95 02/01/23 19:28 21 Capillary Refill : General Appearance: No Apparent Distress, WD/WN, Chronically ill, Thin HEENT: PERRL/EOMI, Normal ENT Inspection, Pharynx Normal Neck: Full Range of Motion, Normal Inspection, Non Tender, Supple, Carotid Bruit Respiratory: Chest Non Tender, No Accessory Muscle Use, No Respiratory Distress, Decreased Breath Sounds, Rales, Wheezing Cardiovascular: Regular Rate, Rhythm, No Edema, No Gallop, No JVD, No Murmur, Normal Peripheral Pulses Gastrointestinal: Normal Bowel Sounds, No Organomegaly, No Pulsatile Mass, Non Tender, Soft Back: Normal Inspection, No CVA Tenderness, No Vertebral Tenderness Extremity: Normal Capillary Refill, Normal Inspection, Normal Range of Motion, Non Tender, No Calf Tenderness, No Pedal Edema Neurologic/Psychiatric: Alert, Oriented x3, tread booker II-XII Norm as Tested, Abnormal Gait, Depressed Affect, Motor Weakness (Generalized all extremities 4/5) Skin: Normal Color, Warm/Dry Lymphatic: No Adenopathy Results/Procedures Lab Patient resulted labs reviewed. FIM Transfers Therapy Code Descriptions/Definitions Functional [place] Measure: 0=Not Assessed/NA 4=Minimal Assistance 1=Total Assistance 5=Supervision or Setup 2=Maximal Assistance 6=Modified [place] 3=Moderate Assistance 7=Complete IndependenceSCALE: Activities may be completed with or without assistive devices. 8-Gaeegtrxmi-fyangcg completes the activity by him/herself with no assistance from a helper. 5-Set-up or Clean-up Assistance-helper sets up or cleans up; patient completes activity. [place] assists only prior to or following the activity. 4-Supervision or Touching Assistance-helper provides verbal cues and/or touching/steadying and/or contact guard assistance as patient completes activity. Assistance may be provided throughout the activity or intermittently. 3-Partial/Moderate Assistance-helper does LESS THAN HALF the effort. [place] lifts, holds or supports trunk or limbs, but provides less than half the effort. 2-Substantial/Maximal Assistance-helper does MORE THAN HALF the effort. [place] lifts or holds trunk or limbs and provides more than half the effort. 8-Mebdnvcxz-tlbonl does ALL the effort. Patient does none of the effort to complete the activity. Or, the assistance of 2 or more helpers is required for the patient to complete the activity. If activity was not attempted, code reason: 7-Patient Refused. 9-Not Applicable-not attempted and the patient did not perform the activity before the current illness, exacerbation or injury. 10-Not Attempted due to Environmental Limitations-(lack of equipment, weather restraints, etc.). 88-Not Attempted due to Medical Conditions or Safety Concerns. Roll Left to Right (QC): 4 (with multiple cues to complete and bedrail provided.) Sit to Lying (QC): 4 Sit to Stand (QC): 4 Chair/Zkk-hj-Chxkf Xfer(QC): 3 (Min (A) with FWW /c safety cues) Car Transfer (QC): 3 (Min (A) to lift one leg in/out of car) Gait Training Does the Patient Walk?: Yes Distance: 50', 20', 65' Walk 10 feet (QC): 4 Walk 50 ft with 2 Turns(QC): 4 Walk 150 ft (QC): 88 ( due to endurance deficits/weakness) Walking 10ft/uneven surface-QC: 1 (min (A) of 2 person assist with w/c backup and IV management) Gait Persons Needed: 1 Gait Assistive Device: FWW Wheelchair Training Does the Pt Use a Wheelchair?: Yes Wheel 50 ft with 2 turns (QC): 4 Wheel 150 ft (QC): 9 Type of Wheelchair: Manual Stair Training Stair Training: Handrails/: 2 handrails #of Steps: 3 1 Step (curb) (QC): 4 4 Steps (QC): 88 (fatigue, weakness) 12 Steps (QC): 88 Stairs: Pattern: Step to Balance Picking up an Object (QC): 1 (patient attempted and unable to reach floor and maintain balance.) ADL-Treatment Eating (QC): 5 Oral Hygiene (QC): 5 Shower/Bathe Self (QC): 4 (Pt completed showering sitting on shower chair with supervision for safety. Pt requiring encouragment for thouroughness throughout shower. ) Upper Body Dressing (QC): 5 Lower Body Dressing (QC): 3 (Pt requiring some assistance to thread feet through pants. Requiring encouragment to participate to his full potential, though with encouragment performed LBD with min A. ) On/Off Footwear (QC): 3 (Pt donned and doffed socks with supervision, though required assistance to don his house slippers. ) Toileting Hygiene (QC): 4 (Encouragement to required to complete himself. Pt able to complete clothing management and hygiene.) Toilet Transfer (QC): 4 (supervision.) Assessment/Plan Assessment and Plan Assess & Plan/Chief Complaint Assessment: -Community Acquired PNA -L upper lung process -COPD exacerbation Fluticisone/Vilanterol -Anemia Hgb decreased to 7.5 (from 8.6) Protonics, occult blood stool sample, measure iron, B12 Consider transfusion if not improved -EtOH use disorder CIWA protocol, thiamine, ativan PRN, monitor for withdraw symptoms daily CIWA score -Hypercalcemia awaiting PTHRP, no signs of familial hypercalcemia -CKD fluids, daily BUN and Cr monitoring -L1 compression fx oxycodone, salonpas PRN Plan: PT and OT Aggressive care IV antibiotics Alcohol withdrawal protocol Monitor labs 01/30/2023: Supportive care Monitor closely 01/31/2023: Supportive care Aggressive therapy 02/01/2023: Monitor closely 02/02/2023: Check labs in am, suspect CLL 02/03/2023: Check C diff Empirically treat Increase participation in therapy 02/04/2023: Supportive care Monitor closely (1) Pneumonia (2) Low BMI Status: Acute (3) Community acquired pneumonia Status: Acute (4) Alcoholism Status: Acute (5) Elevated brain natriuretic peptide (BNP) level Status: Acute (6) THOMAS (acute kidney injury) Status: Acute (7) Generalized weakness Status: Acute (8) Dehydration Status: Acute (9) Malnutrition Status: Acute (10) Hypertension Status: Acute DARINEL CHESTER DO Feb 04, 2023 10:25
[2023-02-04] MEDS: CITALOPRAM 10 MG TABLET PO SCH (10:32)
[2023-02-04] MEDS: oxyCODONE IMMEDIATE RELEASE 5 MG TABLET PO PRN ×3 (10:36→20:47)
--- NOTE | 2023-02-04 11:07 | Speech Therapy Daily Note ---
Speech Daily Progress Note Subjective Date Seen by Provider: Feb 04, 2023 Time Seen by Provider: 09:00 ST/OT co-treat for dual tasking for functional exercise and cognitive treatment. The pt had good participation with frequent breaks needed. Objective The pt was able to complete divided attention tasks of numeric sequences of varying complexity with 80% accuracy while completing functional upper body strengthening exercise. Alternating attention within a cognitive task coupled with dual task of UE exercise was completed with mod assist throughout to track attention to each element of attention task. Mathematical problem solving was at 90% accuracy. Assessment Assessment Current Status: Fair Progress Treatment Plan Continue Plan of Care Speech President/Gm Production & Live Experiences Goals Mcc Goals The pt will complete simple functional verbal problem solving with 70% accuracy. The pt will increase participation in conversational turn-taking. Speech-Plan Treatment Plan Speech Therapy Treatment Plan: Continue Plan of Care Treatment Duration: Jan 31, 2023 Frequency: At least 5 of 7 days/Wk (IRF) Estimated Hrs Per Day: .5 hour per day Rehab Potential: Fair Barriers to Learning: Depression, low motivation to participate, decreased PO intake overall Time Speech Therapy Time In: 09:00 Speech Therapy Time Out: 09:15 DATE: Feb 04, 2023 Total Billed Time: 15 Billed Treatment Time OT/ST cotx [id number] (15 min) 1 DARLIN DAMON Feb 04, 2023 11:07
--- NOTE | 2023-02-04 11:55 | Progress Note ---
AFRICA MACKENZIE 02/04/23 1155: Progress Note 77 year old male, here for recovery from CAP, treated previously with cefepime and azithromycin, now currently on vancomycin and linezolid. The patient has had recent complications with diarrhea which is C Diff negative. He has had a persistent lymphocytosis during his stay with a WBC of 18.9, but has a left upper lobe mass that is a questionable neoplastic process. His ADLs have remained from 3-5 on the therapeutic index throughout his stay, however he needs encouragement to do any activity and can't walk without assistance. He has a Hgb of 7 and Hct of 22 which has been stable during his stay. His vitals have been stable with slight hypotension of 119/59 being typical. DARLIN CHESTER DO 02/04/232049: Supervisory-Addendum Brief Verification & Attestation Participated in pt care: history, MDM, physical Personally performed: exam, history, MDM, supervision of care Care discussed with: Medical Student Procedures: n/a Results interpretation: Verified all documentation Verification and Attestation of Medical Student E/M Service A medical student performed and documented this service in my presence. I reviewed and verified all information documented by the medical student and made modifications to such information, when appropriate. I personally performed the physical exam and medical decision making. Darlin Chester, Feb 04, 2023,20:50 AFRICA MACKENZIE Feb 04, 2023 11:55 DARLIN CHESTER DO Feb 04, 2023 20:50
--- NOTE | 2023-02-04 13:53 | Speech Therapy Daily Note ---
Speech Daily Progress Note Subjective Date Seen by Provider: Feb 04, 2023 Time Seen by Provider: 13:10 The pt was awake and alert, agreeable to therapy. Objective The pt had unfinished lunch tray at arrival, had eaten 1/2 of mashed potatoes and refused the rest of tray. He agreed to drink supplement and a cookie, with minimal consumption in session. Recall of functional directions was targeted in session. The pt was given 5 hypothetical directions, encoding through repetition was completed. Recall for the directions was at 80% accuracy after 3- and 5- minute intervals. Assessment Assessment Current Status: Good Progress Treatment Plan Continue Plan of Care Speech Mcfp Goals Per Diem Goals The pt will complete simple functional verbal problem solving with 70% accuracy. The pt will increase participation in conversational turn-taking. Speech-Plan Treatment Plan Speech Therapy Treatment Plan: Continue Plan of Care Treatment Duration: Jan 31, 2023 Frequency: At least 5 of 7 days/Wk (IRF) Estimated Hrs Per Day: .5 hour per day Rehab Potential: Fair Safety Risks/Education Education Topics Provided: Discussed need for nutrition and PO intake. Pt reported lack of appetite affecting want to eat. Time Speech Therapy Time In: 13:10 Speech Therapy Time Out: 13:40 DATE: Feb 04, 2023 Total Billed Time: 30 Billed Treatment Time 1 SLTS (30 min) DARLIN FLOWERS Feb 04, 2023 13:53
--- NOTE | 2023-02-04 14:00 | Physical Therapy Daily Note ---
PT Daily Note-Current Subjective Pt required max encouragement throughout tx to participate. Pt reported B feet and mid-back pain at 6/10. Pain Numeric Pain Scale: 6 Location Body Site: Back Section J - Health Conditions 1. Rarely or not at all 2. Occasionally 3. Frequently 4. Almost constantly 8. Unable to answer Pain Effect on Sleep: 1 Pain Interference with Therapy: 2 Pain Interference w/Day-to-Day: 1 Mental Status Attachments: Oxygen (2L ) Transfers SCALE: Activities may be completed with or without assistive devices. 5-Rqxuhptlid-srwfhmz completes the activity by him/herself with no assistance from a helper. 5-Set-up or Clean-up Assistance-helper sets up or cleans up; patient completes activity. [place] assists only prior to or following the activity. 4-Supervision or Touching Assistance-helper provides verbal cues and/or touching/steadying and/or contact guard assistance as patient completes activity. Assistance may be provided throughout the activity or intermittently. 3-Partial/Moderate Assistance-helper does LESS THAN HALF the effort. [place] lifts, holds or supports trunk or limbs, but provides less than half the effort. 2-Substantial/Maximal Assistance-helper does MORE THAN HALF the effort. [place] lifts or holds trunk or limbs and provides more than half the effort. 1-Cbgxppgkc-xwsral does ALL the effort. Patient does none of the effort to complete the activity. Or, the assistance of 2 or more helpers is required for the patient to complete the activity. If activity was not attempted, code reason: 7-Patient Refused. 9-Not Applicable-not attempted and the patient did not perform the activity before the current illness, exacerbation or injury. 10-Not Attempted due to Environmental Limitations-(lack of equipment, weather restraints, etc.). 88-Not Attempted due to Medical Conditions or Safety Concerns. Sit to Lying (QC): 4 Sit to Stand (QC): 4 Weight Bearing Right Lower Extremity: Right Full Weight Bearing Left Lower Extremity: Left Full Weight Bearing Gait Training Does the Patient Walk?: Yes Walk 10 feet (QC): 4 Walk 50 ft with 2 Turns(QC): 4 Walk 150 ft (QC): 7 Gait Persons Needed: 1 Gait Assistive Device: FWW Wheelchair Training Does the Pt Use a Wheelchair?: Yes Wheel 50 ft with 2 turns (QC): 4 Type of Wheelchair: Manual Treatments PT/OT co-tx from [id number], due to skill of 2 clinicians required which a occupational rehabilitation aide could not perform in order to coordinate UE/LEs, decrease fall risk, and due to pt's limitations in strength, activity tolerance, mobility/transfers. PT focused on LE placement, gross overall movement, transfers and mobility. OT focused on UE placement, cues for sequencing and safety and ADLs. Pt completed functional transfers with CGA. Pt ambulated 40ft, 56ft, and 66ft with the FWW and CGA, assist with O2 management and w/c follow. Pt required max encouragement to complete each round of walking, and to attempt to go further distances. Pt would stop walking, and state "I have to sit down", and he would not listen to the encouragement from the PT/OT to go further. Pt states he has trouble breathing, requiring him to sit down, O2 saturation at 96% and pt did not show physical signs of labored breathing during mobility. Pt often requests to return to room, stating he is unable to participate further in tx. Education provided on expectations of the rehab unit, and encouragement to participate in order to reach goal of returning home with spouse, he verbalized understanding, but still wants to return to his room. When asked if he is refusing further therapy, he replied "no", requiring further education and max encouragement to continue participating in tx. Pt completed w/c mobility x 110ft with SBA. Pt completed seated B LE Ther Ex x 15 reps each with the red Tband. Pt completed sit > supine with SBA. Pt required v/c and encouragement to complete all tasks. After treatment session, pt was lying in bed with call light in reach and all needs met. Assessment Current Status: Fair Progress Pt is very self-limiting PT Filter Changer Goals Filter Changer Goals PT Filter Changer Goals Time Frame: Feb 12, 2023 Roll Left & Right (QC): 6 Sit to Lying (QC): 6 Lying-Sitting on Side/Bed(QC): 6 Sit to Stand (QC): 5 Chair/Aqk-up-Syjvo Xfer(QC): 5 Toilet Transfer (QC): 5 Car Transfer (QC): 5 Does the Patient Walk: Yes Walk 10 feet (QC): 5 (/c FWW and O2 assist if necessary) Walk 50ft with 2 Turns (QC): 5 (/c FWW and O2 assist if necessary) Walk 150 ft (QC): 5 (/c FWW and O2 assist if necessary) Walking 10ft on Uneven Surface: 5 (/c FWW and O2 assist if necessary) 1 Step (curb) (QC): 5 (O2 assist if necessary) 4 Steps (QC): 5 (/c railings, O2 assist if necessary) 12 Steps (QC): 5 (O2 (A) if necessary) Picking up an Object (QC): 5 (/c lead nurse) Does the Pt use WC or Scooter?: No Wheel 50 feet with 2 turns (QC: 9 Wheel 150 feet: 9 PT Plan Problem List Problem List: Activity Tolerance, Functional Strength, Safety, Balance, Gait, Transfer, Bed Mobility, ROM Treatment/Plan Treatment Plan: Continue Plan of Care Treatment Plan: Bed Mobility, Concurrent Therapy, Education, Functional Activity Carlotta, Functional Strength, Group Therapy, Gait, Safety, Therapeutic Exercise, Transfers Treatment Duration: Feb 12, 2023 Frequency: At least 5 of 7 days/Wk (IRF) Estimated Hrs Per Day: 1.5 hours per day Patient and/or Family Agrees t: Yes Safety Risks/Education Patient Education: Gait Training, Transfer Techniques, Correct Positioning, W/C Management, Safety Issues Teaching Recipient: Patient Teaching Methods: Demonstration, Discussion Response to Teaching: Reinforcement Needed Discharge Recommendations Therapy Discharge Recommendati: Home & Family, Post Acute PT Equpiment Recommendations-D/C: None Discharge Status/Home Program Cont per POC Barriers to Progress self-limiting, strength, endurance Target Placement Home with family Time Time In: 915 Time Out: 1030 DATE: Feb 04, 2023 Total Billed Treatment Time: 75 Total Billed Treatment 75 min total from [id number]; 45 min co-tx from [id number] 1 visit EX x 1 GT x 2 FA x 2 MARIA T SCOTT PT Feb 04, 2023 14:00
[2023-02-04 20:00] VITALS: BP 106/54
[2023-02-04] MEDS: LIDOCAINE PATCH REMOVAL TP SCH (20:45)
[2023-02-04] MEDS: ENOXAPARIN 30 MG/0.3 ML SYRINGE SC SCH (20:46)
[2023-02-05] VITALS (8 sets, daily range): BP systolic 107–138; BP diastolic 52–77
--- NOTE | 2023-02-05 05:14 | PM&R Progress Note ---
Subjective HPI/CC On Admission Date Seen by Provider: Feb 05, 2023 Time Seen by Provider: 12:30 Subjective/Events-last exam 02/05/2023: Receiving 2 units of blood due to severe anemia of 6.3 Retic count ordered Iron infusions maintained DC planned for tomorrow Poor compliance with therapy O2 ordered for DC 02/04/2023: Patient doing well Participation is pretty good today Starting on antidepressant Still very frail C. difficile was negative 02/03/2023: Somewhat ok today but diarrhea really depleting him Family at bedside Needs constant encouragement to participate No pain 02/02/2023: Doing well Elevated wbc noted but no evidence of worsened infection Suspect CLL so will order smear and [facility] from [place] are here visiting at bedside 02/01/2023: Doing well Much better participation Labs rechecking tomorrow Zyvox maintained 01/31/2023: Patient doing a lot better Initially refused therapy this morning and therapist talked to him about alf placement He appears to be willing to work with therapy now 01/30/2023: Patient doing well at bedside Reviewed meds and labs Shifting antibiotics to Zyvox p.o. Iron deficiency will require IV iron infusion Monitoring closely Review of Systems General: Fatigue, Malaise Objective Exam Vital Signs Vital Signs Date Time Temp Pulse Resp B/P (MAP) Pulse Ox O2 Delivery O2 Flow Rate FiO2 02/05/23 16:55 36.6 65 18 129/71 Nasal Cannula 2.00 02/05/23 13:43 96 02/01/23 19:28 21 Capillary Refill : General Appearance: No Apparent Distress, WD/WN, Chronically ill, Thin HEENT: PERRL/EOMI, Normal ENT Inspection, Pharynx Normal Neck: Full Range of Motion, Normal Inspection, Non Tender, Supple, Carotid Bruit Respiratory: Chest Non Tender, No Accessory Muscle Use, No Respiratory Distress, Decreased Breath Sounds, Rales, Wheezing Cardiovascular: Regular Rate, Rhythm, No Edema, No Gallop, No JVD, No Murmur, Normal Peripheral Pulses Gastrointestinal: Normal Bowel Sounds, No Organomegaly, No Pulsatile Mass, Non Tender, Soft Back: Normal Inspection, No CVA Tenderness, No Vertebral Tenderness Extremity: Normal Capillary Refill, Normal Inspection, Normal Range of Motion, Non Tender, No Calf Tenderness, No Pedal Edema Neurologic/Psychiatric: Alert, Oriented x3, typer II-XII Norm as Tested, Abnormal Gait, Depressed Affect, Motor Weakness (Generalized all extremities 4/5) Skin: Normal Color, Warm/Dry Lymphatic: No Adenopathy Results/Procedures Lab Laboratory Tests 02/05/23 05:30 Patient resulted labs reviewed. FIM Transfers Therapy Code Descriptions/Definitions Functional [place] Measure: 0=Not Assessed/NA 4=Minimal Assistance 1=Total Assistance 5=Supervision or Setup 2=Maximal Assistance 6=Modified [place] 3=Moderate Assistance 7=Complete IndependenceSCALE: Activities may be completed with or without assistive devices. 2-Xgcpodtdyr-vkjiiaq completes the activity by him/herself with no assistance from a helper. 5-Set-up or Clean-up Assistance-helper sets up or cleans up; patient completes activity. [place] assists only prior to or following the activity. 4-Supervision or Touching Assistance-helper provides verbal cues and/or touching/steadying and/or contact guard assistance as patient completes activity. Assistance may be provided throughout the activity or intermittently. 3-Partial/Moderate Assistance-helper does LESS THAN HALF the effort. [place] lifts, holds or supports trunk or limbs, but provides less than half the effort. 2-Substantial/Maximal Assistance-helper does MORE THAN HALF the effort. [place] lifts or holds trunk or limbs and provides more than half the effort. 0-Jmfuahsbo-lyxunk does ALL the effort. Patient does none of the effort to co mplete the activity. Or, the assistance of 2 or more helpers is required for the patient to complete the activity. If activity was not attempted, code reason: 7-Patient Refused. 9-Not Applicable-not attempted and the patient did not perform the activity before the current illness, exacerbation or injury. 10-Not Attempted due to Environmental Limitations-(lack of equipment, weather restraints, etc.). 88-Not Attempted due to Medical Conditions or Safety Concerns. Roll Left to Right (QC): 4 (with multiple cues to complete and bedrail provided.) Sit to Lying (QC): 4 Sit to Stand (QC): 4 Chair/Ern-sl-Aqcsr Xfer(QC): 3 (Min (A) with FWW /c safety cues) Car Transfer (QC): 3 (Min (A) to lift one leg in/out of car) Gait Training Does the Patient Walk?: Yes Distance: 50', 20', 65' Walk 10 feet (QC): 4 Walk 50 ft with 2 Turns(QC): 4 Walk 150 ft (QC): 7 Walking 10ft/uneven surface-QC: 1 (min (A) of 2 person assist with w/c backup and IV management) Gait Persons Needed: 1 Gait Assistive Device: FWW Wheelchair Training Does the Pt Use a Wheelchair?: Yes Wheel 50 ft with 2 turns (QC): 4 Wheel 150 ft (QC): 9 Type of Wheelchair: Manual Stair Training Stair Training: Handrails/: 2 handrails #of Steps: 3 1 Step (curb) (QC): 4 4 Steps (QC): 88 (fatigue, weakness) 12 Steps (QC): 88 Stairs: Pattern: Step to Balance Picking up an Object (QC): 1 (patient attempted and unable to reach floor and maintain balance.) ADL-Treatment Eating (QC): 5 Oral Hygiene (QC): 5 Shower/Bathe Self (QC): 4 (Pt completed showering sitting on shower chair with supervision for safety. Pt requiring encouragment for thouroughness throughout shower. ) Upper Body Dressing (QC): 5 Lower Body Dressing (QC): 3 (Pt requiring some assistance to thread feet through pants. Requiring encouragment to participate to his full potential, though with encouragment performed LBD with min A. ) On/Off Footwear (QC): 3 (Pt donned and doffed socks with supervision, though required assistance to don his house slippers. ) Toileting Hygiene (QC): 4 (Encouragement to required to complete himself. Pt able to complete clothing management and hygiene.) Toilet Transfer (QC): 4 (supervision.) Assessment/Plan Assessment and Plan Assess & Plan/Chief Complaint Assessment: -Community Acquired PNA -L upper lung process -COPD exacerbation Fluticisone/Vilanterol -Anemia Hgb decreased to 7.5 (from 8.6) Protonics, occult blood stool sample, measure iron, B12 Consider transfusion if not improved -EtOH use disorder CIWA protocol, thiamine, ativan PRN, monitor for withdraw symptoms daily CIWA score -Hypercalcemia awaiting PTHRP, no signs of familial hypercalcemia -CKD fluids, daily BUN and Cr monitoring -L1 compression fx oxycodonisaiah morton PRN Severe anemia requiring iron infusions and 2 units of blood Plan: PT and OT Aggressive care IV antibiotics Alcohol withdrawal protocol Monitor labs 01/30/2023: Supportive care Monitor closely 01/31/2023: Supportive care Aggressive therapy 02/01/2023: Monitor closely 02/02/2023: Check labs in am, suspect CLL 02/03/2023: Check C diff Empirically treat Increase participation in therapy 02/04/2023: Supportive care Monitor closely 02/05/2023: Transfuse 2 units DC tomorrow Prognosis very guarded to fair (1) Pneumonia (2) Low BMI Status: Acute (3) Community acquired pneumonia Status: Acute (4) Alcoholism Status: Acute (5) Elevated brain natriuretic peptide (BNP) level Status: Acute (6) THOMAS (acute kidney injury) Status: Acute (7) Generalized weakness Status: Acute (8) Dehydration Status: Acute (9) Malnutrition Status: Acute (10) Hypertension Status: Acute DARINEL CHESTER DO Feb 05, 2023 05:14
[2023-02-05 05:38] LABS: BASOPHILS # (AUTO) 0.1 10^3/uL (0.0-0.1); BASOPHILS % (AUTO) 0 % (0-10); EOSINOPHILS # (AUTO) 0.2 10^3/uL (0.0-0.3); EOSINOPHILS % (AUTO) 1 % (0-10); LYMPHOCYTES # (AUTO) 1.7 10^3/uL (1.0-4.0); LYMPHOCYTES % (AUTO) 8 % (12-44); MEAN CORPUSCULAR HEMOGLOBIN 30 pg (25-34); MEAN CORPUSCULAR HGB CONC 32 g/dL (32-36); MEAN CORPUSCULAR VOLUME 95 fL (80-99); MEAN PLATELET VOLUME 10.5 fL (9.0-12.2); MONOCYTES # (AUTO) 1.1 10^3/uL (0.0-1.0); MONOCYTES % (AUTO) 5 % (0-12); NEUTROPHILS # (AUTO) 18.8 10^3/uL (1.8-7.8); NEUTROPHILS % (AUTO) 85 % (42-75); PLATELET COUNT 292 10^3/uL (130-400); WHITE BLOOD COUNT 22.1 10^3/uL (4.3-11.0)
[2023-02-05 05:50] LABS: HEMATOCRIT 20 % (40-54); HEMOGLOBIN 6.3 g/dL (13.3-17.7)
[2023-02-05 06:00] LABS: ALBUMIN 1.9 GM/DL (3.2-4.5); BILIRUBIN,TOTAL 0.3 MG/DL (0.1-1.0); CALCIUM 8.8 MG/DL (8.5-10.1); CREATININE SERUM 1.61 MG/DL (0.60-1.30); POTASSIUM 4.4 MMOL/L (3.6-5.0); TOTAL PROTEIN 4.5 GM/DL (6.4-8.2)
[2023-02-05 06:14] LABS: RETICULOCYTE % 2.85 % (0.50-2.40)
[2023-02-05] MEDS ORDERED: NS IV 500 ML 500 ML IV SCH ×2 (06:15)
[2023-02-05] MEDS: THIAMINE 100 MG (VITAMIN B-1) TAB PO SCH (06:59)
[2023-02-05] MEDS: THERAPEUTIC MULTIVITAMIN W/MINERALS TABLET PO SCH (06:59)
[2023-02-05] MEDS: CATHETER FLUSH 10 ML SYR IVP SCH ×3 (07:00→21:25)
[2023-02-05] MEDS: ACETAMINOPHEN 500 MG TABLET PO SCH ×3 (07:00→21:24)
[2023-02-05] MEDS: CHOLESTYRAMINE LITE 4 GM PACKET PO SCH ×3 (08:00→18:33)
[2023-02-05] MEDS: LINEZOLID 600 MG TABLET PO SCH ×2 (08:49→21:25)
[2023-02-05] MEDS: CYANOCOBALAMIN 1,000 MCG TABLET PO SCH (08:49)
[2023-02-05] MEDS: PANTOPRAZOLE 40 MG TABLET PO SCH (08:49)
[2023-02-05] MEDS: MAGNESIUM OXIDE 400 MG TABLET PO SCH ×2 (08:49→21:25)
[2023-02-05] MEDS: FOLIC ACID 1 MG TAB PO SCH (08:50)
[2023-02-05] MEDS: LACTOBACILLUS ACIDOPHILUS (PROBIOTIC) CAPSULE PO SCH ×3 (08:50→18:32)
[2023-02-05] MEDS: IRON SUCROSE 200 MG/10 ML VIAL IV SCH (08:51)
[2023-02-05] MEDS: SENNOSIDES 8.6 MG TABLET PO SCH ×2 (09:05→21:30)
[2023-02-05] MEDS: DOCUSATE SODIUM 100 MG CAPSULE PO SCH ×2 (09:37→21:30)
[2023-02-05] MEDS: LIDOCAINE 4% PATCH TOP SCH (09:41)
[2023-02-05] MEDS: CITALOPRAM 10 MG TABLET PO SCH (09:41)
[2023-02-05] MEDS: MEGESTROL 400 MG/10 ML PO SCH (09:41)
--- NOTE | 2023-02-05 10:34 | Occ Therapy Progress Note ---
Therapy Progress Note Per Dr. Baptiste, pt is on medical hold on this date due to low Hgb of 6.3. OT will continue to monitor pt status and resume therapy when pt is more medically stable. MUKUND RUEDA OT Feb 05, 2023 10:34
[2023-02-05] MEDS: oxyCODONE IMMEDIATE RELEASE 5 MG TABLET PO PRN ×2 (11:29→18:33)
--- NOTE | 2023-02-05 11:42 | Physical Therapy Progress Note ---
Therapy Progress Note Per Dr. Baptiste, pt is on medical hold secondary to low Hgb: 6.3g/dl. Will continue to monitor pt status and resume PT when pt is more medically stable. BEREKET DYER MEASUREMENT OPERATOR Feb 05, 2023 11:42
--- NOTE | 2023-02-05 13:41 | Progress Note ---
AFR[place] MACKENZIE 02/05/23 1341: Progress Note 77 year old male, here for recovery from CAP, currently on treatment with vancomycin and linezolid. He has had a persistent lymphocytosis during his stay with a WBC of 18.9, but has a left upper lobe mass that is a questionable neoplastic process. Upon admission, he required minimal assistance to complete ADLs with the goal of treatment being to complete ADLs only with assistance setting up. Patient requires a lot of encouragement with completing ADLs and is currently unable to perform them due to low Hbg of 6.3 which required 2 units of blood. He is requesting to be moved to an outpatient rehab facility. DARLIN CHESTER DO 02/06/23 0426: Supervisory-Addendum Brief Verification & Attestation Participated in pt care: history, MDM, physical Personally performed: exam, history, MDM, supervision of care Care discussed with: Medical Student Procedures: n/a Results interpretation: Verified all documentation Verification and Attestation of Medical Student E/M Service A medical student performed and documented this service in my presence. I reviewed and verified all information documented by the medical student and made modifications to such information, when appropriate. I personally performed the physical exam and medical decision making. Darlin Chester, Feb 06, 2023,04:26 AFRICA MACKENZIE Feb 05, 2023 13:41 DARLIN CHESTER DO Feb 06, 2023 04:26
--- NOTE | 2023-02-05 13:57 | IRF PAI BIMS ---
BIMS CAM BIMS Expression of Ideas and Wants: Without Difficulty Understanding Verbal Content: Understands Brief Interview/Mental Status: Yes IRF AMINAH BIMS: IRF AMINAH BIMS Response (Comments) Value Repitition of Three Words Three 3 Recalls Socks Yes, After Cueing (Wear) 1 Recalls Blue Yes, No Cue Required 2 Recalls Bed Yes, After Cueing 1 Year Correct 3 Month Accurate Within 5 Days 2 Day Correct 1 Total 13 Patient Normally Able to Recal: Current Session, Location of own room, That he/she in a hsp Should Staff Asses. Mental St.: No Memory/Recall Ability: Current Season, Location of Own Room, That He/She in Hospit[facility] CAM Mental Status Change/Baseline: 0 Inattention: 0 Disorganized thinkin Altered level of consciousness: 0 COOPER DOMINGO Feb 05, 2023 13:56
--- NOTE | 2023-02-05 14:10 | Speech Therapy Progress Note ---
Therapy Progress Note Pt on hold for therapy per physician due to decreased medical status. DARLIN FLOWERS Feb 05, 2023 14:10
[2023-02-05] MEDS: ENOXAPARIN 30 MG/0.3 ML SYRINGE SC SCH (21:25)
[2023-02-05] MEDS: LIDOCAINE PATCH REMOVAL TP SCH (21:39)
[2023-02-06] MEDS ORDERED: OXC5T PO (04:59)
[2023-02-06] MEDS ORDERED: CITA10TA9 PO (04:59)
[2023-02-06] MEDS ORDERED: LACT1CAP7 PO (04:59)
[2023-02-06] MEDS ORDERED: MULT-1137 PO (04:59)
[2023-02-06] MEDS ORDERED: THIA100T80 PO (04:59)
[2023-02-06] MEDS ORDERED: PANT40TA52 PO (04:59)
[2023-02-06] MEDS ORDERED: LOPE2CAP PO (04:59)
--- NOTE | 2023-02-06 05:00 | Discharge Summary ---
Diagnosis/Chief Complaint Date of Admission Jan 29, 2023 at 13:50 Date of Discharge Discharge Date: Feb 06, 2023 Discharge Diagnosis Assessment: -Community Acquired PNA -L upper lung process -COPD exacerbation Fluticisone/Vilanterol -Anemia Hgb decreased to 7.5 (from 8.6) Protonics, occult blood stool sample, measure iron, B12 Consider transfusion if not improved -EtOH use disorder CIWA protocol, thiamine, ativan PRN, monitor for withdraw symptoms daily CIWA score -Hypercalcemia awaiting PTHRP, no signs of familial hypercalcemia -CKD fluids, daily BUN and Cr monitoring -L1 compression fx oxycodone, salonpas PRN Severe anemia requiring iron infusions and 2 units of blood Plan: PT and OT Aggressive care IV antibiotics Alcohol withdrawal protocol Monitor labs 01/30/2023: Supportive care Monitor closely 01/31/2023: Supportive care Aggressive therapy 02/01/2023: Monitor closely 02/02/2023: Check labs in am, 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 02/03/2023: Check C diff Empirically treat Increase participation in therapy 02/04/2023: Supportive care Monitor closely 02/05/2023: Transfuse 2 units DC tomorrow Prognosis very guarded to fair (1) Pneumonia (2) Low BMI Status: Acute (3) Community acquired pneumonia Status: Acute (4) Alcoholism Status: Acute (5) Elevated brain natriuretic peptide (BNP) level Status: Acute (6) THOMAS (acute kidney injury) Status: Acute (7) Generalized weakness Status: Acute (8) Dehydration Status: Acute (9) Malnutrition Status: Acute (10) Hypertension Status: Acute Discharge Summary Discharge Physical Examination Allergies: Coded Allergies: No Known Drug Allergies (Unverified , 03/22/22) Vitals & I&Os Vital Signs Date Time Temp Pulse Resp B/P (MAP) Pulse Ox O2 Delivery O2 Flow Rate FiO2 02/06/23 14:55 37.0 60 16 126/60 97 Nasal Cannula 2.00 02/01/23 19:28 21 Hospital Course Was the Problem List Reviewed?: Yes 77 year old male, here for recovery from CAP, currently on treatment with vancomycin and linezolid. He has had a persistent lymphocytosis during his stay with a WBC of 18.9, but has a left upper lobe mass that is a questionable neoplastic process. Upon admission, he required minimal assistance to complete ADLs with the goal of treatment being to complete ADLs only with assistance setting up. Patient requires a lot of encouragement with completing ADLs and is currently fatigued. He is somewhat improved after blood transfusion with a Hbg of 10. He is getting discharged today. MRSA PNA treated completed while inpatient and 2 units of blood resolved severe anemia of 6.2 and he was DC but poor prognosis assessed. Labs (last 24 hrs) Laboratory Tests 01/30/23 05:19: White Blood Count 15.7H, Red Blood Count 2.44L, Hemoglobin 7.3L, Hematocrit 24L, Mean Corpuscular Volume 96, Mean Corpuscular Hemoglobin 30, Mean Corpuscular Hemoglobin Concent 31L, Red Cell Distribution Width 15.0H, Platelet Count 344, Mean Platelet Volume 10.8, Immature Granulocyte % (Auto) 4, Neutrophils (%) (Auto) 79H, Lymphocytes (%) (Auto) 14, Monocytes (%) (Auto) 4, Eosinophils (%) (Auto) 0, Basophils (%) (Auto) 0, Neutrophils # (Auto) 12.4H, Lymphocytes # (Auto) 2.2, Monocytes # (Auto) 0.6, Eosinophils # (Auto) 0.0, Basophils # (Auto) 0.0, Immature Granulocyte # (Auto) 0.6H, Sodium Level 137, Potassium Level 5.1H, Chloride Level 111H, Carbon Dioxide Level 19L, Anion Gap 7, Blood Urea Nitrogen 36H, Creatinine 1.36H, Estimat Glomerular Filtration Rate 54, BUN/Creatinine Ratio 26, Glucose Level 110H, Calcium Level 9.6, Corrected Calcium 11.2H, Total Bilirubin 0.3, Aspartate Amino Transf (AST/SGOT) 28, Alanine Aminotransferase (ALT/SGPT) 19, Alkaline Phosphatase 113, Total Protein 4.8L, Albumin 2.0L 02/02/23 08:15: White Blood Count 22.8H, Red Blood Count 2.93L, Hemoglobin 8.9#L, Hematocrit 28L , Mean Corpuscular Volume 96, Mean Corpuscular Hemoglobin 30, Mean Corpuscular Hemoglobin Concent 32, Red Cell Distribution Width 15.4H, Platelet Count 395, Mean Platelet Volume 10.9, Immature Granulocyte % (Auto) 2, Neutrophils (%) (Auto) 81H, Lymphocytes (%) (Auto) 12, Monocytes (%) (Auto) 4, Eosinophils (%) (Auto) 1, Basophils (%) (Auto) 0, Neutrophils # (Auto) 18.4H, Lymphocytes # (Auto) 2.7, Monocytes # (Auto) 1.0, Eosinophils # (Auto) 0.3, Basophils # (Auto) 0.0, Immature Granulocyte # (Auto) 0.4H, Sodium Level 136, Potassium Level 4.5, Chloride Level 105, Carbon Dioxide Level 21, Anion Gap 10, Blood Urea Nitrogen 31H, Creatinine 1.69H, Estimat Glomerular Filtration Rate 42, BUN/Creatinine Ratio 18, Glucose Level 101, Calcium Level 9.7, Corrected Calcium 11.0H, Total Bilirubin 0.4, Aspartate Amino Transf (AST/SGOT) 19, Alanine Aminotransferase (ALT/SGPT) 20, Alkaline Phosphatase 116, Total Protein 5.5L, Albumin 2.4L, Neutrophils % (Manual) 90, Lymphocytes % (Manual) 9, Monocytes % (Manual) 1, Percent Immature Platelet Fraction 6.4, Hypochromasia SLIGHT, Anisocytosis SLIGH T, Absolute Reticulocyte Count 78, Percent Reticulocyte Count 2.65H, Lactate Dehydrogenase 187 02/03/23 05:46: White Blood Count 18.9H, Red Blood Count 2.33L, Hemoglobin 7.0L, Hematocrit 22L, Mean Corpuscular Volume 94, Mean Corpuscular Hemoglobin 30, Mean Corpuscular Hemoglobin Concent 32, Red Cell Distribution Width 15.4H, Platelet Count 336, Mean Platelet Volume 10.8, Immature Granulocyte % (Auto) 1, Neutrophils (%) (Auto) 83H, Lymphocytes (%) (Auto) 10L, Monocytes (%) (Auto) 5, Eosinophils (%) (Auto) 1, Basophils (%) (Auto) 0, Neutrophils # (Auto) 15.6H, Lymphocytes # (Auto) 2.0, Monocytes # (Auto) 0.9, Eosinophils # (Auto) 0.2, Basophils # (Auto) 0.0, Immature Granulocyte # (Auto) 0.2H, Sodium Level 133L, Potassium Level 4.2, Chloride Level 105, Carbon Dioxide Level 22, Anion Gap 6, Blood Urea Nitrogen 23H, Creatinine 1.54H, Estimat Glomerular Filtration Rate 47, BUN/Creatinine Ratio 15, Glucose Level 91, Calcium Level 8.7, Corrected Calcium 10.2H, Total Bilirubin 0.4, Aspartate Amino Transf (AST/SGOT) 16, Alanine Aminotransferase (ALT/SGPT) 16, Alkaline Phosphatase 102, Total Protein 4.4L, Albumin 2.1L 02/05/23 05:30: White Blood Count 22.1H, Red Blood Count 2.07L, Hemoglobin 6.3*L, Hematocrit 20*L, Mean Corpuscular Volume 95, Mean Corpuscular Hemoglobin 30, Mean Corpuscular Hemoglobin Concent 32, Red Cell Distribution Width 16.0H, Platelet C ount 292, Mean Platelet Volume 10.5, Immature Granulocyte % (Auto) 1, Neutrophils (%) (Auto) 85H, Lymphocytes (%) (Auto) 8L, Monocytes (%) (Auto) 5, Eosinophils (%) (Auto) 1, Basophils (%) (Auto) 0, Neutrophils # (Auto) 18.8H, Lymphocytes # (Auto) 1.7, Monocytes # (Auto) 1.1H, Eosinophils # (Auto) 0.2, Basophils # (Auto) 0.1, Immature Granulocyte # (Auto) 0.2H, Sodium Level 135, Potassium Level 4.4, Chloride Level 105, Carbon Dioxide Level 22, Anion Gap 8, Blood Urea Nitrogen 19H, Creatinine 1.61H, Estimat Glomerular Filtration Rate 44, BUN/Creatinine Ratio 12, Glucose Level 91, Calcium Level 8.8, Corrected Calcium 10.5H, Total Bilirubin 0.3, Aspartate Amino Transf (AST/SGOT) 12, Alanine Aminotransferase (ALT/SGPT) 11, Alkaline Phosphatase 93, Total Protein 4.5L, Albumin 1.9L 02/05/23 06:10: Red Blood Count 2.07L, Absolute Reticulocyte Count 59, Percent Reticulocyte Count 2.85H 02/06/23 05:30: Red Blood Count 3.31L, White Blood Count 22.5H, Hemoglobin 10.1#L, Hematocrit 30L, Mean Corpuscular Volume 91, Mean Corpuscular Hemoglobin 31, Mean Corpuscular Hemoglobin Concent 34, Red Cell Distribution Width 15.6H, Platelet Count 276, Mean Platelet Volume 10.4, Immature Granulocyte % (Auto) 1, Jade trophils (%) (Auto) 86H, Lymphocytes (%) (Auto) 7L, Monocytes (%) (Auto) 5, Eosinophils (%) (Auto) 1, Basophils (%) (Auto) 0, Neutrophils # (Auto) 19.5H, Lymphocytes # (Auto) 1.6, Monocytes # (Auto) 1.1H, Eosinophils # (Auto) 0.2, Basophils # (Auto) 0.1, Immature Granulocyte # (Auto) 0.2H, Sodium Level 132L, Potassium Level 4.4, Chloride Level 102, Carbon Dioxide Level 22, Anion Gap 8, Blood Urea Nitrogen 17, Creatinine 1.48H, Estimat Glomerular Filtration Rate 49, BUN/Creatinine Ratio 11, Glucose Level 84, Calcium Level 8.9, Corrected Calcium 10.5H, Total Bilirubin 0.7, Aspartate Amino Transf (AST/SGOT) 12, Alanine Aminotransferase (ALT/SGPT) 11, Alkaline Phosphatase 96, Total Protein 4.8L, Albumin 2.0L Microbiology 02/04/23 C. difficile GDH Antigen & Toxins - Final, Complete Pending Labs Microbiology Date/Time Source Procedure Growth Status 02/04/23 08:43 Stool C. difficile GDH Antigen & Toxins - Final Complete Laboratory Tests 01/30/23 05:19: White Blood Count 15.7, Red Blood Count 2.44, Hemoglobin 7.3, Hematocrit 24, Mean Corpuscular Volume 96, Mean Corpuscular Hemoglobin 30, Mean Corpuscular Hemoglobin Concent 31, Red Cell Distribution Width 15.0, Platelet Count 344, Mean Platelet Volume 10.8, Immature Granulocyte % (Auto) 4, Neutrophils (%) (Auto) 79, Lymphocytes (%) (Auto) 14, Monocytes (%) (Auto) 4, Eosinophils (%) (Auto) 0, Basophils (%) (Auto) 0, Neutrophils # (Auto) 12.4, Lymphocytes # (Auto) 2.2, Monocytes # (Auto) 0.6, Eosinophils # (Auto) 0.0, Basophils # (Auto) 0.0, Immature Granulocyte # (Auto) 0.6, Sodium Level 137, Potassium Level 5.1, Chloride Level 111, Carbon Dioxide Level 19, Anion Gap 7, Blood Urea Nitrogen 36, Creatinine 1.36, Estimat Glomerular Filtration Rate 54, BUN/Creatinine Ratio 26, Glucose Level 110, Calcium Level 9.6, Corrected Calcium 11.2, Total Bilirubin 0.3, Aspartate Amino Transf (AST/SGOT) 28, Alanine Aminotransferase (ALT/SGPT) 19, Alkaline Phosphatase 113, Total Protein 4.8, Albumin 2.0 02/02/23 08:15: White Blood Count 22.8, Red Blood Count 2.93, Hemoglobin 8.9, Hematocrit 28, Mean Corpuscular Volume 96, Mean Corpuscular Hemoglobin 30, Mean Corpuscular Hemoglobin Concent 32, Red Cell Distribution Width 15.4, Platelet Count 395, Mean Platelet Volume 10.9, Immature Granulocyte % (Auto) 2, Neutrophils (%) (Auto) 81, Lymphocytes (%) (Auto) 12, Monocytes (%) (Auto) 4, Eosinophils (%) (Auto) 1, Basophils (%) (Auto) 0, Neutrophils # (Auto) 18.4, Lymphocytes # (Auto) 2.7, Monocytes # (Auto) 1.0, Eosinophils # (Auto) 0.3, Basophils # (Auto) 0.0, Immature Granulocyte # (Auto) 0.4, Sodium Level 136, Potassium Level 4.5, Chloride Level 105, Carbon Dioxide Level 21, Anion Gap 10, Blood Urea Nitrogen 31, Creatinine 1.69, Estimat Glomerular Filtration Rate 42, BUN/Creatinine Ratio 18, Glucose Level 101, Calcium Level 9.7, Corrected Calcium 11.0, Total Bilirubin 0.4, Aspartate Amino Transf (AST/SGOT) 19, Alanine Aminotransferase (ALT/SGPT) 20, Alkaline Phosphatase 116, Total Protein 5.5, Albumin 2.4, Neutrophils % (Manual) 90, Lymphocytes % (Manual) 9, Monocytes % (Manual) 1, Percent Immature Platelet Fraction 6.4, Hypochromasia SLIGHT, Anisocytosis SLIGHT, Absolute Reticulocyte Count 78, Percent Reticulocyte Count 2.65, Lactate Dehydrogenase 187 02/03/23 05:46: White Blood Count 18.9, Red Blood Count 2.33, Hemoglobin 7.0, Hematocrit 22, Mean Corpuscular Volume 94, Mean Corpuscular Hemoglobin 30, Mean Corpuscular Hemoglobin Concent 32, Red Cell Distribution Width 15.4, Platelet Count 336, Mean Platelet Volume 10.8, Immature Granulocyte % (Auto) 1, Neutrophils (%) (Auto) 83, Lymphocytes (%) (Auto) 10, Monocytes (%) (Auto) 5, Eosinophils (%) (Auto) 1, Basophils (%) (Auto) 0, Neutrophils # (Auto) 15.6, Lymphocytes # (Auto) 2.0, Monocytes # (Auto) 0.9, Eosinophils # (Auto) 0.2, Basophils # (Auto) 0.0, Immature Granulocyte # (Auto) 0.2, Sodium Level 133, Potassium Level 4.2, Chloride Level 105, Carbon Dioxide Level 22, Anion Gap 6, Blood Urea Nitrogen 23, Creatinine 1.54, Estimat Glomerular Filtration Rate 47, BUN/Creatinine Ratio 15, Glucose Level 91, Calcium Level 8.7, Corrected Calcium 10.2, Total Bilirubin 0.4, Aspartate Amino Transf (AST/SGOT) 16, Alanine Aminotransferase (ALT/SGPT) 16, Alkaline Phosphatase 102, Total Protein 4.4, Albumin 2.1 02/05/23 05:30: White Blood Count 22.1, Red Blood Count 2.07, Hemoglobin 6.3, Hematocrit 20, Mean Corpuscular Volume 95, Mean Corpuscular Hemoglobin 30, Mean Corpuscular Hemoglobin Concent 32, Red Cell Distribution Width 16.0, Platelet Count 292, Mean Platelet Volume 10.5, Immature Granulocyte % (Auto) 1, Neutrophils (%) (Auto) 85, Lymphocytes (%) (Auto) 8, Monocytes (%) (Auto) 5, Eosinophils (%) (Auto) 1, Basophils (%) (Auto) 0, Neutrophils # (Auto) 18.8, Lymphocytes # (Auto) 1.7, Monocytes # (Auto) 1.1, Eosinophils # (Auto) 0.2, Basophils # (Auto) 0.1, Immature Granulocyte # (Auto) 0.2, Sodium Level 135, Potassium Level 4.4, Chloride Level 105, Carbon Dioxide Level 22, Anion Gap 8, Blood Urea Nitrogen 19, Creatinine 1.61, Estimat Glomerular Filtration Rate 44, BUN/Creatinine Ratio 12, Glucose Level 91, Calcium Level 8.8, Corrected Calcium 10.5, Total Bilirubin 0.3, Aspartate Amino Transf (AST/SGOT) 12, Alanine Aminotransferase (ALT/SGPT) 11, Alkaline Phosphatase 93, Total Protein 4.5, Albumin 1.9 02/05/23 06:10: Red Blood Count 2.07, Absolute Reticulocyte Count 59, Percent Reticulocyte Count 2.85 02/06/23 05:30: Red Blood Count 3.31, White Blood Count 22.5, Hemoglobin 10.1, Hematocrit 30, Mean Corpuscular Volume 91, Mean Corpuscular Hemoglobin 31, Mean Corpuscular Hemoglobin Concent 34, Red Cell Distribution Width 15.6, Platelet Count 276, Mean Platelet Volume 10.4, Immature Granulocyte % (Auto) 1, Neutrophils (%) (Auto) 86, Lymphocytes (%) (Auto) 7, Monocytes (%) (Auto) 5, Eosinophils (%) (Auto) 1, Basophils (%) (Auto) 0, Neutrophils # (Auto) 19.5, Lymphocytes # (Auto) 1.6, Monocytes # (Auto) 1.1, Eosinophils # (Auto) 0.2, Basophils # (Auto) 0.1, Immature Granulocyte # (Auto) 0.2, Sodium Level 132, Potassium Level 4.4, Chloride Level 102, Carbon Dioxide Level 22, Anion Gap 8, Blood Urea Nitrogen 17, Creatinine 1.48, Estimat Glomerular Filtration Rate 49, BUN/Creatinine Ratio 11, Glucose Level 84, Calcium Level 8.9, Corrected Calcium 10.5, Total Bilirubin 0.7, Aspartate Amino Transf (AST/SGOT) 12, Alanine Aminotransferase (ALT/SGPT) 11, Alkaline Phosphatase 96, Total Protein 4.8, Albumin 2.0 Discharge Home Medications: Active Scripts Active Tab-A-Ro Multivit with Iron (Multivitamin/Iron/Folic Acid) 18 Mg Iron-400 Mcg Tablet 1 Ea PO DAILY@0700 Vitamin B-1 (Thiamine HCl) 100 Mg Tablet 100 Mg PO DAILY@0700 Acidophilus-Pectin Capsule (Lactobacillus Acidophilus/Pect) 75 Million Cell-100 Mg Capsule 2 Each PO TIDWM Pantoprazole Sodium 40 Mg Tablet.dr 40 Mg PO DAILY Loperamide (Loperamide HCl) 2 Mg Capsule 2 Mg PO NEEDED PRN Citalopram HBr (Citalopram Hydrobromide) 10 Mg Tablet 10 Mg PO DAILY Oxyir Tablet (Oxycodone HCl) 5 Mg Tab 5 Mg PO BID PRN Reported Loratadine 10 Mg Tablet 10 Mg PO DAILY PRN Ibuprofen 200 Mg Tablet 600 Mg PO Q6H PRN Vitamin B-12 (Cyanocobalamin (Vitamin B-12)) 1,000 Mcg Tablet 1,000 Mg PO DAILY Vitamin D2 (Ergocalciferol (Vitamin D2)) 1,250 Mcg (38364 Unit) Capsule 1,250 Mcg PO TUES Megestrol Acetate 20 Mg Tablet 20 Mg PO DAILY Folic Acid 1 Mg Tablet 1 Mg PO DAILY Instructions to patient/family Please see electronic discharge instructions given to patient. Diagnosis/Problems Diagnosis/Problems (1) Pneumonia (2) Low BMI Status: Acute (3) Community acquired pneumonia Status: Acute (4) Alcoholism Status: Acute (5) Elevated brain natriuretic peptide (BNP) level Status: Acute (6) THOMAS (acute kidney injury) Status: Acute (7) Generalized weakness Status: Acute (8) Dehydration Status: Acute (9) Malnutrition Status: Acute (10) Hypertension Status: Acute DARINEL CHESTER DO Feb 06, 2023 05:00
--- NOTE | 2023-02-06 05:00 | D/C HH Face to Face Order ---
D/C Face to Face Orders Reconcile Patient Problems Problems Reviewed?: Yes Instructions for Patient Via [facility], Patient Instructions/FollowUp: pcp 1 week Physician to follow Patient: [facility] Discharge Diet for Home: No Restrictions Patient Problems: Debility MRSA PNA Patient Data-Allergies,Ht & Wt Patient Allergies: Coded Allergies: No Known Drug Allergies (Unverified , 03/22/22) Home Health Need/Face to Face Date of Face to Face: Feb 06, 2023 Clinical Findings: Generalized weakness and fatigue, Instability, Muscle weakness I have seen Pt [id number]: Yes Discharged To: Home Diagnosis/Conditions: Debility Patient is Homebound due to: Anam fall risk due to instabilty, Muscle weakness Homebound Status Due to the above stated illness, injury or surgical procedure (medical condition or diagnosis) and associated clinical findings, the patient is homebound because of his/her inability to leave home except with aid of a supportive device and/or person AND leaving the home requires a considerable and taxing effort or is medically contraindicated. Pt req the following assistanc: Walker Home Health Nursing Orders Home Health Services Order: Nursing Services, Set Up / Operator-Evaluate & Treat, Physical Therapy-Evaluate & Treat Home Health Infusion Therapy Line Start Date: Feb 03, 2023 Certify Stmt I certify that this patient is under my care and that I, a nurse practitioner or a physician; a virtual assistant working with me, had a face to face encounter that - meets the physician face to face encounter requirements with this patient as dated. DARINEL CHESTER DO Feb 06, 2023 05:00
[2023-02-06 05:38] LABS: BASOPHILS # (AUTO) 0.1 10^3/uL (0.0-0.1); BASOPHILS % (AUTO) 0 % (0-10); EOSINOPHILS # (AUTO) 0.2 10^3/uL (0.0-0.3); EOSINOPHILS % (AUTO) 1 % (0-10); HEMATOCRIT 30 % (40-54); HEMOGLOBIN 10.1 g/dL (13.3-17.7); LYMPHOCYTES # (AUTO) 1.6 10^3/uL (1.0-4.0); LYMPHOCYTES % (AUTO) 7 % (12-44); MEAN CORPUSCULAR HEMOGLOBIN 31 pg (25-34); MEAN CORPUSCULAR HGB CONC 34 g/dL (32-36); MEAN CORPUSCULAR VOLUME 91 fL (80-99); MEAN PLATELET VOLUME 10.4 fL (9.0-12.2); MONOCYTES # (AUTO) 1.1 10^3/uL (0.0-1.0); MONOCYTES % (AUTO) 5 % (0-12); NEUTROPHILS # (AUTO) 19.5 10^3/uL (1.8-7.8); NEUTROPHILS % (AUTO) 86 % (42-75); PLATELET COUNT 276 10^3/uL (130-400); WHITE BLOOD COUNT 22.5 10^3/uL (4.3-11.0)
[2023-02-06 05:49] LABS: POTASSIUM 4.4 MMOL/L (3.6-5.0)
[2023-02-06 05:50] LABS: CALCIUM 8.9 MG/DL (8.5-10.1)
[2023-02-06 05:51] LABS: TOTAL PROTEIN 4.8 GM/DL (6.4-8.2)
[2023-02-06 05:53] LABS: BILIRUBIN,TOTAL 0.7 MG/DL (0.1-1.0)
[2023-02-06 05:55] LABS: CREATININE SERUM 1.48 MG/DL (0.60-1.30)
[2023-02-06] MEDS: THIAMINE 100 MG (VITAMIN B-1) TAB PO SCH (06:09)
[2023-02-06] MEDS: THERAPEUTIC MULTIVITAMIN W/MINERALS TABLET PO SCH (06:09)
[2023-02-06] MEDS: ACETAMINOPHEN 500 MG TABLET PO SCH ×2 (06:09→14:11)
[2023-02-06] MEDS: CATHETER FLUSH 10 ML SYR IVP SCH ×2 (06:09→14:12)
[2023-02-06 08:00] VITALS: BP 126/60
[2023-02-06] MEDS: CHOLESTYRAMINE LITE 4 GM PACKET PO SCH ×2 (08:00→13:08)
[2023-02-06] MEDS: CITALOPRAM 10 MG TABLET PO SCH (09:05)
[2023-02-06] MEDS: LACTOBACILLUS ACIDOPHILUS (PROBIOTIC) CAPSULE PO SCH ×2 (09:05→14:11)
[2023-02-06] MEDS: FOLIC ACID 1 MG TAB PO SCH (09:05)
[2023-02-06] MEDS: LIDOCAINE 4% PATCH TOP SCH (09:06)
[2023-02-06] MEDS: PANTOPRAZOLE 40 MG TABLET PO SCH (09:06)
[2023-02-06] MEDS: LINEZOLID 600 MG TABLET PO SCH (09:06)
[2023-02-06] MEDS: MEGESTROL 400 MG/10 ML PO SCH (09:06)
[2023-02-06] MEDS: SENNOSIDES 8.6 MG TABLET PO SCH (09:06)
[2023-02-06] MEDS: CYANOCOBALAMIN 1,000 MCG TABLET PO SCH (09:06)
[2023-02-06] MEDS: MAGNESIUM OXIDE 400 MG TABLET PO SCH (09:06)
[2023-02-06] MEDS: DOCUSATE SODIUM 100 MG CAPSULE PO SCH (09:07)
--- NOTE | 2023-02-06 09:29 | Therapy Team Discharge Summary ---
Therapy Discharge Summary Discharge Recommendations Date of Discharge Therapy D/C Recommendations: Bath Aide, Occupational Therapy Home Care Physical Therapy Roll Left to Right (QC): 4 (with multiple cues to complete and bedrail provided.) Sit to Lying (QC): 4 Lying to Sitting/Side of Bed(Q: 3 Sit to Stand (QC): 4 Chair/Vlp-se-Uxzvl Xfer(QC): 3 (Min (A) with FWW /c safety cues) Toilet Transfer (QC): 4 Car Transfer (QC): 3 (Min (A) to lift one leg in/out of car) Does the Patient Walk: Yes Mode of Locomotion: Walk Anticipated Mode of Locomotion: Walk Walk 10 feet (QC): 4 Walk 50 ft with 2 Turns(QC): 4 Walk 150 ft (QC): 7 Walking 10ft on uneven surface: 1 (min (A) of 2 person assist with w/c backup and IV management) Distance: 80' Gait Assistive Device: FWW Does the Pt Use a Wheelchair: Yes Wheel 50 ft with 2 turns (QC): 4 Wheel 150 ft (QC): 9 Type of Wheelchair: Manual #of Steps: 3 1 Step (curb) (QC): 4 4 Steps (QC): 88 (fatigue, weakness) 12 Steps (QC): 88 Walking Assistive Device: Walker Balance Sitting Static: Good Balance Sitting Dynamic: Fair Balance-Standing Static: Fair Picking up an Object (QC): 1 (patient attempted and unable to reach floor and maintain balance.) Occupational Therapy Pt admitted to ARU with PNA. At [facility], pt was independent with ADLS and functional mobility. Upon initial evaluation, pt required set up with eating and oral care, min A UBD/LBD, footwear and toileting, and SBA showering. OT tx focused on increasing safety and independence with ADLS and functional mobility, and increasing BUE strength and activity tolerance. Tx sessions limited by pt's reluctance to participate and max encouragement required to complete tasks. Pt made some progress towards goals, attaining LTGs for showering and UBD. Pt discharging home with spouse, d/c from OT. Decreased Activ Tolerance, Decreased UE Strength, Impaired Funct Balance, Impaired I ADL's, Impaired Self-Care Skills Eating (QC): 5 Oral Hygiene (QC): 5 Shower/Bathe Self (QC): 4 (Pt completed showering sitting on shower chair with supervision for safety. Pt requiring encouragment for thouroughness throughout shower. ) Upper Body Dressing (QC): 5 Lower Body Dressing (QC): 3 (Pt requiring some assistance to thread feet throu gh pants. Requiring encouragment to participate to his full potential, though with encouragment performed LBD with min A. ) On/Off Footwear (QC): 3 (Pt donned and doffed socks with supervision, though required assistance to don his house slippers. ) Toileting Hygiene (QC): 4 (Encouragement to required to complete himself. Pt able to complete clothing management and hygiene.) PT Half-Way Goals Half-Way Goals PT Half-Way Goals Time Frame: Feb 12, 2023 Roll Left to Right (QC): 6 Sit to Lying (QC): 6 Lying-Sitting on Side/Bed(QC): 6 Sit to Stand (QC): 5 Chair/Qyc-mr-Iplhd Xfer(QC): 5 Toilet/Commode Transfer (QC): 5 Car Transfer (QC): 5 Does the Patient Walk: Yes Walk 10 feet (QC): 5 (/c FWW and O2 assist if necessary) Walk 10ft-Uneven Surface(QC): 5 (/c FWW and O2 assist if necessary) Walk 50ft with 2 Turns (QC): 5 (/c FWW and O2 assist if necessary) Walk 150 ft (QC): 5 (/c FWW and O2 assist if necessary) Does the Pt use WC or Scooter?: No Wheel 50 feet with 2 turns (QC: 9 Wheel 150 feet: 9 1 Step (curb) (QC): 5 (O2 assist if necessary) 4 Steps (QC): 5 (/c railings, O2 assist if necessary) 12 Steps (QC): 5 (O2 (A) if necessary) Picking up an Object (QC): 5 (/c paint stripper) OT Half-Way Goals Seed Tester Goals Time Frame: Feb 14, 2023 Acute change in mental status: 0 Inattention: 0 Disorganized thinkin Altered level of consciousness: 0 Eating (QC): 6 Oral Hygiene (QC): 6 Toileting Hygiene (QC): 6 Shower/Bathe Self (QC): 4 Upper Body Dressing (QC): 5 Lower Body Dressing (QC): 5 On/Off Footwear (QC): 5 Additional Goals: 1-Demonstrate ADL Tasks, 2-Verbalize Understanding, 3-ImproveStrength/Carlotta 1=Demonstrate adherence to instructed precautions during ADL tasks. 2=Patient will verbalize/demonstrate understanding of assistive devices/modifications for ADL. 3=Patient will improve strength/tolerance for activity to enable patient to perform ADL's. Speech Half-Way Goals Seed Tester Goals The pt will complete simple functional verbal problem solving with 70% accuracy. The pt will increase participation in conversational turn-taking. MUKUND RUEDA OT Feb 06, 2023 09:29
[2023-02-06] MEDS ORDERED: POTASSIUM CHLORIDE 20 MEQ TABLET PO NR (10:00)
--- NOTE | 2023-02-06 10:34 | Progress Note ---
AFRICA MACKENZIE 02/06/23 1034: Progress Note 77 year old male, here for recovery from CAP, currently on treatment with vancomycin and linezolid. He has had a persistent lymphocytosis during his stay with a WBC of 18.9, but has a left upper lobe mass that is a questionable neoplastic process. Upon admission, he required minimal assistance to complete ADLs with the goal of treatment being to complete ADLs only with assistance setting up. Patient requires a lot of encouragement with completing ADLs and is currently fatigued. He is somewhat improved after blood transfusion with a Hbg of 10. He is getting discharged today. DARLIN CHESTER DO 02/06/232049: Supervisory-Addendum Brief Verification & Attestation Participated in pt care: history, MDM, physical Personally performed: exam, history, MDM, supervision of care Care discussed with: Medical Student Procedures: n/a Results interpretation: Verified all documentation Verification and Attestation of Medical Student E/M Service A medical student performed and documented this service in my presence. I reviewed and verified all information documented by the medical student and made modifications to such information, when appropriate. I personally performed the physical exam and medical decision making. Darlin Chester, Feb 06, 2023,20:47 AFRICA MACKENZIE Feb 06, 2023 10:34 DARLIN CHESTER DO Feb 06, 2023 20:50
--- NOTE | 2023-02-06 14:12 | Therapy Team Discharge Summary ---
Therapy Discharge Summary Discharge Recommendations Date of Discharge Therapy D/C Recommendations: Bath Aide, Occupational Therapy Home Care Physical Therapy Roll Left to Right (QC): 4 (with multiple cues to complete and bedrail provided.) Sit to Lying (QC): 4 Lying to Sitting/Side of Bed(Q: 3 Sit to Stand (QC): 4 Chair/Suf-wg-Wufzr Xfer(QC): 3 (Min (A) with FWW /c safety cues) Toilet Transfer (QC): 4 Car Transfer (QC): 3 (Min (A) to lift one leg in/out of car) Does the Patient Walk: Yes Mode of Locomotion: Walk Anticipated Mode of Locomotion: Walk Walk 10 feet (QC): 4 Walk 50 ft with 2 Turns(QC): 4 Walk 150 ft (QC): 7 Walking 10ft on uneven surface: 1 (min (A) of 2 person assist with w/c backup and IV management) Distance: 80' Gait Assistive Device: FWW Does the Pt Use a Wheelchair: Yes Wheel 50 ft with 2 turns (QC): 4 Wheel 150 ft (QC): 9 Type of Wheelchair: Manual #of Steps: 3 1 Step (curb) (QC): 4 4 Steps (QC): 88 (fatigue, weakness) 12 Steps (QC): 88 Walking Assistive Device: Walker Balance Sitting Static: Good Balance Sitting Dynamic: Fair Balance-Standing Static: Fair Picking up an Object (QC): 1 (patient attempted and unable to reach floor and maintain balance.) Occupational Therapy Decreased Activ Tolerance, Decreased UE Strength, Impaired Funct Balance, Impaired I ADL's, Impaired Self-Care Skills Eating (QC): 5 Oral Hygiene (QC): 5 Shower/Bathe Self (QC): 4 (Pt completed showering sitting on shower chair with supervision for safety. Pt requiring encouragment for thouroughness throughout shower. ) Upper Body Dressing (QC): 5 Lower Body Dressing (QC): 3 (Pt requiring some assistance to thread feet through pants. Requiring encouragment to participate to his full potential, th ough with encouragment performed LBD with min A. ) On/Off Footwear (QC): 3 (Pt donned and doffed socks with supervision, though required assistance to don his house slippers. ) Toileting Hygiene (QC): 4 (Encouragement to required to complete himself. Pt able to complete clothing management and hygiene.) Speech-Language Pathology The pt made good gains on cognitive and problem solving goals, though performance was variable each day. He consistently refused PO intake, and or had minimal intake at meals throughout admission, overall nutritional status is low. Swallow ability appeared safe, and was not impacting amount of PO intake. PT Adzing And Boring Machine Helper Goals Adzing And Boring Machine Helper Goals PT Adzing And Boring Machine Helper Goals Time Frame: Feb 12, 2023 Roll Left to Right (QC): 6 Sit to Lying (QC): 6 Lying-Sitting on Side/Bed(QC): 6 Sit to Stand (QC): 5 Chair/Lpk-jc-Qwjle Xfer(QC): 5 Toilet/Commode Transfer (QC): 5 Car Transfer (QC): 5 Does the Patient Walk: Yes Walk 10 feet (QC): 5 (/c FWW and O2 assist if necessary) Walk 10ft-Uneven Surface(QC): 5 (/c FWW and O2 assist if necessary) Walk 50ft with 2 Turns (QC): 5 (/c FWW and O2 assist if necessary) Walk 150 ft (QC): 5 (/c FWW and O2 assist if necessary) Does the Pt use WC or Scooter?: No Wheel 50 feet with 2 turns (QC: 9 Wheel 150 feet: 9 1 Step (curb) (QC): 5 (O2 assist if necessary) 4 Steps (QC): 5 (/c railings, O2 assist if necessary) 12 Steps (QC): 5 (O2 (A) if necessary) Picking up an Object (QC): 5 (/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 2=Patient will verbalize/demonstrate understanding of assistive devices/modifications for ADL. 3=Patient will improve strength/tolerance for activity to enable patient to perform ADL's. Speech Mcfp Goals Adzing And Boring Machine Helper Goals The pt will complete simple functional verbal problem solving with 70% accuracy. The pt will increase participation in conversational turn-taking. DARLIN FLOWERS Feb 06, 2023 14:12
[2023-02-06 14:55] VITALS: BP 126/60
== END 2023-02-06 14:50 | disposition home health service (06) | DRG 178 ==
PROVIDERS: ADMIT Internal Medicine; ATTEND Internal Medicine
DX: J15.212 Pneumonia due to Methicillin resistant Staphylococcus aureus (principal); E46 Unspecified protein-calorie malnutrition; Z68.1 Body mass index [BMI] 19.9 or less, adult; J44.0 Chronic obstructive pulmonary disease with (acute) lower respiratory infection; J44.1 Chronic obstructive pulmonary disease with (acute) exacerbation; F10.20 Alcohol dependence, uncomplicated; F17.200 Nicotine dependence, unspecified, uncomplicated; N18.30 Chronic kidney disease, stage 3 unspecified; D50.9 Iron deficiency anemia, unspecified; Z79.899 Other long term (current) drug therapy; R91.8 Other nonspecific abnormal finding of lung field; E83.52 Hypercalcemia; R19.7 Diarrhea, unspecified; R54 Age-related physical debility; D72.820 Lymphocytosis (symptomatic); S32.019D Unspecified fracture of first lumbar vertebra, subsequent encounter for fracture with routine healing
CPT/HCPCS: 36410; 36415; 76937; 80053; 83615; 85007; 85025; 85027; 85045; 85055; 86850; 86900; 86901; 86920; 87324; 87449; 94664; 94760; 94761

== ENCOUNTER 2023-03-09 16:33 | Inpatient (IN) | payer MEDICARE, OTHER ==
[~2023-03-09] VITALS: Ht 182 cm; Wt 46.0 kg
[~2023-03-09 16:33] MED LIST changes: +CITA10TA9 PO; +LACT1CAP7 PO; +LOPE2CAP PO; +MULT-1137 PO; +OXC5T PO; +THIA100T80 PO
[2023-03-09] MEDS ORDERED: NS IV 1000 ML 1,000 ML IV STA ×2 (16:42→17:25)
[2023-03-09 16:45] LABS: BASOPHILS % (AUTO) 0 % (0-10); EOSINOPHILS % (AUTO) 0 % (0-10); HEMATOCRIT 33 % (40-54); HEMOGLOBIN 9.6 g/dL (13.3-17.7); LYMPHOCYTES # (AUTO) 2.4 10^3/uL (1.0-4.0); LYMPHOCYTES % (AUTO) 28 % (12-44); MEAN CORPUSCULAR HEMOGLOBIN 30 pg (25-34); MEAN CORPUSCULAR HGB CONC 29 g/dL (32-36); MEAN CORPUSCULAR VOLUME 103 fL (80-99); MEAN PLATELET VOLUME 12.3 fL (9.0-12.2); MONOCYTES # (AUTO) 0.2 10^3/uL (0.0-1.0); MONOCYTES % (AUTO) 2 % (0-12); NEUTROPHILS # (AUTO) 5.9 10^3/uL (1.8-7.8); NEUTROPHILS % (AUTO) 69 % (42-75); PLATELET COUNT 70 10^3/uL (130-400); WHITE BLOOD COUNT 8.6 10^3/uL (4.3-11.0)
[2023-03-09 16:59] LABS: INR 1.2 (0.8-1.4); PROTHROMBIN TIME PATIENT 15.9 SEC (12.2-14.7)
[2023-03-09 17:00] LABS: CALCIUM 8.9 MG/DL (8.5-10.1); CHLORIDE 96 MMOL/L (98-107); MAGNESIUM 2.6 MG/DL (1.6-2.4); POTASSIUM 4.6 MMOL/L (3.6-5.0); SODIUM 130 MMOL/L (135-145)
[2023-03-09 17:07] LABS: ALANINE AMINOTRANSFERASE 32 U/L (0-55); ALBUMIN 2.7 GM/DL (3.2-4.5); ALKALINE PHOSPHATASE 279 U/L (40-136); BILIRUBIN,TOTAL 0.4 MG/DL (0.1-1.0); BUN/CREATININE RATIO 10; CREATININE SERUM 2.07 MG/DL (0.60-1.30); GFR ESTIMATED 33; GLUCOSE 124 MG/DL (70-105); TOTAL PROTEIN 5.5 GM/DL (6.4-8.2)
[2023-03-09 17:12] LABS: CARBON DIOXIDE 8 MMOL/L (21-32)
--- NOTE | 2023-03-09 17:19 | ED General ---
General Stated Complaint: UNRESPONSIVE Source of Information: Patient, EMS, Old Records (Notes from Admit to [facility] 01/25/2023 and Rehab unit stay after acute care admit) Exam Limitations: Physical Impairments (severe deconditioning and weakness) History of Present Illness Date Seen by Provider: Mar 09, 2023 Time Seen by Provider: 16:33 Initial Comments 77-year-old male presenting by EMS from home. He was found by EMS slumped over on the toilet with agonal respirations and a weak pulse. He has reportedly been getting weaker and not eating or drinking well since being discharged from the hospital a month ago. Per EMS his family reported the patient did not want to be intubated or on a ventilator. He has had a significant and continued decline in his health over the last few months. He is cachectic and emaciated. From speaking with his and a stepdaughter he has not been eating or drinking well and has been having diarrhea. He has not been wanting to do any activities or cooperate with any sort of therapies. His states that they have not filled out DNR paperwork but that he did not want to be intubated or placed on a ventilator. He had said before that he would want to be DNR but they have again just completed the paperwork. Today he had a syncopal episode on the toilet and prompted EMS to transport him here to the emergency department. Severity: Severe Associated Systoms: No Chest Pain, No Cough, No Diaphoresis; Loss of Appetite, Malaise; No Seizure; Shortness of Air, Syncope, Weakness Allergies and Home Medications Allergies Coded Allergies: No Known Drug Allergies (Unverified , 03/22/22) Patient Home Medication List Home Medication List Reviewed: Yes Citalopram Hydrobromide (Citalopram HBr) 10 Mg Tablet, 10 MG PO DAILY Prescribed by: DARINEL CHESTER on 02/06/23 5247 Cyanocobalamin (Vitamin B-12) (Vitamin B-12) 1,000 Mcg Tablet, 1,000 MG PO DAILY, (Reported) Entered as Reported by: BRYAN GONZALEZ on 01/27/23 1255 Ergocalciferol (Vitamin D2) (Vitamin D2) 1,250 Mcg (87561 Unit) Capsule, 1,250 MCG PO TUES, (Reported) Entered as Reported by: BRYAN GONZALEZ on 01/27/23 125 Folic Acid (Folic Acid) 1 Mg Tablet, 1 MG PO DAILY, (Reported) Entered as Reported by: STEVEN SANABRIA on 01/26/23 141 Ibuprofen (Ibuprofen) 200 Mg Tablet, 600 MG PO Q6H PRN for PAIN-MILD (1-4), (Reported) Entered as Reported by: BRYAN GONZALEZ on 01/27/231254 Lactobacillus Acidophilus/Pect (Acidophilus-Pectin Capsule) 75 Million Cell-100 Mg Capsule, 2 EACH PO TIDWM Prescribed by: DARINEL CHESTER on 02/06/23458 Loperamide HCl (Loperamide) 2 Mg Capsule, 2 MG PO NEEDED PRN for diarrhea Prescribed by: DARINEL CHESTER on 02/06/23458 Loratadine (Loratadine) 10 Mg Tablet, 10 MG PO DAILY PRN for CONGESTION, (R eported) Entered as Reported by: BRYAN GONZALEZ on 01/27/231254 Megestrol Acetate (Megestrol Acetate) 20 Mg Tablet, 20 MG PO DAILY, (Reported) Entered as Reported by: STEVEN SANABRIA on 01/26/231414 Multivitamin/Iron/Folic Acid (Tab-A-Ro Multivit with Iron) 18 Mg Iron-400 Mcg Tablet, 1 EA PO DAILY@0700 Prescribed by: DARINEL CHESTER on 02/06/23458 Oxycodone Hcl (Oxyir Tablet) 5 Mg Tab, 5 MG PO BID PRN for PAIN-SEE DOSE INSTRUCTIONS Prescribed by: DARINEL CHESTER on 02/06/23458 Pantoprazole Sodium (Pantoprazole Sodium) 40 Mg Tablet.dr, 40 MG PO DAILY Prescribed by: DARINEL CHESTER on 02/06/23458 Thiamine HCl (Vitamin B-1) 100 Mg Tablet, 100 MG PO DAILY@0700 Prescribed by: DARINEL CHESTER on 02/06/23458 Review of Systems Review of Systems Constitutional: chills; No diaphoresis, No fever; malaise, weakness EENTM: no symptoms reported Respiratory: see HPI Cardiovascular: palpitations, syncope Gastrointestinal: diarrhea, loss of appetite; No nausea, No vomiting Genitourinary: decreased output Musculoskeletal: no symptoms reported Skin: no symptoms reported Psychiatric/Neurological: See HPI Past Dfzudqd-Xlqffa-Ixdwxk Hx Patient Social History Smoking Status: Former Smoker Past Medical History Surgery/Hospitalization HX: ALCOHOL WITHDRAWL 1 PINT DAILY, SHOULDER SURGERY, NEUROPATHY, ARTHRITIS Surgeries: Yes Orthopedic COPD Currently Using CPAP: No Currently Using BIPAP: No Physical Exam Vital Signs Vital Signs - First Documented 03/09/23 16:35 Temp 36.5 Pulse 135 Resp 23 B/P (MAP) 153/118 (130) Pulse Ox 97 O2 Delivery Room Air Capillary Refill : Height, Weight, BMI Height: '" Weight: lbs. oz. kg; 17.71 BMI Method: General Appearance: No Apparent Distress, Chronically ill, Cachetic, Thin HEENT: PERRL/EOMI; No Moist Mucous Membranes (Dry mucous membranes) Neck: Non Tender, Supple Respiratory: Chest Non Tender, No Accessory Muscle Use, No Respiratory Distress, Decreased Breath Sounds Cardiovascular: Normal Peripheral Pulses, Tachycardia Gastrointestinal: Normal Bowel Sounds, No Pulsatile Mass, Non Tender, Soft Rectal: Deferred Extremity: Normal Range of Motion, Non Tender, No Calf Tenderness, No Pedal Edema, Slow Capillary Refill (3 to 4-second capillary refill with cool extremities) Neurologic/Psychiatric: Alert, No Motor/Sensory Deficits, 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 After hydration and when family showed up he was speaking some but only in 1-2 word sentences.) Skin: Cool, Pallor Focused Exam Lactate Level 03/09/23 16:40: Lactic Acid Level 13.13*H Lactic Acid Level Laboratory Tests Test 03/09/23 16:40 Lactic Acid Level 13.13 MMOL/L (0.50-2.00) *H Progress/Results/Core Measures Suspected Sepsis SIRS Temperature: Pulse: Respiratory Rate: Laboratory Tests 03/09/23 16:40: White Blood Count 8.6 Blood Pressure / Mean: 03/09/23 16:40: Lactic Acid Level 13.13*H Laboratory Tests 03/09/23 16:40: Creatinine 2.07H, INR Comment 1.2, Platelet Count 70L, Total Bilirubin 0.4 Results/Orders Lab Results Laboratory Tests Test 03/09/23 16:40 03/09/23 18:00 Range/Units White Blood Count 8.6 4.3-11.0 10^3/uL Red Blood Count 3.19 L 4.30-5.52 10^6/uL Hemoglobin 9.6 L 13.3-17.7 g/dL Hematocrit 33 L 40-54 % Mean Corpuscular Volume 103 H 80-99 fL Mean Corpuscular Hemoglobin 30 25-34 pg Mean Corpuscular Hemoglobin Concent 29 L 32-36 g/dL Red Cell Distribution Width 15.9 H 10.0-14.5 % Platelet Count 70 L 130-400 10^3/uL Mean Platelet Volume 12.3 H 9.0-12.2 fL Immature Granulocyte % (Auto) 1 % Neutrophils (%) (Auto) 69 42-75 % Lymphocytes (%) (Auto) 28 12-44 % Monocytes (%) (Auto) 2 0-12 % Eosinophils (%) (Auto) 0 0-10 % Basophils (%) (Auto) 0 0-10 % Neutrophils # (Auto) 5.9 1.8-7.8 10^3/uL Lymphocytes # (Auto) 2.4 1.0-4.0 10^3/uL Monocytes # (Auto) 0.2 0.0-1.0 10^3/uL Eosinophils # (Auto) 0.0 0.0-0.3 10^3/uL Basophils # (Auto) 0.0 0.0-0.1 10^3/uL Immature Granulocyte # (Auto) 0.1 0.0-0.1 10^3/uL Prothrombin Time 15.9 H 12.2-14.7 SEC INR Comment 1.2 0.8-1.4 Activated Partial Thromboplast Time 37 H 24-35 SEC Sodium Level 130 L 135-145 MMOL/L Potassium Level 4.6 3.6-5.0 MMOL/L Chloride Level 96 L 98-107 MMOL/L Carbon Dioxide Level 8 *L 21-32 MMOL/L Anion Gap 26 H 5-14 MMOL/L Blood Urea Nitrogen 21 H 7-18 MG/DL Creatinine 2.07 H 0.60-1.30 MG/DL Estimat Glomerular Filtration Rate 33 BUN/Creatinine Ratio 10 Glucose Level 124 H 70-105 MG/DL Lactic Acid Level 13.13 *H 0.50-2.00 MMOL/L Calcium Level 8.9 8.5-10.1 MG/DL Corrected Calcium 9.9 8.5-10.1 MG/DL Magnesium Level 2.6 H 1.6-2.4 MG/DL Total Bilirubin 0.4 0.1-1.0 MG/DL Aspartate Amino Transf (AST/SGOT) 84 H 5-34 U/L Alanine Aminotransferase (ALT/SGPT) 32 0-55 U/L Alkaline Phosphatase 279 H 40-136 U/L Troponin I < 0.30 <0.30 NG/ML C-Reactive Protein 11.85 H <0.50 MG/DL Pro-B-Type Natriuretic Peptide 2510.0 H <450.0 PG/ML Total Protein 5.5 L 6.4-8.2 GM/DL Albumin 2.7 L 3.2-4.5 GM/DL Serum Alcohol < 10 <10 MG/DL Influenza Type A (RT-PCR) Not Detected Not Detecte Influenza Type B (RT-PCR) Not Detected Not Detecte SARS-CoV-2 RNA (RT-PCR) Detected H Not Detecte My Orders Orders - BETSY SIMONS MD Cbc And Automated Diff (03/09/23 16:39) Comprehensive Metabolic Panel (03/09/23 16:39) Blood Culture (03/09/23 16:39) Ua Culture If Indicated (03/09/23 16:39) Chest 1 View Ap/Pa Only (03/09/23 16:39) Ed Iv/Invasive Line Start (03/09/23 16:39) Crp Fs (03/09/23 16:39) Lactic Acid Analyzer (03/09/23 16:39) Alcohol (03/09/23 16:39) Ekg Tracing (03/09/23 16:39) Monitor-Rhythm Ecg Trace Only (03/09/23 16:39) Troponin I Fs (03/09/23 16:39) Probnp Fs (03/09/23 16:39) Protime With Inr (03/09/23 16:39) Partial Thromboplastin Time (03/09/23 16:39) Covid 19 Inhouse Test (03/09/23 16:39) Influenza A And B By Pcr (03/09/23 16:39) Stool Culture (03/09/23 16:42) Fecal Wbc (03/09/23 16:42) C Difficile Ag + Toxin A/B. (03/09/23 16:42) Ns Iv 1000 Ml (Ns Iv 1000 Ml) (03/09/23 16:42) Hernandez Cath (03/09/23 16:42) Magnesium (03/09/23 16:42) Ct Head Wo (03/09/23 17:22) Ns Iv 1000 Ml (Ns Iv 1000 Ml) (03/09/23 17:25) Code/Resuscitation (03/09/23 17:25) Ed Admission (Communication) (03/09/23 17:45) Vital Signs/I&O 03/09/23 03/09/23 16:35 18:26 Temp 36.5 36.5 Pulse 135 105 Resp 23 28 B/P (MAP) 153/118 (130) 124/98 Pulse Ox 97 97 O2 Delivery Room Air Room Air Capillary Refill : Progress Note #1: Progress Note Differential diagnosis includes vasovagal syncope, sepsis, dehydration, myocardial infarction, stroke, COVID, influenza, electrolyte imbalance, renal failure, hepatic failure. IV established by EMS. Send labs for complete blood count, comprehensive metabolic profile, magnesium, troponin, proBNP, CRP, blood cultures, lactic acid, coagulation factors, alcohol, urinalysis, COVID swab, influenza swab. Place Hernandez catheter to document patient's urine output and due to his ta chycardia and hemodynamic instability. Order a liter of normal saline for rehydration. Send some of his diarrhea stool for stool studies and culture. Progress Note #2: Time: 17:33 Progress Note Labs came back showing a normal white blood cell count of 8.6. His hemoglobin shows some chronic anemia with 9.6 value. Platelets are low at 70. His comprehensive metabolic profile showed mild hyponatremia at 130. His CO2 was low at 8. His BUN was slightly elevated at 21. Creatinine up from his baseline of 1.4 or 1.5-2.07. Lactic acid elevated to 13.13. Magnesium elevated to 2.6. CRP is elevated to 11.85 to go along with an infectious or inflammatory process. Alcohol level is less than 10. proBNP was 2510. He did have slight elevation of his pro time to 15.9 with an INR of 1.2. PTT 37. Low albumin at 2.7. He has not produced any urine for urinalysis with a Hernandez catheter placement. A second liter of normal saline was ordered as well as 1 g of vancomycin with him having the elevated lactic acid level. Family does report that he has been on linezolid for possible MRSA infection. His currently has COVID at home. I did call and discussed the case with Dr. Arnold, the on-call hospitalist, about the patient. Counseled on patient's presentation and recent admission for pneumonia and MRSA. He has had continued decline at home and is very cachectic and emaciated and appears dehydrated. His blood pressure is maintaining but he does have tachycardia. He has a history of alcoholism but has not been drinking for the last 2 months. As he did not have a left shift with his white count or an elevation of his white blood cell Dr. Arnold felt like this might be more dehydration and metabolic rather than infectious in terms of the elevated lactic acid and tachycardia. Will continue with hydration but hold the vancomycin out of concern for his already elevated kidney injury of 2.07 for the creatinine. We will continue normal saline at 150 mL/h after the initial [address] We will place bridge orders and admit to a [facility] bed. Patient will be made DNR. Progress Note #3: Time: 18:27 Progress Note COVID swab did come back positive on the patient. This was already presumed since his was positive for COVID as well. But this confirms that he is positive for COVID. ECG Initial ECG Impression Date: Mar 09, 2023 Initial ECG Impression Time: 17:00 Initial ECG Rate: 129 Initial ECG Rhythm: S.Tach Initial ECG Comparisson: Changed (January 27, 2023 it was a sinus rhythm with a normal rate.) Comment My initial interpretation and review shows his electrocardiogram with sinus tachycardia at a rate of 129 bpm. NE interval [address] elevation. QT interval 334 ms with a QTc interval 410 ms. There is artifact on the tracing. This is a change from January 27, 2023 when he had a electrocardiogram that showed a normal sinus rhythm with a normal heart rate Diagnostic Imaging Diagonstic Imaging: Xray Plain Films/CT/US/NM/MRI: chest Comments [facility] [place], [place] NAME: [facility] REC#: [id number] PT STATUS: REG ER : 1945 PHYSICIAN: BETSY SIMONS MD ADMIT DATE: 03/09/23/ER FS Draft Date of Exam:03/09/23 CHEST 1 VIEW AP/PA ONLY INDICATION: 77-year-old male with syncopal episode, shortness of breath. COMPARISON: 01/28/2023. FINDINGS: Single view chest shows marked improvement in the left lung consolidation. There are extensive background chronic parenchymal changes, left worse than right. There is some bilateral apical scarring, left worse than right. Cardiac contour is grossly normal. Soft tissues and bony thorax are unchanged. There are multiple old healed right-sided rib fractures with callus formation. There is diffuse osteopenia. IMPRESSION: 1. Some coarse interstitial opacities in the left lung are most likely chronic. Previously demonstrated left lung consolidation has markedly improved. 2. There is COPD with extensive background chronic parenchymal changes. 3. There is aortic calcific atherosclerosis. 4. There is healing right-sided rib fractures again noted with callus formation. Dictated on workstation # [id number] Dict: 03/09/23 1753 Trans: 03/09/23 1800 PJE [id number] Interpreted by: ROSSANA LOW MD Electronically signed by: Reviewed: Reviewed by Nv Diagonstic Imaging: CT Plain Films/CT/US/NM/MRI: head Comments [facility] [place] [place] NAME: MAGGY [facility] REC#: [id number] PT STATUS: REG ER : 1945 PHYSICIAN: BETSY SIMONS MD ADMIT DATE: 03/09/23/ER FS Draft Date of Exam:03/09/23 CT HEAD WO PROCEDURE: CT head without contrast. TECHNIQUE: Multiple contiguous axial images were obtained through the brain without the use of intravenous contrast. Auto Exposure Controls were utilized during the CT exam to meet ALARA standards for radiation dose reduction. INDICATION: Syncopal episode. COMPARISON: 02/20/2022. FINDINGS: Midline structures are not displaced. Senescent changes are seen with involutional changes and generalized atrophy. There is background chronic areas of microvascular ischemic change. Tyler-white differentiation is normal. Patient motion does limit assessment. There is no abnormal extra axial fluid collection or hemorrhage. There is calcific atherosclerosis within the carotid siphons and visualized vertebral bodies. Sinuses, orbits and mastoid air cells are normal. Bone windows show no caliber change. IMPRESSION: Senescent brain with involutional changes and generalized atrophy with background chronic areas of microvascular ischemic change. There is some calcific atherosclerosis within the carotid siphons and visualized vertebral bodies. Overall, no acute finding identified by nonenhanced CT criteria. Dictated on workstation # [id number] Dict: 03/09/23 1752 Trans: 03/09/23 1820 PJE [id number] Interpreted by: ROSSANA LOW MD Electronically signed by: Reviewed: Reviewed by Me Critical Care Note Critical Care Total Time (minutes) 45 minutes Progress I spent at least 45 minutes of critical care time with the patient. Time excludes separately billable procedures. Time was spent in obtaining history from patient, and stepdaughter as independent historians, EMS is independent historian, ordering tests and reviewing results, reviewing prior medical records with hospital admission January 25 and rehab admission January 29, ordering interventions and reviewing response, discussion with consultants, documentation in the chart. Patient is a risk of cardiovascular collapse and compromised with dehydration and positive COVID infection. He required my immediate and direct intervention and management to help stabilize his condition and arrange for transfer to a higher level of care. Departure Communication (Admissions) Time/Spoke to Admitting Phy: 17:33 I did call and discussed the case with Dr. Arnold, the on-call hospitalist, a bout the patient. Counseled on patient's presentation and recent admission for pneumonia and MRSA. He has had continued decline at home and is very cachectic and emaciated and appears dehydrated. His blood pressure is maintaining but he does have tachycardia. He has a history of alcoholism but has not been drinking for the last 2 months. As he did not have a left shift with his white count or an elevation of his white blood cell Dr. Arnold felt like this might be more dehydration and metabolic rather than infectious in terms of the elevated lactic acid and tachycardia. Will continue with hydration but hold the vancomycin out of concern for his already elevated kidney injury of 2.07 for the creatinine. We will continue normal saline at 150 mL/h after the initial [address] We will place bridge orders and admit to a [facility] bed. Patient will be made DNR. Impression Primary Impression: Vasovagal syncope Additional Impressions: MRSA (methicillin resistant Staphylococcus aureus) infection Dehydration THOMAS (acute kidney injury) COVID-19 virus infection Disposition: 30 STILL A PATIENT Condition: Critical Admissions Decision to Admit Reason: Admit from ER (General) Decision to Admit/Date: Mar 09, 2023 Time/Decision to Admit Time: 17:33 Departure-Patient Inst. Referrals: THANIA OZUNA DO (PCP/Family) Primary Care Physician BETSY SIMONS MD Mar 09, 2023 17:19
[2023-03-09] MEDS ORDERED: VANCOMYCIN INJECTION 1,000 MG in NS (IVPB) 250 ML 250 ML IV STA (17:22)
--- NOTE | 2023-03-09 18:00 | Diagnostic Imaging Report ---
INDICATION: 77-year-old male with syncopal episode, shortness of breath. COMPARISON: 01/28/2023. FINDINGS: Single view chest shows marked improvement in the left lung consolidation. There are extensive background chronic parenchymal changes, left worse than right. There is some bilateral apical scarring, left worse than right. Cardiac contour is grossly normal. Soft tissues and bony thorax are unchanged. There are multiple old healed right-sided rib fractures with callus formation. There is diffuse osteopenia. IMPRESSION: 1. Some coarse interstitial opacities in the left lung are most likely chronic. Previously demonstrated left lung consolidation has markedly improved. 2. There is COPD with extensive background chronic parenchymal changes. 3. There is aortic calcific atherosclerosis. 4. There is healing right-sided rib fractures again noted with callus formation. Dictated by: Dictated on workstation # [id number]
--- NOTE | 2023-03-09 18:21 | Diagnostic Imaging Report ---
PROCEDURE: CT head without contrast. TECHNIQUE: Multiple contiguous axial images were obtained through the brain without the use of intravenous contrast. Auto Exposure Controls were utilized during the CT exam to meet ALARA standards for radiation dose reduction. INDICATION: Syncopal episode. COMPARISON: 02/20/2022. FINDINGS: Midline structures are not displaced. Senescent changes are seen with involutional changes and generalized atrophy. There is background chronic areas of microvascular ischemic change. Tyler-white differentiation is normal. Patient motion does limit assessment. There is no abnormal extra axial fluid collection or hemorrhage. There is calcific atherosclerosis within the carotid siphons and visualized vertebral bodies. Sinuses, orbits and mastoid air cells are normal. Bone windows show no caliber change. IMPRESSION: Senescent brain with involutional changes and generalized atrophy with background chronic areas of microvascular ischemic change. There is some calcific atherosclerosis within the carotid siphons and visualized vertebral bodies. Overall, no acute finding identified by nonenhanced CT criteria. Dictated by: Dictated on workstation # [id number]
[2023-03-09 18:26] VITALS: BP 124/98
[2023-03-09] MEDS ORDERED: ACETAMINOPHEN 650 MG SUPPOSITORY PR PRN (20:00)
[2023-03-09] MEDS ORDERED: LORazepam 1 MG TABLET SL PRN (20:00)
[2023-03-09] MEDS ORDERED: FUROSEMIDE INJECTION 40 MG/4 ML VIAL IVP ONE (20:00)
[2023-03-09] MEDS ORDERED: PROMETHAZINE INJ 25 MG/ML VIAL IVP PRN (20:00)
[2023-03-09] MEDS ORDERED: ONDANSETRON INJECTION 4 MG/2 ML (SDV) IVP PRN (20:00)
[2023-03-09] MEDS ORDERED: BISACODYL 10 MG SUPPOSITORY PR PRN (20:00)
[2023-03-09] MEDS ORDERED: ATROPINE 1% OPHTHALMIC SOLN 2 ML SL PRN (20:00)
[2023-03-09] MEDS ORDERED: RT-Ipratropium/Albuterol NEB 3 ML VIAL INH PRN (20:00)
[2023-03-09] MEDS ORDERED: FUROSEMIDE INJECTION 40 MG/4 ML VIAL ONE (20:06)
[2023-03-09] MEDS ORDERED: morphine INJ 4 MG/ML 1 ML (VIAL/SYRINGE) ONE (20:10)
[2023-03-09] MEDS: morphine INJ 4 MG/ML 1 ML (VIAL/SYRINGE) IV PRN (20:12)
[2023-03-10] MEDS: morphine INJ 4 MG/ML 1 ML (VIAL/SYRINGE) IV PRN ×2 (07:41→12:48)
[2023-03-10] MEDS ORDERED: LORA2ORA PO (10:23)
[2023-03-10] MEDS ORDERED: MORP100S7 PO (10:23)
--- NOTE | 2023-03-10 19:38 | Short Stay Summary-Hospitalist ---
History of Present Illness HPI/Chief Complaint Abelino Ugarte is a 77 year old male with PMH alcoholism, malnutrition, who presented after a syncopal episode. He is a poor historian due to his clinical condition. He was found to be COVID positive. He also had an acute on chronic kidney injury and lactic acidosis. His family elected to transition to comfort measures only status due to his clinical condition and his previous wishes. Source: family Exam Limitations: clinical condition Date Seen 03/10/23 Time Seen by a Provider: 09:45 Attending Physician Alexi Deleon DO PCP Admitting Physician: Angel Arnold MD Attending Physician: Mat Ch MD Referring Physician Date of Admission Mar 09, 2023 at 19:30 Home Medications & Allergies Home Medications Reviewed patient Home Medication Reconciliation performed by pharmacy medication reconciliations heating and cooling technician and/or nursing. Patients Allergies have been reviewed. Allergies Allergies Coded Allergies No Known Drug Allergies ([id number]/2/22) Past Dbbiulz-Krrqkg-Ggdaof Hx Patient Social History Tobacco Use?: No Tobacco type used: Cigarettes Smoking Status: Former Smoker Use of E-Cig and/or Vaping dev: No Substance use?: No Alcohol Use?: Yes Alcohol type: Hard Liquor Pt feels they are or have been: No Current Status Advance Directives: Unable to obtain Communicates: Unable To Communicate Primary Language: Ukrainian Preferred Spoken Language: Ukrainian Is interpretation needed?: No Sensory deficits: Vision impairment, Hearing impairment Past Medical History Surgeries: Orthopedic COPD Currently Using CPAP: No Currently Using BIPAP: No Family Medical History No Pertinent Family Hx Review of Systems Constitutional: see HPI Physical Exam Physical Exam Vital Signs Vital Signs - First Documented 03/09/23 03/09/23 16:35 22:57 Temp 36.5 Pulse 135 Resp 23 B/P (MAP) 153/118 (130) Pulse Ox 97 O2 Delivery Room Air O2 Flow Rate 2.00 Capillary Refill : Less Than 3 Seconds Height, Weight, BMI Height: '" Weight: lbs. oz. kg; 13.88 BMI Method: General Appearance: No Apparent Distress, Chronically ill, Cachetic, Thin Respiratory: No Accessory Muscle Use, No Respiratory Distress, Decreased Breath Sounds Cardiovascular: Normal Peripheral Pulses, Tachycardia Gastrointestinal: Soft; No Distended Extremity: Non Tender, No Pedal Edema Neurologic/Psychiatric: Alert Skin: Pallor Results Results/Procedures Labs Laboratory Tests 03/09/23 16:40 Patient resulted labs reviewed. Imaging: Reviewed Imaging Report Short Stay Diagnosis Discharge Diagnosis-Short Stay Admission Diagnosis Syncope, COVID, THOMAS on CKD Final Discharge Diagnosis Syncope, COVID, THOMAS on CKD, severe protein calorie malnutrition Conclusion Plan Syncope COVID THOMAS on CKD Lactic acidosis Severe protein calorie malnutrition Alcoholism Anemia Thrombocytopenia Transitioned to comfort measures only Discharging home on hospice with [facility] Diagnosis/Problems Diagnosis/Problems (1) Syncope Status: Acute (2) Poor prognosis Status: Acute (3) Comfort measures only status Status: Acute (4) COVID-19 virus infection Status: Acute (5) THOMAS (acute kidney injury) Status: Acute (6) Low BMI Status: Acute (7) Alcoholism Status: Acute (8) Malnutrition Status: Acute MAT CH MD Mar 10, 2023 19:38
== END 2023-03-10 12:55 | disposition hospice, home (50) | DRG 177 ==
LOC: EDUNIT# 16:33 → ER FS 16:34 → 4TH 19:30
PROVIDERS: ADMIT Internal Medicine; ATTEND Internal Medicine
PROC: 8E0ZXY6 Isolation (ICD-10-PCS; principal; 2023-03-10)
DX: U07.1 COVID-19 (principal); E43 Unspecified severe protein-calorie malnutrition; N17.9 Acute kidney failure, unspecified; E87.20 Acidosis, unspecified; Z68.1 Body mass index [BMI] 19.9 or less, adult; R55 Syncope and collapse; N18.9 Chronic kidney disease, unspecified; F10.20 Alcohol dependence, uncomplicated; D64.9 Anemia, unspecified; D69.6 Thrombocytopenia, unspecified; Z51.5 Encounter for palliative care; Z66 Do not resuscitate; Z87.891 Personal history of nicotine dependence; J44.9 Chronic obstructive pulmonary disease, unspecified; E86.0 Dehydration
CPT/HCPCS: 36415; 51702; 70450; 71045; 80053; 80320; 83605; 83735; 83880; 84484; 85025; 85610; 85730; 86141; 87015; 87040; 87045; 87046; 87324; 87449; 87636; 87899; 93041